=== PATIENT | female | born 1940 | race Caucasian/White ===

== ENCOUNTER 2020-01-30 01:25 | Outpatient (CLI) | payer MEDICARE, OTHER, SELFPAY ==
[2020-01-30 19:18] LABS: SARS-CoV-2 RNA PCR Negative
== END 2020-01-30 01:26 | disposition home or self-care (01) ==
LOC: ANHCOVIDDT 01:26
PROVIDERS: PCP Family Medicine; Visit Provider Specialist
DX: Z01.818 Encounter for other preprocedural examination (principal); Z11.59 Encounter for screening for other viral diseases
CPT/HCPCS: 87635; C9803; U0003

== ENCOUNTER 2020-02-01 05:42 | Day surgery (SDC) | payer MEDICARE, OTHER, SELFPAY ==
[2020-01-31 17:22] VITALS: BMI 32.5
[2020-02-01] VITALS (14 sets, daily range): BP systolic 103–144; BP diastolic 54–75; PULSE 60–75; RESP 11–23; TEMP 36.2–36.6; O2SAT 95–99; BMI 33.5
--- NOTE | 2020-02-01 08:45 | SUR.PREOP ---
0830-pt presents to the [facility] for an LHC. No chest pain noted. AOx4. Questions answered and verbalized understanding. Consent signed. AOx4. Moderate bilateral pedal pulses noted. Will continue to monitor.
[2020-02-01 08:49] LABS: Basophils Percent Auto 0.3 % (0.2-1.2); Eosinophils Absolute Auto 0.2 K/mm3 (0-0.3); Eosinophils Percent Auto 1.3 % (0-4.4); Hematocrit 35.7 % (37.0-47.0); Hemoglobin 11.4 g/dL (12.0-15.0); Immature Granulocyte Absolute 0.05 K/mm3 (0.00-0.031); Immature Granulocyte Percent A 0.4 % (0-0.5); Lymphocytes Absolute Auto 2.38 K/mm3 (0.9-3.2); Lymphocytes Percent Auto 19.9 % (18.3-44.2); Mean Corpuscular HGB Conc 31.9 g/dl (32-36); Mean Corpuscular Hemoglobin 27.7 pg (26-34); Mean Corpuscular Volume 86.7 fl (80-100); Mean Platelet Volume 10.6 fl (7.4-10.4); Monocytes Absolute Auto 1.1 K/mm3 (0.1-0.6); Monocytes Percent Auto 8.8 % (2.6-8.5); Neutrophils Absolute Auto 8.3 K/mm3 (1.3-6.7); Neutrophils Percent Auto 69.3 % (45.5-73.1); Platelet Count Result 250 k/mm3 (150-375); Red Blood Count 4.12 M/mm3 (4.2-5.4)
[2020-02-01 08:59] LABS: Prothrombin Time 13.1 Seconds (11.1-14.7)
[2020-02-01 09:02] LABS: Anion Gap 10.4 mmol/L (7-16); Blood Urea Nitrogen 22 mg/dL (7-17); Calcium 9.1 mg/dL (8.4-10.2); Carbon Dioxide 29 mmol/L (22-30); Chloride 103 mmol/L (98-107); Estimated CRCL calculation 34 ml/min; Estimated Glomerular Filt Rate 48; Glucose 107 mg/dL (65-105); Potassium 4.4 mmol/L (3.4-5.0); Sodium 138 mmol/L (137-145)
--- NOTE | 2020-02-01 11:27 | PM.IMHP ---
H&P: HPI History of Present Illness Date/Time: Date of service:02/01/20 11:27 Chief complaint: Abnormal Stress Test Narrative: Zaynab Chang is a 79 year old female History of coronary artery disease with percutaneous revascularization of the LAD and circumflex back in 2011. She is followed in the office by Dr. Salazar. During a recent office visit it was noticed that she was having more frequent PVCs and a Holter monitor was done demonstrating about 16% PVC burden. Because of this a nuclear stress test was done which was reported as showing a mild ischemic defect at the base of the anterior wall with normal left ventricular ejection fraction. For this reason a follow-up angiogram was recommended. She is not reporting any chest pain Review of Systems Constitutional: Constitutional: Reports no additional constitutional complaints Eyes: Eyes: Reports no additional eye complaints ENT: Reports system reviewed and no additional complaints, except as documented Cardiovascular: Cardiovascular: Reports no additional cardiovascular complaints Respiratory: Respiratory: Reports no additional respiratory complaints Gastrointestinal: Gastrointestinal: Reports no additional gastrointestinal complaints Musculoskeletal: Musculoskeletal: Reports no additional musculoskeletal complaints Integumentary/Breasts: Skin/Breast: Reports system reviewed and no additional complaints, except as docu Neurologic: Reports system reviewed and no additional complaints, except as documented Psychiatric: Psychiatric: Reports no additional psychiatric complaints [facility] Past Medical History Medical History (Updated 01/07/20 @ 12:41 by Smith Hollingsworth PA-C) History of myocardial infarction History of radiation therapy History of retinal detachment Surgical History Surgical History (System 08/24/19 @ 10:15 by Ping Aquino) History of partial mastectomy of right breast Family History Family History (System 08/24/19 @ 10:15 by Ping Aquino) Father Family history of diabetes mellitus in first degree relative Family history of coronary artery disease Other Hypertension Social History Social History Smoking status: Never smoker Alcohol intake: never Living arrangements: with family Gender identity (if verbalized by the patient): Female Spiritual care concerns: No Meds Home Medications and Allergies Home Medications Medication Instructions Recorded Confirmed Type anastrozole 1 mg PO DAILY 04/19/19 02/01/20 History aspirin [Aspir-81] 81 mg PO DAILY 04/19/19 02/01/20 History carvedilol 12.5 mg PO BID 04/19/19 02/01/20 History cholecalciferol (vitamin D3) 1,000 unit PO DAILY 04/19/19 02/01/20 History [Vitamin D3] sitagliptin [Januvia] 100 mg PO DAILY 04/19/19 02/01/20 History spironolactone 50 mg PO DAILY 04/19/19 02/01/20 History cyanocobalamin (vitamin B-12) 1,000 mcg IM [id number] 04/25/19 02/01/20 History blood sugar diagnostic #100 each 05/22/19 01/21/20 Rx omeprazole 40 mg capsule,delayed 40 mg PO DAILY #90 cap 05/22/19 02/01/20 Rx release atorvastatin 20 mg tablet 20 mg PO DAILY #90 tablet 06/18/19 02/01/20 Rx lisinopril 5 mg tablet 5 mg PO DAILY #90 tablet 09/10/19 02/01/20 Rx alprazolam 1 mg tablet 1 mg PO BID #60 tablet 01/07/20 02/01/20 Rx gabapentin 300 mg PO QID 02/01/20 02/01/20 History Allergies Allergy/AdvReac Type Severity Reaction Status Date / Time ciprofloxacin Allergy Mild Nausea and Verified 01/21/20 11:24 Vomiting clarithromycin Allergy Mild Nausea and Verified 01/21/20 11:24 Vomiting amoxicillin [From Augmentin] Allergy Unknown Nausea and Verified 01/21/20 11:24 Vomiting azithromycin Allergy Unknown Nausea and Verified 01/21/20 11:24 Vomiting clavulanic acid Allergy Unknown Nausea and Verified 01/21/20 11:24 Vomiting Nitrate Analogues Allergy Unknown Nausea and Verified 01/21/20 11:24 Vomiti
--- NOTE | 2020-02-01 11:54 | P.PCNCC_ITS ---
Cardiac Cath Procedure Note Date of procedure:: 02/01/20 Performing physician:: Smith Velasquez MD Indication:: history of coronary artery disease with previous PCI of the LAD and circumflex ventricular ectopic activity Brief clinical history:: 79-year-old woman with a history of coronary artery disease with interventional revascularization of the LAD and circumflex in the past. In office follow-up it was noted she had a lot of ectopic activity and has been found to have a significant PVC burden by Holter monitor. A nuclear stress test was done which was reported as showing anterior wall ischemia. Procedure Procedure performed:: Coronary angiography left ventriculography Sedation/Medication given:: fentanyl 50 mg Versed 2 mg case start time 11:37 a.m. case end time 11:49 a.m. sedation provided by Mahsa Gary RN, trained observer Access site:: right femoral artery Estimated blood loss:: 15-20 cc Procedure note:: patient was brought to the cardiac catheterization lab postabsorptive state Tyra the right femoral triangle was prepared in the usual fashion. Anesthesia was provided with % lidocaine infiltrated locally. Using the modified Seldinger technique right femoral artery was punctured and 5 Zimbabwean vascular sheath was placed. After this left heart catheterization was carried out. A 5 [place]an angled pigtail catheter was used to measure left-sided hemodynamics and to injected LV g in the [place] projection. After this the pigtail catheter was withdrawn and the left coronary artery was engaged and injected using a 5 [place]an FL4 catheter. After this the right coronary artery was engaged and injected using a 5 [place]an JR4 catheter. The cineangiograms were reviewed and angiogram was then done of the femoral artery through the sheath. It was determined that the sheath would be removed with direct manual compression. She was taken to the holding area for sheath removal / recovery. 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 Findings:: Hemodynamics: Central aortic pressure 134/49 left ventricle 134/4 and diastolic of 16. No pullback gradient noted across the aortic valve left ventriculogram demonstrates normal LV size all segments contract nicely the global ejection fraction is 60-65% by visual estimation the left main coronary artery is widely patent and large in caliber the LAD is a [id number] caliber vessel extending down to the apex. Gated visible stent material in the proximal LAD. The entire vessel is widely patent with no loss of lumen. The circumflex is a medium caliber vessel giving rise to the marginal branches. The mid circumflex has a previously deployed stent which is also easily visible. The circumflex artery is widely patent with no loss of lumen. Right coronary artery is medium in caliber and dominant to the posterior circulation the RCA is smooth and angiographically free of disease Conclusion:: 1. coronary artery disease with previous PCI to the LAD and circ umflex patient's coronary disease remains very nicely revascularized 2. normal left ventricular systolic function 3. false-positive stress test Smith Velasquez [facility]
--- NOTE | 2020-02-01 17:50 | SUR.PHASEII ---
1745-pt given D/C orders and instructions. Questions answered and verbalized understanding. AOx4. Groin soft and non-tender, no evidence of bleeding or hematoma noted. Moderate right pedal pulse noted. Taken via wheelchair to waiting vehicle. No distress noted or verbalized at time of departure.
== END 2020-02-01 17:45 | disposition home or self-care (01) ==
PROVIDERS: PCP Family Medicine; Visit Provider Specialist
PROC: 4A023N7 Measurement of Cardiac Sampling and Pressure, Left Heart, Percutaneous Approach (ICD-10-PCS; CPT 93452; principal; 2020-02-01 11:30)
DX: I25.10 Atherosclerotic heart disease of native coronary artery without angina pectoris (principal); R94.39 Abnormal result of other cardiovascular function study; Z95.5 Presence of coronary angioplasty implant and graft; I49.3 Ventricular premature depolarization; E78.5 Hyperlipidemia, unspecified; I25.2 Old myocardial infarction; I10 Essential (primary) hypertension; E11.9 Type 2 diabetes mellitus without complications; Z85.3 Personal history of malignant neoplasm of breast; Z79.82 Long term (current) use of aspirin; Z79.811 Long term (current) use of aromatase inhibitors; Z79.84 Long term (current) use of oral hypoglycemic drugs
CPT/HCPCS: 36415; 80048; 85025; 85610; 87635; 93458; C1769; C1887; C1894; C9803; J1644; J2250; J3010; J7040; U0003

== ENCOUNTER 2020-02-11 09:42 | Outpatient (CLI) | payer MEDICARE, OTHER, SELFPAY ==
--- NOTE | ~2020-02-11 | MM_ITS ---
EXAMINATION: MM screening irene BI w sma HISTORY: Screening TECHNIQUE: Craniocaudal and mediolateral oblique 3-D tomosynthesis images were obtained and synthetic 2-D images were generated. CAD analysis was submitted and interpreted. COMPARISON: Comparison to multiple prior studies sequentially, with oldest reviewed study dated 03/01. BREAST PARENCHYMAL COMPOSITION: There are scattered areas of fibroglandular density. FINDINGS: There are biopsy changes in the right breast. There is no evidence of suspicious mass, calc ification, or architectural distortion to suggest malignancy in either breast. There has been no susp icious interval change. IMPRESSION: 1. No mammographic evidence of malignancy. 2. Recommend routine screening mammography in one year. BI-RADS Category 1: Negative Reviewed, dictated and finalized at location A.
== END 2020-02-11 09:43 | disposition home or self-care (01) ==
PROVIDERS: PCP Family Medicine; Visit Provider Internal Medicine Hematology & Oncology
DX: Z12.31 Encounter for screening mammogram for malignant neoplasm of breast (principal)
CPT/HCPCS: 77063; 77067

== ENCOUNTER 2020-04-17 08:24 | Outpatient (CLI) | payer MEDICARE, OTHER, SELFPAY ==
--- NOTE | ~2020-04-17 | XR_ITS ---
EXAMINATION: XR lumbar spine 2-3V DATE: 04/17/2020 08:41 INDICATION: Low back pain TECHNIQUE: Anteroposterior and lateral views of the lumbar spine, and cone-down lateral view of the l umbosacral junction were obtained. COMPARISON: None. FINDINGS: There are 2 mm of anterolisthesis of L4 on L5 and L5 on S1. There is moderate loss of inter vertebral disc space height at L1-2 and mild loss of disc space height at L4-5. The vertebral body he ights are maintained. There is no fracture. There is mild facet osteoarthritis of the lower lumbar sp ine. Calcified atherosclerosis is noted. There are cholecystectomy clips in the right upper quadrant. A surgical staple line is seen in the left pelvis. IMPRESSION: 1. Mild lumbar spondylosis without acute findings. Reviewed, dictated and finalized at location A.
== END 2020-04-17 08:25 | disposition home or self-care (01) ==
LOC: ANHIMG 08:30
PROVIDERS: PCP Family Medicine; Visit Provider Family Medicine
DX: M47.816 Spondylosis without myelopathy or radiculopathy, lumbar region (principal)
CPT/HCPCS: 72100

== ENCOUNTER 2020-05-14 16:33 | Outpatient (CLI) | payer MEDICARE, OTHER, SELFPAY ==
--- NOTE | ~2020-05-14 | XR_ITS ---
XR abdomen/kub 1V DATE: 05/14/2020 16:48 INDICATION: Left lower quadrant abdominal pain TECHNIQUE: AP projection, 2 views COMPARISON: None FINDINGS: Surgical clips overlie the right upper quadrant, consistent with cholecystectomy. No visceromegaly is evident. There is no evidence of bowel obstruction. The lower lung zones are clear. No pleural effusion. IMPRESSION: Status post cholecystectomy; no evidence of bowel obstruction Reviewed, dictated and finalized at Location A. Reviewed, dictated and finalized at location A. 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
[2020-05-14 17:13] LABS: Basophils Absolute Auto 0.1 K/mm3 (0.0-0.1); Basophils Percent Auto 0.5 % (0.2-1.2); Eosinophils Absolute Auto 0.1 K/mm3 (0-0.3); Eosinophils Percent Auto 1.3 % (0-4.4); Hematocrit 39.1 % (37.0-47.0); Hemoglobin 12.4 g/dL (12.0-15.0); Immature Granulocyte Absolute 0.05 K/mm3 (0.00-0.031); Immature Granulocyte Percent A 0.4 % (0-0.5); Lymphocytes Absolute Auto 2.76 K/mm3 (0.9-3.2); Lymphocytes Percent Auto 24.7 % (18.3-44.2); Mean Corpuscular HGB Conc 31.7 g/dl (32-36); Mean Corpuscular Hemoglobin 27.9 pg (26-34); Mean Corpuscular Volume 88.1 fl (80-100); Mean Platelet Volume 10.4 fl (7.4-10.4); Monocytes Absolute Auto 1.1 K/mm3 (0.1-0.6); Monocytes Percent Auto 9.4 % (2.6-8.5); Neutrophils Absolute Auto 7.1 K/mm3 (1.3-6.7); Neutrophils Percent Auto 63.7 % (45.5-73.1); Platelet Count Result 283 k/mm3 (150-375); Red Blood Count 4.44 M/mm3 (4.2-5.4); Red Cell Distribution Width 13.1 % (11.5-14.5); White Blood Count 11.2 K/mm3 (4.5-10.0)
[2020-05-14 17:32] LABS: Alanine Aminotransferase 15 U/L (4-35); Albumin Level 4.4 g/dL (3.5-5.1); Alkaline Phosphatase 87 U/L (38-126); Anion Gap 7 mmol/L (8-16); Aspartate Amino Transferase 24 U/L (14-36); Bilirubin,Total 0.4 mg/dL (0.2-1.3); Blood Urea Nitrogen 21 mg/dL (7-17); Calcium 9.7 mg/dL (8.4-10.2); Carbon Dioxide 34 mmol/L (22-30); Chloride 99 mmol/L (98-107); Estimated Glomerular Filt Rate 39; Glucose 126 mg/dL (65-105); Potassium 4.5 mmol/L (3.4-5.0); Sodium 140 mmol/L (137-145)
== END 2020-05-14 16:34 | disposition home or self-care (01) ==
PROVIDERS: PCP Family Medicine; Visit Provider Physician Assistant
DX: R10.32 Left lower quadrant pain (principal); Z90.49 Acquired absence of other specified parts of digestive tract
CPT/HCPCS: 36415; 74018; 80053; 85025

== ENCOUNTER 2020-05-15 14:25 | Outpatient (CLI) | payer MEDICARE, OTHER, SELFPAY ==
--- NOTE | ~2020-05-15 | CT_ITS ---
EXAMINATION: CT abdomen pelvis w con DATE: 05/15/2020 14:55 INDICATION: Left lower quadrant abdominal pain. TECHNIQUE: Computed tomography (CT) of the abdomen and pelvis was performed with 100 mL Omnipaque 350 intravenous contrast. Automated exposure control and iterative reconstruction technique were employe d. The dose-length product was 648.83 mGy-cm. COMPARISON: CT abdomen and pelvis 01/05/2011 FINDINGS: The visualized portions of the lung bases demonstrate mild atelectasis. A calcified left isatu ng nodule is consistent with old granulomatous disease. No pleural effusion. The heart size is normal . There are coronary artery calcifications. No pericardial effusion. Calcifications in the liver and spleen are consistent with old granulomatous disease. There is chronic dilatation of the common duct to 11 mm, likely secondary to cholecystectomy. The pancreas and adrenal glands are normal. There are cysts in the kidneys measuring up to 15 mm on the right. There is cortical thinning of the kidneys. S tool distends the rectum. There is an anastomosis in the rectosigmoid. The appendix is not visualized . There are no pathologically enlarged lymph nodes. There is no free intraperitoneal fluid. There is moderate lumbar spondylosis. IMPRESSION: 1. Stool distends the rectum. Reviewed, dictated and finalized at location B. 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
== END 2020-05-15 14:26 | disposition home or self-care (01) ==
PROVIDERS: PCP Family Medicine; Visit Provider Physician Assistant
DX: D72.829 Elevated white blood cell count, unspecified (principal); R10.32 Left lower quadrant pain; Z87.19 Personal history of other diseases of the digestive system
CPT/HCPCS: 74177; Q9967

== ENCOUNTER 2020-06-23 14:40 | Outpatient (CLI) | payer MEDICARE, OTHER, SELFPAY ==
--- NOTE | ~2020-06-23 | DEXA_ITS ---
Bone Density Report Name: Zaynab Chang Age: 80 Sex: Female Ethnicity: White Date of : 1940 Indication: postmenopausal; height loss; cancer; hysterectomy; Referring Provider: OTTO TREVIÑO Study: Bone densitometry was performed. Exam Date: June 23, 2020 Accession number: [id number] Bone Density: Region BMD T-score Z-score Classification AP Spine (L1-L4) 0.904 -1.3 1.4 Osteopenia Femoral Neck (Left) 0.614 -2.1 0.2 Osteopenia Total Hip (Left) 0.822 -1.0 1.1 Normal Total Hip Bilateral Avg 0.812 -1.1 1.1 Osteopenia Femoral Neck (Right) 0.617 -2.1 0.3 Osteopenia Total Hip (Right) 0.800 -1.2 1.0 Osteopenia World Health Organization criteria for BMD impression classify patients as: Normal (T-score at or above -1.0), Osteopenia (T-score between -1.0 and -2.5), or Osteoporosis (T-score at or below -2.5). 10-year Fracture Risk(1): Major Osteoporotic Fracture 15% Hip Fracture 4.5% Reported Risk Factors: [place] (), Neck BMD=0.617, BMI=32.1 (1) FRAX(R) Version 3.08. Fracture probability calculated for an untreated patient. Fracture probability may be lower if the patient has received treatment. Previous Exams: Region Exam Age BMD T-score BMD Change BMD Change Date g/cm2 vs Baseline vs Previous AP Spine(L1-L4) 06/23/2020 80 0.904 -1.3 -0.082(-8.3%)# -0.052(-5.5%)* 01/26/2017 76 0.957 -0.8 -0.030(-3.0%)# 0.010(1.1%)# 04/12/2013 73 0.947 -0.9 -0.040(-4.0%)# -0.040(-4.0%)# 09/10/2008 68 0.986 -0.6 Total Hip(Left) 06/23/2020 80 0.822 -1.0 -0.024(-2.9%)# -0.084(-9.3%)* 01/26/2017 76 0.906 -0.3 0.060(7.1%)# 0.072(8.6%)# 04/12/2013 73 0.834 -0.9 -0.012(-1.4%)# -0.012(-1.4%)# 09/10/2008 68 0.847 -0.8 Total Hip(Right) 06/23/2020 80 0.800 -1.2 -0.038(-4.6%)# -0.131(-14.0%) 01/26/2017 76 0.931 -0.1 0.092(11.0%)# 0.063(7.2%)# 04/12/2013 73 0.868 -0.6 0.030(3.5%)# 0.030(3.5%)# 09/10/2008 68 0.839 -0.8 *Denotes significance at 95% confidence level, LSC for AP Spine = 0.022 g/cm2, LSC for Total Hip = 0.027 g/cm2 Clinical Information Provided by Patient: Has used the following medications: Vitamin D Has the following medical conditions: Cancer, Hysterectomy Patient maximum height was 62 Menopause Age: 42 No regular weight bearing exercise Drinks caffeinated beverages Onset of menses at age 14 Number of children 4 Impression: The patient has low bone ma
== END 2020-06-23 14:41 | disposition home or self-care (01) ==
PROVIDERS: PCP Family Medicine; Visit Provider Physician Assistant
DX: M85.88 Other specified disorders of bone density and structure, other site (principal); M85.852 Other specified disorders of bone density and structure, left thigh; M85.851 Other specified disorders of bone density and structure, right thigh
CPT/HCPCS: 77080

== ENCOUNTER 2021-01-01 01:05 | Day surgery (SDC) | payer MEDICARE, OTHER, SELFPAY ==
[2020-12-15 13:04] VITALS: BMI 32.3
[2021-01-01 07:52] VITALS: BP 144/54; PULSE 65; RESP 20; TEMP 36.8; O2SAT 91; BMI 33.0
[2021-01-01 08:06] LABS: Glucose Point of Care 158 mg/dl (65-105)
[2021-01-01] MEDS: LACTATED RINGERS 1,000 ML 150 ML IV CONT (08:14)
--- NOTE | 2021-01-01 08:43 | WPDANESEPPF ---
Anes - Initial Pre Proc Eval Procedure: Operation Date: 01/01/21 09:00 Proposed Procedures p Esophagogastroduodenoscopy - Ross Mallory DO Date/Time: 01/01/21 08:43 Surgeon: Ross Mallory DO Pre Op Diagnosis: GERD Patient Data Age: 80 Gender: F Height: 1.55 m Weight: 79.3 kg Last Vital Signs Temp 98.2 F 01/01/21 07:52 Pulse 65 01/01/21 07:52 Resp 20 01/01/21 07:52 BP 144/54 H 01/01/21 07:52 Pulse Ox 91 01/01/21 07:52 Allergies Allergy/AdvReac Type Severity Reaction Status Date / Time amoxicillin Allergy Nausea and Verified 12/30/20 12:01 Vomiting azithromycin Allergy Nausea and Verified 12/30/20 12:01 Vomiting ciprofloxacin Allergy Nausea and Verified 12/30/20 12:01 Vomiting clarithromycin Allergy Nausea and Verified 12/30/20 12:01 Vomiting clavulanic acid Allergy Nausea and Verified 12/30/20 12:01 Vomiting metronidazole Allergy Nausea and Verified 12/30/20 12:01 Vomiting neomycin Allergy Nausea and Verified 12/30/20 12:01 Vomiting nitrofurantoin Allergy Nervousness Verified 12/30/20 12:01 sulfamethizole Allergy Nausea and Verified 12/30/20 12:01 Vomiting sulfamethoxazole AdvReac Nausea and Verified 12/30/20 12:01 [From Bactrim] Vomiting trimethoprim [From Bactrim] AdvReac Nausea and Verified 12/30/20 12:01 Vomiting Home Medications Medication Instructions Recorded Confirmed Type anastrozole 1 mg PO DAILY 04/19/19 12/30/20 History aspirin [Aspir-81] 81 mg PO DAILY 04/19/19 01/01/21 History cholecalciferol (vitamin D3) 1,000 unit PO DAILY 04/19/19 01/01/21 History [Vitamin D3] cyanocobalamin (vitamin B-12) 1,000 mcg IM [id number] 04/25/19 01/01/21 History blood sugar diagnostic #100 each 05/22/19 12/30/20 Rx carvedilol 12.5 mg tablet 12.5 mg PO BID #180 tablet 03/25/20 01/01/21 Rx lancets #200 ea 05/08/20 12/30/20 Rx blood-glucose meter #1 ea 05/19/20 12/30/20 Rx blood sugar diagnostic #100 ea 05/23/20 12/30/20 Rx omeprazole 40 mg capsule,delayed 40 mg PO DAILY #90 cap 07/21/20 12/30/20 Rx release gabapentin 300 mg capsule 600 mg PO BID #360 cap 10/30/20 01/01/21 Rx alprazolam 1 mg tablet 1 mg PO BID PRN #60 tablet 12/17/20 01/01/21 Rx atorvastatin 20 mg tablet 20 mg PO DAILY #90 tablet 12/17/20 01/01/21 Rx lisinopril 5 mg tablet 5 mg PO DAILY #90 tablet 12/17/20 12/30/20 Rx sitagliptin 100 mg tablet 100 mg PO DAILY #90 tablet 12/17/20 12/30/20 Rx spironolactone 50 mg tablet 50 mg PO QAM #90 tablet 12/17/20 12/30/20 Rx Laboratory Tests 01/01/21 08:03 POC Capillary Glucose 158 mg/dl H mg/dl (65-105) Patient hx anesthesia problems: none Family hx anesthesia problems: none [facility] Past Medical History Medical History (Updated 01/01/21 @ 08:42 by Gallo Vasquez MD) CKD (chronic kidney disease), stage III GERD (gastroesophageal reflux disease) History of myocardial infarction History of radiation therapy History of retinal detachment HLD (hyperlipidemia) Neuropathy Type 2 diabetes mellitus with diabetic nephropathy Surgical History Surgical History History of partial mastectomy of right breast Family History Family History Father Family history of diabetes mellitus in first degree relative Family history of coronary artery disease Other Hypertension Social History Social History Smoking status: Never smoker Second hand tobacco smoke exposure: No Alcohol intake: never Substance use: never Substance use type: does not use Living arrangements: with family Gender identity (if verbalized by the patient): Female Spiritual care concerns: No Anes - Eval Final PreProcedure Day of Procedure 01/01/21 08:43 Patient weight: obese Heart: regular rate and rhythm Airway: Mallampati scale class II Neurological: marilee
--- NOTE | 2021-01-01 09:02 | WPDGICN ---
GI Consult Note Consult date/time: 01/01/21 09:02 HPI: Reason for visit is EGD. This very pleasant lady seen in consultation at the request of the primary physician. Impression: Your very pleasant lady with a history of GERD. She is having dysphagia. We evaluate for underlying ring or stricture. CKD. CAD with SD. Stent placement x2. Breast cancer status post Surgery with radiation treatment. HLD. HTN. Neuropathy. Diabetes mellitus. Recommendation: EGD. History: Very pleasant lady has a history reflux disease. Reflux seems well controlled with medication. She has been having dysphagia to solid foods. Nausea, vomiting hematemesis tonight. NSAID use is tonight. She is here for endoscopic evaluation. Physical examination: General: very pleasant patient in no acute distress. HEENT: Head was normocephalic sclerae is clear mouth without masses neck was supple. Heart: Rate rhythm regular without S3 or S4. Lungs: CTA. Abdomen: Soft with no guarding or rigidity. Bowel sounds were active. Neurologic: Cranial nerves 2 through 12 intact. No focal defects. No clonus. Musculoskeletal system: Revealed no joint tenderness or swelling no muscle atrophy. Extremities: Reveal no significant edema. Skin: Warm and dry with normal turgor. Mental status: intact. Patient is alert and oriented. Review of Systems Review of Systems: All systems reviewed & are unremarkable except as noted in HPI and below PMFSH Past Medical History Medical History (Updated 01/01/21 @ 08:42 by Gallo Vasquez MD) CKD (chronic kidney disease), stage III GERD (gastroesophageal reflux disease) History of myocardial infarction History of radiation therapy History of retinal detachment HLD (hyperlipidemia) Neuropathy Type 2 diabetes mellitus with diabetic nephropathy Surgical History Surgical History (Updated 01/01/21 @ 09:04 by Ross Mallory DO) H/O colonoscopy History of esophagogastroduodenoscopy (EGD) History of partial mastectomy of right breast S/P primary angioplasty with coronary stent Family History Family History Father Family history of diabetes mellitus in first degree relative Family history of coronary artery disease Other Hypertension Social History Social History Smoking status: Never smoker Second hand tobacco smoke exposure: No Alcohol intake: never Substance use: never Substance use type: does not use Living arrangements: with family Gender identity (if verbalized by the patient): Female Spiritual care concerns: No Meds Home Medications and Allergies Home Medications Medication Instructions Recorded Confirmed Type anastrozole 1 mg PO DAILY 04/19/19 12/30/20 History aspirin [Aspir-81] 81 mg PO DAILY 04/19/19 01/01/21 History cholecalciferol (vitamin D3) 1,000 unit PO DAILY 04/19/19 01/01/21 History [Vitamin D3] cyanocobalamin (vitamin B-12) 1,000 mcg IM [id number] 04/25/19 01/01/21 History blood sugar diagnostic #100 each 05/22/19 12/30/20 Rx carvedilol 12.5 mg tablet 12.5 mg PO BID #180 tablet 03/25/20 01/01/21 Rx lancets #200 ea 05/08/20 12/30/20 Rx blood-glucose meter #1 ea 05/19/20 12/30/20 Rx blood sugar diagnostic #100 ea 05/23/20 12/30/20 Rx omeprazole 40 mg capsule,delayed 40 mg PO DAILY #90 cap 07/21/20 12/30/20 Rx release gabapentin 300 mg capsule 600 mg PO BID #360 cap 10/30/20 01/01/21 Rx alprazolam 1 mg tablet 1 mg PO BID PRN #60 tablet 12/17/20 01/01/21 Rx atorvastatin 20 mg tablet 20 mg PO DAILY #90 tablet 12/17/20 01/01/21 Rx lisinopril 5 mg tablet 5 mg PO DAILY #90 tablet 12/17/20 12/30/20 Rx sitagliptin 100 mg tablet 100 mg PO DAILY #90 tablet 12/17/20 12/30/20 Rx spironolactone 50 mg tablet 50 mg PO QAM #90 tablet 12/17/20 12/30/20 Rx Allergies Allergy/AdvReac Type Severity Reaction Status Date / Time amoxicillin Allergy
[2021-01-01 09:17] VITALS: BP 132/55; PULSE 71; RESP 17; O2SAT 97
[2021-01-01 09:27] VITALS: BP 127/55; PULSE 69; RESP 18; O2SAT 95
[2021-01-01 09:37] VITALS: BP 132/61; PULSE 61; RESP 16; O2SAT 93
== END 2021-01-01 10:05 | disposition home or self-care (01) ==
PROVIDERS: PCP Family Medicine; Visit Provider Internal Medicine Gastroenterology
PROC: 0DJ08ZZ Inspection of Upper Intestinal Tract, Via Natural or Artificial Opening Endoscopic (ICD-10-PCS; CPT 43235; principal; 2021-01-01 09:00)
DX: K21.00 Gastro-esophageal reflux disease with esophagitis, without bleeding (principal); R13.10 Dysphagia, unspecified; K31.7 Polyp of stomach and duodenum; I12.9 Hypertensive chronic kidney disease with stage 1 through stage 4 chronic kidney disease, or unspecified chronic kidney disease; N18.30 Chronic kidney disease, stage 3 unspecified; E11.22 Type 2 diabetes mellitus with diabetic chronic kidney disease; E11.21 Type 2 diabetes mellitus with diabetic nephropathy; E11.40 Type 2 diabetes mellitus with diabetic neuropathy, unspecified; E78.5 Hyperlipidemia, unspecified; I25.2 Old myocardial infarction; Z79.84 Long term (current) use of oral hypoglycemic drugs; Z79.82 Long term (current) use of aspirin; Z79.811 Long term (current) use of aromatase inhibitors; Z85.3 Personal history of malignant neoplasm of breast; E66.9 Obesity, unspecified; Z68.33 Body mass index [BMI] 33.0-33.9, adult; Z95.5 Presence of coronary angioplasty implant and graft; Z92.3 Personal history of irradiation
CPT/HCPCS: 43239; 43450; 82948; 87081; 88305; J7120

== ENCOUNTER 2021-03-12 09:56 | Outpatient (CLI) | payer MEDICARE, OTHER, SELFPAY ==
--- NOTE | ~2021-03-12 | MM_ITS ---
EXAMINATION: MM screening irene BI w sam HISTORY: Screening mammogram TECHNIQUE: Craniocaudal and mediolateral oblique 3-D tomosynthesis images were obtained and synthetic 2-D images were generated. CAD analysis was submitted and interpreted. COMPARISON: 02/11/2020, 02/01/2019 bilateral digital screening mammogram examinations 08/18/2018 diagnostic right mammogram 01/30/2018 bilateral mammogram BREAST PARENCHYMAL COMPOSITION: The breasts are almost entirely fatty. FINDINGS: There are surgical clips and biopsy marker on the right side focal fat necrosis, consistent with history of right partial mastectomy and radiation therapy in 2017 for right breast cancer. There is no evidence of interval suspicious mass, calcification, or new architectural distortion to suggest malignancy in either breast. There has been no suspicious interval change. IMPRESSION: 1. No mammographic evidence of malignancy. 2. Recommend routine screening mammography in one year. BI-RADS Category 2: Benign finding(s). Reviewed, dictated and finalized at location A.
== END 2021-03-12 09:57 | disposition home or self-care (01) ==
LOC: ANHIMG 09:59
PROVIDERS: PCP Family Medicine; Visit Provider Nurse Practitioner Family
DX: Z12.31 Encounter for screening mammogram for malignant neoplasm of breast (principal)
CPT/HCPCS: 77063; 77067

== ENCOUNTER 2022-02-25 13:00 | Outpatient (NON) | payer MEDICARE, OTHER, SELFPAY | END 2022-02-25 13:01 | disposition home or self-care (01) | LOC: ANHLAB 02-26 08:05 | PROVIDERS: PCP Family Medicine; Visit Provider Internal Medicine Gastroenterology | DX: R13.10 Dysphagia, unspecified (principal) | CPT/HCPCS: 88305 ==

== ENCOUNTER 2022-03-15 10:18 | Outpatient (CLI) | payer MEDICARE, OTHER, SELFPAY ==
--- NOTE | ~2022-03-15 | MM_ITS ---
EXAMINATION: MM screening irene BI w sam HISTORY: Screening mammogram TECHNIQUE: Craniocaudal and mediolateral oblique 3-D tomosynthesis images were obtained and synthetic 2-D images were generated. CAD analysis was submitted and interpreted. COMPARISON: 03/12/2021, , 02/01/2019 bilateral screening mammogram examinations BREAST PARENCHYMAL COMPOSITION: There are scattered areas of fibroglandular density. FINDINGS: Scattered bilateral benign calcifications. ic History right partial mastectomy for breast cancer, which accounts for chronic benign fat necrosis in addition to associated stable architectural distortion in the very inner aspect of the mid inner rig ht breast There is otherwise no evidence of suspicious mass, calcification, or new architectural distortion to suggest malignancy in either breast. There has been no suspicious interval change. IMPRESSION: 1. Status post right partial mastectomy for breast cancer. No mammographic evidence of malignancy. 2. Recommend routine screening mammography in one year. BI-RADS Category 2: Benign finding(s). Reviewed, dictated and finalized at location A. IMPRESSION: 1. Status post right partial mastectomy for breast cancer. No mammographic evid ence of malignancy. 2. Recommend routine screening mammography in one year. BI-RADS Category 2: Benign finding(s).
== END 2022-03-15 10:19 | disposition home or self-care (01) ==
LOC: ANHIMG 10:20
PROVIDERS: PCP Family Medicine; Visit Provider Internal Medicine Hematology & Oncology
DX: Z12.31 Encounter for screening mammogram for malignant neoplasm of breast (principal)
CPT/HCPCS: 77063; 77067

== ENCOUNTER 2022-04-02 08:40 | Observation (INO) | payer MEDICARE, OTHER, SELFPAY ==
[2022-04-02] VITALS (8 sets, daily range): BP systolic 132–166; BP diastolic 48–87; PULSE 67–85; RESP 16–18; TEMP 35.8–36.2; O2SAT 95–98; BMI 33.5
--- NOTE | ~2022-04-02 | US_ITS ---
EXAMINATION: US abdomen limited DATE: 04/03/2022 13:48 INDICATION: Abnormal liver function tests. TECHNIQUE: Multiple grayscale and Doppler ultrasound images of the abdomen were obtained. COMPARISON: CT abdomen and pelvis 04/02/2022 FINDINGS: The visualized portions of the head, body, and tail of the pancreas are normal. The liver i s normal without focal lesion. There is normal flow in main portal vein. The gallbladder is absent. T he common duct is normal and measures 8 mm. IMPRESSION: 1. Normal right upper quadrant ultrasound status post cholecystectomy. Reviewed, dictated and finalized at location A.
--- NOTE | ~2022-04-02 | XR_ITS ---
EXAMINATION: XR chest 2V 04/02/2022 11:07 INDICATION: Leukocytosis PROCEDURE: 2 view chest COMPARISON: Comparison to multiple prior studies sequentially, with oldest reviewed study dated 02/2010. FINDINGS: The lungs are clear. The cardiomediastinal silhouette is within normal limits. There are no pleural effusions. There is no pneumothorax suspected. There is atherosclerosis of the aorta. No acute osseous abnormality. IMPRESSION: 1: NO ACUTE CARDIOPULMONARY DISEASE. Reviewed, dictated and finalized at location B.
--- NOTE | ~2022-04-02 | XR_ITS ---
EXAMINATION: XR abdomen/kub 1V DATE: 04/04/2022 12:43 INDICATION: Abdominal pain TECHNIQUE: A supine view of the abdomen on 2 radiographs was obtained. COMPARISON: CT dated 04/02/2022 FINDINGS: Small amount of gas in the stomach and scattered throughout the colon. Sigmoid colon with anastomotic suture line in the central pelvis. No dilated gas-filled loops of small bowel to suggest obstruction . Cholecystectomy clips in right upper quadrant. Lung bases are clear. Heart size is within normal li mits for AP technique. Moderate lumbar spondylosis. IMPRESSION: 1. Normal bowel gas pattern. Reviewed, dictated and finalized at location A.
--- NOTE | ~2022-04-02 | XR_ITS ---
EXAMINATION: XR abdomen/kub 1V INDICATION: Constipation TECHNIQUE: Supine views of the abdomen were obtained on 2 radiographs. COMPARISON: 05/14/2020 FINDINGS: The bowel gas pattern is normal. There is a moderate volume of colonic stool. There is a re ctosigmoid anastomosis. Cholecystectomy clips are noted in the right upper quadrant. There are no dil ated loops of bowel. The visualized lung bases are clear. IMPRESSION: 1. Moderate volume of colonic stool. Reviewed, dictated and finalized at location A.
--- NOTE | ~2022-04-02 | CT_ITS ---
EXAMINATION: CT abdomen pelvis w con INDICATION: Abdominal pain TECHNIQUE: Computed tomographic images of the abdomen and pelvis were obtained after the administrati on of 100 cc of Omnipaque 350 intravenous contrast. The dose-length product (DLP) was 544.84 mGy-cm. Automated exposure control and iterative reconstruction technique were employed. COMPARISON: 05/15/2020 FINDINGS: Minimal dependent atelectasis is present in the lung bases. The heart size is normal. The g allbladder is surgically absent. There is mild enlargement of the common bile duct and central intrah epatic ducts which is likely due to post cholecystectomy state. Punctate calcifications in otherwise normal appearing liver and spleen likely represent healed granulomatous disease. Cysts of the kidneys measure up to 1.7 cm on the right. There is a chronic 1.9 cm soft tissue density lesion of the right kidney lower pole without significant change. There is calcified atherosclerosis of the aorta and [place] of the other arteries. No pathologically enlarged abdominal or pelvic lymph nodes are identified. There is no free intraperitoneal gas or evidence of bowel obstruction. A rectosigmoid anastomosis is noted. There is moderate lumbar spondylosis. IMPRESSION: 1. No CT correlate for the patient's symptoms. Reviewed, dictated and finalized at location A.
--- NOTE | 2022-04-02 09:22 | ED.WEAKNESS ---
HPI - Weakness General Chief complaint: Weakness Stated complaint: weakness Time Seen by Provider: 04/02/22 09:02 Source: patient and family Mode of arrival: wheelchair Limitations: no limitations History of Present Illness HPI Narrative: This is an 81-year-old female that presents to the emergency department for generalized weakness. Reports she was having trouble with constipation. Her gave her a couple of stool softeners without relief. He then gave her a dose of milk of mag. She has been having diarrhea all night. She feels dehydrated and weak. Denies fever, vomiting, or dysuria. Related Data Home Medications Medication Instructions Recorded Confirmed anastrozole 1 mg tablet 1 mg PO DAILY 04/19/19 03/22/22 aspirin 81 mg tablet,delayed 81 mg PO DAILY 04/19/19 03/22/22 release (Aspir-) cholecalciferol (vitamin D3) 25 2,000 unit PO DAILY 04/19/19 03/22/22 mcg (1,000 unit) tablet (Vitamin D3) cyanocobalamin (vitamin B-12) 1,000 mcg IM [id number] 04/25/19 03/22/22 1,000 mcg/mL injection solution cyclosporine 0.05 % eye drops in a 1 drp EACH EYE Q12H 11/16/21 03/22/22 dropperette (Restasis) Allergies Allergy/AdvReac Type Severity Reaction Status Date / Time amoxicillin Allergy Nausea and Verified 03/22/22 11:52 Vomiting azithromycin Allergy Nausea and Verified 03/22/22 11:52 Vomiting ciprofloxacin Allergy Nausea and Verified 03/22/22 11:52 Vomiting clarithromycin Allergy Nausea and Verified 03/22/22 11:52 Vomiting clavulanic acid Allergy Nausea and Verified 03/22/22 11:52 Vomiting metronidazole Allergy Nausea and Verified 03/22/22 11:52 Vomiting neomycin Allergy Nausea and Verified 03/22/22 11:52 Vomiting nitrofurantoin Allergy Nervousness Verified 03/22/22 11:52 sulfamethizole Allergy Nausea and Verified 03/22/22 11:52 Vomiting metformin AdvReac Intermediate diarrhea Verified 03/22/22 11:52 sulfamethoxazole AdvReac Nausea and Verified 03/22/22 11:52 [From Bactrim] Vomiting trimethoprim [From Bactrim] AdvReac Nausea and Verified 03/22/22 11:52 Vomiting Review of Systems Review of Systems: CONSTITUTIONAL: Denies fever GASTROINTESTINAL: Reports abdominal pain, and diarrhea. Denies nausea or vomiting. GENITOURINARY: Denies dysuria All systems reviewed & are unremarkable except as noted in HPI and below PMFSH Past Medical History Medical History (Updated 04/02/22 @ 12:43 by Karina Coy PA-C) CAD (coronary artery disease) CKD (chronic kidney disease), stage III Foot pain, bilateral GERD (gastroesophageal reflux disease) History of myocardial infarction History of radiation therapy History of retinal detachment HLD (hyperlipidemia) HX: breast cancer Labia irritation Neuropathy Tear of medial meniscus of left knee Type 2 diabetes mellitus with diabetic nephropathy Surgical History Surgical History (Updated 04/02/22 @ 12:37 by Yessenia Padlila NP) H/O cataract extraction H/O colonoscopy H/O lumpectomy History of esophagogastroduodenoscopy (EGD) History of partial mastectomy of right breast S/P primary angioplasty with coronary stent x 2 Family History Family History (Updated 04/02/22 @ 12:38 by Yessenia Padilla NP) Father Family history of diabetes mellitus in first degree relative Family history of coronary artery disease Mother Dementia Other Hypertension Social History Social History 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
[2022-04-02] MEDS: SODIUM CHLORIDE 0.9% IV 1,000 ML 999 ML IV CONT (09:30)
[2022-04-02] MEDS: ONDANSETRON INJ 4 MG/2 ML VIAL IV PUSH (09:31)
[2022-04-02 09:37] LABS: Basophils Absolute Auto 0.1 K/mm3 (0.0-0.1); Basophils Percent Auto 0.2 % (0.2-1.2); Eosinophils Percent Auto 0.1 % (0-4.4); Hematocrit 34.1 % (37.0-47.0); Hemoglobin 11.4 g/dL (12.0-15.0); Immature Granulocyte Absolute 0.19 K/mm3 (0.00-0.031); Immature Granulocyte Percent A 0.9 % (0-0.5); Lymphocytes Absolute Auto 2.17 K/mm3 (0.9-3.2); Lymphocytes Percent Auto 10.3 % (18.3-44.2); Mean Corpuscular HGB Conc 33.4 g/dl (32-36); Mean Corpuscular Hemoglobin 28.8 pg (26-34); Mean Corpuscular Volume 86.1 fl (80-100); Mean Platelet Volume 10.3 fl (7.4-10.4); Monocytes Percent Auto 9.5 % (2.6-8.5); Neutrophils Absolute Auto 16.7 K/mm3 (1.3-6.7); Platelet Count Result 392 k/mm3 (150-375); Red Blood Count 3.96 M/mm3 (4.2-5.4); Red Cell Distribution Width 12.8 % (11.5-14.5); White Blood Count 21.1 K/mm3 (4.5-10.0)
[2022-04-02 10:00] LABS: Appearance Urine Clear (Clear); Bilirubin Urine Negative (Negative); Blood Urine Trace-intact (Negative); Color Urine Yellow (Yellow); Glucose Urine UA Negative (Negative); Ketones Urine Trace mg/dL (Negative); Leukocyte Esterase Ur Negative LEU/UL (Negative); Nitrate Urine Negative (Negative); Protein Urine 1+ mg/dL (Negative); Urobilinogen Urine 0.2 mg/dL (<2.0)
[2022-04-02 10:01] LABS: Alanine Aminotransferase 60 U/L (6-35); Albumin Level 4.2 g/dL (3.5-5.1); Alkaline Phosphatase 97 U/L (38-126); Anion Gap 10 mmol/L (8-16); Aspartate Amino Transferase 63 U/L (14-36); Bilirubin,Total 0.9 mg/dL (0.2-1.3); Blood Urea Nitrogen 20 mg/dL (7-17); Calcium 9.3 mg/dL (8.4-10.2); Carbon Dioxide 28 mmol/L (22-30); Chloride 85 mmol/L (98-107); Estimated CRCL calculation 36 ml/min; Estimated Glomerular Filt Rate 53; Glucose 142 mg/dL (65-110); Lipase 223 U/L (23-300); Sodium 123 mmol/L (137-145)
[2022-04-02 10:46] LABS: Mucus Urine Rare /lpf; RBC Urine 0-2 /hpf (0-2); WBC Urine 0-3 /hpf
[2022-04-02 10:47] LABS: Add Urine Microscopic? YES
[2022-04-02 11:48] LABS: Lactic Acid Reflex 1.2 mmol/L (0.7-2.0)
--- NOTE | 2022-04-02 12:32 | PM.IMHP ---
H&P: HPI History of Present Illness Date/Time: 04/02/22 12:32 Chief Complaint: This is a 81-year-old female patient who tested positive for COVID approximately 1 week ago. The patient is now coming to the hospital with complaints of generalized weakness. The patient stated that she does have some kidney problems in she recently was taking paxlovid outpatient. Which this medication can have a side effect of diarrhea. However the patient stated that she was constipated so her gave her couple stool softeners and she had no results so then he gave her dose of milk of magnesia. And she has been having diarrhea all night. The patient feels dehydrated weak. Her white count was noted to be 21.1. Her H&H is 11.4 and 34.1. Her sodium initially was 123 and then 126. BUN and creatinine are normal glucose 125. Liver enzymes are slightly elevated AST is 63 and ALT is 60. The patient was given IV fluids and IV Tylenol as well as IV Zofran. The patient is being admitted to observation status on the date of service of 04/02/2022. Review of Systems Review of Systems: See HPI All systems reviewed & are unremarkable except as noted in HPI and below Constitutional: Constitutional: Reports as per HPI and Reports no additional constitutional complaints Eyes: Eyes: Reports as per HPI and Reports no additional eye complaints ENT: Reports system reviewed and no additional complaints, except as documented and Reports Normal hearing present Cardiovascular: Cardiovascular: Reports no additional cardiovascular complaints Respiratory: Respiratory: Reports no additional respiratory complaints and Reports no additional respiratory complaints Gastrointestinal: Gastrointestinal: Reports as per HPI and Reports no additional gastrointestinal complaints Musculoskeletal: Musculoskeletal: Reports no additional musculoskeletal complaints Integumentary/Breasts: Skin/Breast: Reports system reviewed and no additional complaints, except as docu and Reports as per HPI Neurologic: Reports system reviewed and no additional complaints, except as documented, Reports as per HPI and Reports Normal hearing present Psychiatric: Psychiatric: Reports no additional psychiatric complaints and Reports as per HPI Endocrine: Endocrine: Reports no additional endocrine complaints Hematologic/Lymphatic: Hematologic/Lymphatic: Reports no additional hematologic/lymphatic complaints Allergic/Immunologic: Allergic/Immunologic: Reports no additional allergic/immunologic complaints [facility] Past Medical History Medical History (Updated 04/02/22 @ 15:25 by Yessenia Padilla NP) Blind Left eye CAD (coronary artery disease) CKD (chronic kidney disease), stage III Foot pain, bilateral GERD (gastroesophageal reflux disease) History of myocardial infarction History of radiation therapy History of retinal detachment HLD (hyperlipidemia) HX: breast cancer Labia irritation Neuropathy Tear of medial meniscus of left knee Type 2 diabetes mellitus with diabetic nephropathy Surgical History Surgical History H/O cataract extraction H/O colonoscopy H/O lumpectomy History of esophagogastroduodenoscopy (EGD) History of partial mastectomy of right breast S/P primary angioplasty with coronary stent x 2 Family History Family History Father Family history of diabetes mellitus in first degree relative Family history of coronary artery disease Mother Dementia Other Hypertension Social History Social History (Updated 04/02/22 @ 15:27 by Yessenia Padilla NP) Social History: She is and her poa is her . 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 She is a lifelong nonsmoker. She does not use any alcohol marijuana or illicit drugs. Code status full code Smoking status:
[2022-04-02 13:25] LABS: Sodium Urine Random 21 meq/L
--- NOTE | 2022-04-02 13:39 | ADMGEN ---
This patient, Zaynab Chang, was admitted to [facility] Surg Room 306-01 at 1330. Patient/family oriented to hospital policies and general routines including ID bracelet, bed and alarms, visiting hours, pain management, procedures, bathroom and other care routines, personal items, smoking policy, room service/diet, and visiting hours. Information on how to activate the Rapid Response Team has been discussed. Patient/Family are encouraged to report perceived risks to care and to ask questions if they do not understand what they are told or what they should do.
[2022-04-02 13:59] LABS: Anion Gap 8 mmol/L (8-16); Blood Urea Nitrogen 15 mg/dL (7-17); Calcium 8.9 mg/dL (8.4-10.2); Carbon Dioxide 28 mmol/L (22-30); Chloride 90 mmol/L (98-107); Estimated CRCL calculation 41 ml/min; Estimated Glomerular Filt Rate 60; Glucose 125 mg/dL (65-110); Potassium 3.7 mmol/L (3.4-5.0); Sodium 126 mmol/L (137-145)
[2022-04-02] MEDS: SODIUM CHLORIDE 0.9% IV 1,000 ML 75 ML IV CONT (14:37)
[2022-04-02 16:23] LABS: Glucose Point of Care 124 mg/dl (65-105)
[2022-04-02 17:05] LABS: Anion Gap 9 mmol/L (8-16); Blood Urea Nitrogen 14 mg/dL (7-17); Calcium 8.9 mg/dL (8.4-10.2); Carbon Dioxide 26 mmol/L (22-30); Chloride 93 mmol/L (98-107); Estimated CRCL calculation 41 ml/min; Estimated Glomerular Filt Rate 60; Glucose 125 mg/dL (65-110); Potassium 3.7 mmol/L (3.4-5.0); Sodium 128 mmol/L (137-145)
[2022-04-02] MEDS: BISACODYL 10 MG SUPPOSITORY RECTAL (17:24)
[2022-04-02] MEDS: carvediloL 12.5 MG TABLET PO (17:24)
[2022-04-02] MEDS: GABAPENTIN 300 MG CAPSULE 600 MG PO (17:24)
[2022-04-02] MEDS: cycloSPORINE 0.4 ML OPHTH SOLUTION 1 DROP EACH EYE (20:10)
[2022-04-02 21:36] LABS: Anion Gap 10 mmol/L (8-16); Blood Urea Nitrogen 12 mg/dL (7-17); Calcium 8.6 mg/dL (8.4-10.2); Carbon Dioxide 27 mmol/L (22-30); Chloride 92 mmol/L (98-107); Estimated CRCL calculation 45 ml/min; Estimated Glomerular Filt Rate > 60; Glucose 125 mg/dL (65-110); Sodium 129 mmol/L (137-145)
[2022-04-03 04:34] VITALS: BP 139/51; PULSE 71; RESP 18; TEMP 36.4; O2SAT 95
[2022-04-03] MEDS: SODIUM CHLORIDE 0.9% IV 1,000 ML 75 ML IV CONT ×2 (04:43→21:06)
[2022-04-03] MEDS: ALPRAZolam (*CRX) 0.5 MG TABLET 1 MG PO (06:07)
[2022-04-03 06:21] LABS: Basophils Absolute Auto 0.1 K/mm3 (0.0-0.1); Basophils Percent Auto 0.5 % (0.2-1.2); Eosinophils Absolute Auto 0.1 K/mm3 (0-0.3); Eosinophils Percent Auto 0.6 % (0-4.4); Hematocrit 34.5 % (37.0-47.0); Hemoglobin 10.8 g/dL (12.0-15.0); Immature Granulocyte Absolute 0.16 K/mm3 (0.00-0.031); Immature Granulocyte Percent A 1.1 % (0-0.5); Lymphocytes Absolute Auto 2.03 K/mm3 (0.9-3.2); Lymphocytes Percent Auto 13.9 % (18.3-44.2); Mean Corpuscular HGB Conc 31.3 g/dl (32-36); Mean Corpuscular Hemoglobin 28.6 pg (26-34); Mean Corpuscular Volume 91.3 fl (80-100); Mean Platelet Volume 10.1 fl (7.4-10.4); Monocytes Absolute Auto 1.4 K/mm3 (0.1-0.6); Monocytes Percent Auto 9.8 % (2.6-8.5); Neutrophils Absolute Auto 10.8 K/mm3 (1.3-6.7); Neutrophils Percent Auto 74.1 % (45.5-73.1); Platelet Count Result 333 k/mm3 (150-375); Red Blood Count 3.78 M/mm3 (4.2-5.4); Red Cell Distribution Width 13.1 % (11.5-14.5); White Blood Count 14.6 K/mm3 (4.5-10.0)
[2022-04-03 06:27] LABS: Alanine Aminotransferase 61 U/L (6-35); Albumin Level 3.7 g/dL (3.5-5.1); Alkaline Phosphatase 82 U/L (38-126); Anion Gap 10 mmol/L (8-16); Aspartate Amino Transferase 46 U/L (14-36); Bilirubin,Total 0.4 mg/dL (0.2-1.3); Blood Urea Nitrogen 12 mg/dL (7-17); Calcium 8.8 mg/dL (8.4-10.2); Carbon Dioxide 25 mmol/L (22-30); Chloride 96 mmol/L (98-107); Estimated CRCL calculation 41 ml/min; Estimated Glomerular Filt Rate 60; Glucose 122 mg/dL (65-110); Lactate Dehydrogenase 186 U/L (120-246); Lipase 241 U/L (23-300); Magnesium 2.1 mg/dL (1.6-2.3); Sodium 131 mmol/L (137-145)
[2022-04-03 06:28] LABS: Lactic Acid Reflex 0.8 mmol/L (0.7-2.0)
[2022-04-03 07:11] LABS: Hemoglobin A1C 6.1 % (<5.7)
[2022-04-03] MEDS: CHOLECALCIFEROL 1,000 UNITS TABLET 2000 UNITS PO (08:00)
[2022-04-03 08:01] VITALS: PULSE 60
[2022-04-03] MEDS: ATORVASTATIN 20 MG TABLET PO (08:01)
[2022-04-03] MEDS: GABAPENTIN 300 MG CAPSULE 600 MG PO ×2 (08:01→16:14)
[2022-04-03] MEDS: ASPIRIN 81 MG ENTERIC TABLET PO (08:01)
[2022-04-03] MEDS: ANASTROZOLE (*CHEMO) 1 MG TABLET PO (08:01)
[2022-04-03] MEDS: carvediloL 12.5 MG TABLET PO ×2 (08:01→16:14)
[2022-04-03] MEDS: cycloSPORINE 0.4 ML OPHTH SOLUTION 1 DROP EACH EYE ×2 (08:05→21:00)
[2022-04-03] MEDS: PANTOPRAZOLE 40 MG TABLET PO ×2 (08:08→21:00)
[2022-04-03 08:19] LABS: Glucose Point of Care 121 mg/dl (65-105)
--- NOTE | 2022-04-03 10:37 | PC.NURSE ---
patient to have ultrasound today. Ultrasound needs patient to be npo for procedure. patient made npo
[2022-04-03 10:51] LABS: Hepatitis B Surface Antigen Negative (Negative)
[2022-04-03 10:57] LABS: HAV RESULT Negative (Negative); Hepatitis B Core IgM Result Negative (Negative)
[2022-04-03 11:08] LABS: Hepatitis C Virus Antibody Negative (Negative)
[2022-04-03 12:06] LABS: Glucose Point of Care 119 mg/dl (65-105)
--- NOTE | 2022-04-03 13:29 | PC.NURSE ---
to US per w/c
[2022-04-03] MEDS: LIDOCAINE 5% PATCH 1 PATCH TRANSDERM (13:47)
[2022-04-03 14:00] VITALS: BP 134/51; PULSE 62; RESP 18; TEMP 35.9; O2SAT 96
--- NOTE | 2022-04-03 14:51 | PM.IMPN ---
Progress Note: A&P Assessment and Plan (1) Acute hyponatremia: Code(s): E87.1 - Hypo-osmolality and hyponatremia Status: Acute Assessment and Plan: Sodium 123 on admission. Sodium 136-138 earlier this month, suggesting acute hyponatremia, most likely related to the watery liquid stools. continue to IV hydration. Sodium 131 this am. Continue to hold lisinopril and spironolactone. Trend sodium level & monitor neuro status. (2) Dehydration: Code(s): E86.0 - Dehydration Status: Acute Assessment and Plan: As above. Continue IV hydration. (3) Weakness: Code(s): R53.1 - Weakness Status: Acute Assessment and Plan: Presumed secondary to dehydration, recent COVID19 viral infection and hyponatremia. Continue hydration and sodium replacement. Consult PT/OT for evaluation. Fall precautions. (4) Type 2 diabetes mellitus with diabetic nephropathy: Qualifiers: Diabetes mellitus halfway insulin use: without termite exterminator use Qualified Code(s): E11.21 - Type 2 diabetes mellitus with diabetic nephropathy Code(s): E11.21 - Type 2 diabetes mellitus with diabetic nephropathy Status: Acute Assessment and Plan: Chronic, stable, non-insulin dependent diabetes mellitus. A1c 6.1% and well controlled on current medications. Continue Accu-Cheks with aspart meal correction scale, low dose. Continue sitagliptin for now. (5) CAD (coronary artery disease): Code(s): I25.10 - Atherosclerotic heart disease of [place] coronary artery without angina pectoris Status: Acute Assessment and Plan: Chronic, stable, s/p 2 prior coronary stents. continue aspirin and coreg. LFTs mildly elevated- check liver US. (6) Hypertensive heart and chronic kidney disease without heart failure, with stage 1 through stage 4 chronic kidney disease, or unspecified chronic kidney disease: Code(s): I13.10 - Hypertensive heart and chronic kidney disease without heart failure, with stage 1 through stage 4 chronic kidney disease, or unspecified chronic kidney disease Status: Chronic Assessment and Plan: chronic kidney disease stage 3, secondary to dehydration. Monitor on fluids Avoid nephrotoxic agents. Hold lisinopril and spironolactone. (7) Chronic anemia: Code(s): D64.9 - Anemia, unspecified Status: Chronic Assessment and Plan: Chronic, stable. At baseline. No s/s complications Plan CODE STATUS: DNR Disposition: Home with spouse Time Spent With Patient Time with patient: 15 - 25 minutes Subjective Date/time seen: 04/03/22 14:51 Patient reports 3 stools today that were loose. She has improved left lower quadrant pain. No nausea or vomiting. She denies chest pain or SOB. Urine output has increased and her weakness is unchanged. Review of Systems Review of Systems: All systems reviewed & are unremarkable except as noted in HPI and below Exam Narrative: General:??No acute distress.? Nontoxic. Well-developed older adult female sitting up in the bed. HEENT:??Normocephalic.?Atraumatic. Pupils equal and round. EOM intact. Sclera anicteric. Oral mucosa moist.?[place] Neck:??Supple without lymphadenopathy. Thyroid without nodularity. No JVD. Chest:?Lungs are clear to auscultation bilaterally. RR regular and unlabored. Heart:??Normal S1 and S2 regular rate and rhythm. No murmurs, gallops or rubs. Abdomen:??soft, obese, nontender to palpation, and nondistended with normoactive bowel sounds. No guarding or suprapubic tenderness. Back:?No CVA tenderness. Skin:??Warm and dry.? Normal color for ethnicity. No rashes or lesions. Extremities:?Moves all 4 extremities equally with grossly normal ROM. Generalize weakness throughout. No edema. Radial and pedal pulses palpable and equal. Neuro:??Alert and oriented x4. Hand grasps equal, dorsi and plantar flexion equal. Cranial nerves 2-12 normal
[2022-04-03 16:06] LABS: Glucose Point of Care 121 mg/dl (65-105)
[2022-04-03 16:14] VITALS: PULSE 58
[2022-04-03 19:36] VITALS: BP 138/48; PULSE 62; RESP 18; TEMP 35.7; O2SAT 98
[2022-04-03 20:00] VITALS: PULSE 62; RESP 18; O2SAT 98
[2022-04-03 21:14] LABS: Glucose Point of Care 102 mg/dl (65-105)
[2022-04-04 03:28] VITALS: BP 163/87; PULSE 85; RESP 20; TEMP 36.6; O2SAT 97
[2022-04-04 07:51] LABS: Glucose Point of Care 118 mg/dl (65-105)
[2022-04-04 08:15] LABS: Alanine Aminotransferase 51 U/L (6-35); Albumin Level 3.5 g/dL (3.5-5.1); Alkaline Phosphatase 73 U/L (38-126); Anion Gap 7 mmol/L (8-16); Aspartate Amino Transferase 33 U/L (14-36); Bilirubin,Total 0.3 mg/dL (0.2-1.3); Blood Urea Nitrogen 11 mg/dL (7-17); Calcium 8.7 mg/dL (8.4-10.2); Carbon Dioxide 24 mmol/L (22-30); Chloride 101 mmol/L (98-107); Estimated CRCL calculation 41 ml/min; Estimated Glomerular Filt Rate 60; Glucose 115 mg/dL (65-110); Potassium 3.8 mmol/L (3.4-5.0); Sodium 132 mmol/L (137-145)
[2022-04-04] MEDS: cycloSPORINE 0.4 ML OPHTH SOLUTION 1 DROP EACH EYE ×2 (09:02→20:28)
[2022-04-04 09:03] VITALS: PULSE 85
[2022-04-04] MEDS: GABAPENTIN 300 MG CAPSULE 600 MG PO ×2 (09:03→16:48)
[2022-04-04] MEDS: ATORVASTATIN 20 MG TABLET PO (09:03)
[2022-04-04] MEDS: carvediloL 12.5 MG TABLET PO ×2 (09:03→16:49)
[2022-04-04] MEDS: PANTOPRAZOLE 40 MG TABLET PO ×2 (09:03→20:28)
[2022-04-04] MEDS: ASPIRIN 81 MG ENTERIC TABLET PO (09:06)
[2022-04-04] MEDS: CHOLECALCIFEROL 1,000 UNITS TABLET 2000 UNITS PO (09:06)
[2022-04-04] MEDS: ANASTROZOLE (*CHEMO) 1 MG TABLET PO (09:06)
[2022-04-04] MEDS: SODIUM CHLORIDE 0.9% IV 1,000 ML 75 ML IV CONT (09:11)
[2022-04-04] MEDS: LIDOCAINE 5% PATCH 1 PATCH TRANSDERM (09:12)
[2022-04-04 11:34] LABS: Glucose Point of Care 136 mg/dl (65-105)
--- NOTE | 2022-04-04 12:46 | P.DS_ITS ---
DS: Discharge Diagnosis Discharge Diagnosis (1) Acute hyponatremia: Code(s): E87.1 - Hypo-osmolality and hyponatremia Status: Acute Assessment and Plan: Sodium 123 on admission. Sodium 136-138 earlier this month, suggesting acute hyponatremia, most likely related to the watery liquid stools. * continue to IV hydration. * Sodium 131 this am. * Continue to hold lisinopril and spironolactone. * Trend sodium level & monitor neuro status. (2) Dehydration: Code(s): E86.0 - Dehydration Status: Acute Assessment and Plan: As above. Continue IV hydration. (3) Weakness: Code(s): R53.1 - Weakness Status: Acute Assessment and Plan: Presumed secondary to dehydration, recent COVID19 viral infection and hyp onatremia. * Continue hydration and sodium replacement. * Consult PT/OT for evaluation. * Fall precautions. (4) Type 2 diabetes mellitus with diabetic nephropathy: Qualifiers: Diabetes mellitus intermediate accountant insulin use: without intermediate accountant use Qualified Code(s): E11.21 - Type 2 diabetes mellitus with diabetic nephropathy Code(s): E11.21 - Type 2 diabetes mellitus with diabetic nephropathy Status: Acute Assessment and Plan: Chronic, stable, non-insulin dependent diabetes mellitus. A1c 6.1% and well controlled on current medications. * Continue Accu-Cheks with aspart meal correction scale, low dose. * Continue sitagliptin for now. (5) CAD (coronary artery disease): Code(s): I25.10 - Atherosclerotic heart disease of [place] coronary artery without angina pectoris Status: Acute Assessment and Plan: Chronic, stable, s/p 2 prior coronary stents. * continue aspirin and coreg. * LFTs mildly elevated- check liver US. (6) Hypertensive heart and chronic kidney disease without heart failure, with stage 1 through stage 4 chronic kidney disease, or unspecified chronic kidney disease: Code(s): I13.10 - Hypertensive heart and chronic kidney disease without heart failure, with stage 1 through stage 4 chronic kidney disease, or unspecified chronic kidney disease Status: Chronic Assessment and Plan: chronic kidney disease stage 3, secondary to dehydration. * Monitor on fluids * Avoid nephrotoxic agents. * Hold lisinopril and spironolactone. (7) Chronic anemia: Code(s): D64.9 - Anemia, unspecified Status: Chronic Assessment and Plan: Chronic, stable. At baseline. No s/s complications DS: Summary Time Spent with Patient Time attestation: Total time spent providing and/or coordinating discharge services: Exam 2 Narrative: General:??No acute distress.? Nontoxic. Well-developed older adult female sitting up in the bed. HEENT:??Normocephalic.?Atraumatic. Pupils equal and round. EOM intact. Sclera anicteric. Oral mucosa moist.?[place]. Neck:??Supple without lymphadenopathy. Thyroid without nodularity. No JVD. Chest:?Lungs are clear to auscultation bilaterally. RR regular and unlabored. Heart:??Normal S1 and S2 regular rate and rhythm. No murmurs, gallops or rubs. Abdomen:??soft, obese, nontender to palpation, and nondistended with normoactive bowel sounds. No guarding or suprapubic tenderness. Back:?No CVA tenderness. Skin:??Warm and dry.? Normal color for ethnicity. No rashes or lesions. Extremities:?Moves all 4 extremities equally with grossly normal ROM. Generalize weakness throughout. No edema. Radial and pedal pulses palpable and equal. Neuro:??Alert and oriented x4.
--- NOTE | 2022-04-04 12:46 | PM.DS ---
DS: Discharge Diagnosis Discharge Diagnosis (1) Acute hyponatremia: Code(s): E87.1 - Hypo-osmolality and hyponatremia Status: Acute Assessment and Plan: Sodium 123 on admission. Sodium 136-138 earlier this month, suggesting acute hyponatremia, most likely related to the watery liquid stools. continue to IV hydration. Sodium 131 this am. Continue to hold lisinopril and spironolactone. Trend sodium level & monitor neuro status. (2) Dehydration: Code(s): E86.0 - Dehydration Status: Acute Assessment and Plan: As above. Continue IV hydration. (3) Weakness: Code(s): R53.1 - Weakness Status: Acute Assessment and Plan: Presumed secondary to dehydration, recent COVID19 viral infection and hyponatremia. Continue hydration and sodium replacement. Consult PT/OT for evaluation. Fall precautions. (4) Type 2 diabetes mellitus with diabetic nephropathy: Qualifiers: Diabetes mellitus long term care phlebotomist insulin use: without long term care phlebotomist use Qualified Code(s): E11.21 - Type 2 diabetes mellitus with diabetic nephropathy Code(s): E11.21 - Type 2 diabetes mellitus with diabetic nephropathy Status: Acute Assessment and Plan: Chronic, stable, non-insulin dependent diabetes mellitus. A1c 6.1% and well controlled on current medications. Continue Accu-Cheks with aspart meal correction scale, low dose. Continue sitagliptin for now. (5) CAD (coronary artery disease): Code(s): I25.10 - Atherosclerotic heart disease of [place] coronary artery without angina pectoris Status: Acute Assessment and Plan: Chronic, stable, s/p 2 prior coronary stents. continue aspirin and coreg. LFTs mildly elevated- check liver US. (6) Hypertensive heart and chronic kidney disease without heart failure, with stage 1 through stage 4 chronic kidney disease, or unspecified chronic kidney disease: Code(s): I13.10 - Hypertensive heart and chronic kidney disease without heart failure, with stage 1 through stage 4 chronic kidney disease, or unspecified chronic kidney disease Status: Chronic Assessment and Plan: chronic kidney disease stage 3, secondary to dehydration. Monitor on fluids Avoid nephrotoxic agents. Hold lisinopril and spironolactone. (7) Chronic anemia: Code(s): D64.9 - Anemia, unspecified Status: Chronic Assessment and Plan: Chronic, stable. At baseline. No s/s complications DS: Summary Time Spent with Patient Time attestation: Total time spent providing and/or coordinating discharge services: Exam Narrative: General:??No acute distress.? Nontoxic. Well-developed older adult female sitting up in the bed. HEENT:??Normocephalic.?Atraumatic. Pupils equal and round. EOM intact. Sclera anicteric. Oral mucosa moist.?[place]. Neck:??Supple without lymphadenopathy. Thyroid without nodularity. No JVD. Chest:?Lungs are clear to auscultation bilaterally. RR regular and unlabored. Heart:??Normal S1 and S2 regular rate and rhythm. No murmurs, gallops or rubs. Abdomen:??soft, obese, nontender to palpation, and nondistended with normoactive bowel sounds. No guarding or suprapubic tenderness. Back:?No CVA tenderness. Skin:??Warm and dry.? Normal color for ethnicity. No rashes or lesions. Extremities:?Moves all 4 extremities equally with grossly normal ROM. Generalize weakness throughout. No edema. Radial and pedal pulses palpable and equal. Neuro:??Alert and oriented x4. Hand grasps equal, dorsi and plantar flexion equal. Cranial nerves 2-12 normal. No focal deficits. No facial droop. Psych:??Pleasant and cooperative with expressive mood and affect. DS: Data Data Completed and Pending Labs on day of discharge: Labs from last 24 hours 04/04/22 04/04/22 04/04/22 11:28 07:43 07:21 Sodium 132 L Potassium 3.8 Chloride 101 Carbon Dioxide 24 Anion Gap 7 L BUN 11 Crea
[2022-04-04 14:00] VITALS: BP 149/49; PULSE 58; RESP 18; TEMP 36.2; O2SAT 97
[2022-04-04 16:36] LABS: Glucose Point of Care 140 mg/dl (65-105)
[2022-04-04 16:49] VITALS: PULSE 62
--- NOTE | 2022-04-04 17:11 | P.PNIM_ITS ---
Progress Note: A&P Assessment and Plan (1) Acute hyponatremia: Code(s): E87.1 - Hypo-osmolality and hyponatremia Status: Acute Assessment and Plan: Sodium 123 on admission. Sodium 136-138 earlier this month, suggesting acute hyponatremia, most likely related to the watery liquid stools. * continue to IV hydration. * Sodium 131 to 132 this am. Continue IV fluids. * Resume lisinopril and spironolactone. * Trend sodium level & monitor neuro status. * Repeat chemistry in am. (2) Dehydration: Code(s): E86.0 - Dehydration Status: Acute Assessment and Plan: As above. Continue IV hydration. Improving. (3) Constipation: Qualifiers: Constipation type: slow transit constipation Qualified Code(s): K59.01 - Slow transit constipation Code(s): K59.00 - Constipation, unspecified Status: Acute Assessment and Plan: Patient presented following increased weakness secondary to diarrhea. KUB showed persistent stool despite laxative use at home. * She received bisacodyl suppository on 04/02 * Repeat KUB by my read shows persistent stool in the rectal vault and colon. * Give additional bisacodyl suppository. Consider fleet enema if symptoms do not improve. (4) Weakness: Code(s): R53.1 - Weakness Status: Acute Assessment and Plan: Presumed secondary to dehydration, recent COVID19 viral infection and hyponatremia. * Continue hydration and sodium replacement. * Consult PT/OT for evaluation. * Fall precautions. * Outpatient PT recommended. (5) Type 2 diabetes mellitus with diabetic nephropathy: Qualifiers: Diabetes mellitus marine oil terminal superintendent insulin use: without custodial use Qualified Code(s): E11.21 - Type 2 diabetes mellitus with diabetic nephropathy Code(s): E11.21 - Type 2 diabetes mellitus with diabetic nephropathy Status: Chronic Assessment and Plan: Chronic, stable, non-insulin dependent diabetes mellitus. A1c 6.1% and well controlled on current medications. * Continue Accu-Cheks with aspart meal correction scale, low dose.? * Continue sitagliptin. (6) CAD (coronary artery disease): Code(s): I25.10 - Atherosclerotic heart disease of [place] coronary artery without angina pectoris Status: Chronic Assessment and Plan: Chronic, stable, s/p 2 prior coronary stents. * continue aspirin and coreg. * LFTs mildly elevated- improved today. * liver US within normal limits. (7) Hypertensive heart and chronic kidney disease without heart failure, with stage 1 through stage 4 chronic kidney disease, or unspecified chronic kidney disease: Code(s): I13.10 - Hypertensive heart and chronic kidney disease without heart failure, with stage 1 through stage 4 chronic kidney disease, or unspecified chronic kidney disease Status: Chronic Assessment and Plan: chronic kidney disease stage 3, secondary to dehydration. * Monitor on fluids * Avoid nephrotoxic agents. * Resume lisinopril and spironolactone. (8) Chronic anemia: Code(s): D64.9 - Anemia, unspecified Status: Chronic Assessment and Plan: Chronic, stable. At baseline. No s/s complications Plan CODE STATUS: DNR Disposition: Home with spouse Subjective Date/time seen: 04/04/22 17:11 She had some abdominal pain earlier today, but it resolved. She had 2 soft BMs today. Her appetite is unchanged. She thinks her weakness is somewhat improved, but she still does not feel back to
--- NOTE | 2022-04-04 17:11 | PM.IMPN ---
Progress Note: A&P Assessment and Plan (1) Acute hyponatremia: Code(s): E87.1 - Hypo-osmolality and hyponatremia Status: Acute Assessment and Plan: Sodium 123 on admission. Sodium 136-138 earlier this month, suggesting acute hyponatremia, most likely related to the watery liquid stools. continue to IV hydration. Sodium 131 to 132 this am. Continue IV fluids. Resume lisinopril and spironolactone. Trend sodium level & monitor neuro status. Repeat chemistry in am. (2) Dehydration: Code(s): E86.0 - Dehydration Status: Acute Assessment and Plan: As above. Continue IV hydration. Improving. (3) Constipation: Qualifiers: Constipation type: slow transit constipation Qualified Code(s): K59.01 - Slow transit constipation Code(s): K59.00 - Constipation, unspecified Status: Acute Assessment and Plan: Patient presented following increased weakness secondary to diarrhea. KUB showed persistent stool despite laxative use at home. She received bisacodyl suppository on 04/02 Repeat KUB by my read shows persistent stool in the rectal vault and colon. Give additional bisacodyl suppository. Consider fleet enema if symptoms do not improve. (4) Weakness: Code(s): R53.1 - Weakness Status: Acute Assessment and Plan: Presumed secondary to dehydration, recent COVID19 viral infection and hyponatremia. Continue hydration and sodium replacement. Consult PT/OT for evaluation. Fall precautions. Outpatient PT recommended. (5) Type 2 diabetes mellitus with diabetic nephropathy: Qualifiers: Diabetes mellitus moth exterminator insulin use: without moth exterminator use Qualified Code(s): E11.21 - Type 2 diabetes mellitus with diabetic nephropathy Code(s): E11.21 - Type 2 diabetes mellitus with diabetic nephropathy Status: Chronic Assessment and Plan: Chronic, stable, non-insulin dependent diabetes mellitus. A1c 6.1% and well controlled on current medications. Continue Accu-Cheks with aspart meal correction scale, low dose.? Continue sitagliptin. (6) CAD (coronary artery disease): Code(s): I25.10 - Atherosclerotic heart disease of [place] coronary artery without angina pectoris Status: Chronic Assessment and Plan: Chronic, stable, s/p 2 prior coronary stents. continue aspirin and coreg. LFTs mildly elevated- improved today. liver US within normal limits. (7) Hypertensive heart and chronic kidney disease without heart failure, with stage 1 through stage 4 chronic kidney disease, or unspecified chronic kidney disease: Code(s): I13.10 - Hypertensive heart and chronic kidney disease without heart failure, with stage 1 through stage 4 chronic kidney disease, or unspecified chronic kidney disease Status: Chronic Assessment and Plan: chronic kidney disease stage 3, secondary to dehydration. Monitor on fluids Avoid nephrotoxic agents. Resume lisinopril and spironolactone. (8) Chronic anemia: Code(s): D64.9 - Anemia, unspecified Status: Chronic Assessment and Plan: Chronic, stable. At baseline. No s/s complications Plan CODE STATUS: DNR Disposition: Home with spouse Subjective Date/time seen: 04/04/22 17:11 She had some abdominal pain earlier today, but it resolved. She had 2 soft BMs today. Her appetite is unchanged. She thinks her weakness is somewhat improved, but she still does not feel back to her baseline. KUB results pending. Review of Systems Review of Systems: All systems reviewed & are unremarkable except as noted in HPI and below Exam Narrative: General:??No acute distress.? Nontoxic. Sitting up in the bed. HEENT:??Normocephalic.?Pupils equal and round. Sclera anicteric. Oral mucosa moist. Neck:??No JVD. Chest:?Lungs are clear to auscultation bilaterally. RR regular and unlabored. Heart:??Normal S1 and S2 regular rate and rhyt
[2022-04-04] MEDS: lisinopriL 5 MG TABLET PO (18:39)
[2022-04-04] MEDS: SPIRONOLACTONE 25 MG TABLET PO (18:39)
[2022-04-04] MEDS: SODIUM CHLORIDE 0.9% IV 1,000 ML 100 ML IV CONT (18:39)
[2022-04-04 21:20] LABS: Glucose Point of Care 135 mg/dl (65-105)
[2022-04-04 22:00] VITALS: BP 119/82; PULSE 68; RESP 16; TEMP 36.4; O2SAT 97
[2022-04-05] MEDS: SODIUM CHLORIDE 0.9% IV 1,000 ML 100 ML IV CONT (05:00)
[2022-04-05 06:00] VITALS: BP 177/65; PULSE 71; RESP 18; TEMP 36.4; O2SAT 96
[2022-04-05 06:28] LABS: Hematocrit 31.4 % (37.0-47.0); Mean Corpuscular HGB Conc 31.8 g/dl (32-36); Mean Corpuscular Hemoglobin 28.6 pg (26-34); Mean Corpuscular Volume 89.7 fl (80-100); Platelet Count Result 320 k/mm3 (150-375); Red Cell Distribution Width 12.8 % (11.5-14.5); White Blood Count 12.3 K/mm3 (4.5-10.0)
[2022-04-05 06:51] LABS: Alanine Aminotransferase 47 U/L (6-35); Albumin Level 3.6 g/dL (3.5-5.1); Alkaline Phosphatase 77 U/L (38-126); Anion Gap 8 mmol/L (8-16); Aspartate Amino Transferase 30 U/L (14-36); Bilirubin,Total 0.3 mg/dL (0.2-1.3); Blood Urea Nitrogen 8 mg/dL (7-17); Calcium 8.9 mg/dL (8.4-10.2); Carbon Dioxide 26 mmol/L (22-30); Chloride 101 mmol/L (98-107); Estimated CRCL calculation 45 ml/min; Estimated Glomerular Filt Rate > 60; Glucose 123 mg/dL (65-110); Magnesium 1.7 mg/dL (1.6-2.3); Potassium 3.9 mmol/L (3.4-5.0); Sodium 135 mmol/L (137-145)
[2022-04-05 08:04] LABS: Glucose Point of Care 117 mg/dl (65-105)
[2022-04-05 08:09] VITALS: PULSE 62
[2022-04-05] MEDS: carvediloL 12.5 MG TABLET PO (08:09)
[2022-04-05] MEDS: PANTOPRAZOLE 40 MG TABLET PO (08:09)
[2022-04-05] MEDS: SPIRONOLACTONE 25 MG TABLET PO (08:09)
[2022-04-05] MEDS: ASPIRIN 81 MG ENTERIC TABLET PO (08:09)
[2022-04-05] MEDS: LIDOCAINE 5% PATCH 1 PATCH TRANSDERM (08:10)
[2022-04-05] MEDS: GABAPENTIN 300 MG CAPSULE 600 MG PO (08:10)
[2022-04-05] MEDS: ATORVASTATIN 20 MG TABLET PO (08:10)
[2022-04-05] MEDS: CHOLECALCIFEROL 1,000 UNITS TABLET 2000 UNITS PO (08:10)
[2022-04-05] MEDS: lisinopriL 5 MG TABLET PO (08:10)
[2022-04-05] MEDS: cycloSPORINE 0.4 ML OPHTH SOLUTION 1 DROP EACH EYE (08:10)
[2022-04-05] MEDS: ANASTROZOLE (*CHEMO) 1 MG TABLET PO (08:10)
[2022-04-05] MEDS: BISACODYL 10 MG SUPPOSITORY RECTAL (09:24)
[2022-04-05] MEDS: METOCLOPRAMIDE HCL INJ 10 MG/2 ML VIAL IV PUSH (09:24)
[2022-04-05] MEDS: METOCLOPRAMIDE HCL 5 MG TABLET PO (11:20)
[2022-04-05 11:45] LABS: Glucose Point of Care 133 mg/dl (65-105)
[2022-04-05] MEDS: ALPRAZolam (*CRX) 0.5 MG TABLET 1 MG PO (12:11)
[2022-04-05 12:17] LABS: Appearance Urine Slightly Cloudy (Clear); Bilirubin Urine Negative (Negative); Blood Urine Trace-lysed (Negative); Color Urine Yellow (Yellow); Glucose Urine UA Negative (Negative); Ketones Urine Negative (Negative); Leukocyte Esterase Ur 1+ LEU/UL (Negative); Nitrate Urine Positive (Negative); Protein Urine Negative (Negative); Specific Grav Ur <= 1.005 (1.001-1.035); Urobilinogen Urine 0.2 mg/dL (<2.0)
[2022-04-05 12:27] LABS: Amorphous Sediment Urine Few; Bacteria Urine Trace /hpf; Mucus Urine Rare /lpf; RBC Urine 21-50 /hpf (0-2); Squamous Epithelial Cell Urine Rare /hpf (Few)
[2022-04-05 12:33] LABS: Add Urine Microscopic? YES
--- NOTE | 2022-04-05 13:04 | PM.DS ---
DS: Admitting Diagnosis Discharge Date 04/05/2022 1304 Admitting Diagnosis Acute hyponatremia Dehydration Diarrhea Weakness DS: Discharge Diagnosis Discharge Diagnosis (1) Acute hyponatremia: Code(s): E87.1 - Hypo-osmolality and hyponatremia Status: Acute (2) Nausea & vomiting: Code(s): R11.2 - Nausea with vomiting, unspecified Status: Acute (3) Gastroparesis: Code(s): K31.84 - Gastroparesis Status: Acute Assessment and Plan: Presumed secondary to persistent nausea after meals (4) Constipation: Qualifiers: Constipation type: slow transit constipation Qualified Code(s): K59.01 - Slow transit constipation Code(s): K59.00 - Constipation, unspecified Status: Acute Assessment and Plan: Noted on x-ray (5) UTI (urinary tract infection): Qualifiers: Hematuria presence: without hematuria Urinary tract infection type: site unspecified Qualified Code(s): N39.0 - Urinary tract infection, site not specified Code(s): N39.0 - Urinary tract infection, site not specified Status: Acute Assessment and Plan: UA +nitrates and leukocytes (6) Dehydration: Code(s): E86.0 - Dehydration Status: Acute (7) Weakness: Code(s): R53.1 - Weakness Status: Acute Assessment and Plan: outpatient PT/OT recommended. (8) Type 2 diabetes mellitus with diabetic nephropathy: Qualifiers: Diabetes mellitus terminal operator insulin use: without terminal operator use Qualified Code(s): E11.21 - Type 2 diabetes mellitus with diabetic nephropathy Code(s): E11.21 - Type 2 diabetes mellitus with diabetic nephropathy Status: Chronic (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, with stage 1 through stage 4 chronic kidney disease, or unspecified chronic kidney disease: Code(s): I13.10 - Hypertensive heart and chronic kidney disease without heart failure, with stage 1 through stage 4 chronic kidney disease, or unspecified chronic kidney disease Status: Chronic (10) Chronic anemia: Code(s): D64.9 - Anemia, unspecified Status: Chronic (11) Transaminitis: Code(s): R74.01 - Elevation of levels of liver transaminase levels Status: Acute DS: Summary Hospital Course Reason for hospitalization: Generalized weakness Hospital Course: Zaynab Chang is an 81-year-old female with CAD, CKD stage 3, non-insulin dependent diabetes with neuropathy, GERD and recent COVID19 infection approximately 1 week ago.? She presented to the ED with complaints of generalized weakness.?She had been treated with 5 days of Paxlovid and reported some kidney problems with taking this, reportedly.? She reported concern for constipation and her gave her a couple stool softeners, without results. He then gave her a dose of milk of magnesia.?She was having diarrhea all night.? Upon admission, she reported feeling dehydrated and weak.? Her white count was noted to be 21.1.? Her H&H is 11.4 and 34.1.? Her sodium initially was 123.? BUN 20, creatinine 1.0, and glucose 125.? Liver enzymes are slightly elevated AST is 63 and ALT is 60.?She reported c/o LLQ pain and left flank pain. She was given IV fluids, IV Tylenol and IV Zofran.?In the ED, she was afebrile with stable vitals, although her BP was mildly elevated 163/87. The patient was admitted to the medical floor. She was treated with IV normal saline and sodium level was monitored frequently. Sodium level did improve to 135 on the day of discharge. Spironolactone and lisinopril were held initially while treated hyponatremia. Urine sodium was 30. Urine osmolality was pending at the time of discharge. KUB was obtained and showed normal gas pattern and retained stool. She was treated with a bisacodyl suppository on admission. She continued to have persistent LLQ pain and repeat KUB appeared to still have stool. No obstructiv
[2022-04-05] MEDS: CEFDINIR 300 MG CAPSULE PO (13:22)
[2022-04-05 14:00] VITALS: BP 149/50; PULSE 70; RESP 16; TEMP 36; O2SAT 98
[2022-04-05 15:05] LABS: Osmolality, Urine 231 mOsm/kg (50-1200)
== END 2022-04-05 16:02 | disposition home or self-care (01) ==
LOC: ANHED 12:43 → ANH3MEDSUR 12:58
PROVIDERS: Nurse Practitioner; Nurse Practitioner Family; Physician Assistant; Admitting Provider Family Medicine; Emergency Provider Emergency Medicine; PCP Family Medicine; Visit Provider Family Medicine
DX: E87.1 Hypo-osmolality and hyponatremia (principal); K31.84 Gastroparesis; K59.00 Constipation, unspecified; N39.0 Urinary tract infection, site not specified; E86.0 Dehydration; R53.1 Weakness; E11.21 Type 2 diabetes mellitus with diabetic nephropathy; E11.22 Type 2 diabetes mellitus with diabetic chronic kidney disease; I13.10 Hypertensive heart and chronic kidney disease without heart failure, with stage 1 through stage 4 chronic kidney disease, or unspecified chronic kidney disease; N18.30 Chronic kidney disease, stage 3 unspecified; D64.9 Anemia, unspecified; E11.40 Type 2 diabetes mellitus with diabetic neuropathy, unspecified; R74.01 Elevation of levels of liver transaminase levels; Z90.49 Acquired absence of other specified parts of digestive tract; R19.7 Diarrhea, unspecified; I25.10 Atherosclerotic heart disease of native coronary artery without angina pectoris; Z95.5 Presence of coronary angioplasty implant and graft; D72.829 Elevated white blood cell count, unspecified; Z86.16 Personal history of COVID-19; K21.9 Gastro-esophageal reflux disease without esophagitis; I25.2 Old myocardial infarction; Z92.3 Personal history of irradiation; Z85.3 Personal history of malignant neoplasm of breast; Z90.11 Acquired absence of right breast and nipple; E78.5 Hyperlipidemia, unspecified; M79.672 Pain in left foot; M79.671 Pain in right foot; Z79.82 Long term (current) use of aspirin; Z79.84 Long term (current) use of oral hypoglycemic drugs; Z79.899 Other long term (current) drug therapy; Z82.49 Family history of ischemic heart disease and other diseases of the circulatory system; Z83.3 Family history of diabetes mellitus
CPT/HCPCS: 36415; 51701; 71046; 74018; 74177; 76705; 80048; 80053; 80074; 81001; 82728; 82948; 83036; 83605; 83615; 83690; 83735; 83935; 84300; 84443; 85025; 85027; 87040; 87077; 87086; 87186; 96361; 96374; 96375; 96376; 97161; 97165; 99285; A9270; G0378; J0131; J2405; J2765; J7030; Q9967

== ENCOUNTER 2022-05-10 09:57 | Outpatient (CLI) | payer MEDICARE, OTHER, SELFPAY ==
[2022-05-10 10:17] LABS: Appearance Urine Clear (Clear); Bilirubin Urine Negative (Negative); Blood Urine Negative (Negative); Color Urine Yellow (Yellow); Glucose Urine UA Negative (Negative); Ketones Urine Negative (Negative); Leukocyte Esterase Ur Negative LEU/UL (NEGATIVE); Nitrate Urine Negative (Negative); Protein Urine Negative (Negative); Specific Grav Ur 1.015 (1.001-1.035); Urobilinogen Urine 0.2 mg/dL (<2.0)
[2022-05-10 11:37] LABS: Add Urine Microscopic? NO
== END 2022-05-10 09:58 | disposition home or self-care (01) ==
LOC: ANHLAB 10:00
PROVIDERS: PCP Family Medicine; Visit Provider Nurse Practitioner Family
DX: N39.0 Urinary tract infection, site not specified (principal)
CPT/HCPCS: 81003; 87086

== ENCOUNTER 2022-06-02 12:31 | Outpatient (CLI) | payer MEDICARE, OTHER, SELFPAY ==
[2022-06-02 12:52] LABS: Appearance Urine Clear (Clear); Bilirubin Urine Negative (Negative); Blood Urine Negative (Negative); Color Urine Yellow (Yellow); Glucose Urine UA Negative (Negative); Ketones Urine Negative (Negative); Leukocyte Esterase Ur Negative LEU/UL (NEGATIVE); Nitrate Urine Negative (Negative); Protein Urine 2+ mg/dL (Negative); Specific Grav Ur 1.015 (1.001-1.035); Urobilinogen Urine 0.2 mg/dL (<2.0); pH Urine 5.5 (5.0-9.0)
[2022-06-02 13:02] LABS: Hyaline Casts Urine 20-29 /lpf; Mucus Urine Rare /lpf; RBC Urine 0-2 /hpf (0-2); Squamous Epithelial Cell Urine Rare /hpf (Few); WBC Urine 0-3 /hpf (0-3)
[2022-06-02 13:16] LABS: Add Urine Microscopic? YES
== END 2022-06-02 12:32 | disposition home or self-care (01) ==
LOC: ANHLAB 12:34
PROVIDERS: PCP Family Medicine; Visit Provider Physician Assistant
DX: N39.0 Urinary tract infection, site not specified (principal)
CPT/HCPCS: 81001; 87086

== ENCOUNTER 2022-06-08 08:56 | Outpatient (CLI) | payer MEDICARE, OTHER, SELFPAY ==
--- NOTE | ~2022-06-08 | CT_ITS ---
EXAMINATION: CT abdomen pelvis w con DATE: 06/08/2022 09:39 INDICATION: Lower abdominal pain. TECHNIQUE: Computed tomography (CT) of the abdomen and pelvis was performed with 100 cc Omnipaque 350 intravenous contrast. The dose-length product was 633.11 mGy-cm. Automated exposure control and iter ative reconstruction technique were employed. COMPARISON: CT dated 04/02/2022. FINDINGS: There is dependent atelectasis. Heart size normal. No significant pleural or pericardial ef fusion. There are bilateral renal cysts. Stable intermediate density subcentimeter lesion lower pole of the left kidney. Calcified granuloma left lower lobe. Status post cholecystectomy with expected pr ominence of the bile ducts. There are surgical changes of partial colectomy. There are calcified granulomas of the spleen. The pancreas, adrenal glands are unremarkable. No signi ficant hydronephrosis. There is evidence of pelvic relaxation. Moderate atherosclerosis without evide nce for aneurysm. No lymphadenopathy. Nonobstructive bowel pattern. There is severe lumbar spondylosi s with degenerative spondylolisthesis at L4-5. IMPRESSION: 1. No acute abdominal abnormality. Reviewed, dictated and finalized at location A. IN WORKER
== END 2022-06-08 08:57 | disposition home or self-care (01) ==
LOC: ANHIMG 08:58
PROVIDERS: PCP Family Medicine; Visit Provider Nurse Practitioner Family
DX: R10.30 Lower abdominal pain, unspecified (principal)
CPT/HCPCS: 74177; Q9967

== ENCOUNTER 2023-01-13 13:32 | Outpatient (CLI) | payer MEDICARE, OTHER, SELFPAY ==
--- NOTE | ~2023-01-13 | DEXA_ITS ---
Bone Density Report Name: AICHA OLIVER Age: 82 Sex: Female Ethnicity: White Date of : 1940 Indication: postmenopausal; screening for osteoporosis; height loss; cancer; hysterectomy; Referring Provider: MILO NGUYEN Study: Bone densitometry was performed. Exam Date: January 13, 2023 Accession number: [id number] Bone Density: Region BMD T-score Z-score Classification AP Spine(L2, L3, L4) 0.982 -0.9 2.0 Normal Femoral Neck (Left) 0.663 -1.7 0.8 Osteopenia Total Hip (Left) 0.825 -1.0 1.3 Normal Femoral Neck (Right) 0.610 -2.2 0.3 Osteopenia Total Hip (Right) 0.801 -1.2 1.1 Osteopenia Total Hip Mean 0.813 -1.1 1.2 Osteopenia World Health Organization criteria for BMD impression classify patients as: Normal (T-score at or above -1.0), Osteopenia (T-score between -1.0 and -2.5), or Osteoporosis (T-score at or below -2.5). 10-year Fracture Risk(1): Major Osteoporotic Fracture 15% Hip Fracture 4.8% Reported Risk Factors: [place] (), Neck BMD=0.610, BMI=33.6 (1) FRAX(R) Version 3.08. Fracture probability calculated for an untreated patient. Fracture probability may be lower if the patient has received treatment. Clinical Information Provided by Patient: Has used the following medications: Vitamin D Has the following medical conditions: Cancer, Hysterectomy Patient maximum height was 62 Menopause Age: 42 No regular weight bearing exercise Drinks caffeinated beverages Onset of menses at age 13 Number of children 4 Impression: The patient has low bone mass, based on the Right Femoral Neck T-score. The patient has an estimated ten-year risk of hip fracture of 4.8% and an estimated ten-year risk of major fracture of 15%, based on the WHO FRAX algorithm. Discussion: BONE DENSITY IS LOW AT ONE OR MORE SKELETAL SITES. THE PATIENT'S BMD AND CLINICAL RISK FACTORS CONTRIBUTE TO THIS PATIENT'S INCREASED RISK OF FRACTURE. This patient's lowest T-score is low at one or more skeletal sites. It meets the World Health Organization's (WHO) criteria for ?low bone mass? (T-score between -1.0 and -2.5). The patient's 10-year risk of hip fracture as calculated by FRAX exceeds the threshold where pharmacological therapy is recommended by the National Osteoporosis Foundation (NOF). However, all treatment decisions require clinical judgment and consideration of individual patient factors, including patient preferences, comorbidities, previous drug use, risk factors not captured in the FRAX model (e.g., frailty, falls, vitamin D deficiency, increased bone turnover, interval significant decline in bone density) and possible under or overestimation of fracture risk by FRAX. The patient should follow a healthful lifestyle (good nutrition with adequate calcium and vitamin D, and appropriate weight-beari
== END 2023-01-13 13:33 | disposition home or self-care (01) ==
PROVIDERS: PCP Family Medicine; Visit Provider Emergency Medicine
DX: Z78.0 Asymptomatic menopausal state (principal); M85.852 Other specified disorders of bone density and structure, left thigh; M85.851 Other specified disorders of bone density and structure, right thigh
CPT/HCPCS: 77080

== ENCOUNTER 2023-01-14 03:14 | Day surgery (SDC) | payer MEDICARE, OTHER, SELFPAY ==
[2023-01-12 15:40] VITALS: BMI 32.1
[2023-01-12 16:14] VITALS: BMI 32.1
--- NOTE | 2023-01-13 11:17 | PM.HPGS ---
History of Present Illness History of Present Illness Consent: Risks, benefits, and alternatives have been discussed and questions answered. Patient agrees to proceed with procedure. Chief complaint: dysphagia, Esophageal Stricture Narrative: Zaynab Chang is a 82 year old female With a history of an esophageal stricture. She had dilatation 1 year ago. She is now again having difficulty with swallowing. Review of Systems Review of Systems: All systems reviewed & are unremarkable except as noted in HPI and below PMFSH Past Medical History Medical History Blind Left eye CAD (coronary artery disease) CKD (chronic kidney disease), stage III Foot pain, bilateral GERD (gastroesophageal reflux disease) History of myocardial infarction History of radiation therapy History of retinal detachment HLD (hyperlipidemia) HX: breast cancer Labia irritation Neuropathy Tear of medial meniscus of left knee Type 2 diabetes mellitus with diabetic nephropathy Surgical History Surgical History H/O cataract extraction H/O colonoscopy H/O lumpectomy History of esophagogastroduodenoscopy (EGD) History of partial mastectomy of right breast S/P primary angioplasty with coronary stent x 2 Family History Family History Father Family history of diabetes mellitus in first degree relative Family history of coronary artery disease Mother Dementia Other Hypertension Social History Social History Social History: She is and her poa is her . 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 She is a lifelong nonsmoker. She does not use any alcohol marijuana or illicit drugs. Code status full code Smoking status: Never smoker Second hand tobacco smoke exposure: No Alcohol intake: current Substance use: never Substance use type: does not use Living arrangements: with family Occupation/Education: retired Gender identity (if verbalized by the patient): Female Sexual Orientation (if Verbalized by the Patient): Straight or Heterosexual Spiritual care concerns: No Meds Home Medications and Allergies Home Medications Medication Instructions Recorded Confirmed Type anastrozole 1 mg tablet 1 mg PO DAILY 04/19/19 01/12/23 History aspirin 81 mg tablet,delayed 81 mg PO DAILY 04/19/19 01/12/23 History release (Aspir-) cholecalciferol (vitamin D3) 25 1,000 unit PO DAILY 04/19/19 01/12/23 History mcg (1,000 unit) tablet (Vitamin D3) lancets (OneTouch UltraSoft #200 ea 05/08/20 09/30/22 Rx Lancets) cyclosporine 0.05 % eye drops in a 1 drp EACH EYE Q12H 11/16/21 01/12/23 History dropperette (Restasis) blood sugar diagnostic (Blood #100 ea 01/05/22 09/30/22 Rx Glucose Test strips) blood-glucose meter #1 ea 01/05/22 09/30/22 Rx psyllium 1 packet PO DAILY 04/19/22 01/12/23 History carvedilol 12.5 mg tablet 12.5 mg PO BID #180 tabs 06/11/22 01/14/23 Rx omeprazole 40 mg capsule,delayed 40 mg PO DAILY #90 caps 10/11/22 01/12/23 Rx release lisinopril 5 mg tablet 5 mg PO DAILY #90 tabs 11/01/22 01/12/23 Rx atorvastatin 20 mg tablet 20 mg PO DAILY #90 tabs 11/08/22 01/12/23 Rx alprazolam 1 mg tablet 1 mg PO BID PRN anxiety #60 tabs 11/15/22 01/12/23 Rx gabapentin 600 mg tablet 600 mg PO BID 01/12/23 01/12/23 History sitagliptin phosphate 100 mg tablet 100 mg PO HS 01/12/23 01/12/23 History spironolactone 50 mg tablet 50 mg PO DAILY 01/12/23 01/12/23 History Allergies Allergy/AdvReac Type Severity Reaction Status Date / Time metformin AdvReac Intermediate diarrhea Verified 01/14/23 06:31 azithromycin AdvReac Nausea and Verified 01/14/23 06:31 Vomiting ciprofloxacin AdvReac Nausea and Zara
[2023-01-14 06:32] VITALS: BP 114/62; PULSE 73; RESP 16; TEMP 36.3; O2SAT 94
[2023-01-14] MEDS: LACTATED RINGERS 1,000 ML 150 ML IV CONT (06:46)
[2023-01-14 07:06] LABS: Glucose Point of Care 170 mg/dl (65-105)
--- NOTE | 2023-01-14 07:16 | WPDANESEPPF ---
Anes - Initial Pre Proc Eval Procedure: Operation Date: 01/14/23 07:30 Proposed Procedures p Esophagogastroduodenoscopy - Sheng Johnson MD Date/Time: 01/14/23 07:16 Surgeon: Sheng Johnson MD Pre Op Diagnosis: dysphagia, Esophageal Stricture Patient Data Age: 82 Gender: F Height: 1.55 m Weight: 77.3 kg Last Vital Signs Temp 97.3 F L 01/14/23 06:32 Pulse 73 01/14/23 06:32 Resp 16 01/14/23 06:32 BP 114/62 01/14/23 06:32 Pulse Ox 94 01/14/23 06:32 O2 Del Method Room Air 01/14/23 06:32 Allergies Allergy/AdvReac Type Severity Reaction Status Date / Time metformin AdvReac Intermediate diarrhea Verified 01/14/23 06:31 azithromycin AdvReac Nausea and Verified 01/14/23 06:31 Vomiting ciprofloxacin AdvReac Nausea and Verified 01/14/23 06:31 Vomiting clarithromycin AdvReac Nausea and Verified 01/14/23 06:31 Vomiting clavulanic acid AdvReac Nausea and Verified 01/14/23 06:31 Vomiting hydrocodone [From Vicodin] AdvReac Nausea and Verified 01/14/23 06:31 Vomiting metronidazole AdvReac Nausea and Verified 01/14/23 06:31 Vomiting neomycin AdvReac Nausea and Verified 01/14/23 06:31 Vomiting nitrofurantoin AdvReac Nervousness Verified 01/14/23 06:31 sulfamethizole AdvReac Nausea and Verified 01/14/23 06:31 Vomiting sulfamethoxazole AdvReac Nausea and Verified 01/14/23 06:31 [From Bactrim] Vomiting trimethoprim [From Bactrim] AdvReac Nausea and Verified 01/14/23 06:31 Vomiting Home Medications Medication Instructions Recorded Confirmed Type anastrozole 1 mg tablet 1 mg PO DAILY 04/19/19 01/12/23 History aspirin 81 mg tablet,delayed 81 mg PO DAILY 04/19/19 01/12/23 History release (Aspir-) cholecalciferol (vitamin D3) 25 1,000 unit PO DAILY 04/19/19 01/12/23 History mcg (1,000 unit) tablet (Vitamin D3) lancets (OneTouch UltraSoft #200 ea 05/08/20 09/30/22 Rx Lancets) cyclosporine 0.05 % eye drops in a 1 drp EACH EYE Q12H 11/16/21 01/12/23 History dropperette (Restasis) blood sugar diagnostic (Blood #100 ea 01/05/22 09/30/22 Rx Glucose Test strips) blood-glucose meter #1 ea 01/05/22 09/30/22 Rx psyllium 1 packet PO DAILY 04/19/22 01/12/23 History carvedilol 12.5 mg tablet 12.5 mg PO BID #180 tabs 06/11/22 01/14/23 Rx omeprazole 40 mg capsule,delayed 40 mg PO DAILY #90 caps 10/11/22 01/12/23 Rx release lisinopril 5 mg tablet 5 mg PO DAILY #90 tabs 11/01/22 01/12/23 Rx atorvastatin 20 mg tablet 20 mg PO DAILY #90 tabs 11/08/22 01/12/23 Rx alprazolam 1 mg tablet 1 mg PO BID PRN anxiety #60 tabs 11/15/22 01/12/23 Rx gabapentin 600 mg tablet 600 mg PO BID 01/12/23 01/12/23 History sitagliptin phosphate 100 mg tablet 100 mg PO HS 01/12/23 01/12/23 History spironolactone 50 mg tablet 50 mg PO DAILY 01/12/23 01/12/23 History Laboratory Tests 01/14/23 07:04 POC Capillary Glucose 170 H mg/dl (65-105) Patient hx anesthesia problems: none Family hx anesthesia problems: none Results Review: All pre-operative results and documents have been reviewed as part of the pre-operative evaluation. [facility] Past Medical History Medical History Blind Left eye CAD (coronary artery disease) CKD (chronic kidney disease), stage III Foot pain, bilateral GERD (gastroesophageal reflux disease) History of myocardial infarction History of radiation therapy History of retinal detachment HLD (hyperlipidemia) HX: breast cancer Labia irritation Neuropathy Tear of medial meniscus of left knee Type 2 diabetes mellitus with diabetic nephropathy Surgical History Surgical History H/O cataract extraction H/O colonoscopy H/O lumpectomy History of esophagogastroduodenoscopy (EGD) History of partial mastectomy of right breast S/P primary angioplasty with coronary stent x 2 Family History Family History (Rev
[2023-01-14 07:41] VITALS: BP 134/56; PULSE 76; RESP 16; O2SAT 96
[2023-01-14 07:51] VITALS: BP 118/64; PULSE 73; RESP 18; O2SAT 96
[2023-01-14 08:01] VITALS: BP 124/53; PULSE 72; RESP 20; O2SAT 97
== END 2023-01-14 08:14 | disposition home or self-care (01) ==
PROVIDERS: PCP Emergency Medicine; Visit Provider Internal Medicine Gastroenterology
PROC: 0DJ08ZZ Inspection of Upper Intestinal Tract, Via Natural or Artificial Opening Endoscopic (ICD-10-PCS; CPT 43235; principal; 2023-01-14 07:30)
DX: R13.10 Dysphagia, unspecified (principal); K22.2 Esophageal obstruction; K21.9 Gastro-esophageal reflux disease without esophagitis; I25.10 Atherosclerotic heart disease of native coronary artery without angina pectoris; N18.30 Chronic kidney disease, stage 3 unspecified; E78.5 Hyperlipidemia, unspecified; E11.22 Type 2 diabetes mellitus with diabetic chronic kidney disease; Z85.3 Personal history of malignant neoplasm of breast
CPT/HCPCS: 43239; 43249; 82948; C1726; J2405; J2704; J7120

== ENCOUNTER 2023-03-17 09:57 | Outpatient (CLI) | payer MEDICARE, OTHER, SELFPAY ==
--- NOTE | ~2023-03-17 | MM_ITS ---
EXAMINATION: MM screening irene BI w sam HISTORY: Screening mammogram TECHNIQUE: Craniocaudal and mediolateral oblique 3-D tomosynthesis images were obtained and synthetic 2-D images were generated. CAD analysis was submitted and interpreted. COMPARISON: 03/23/2022, 03/12/2021, 02/11/2020 BREAST PARENCHYMAL COMPOSITION:There are scattered areas of fibroglandular density. FINDINGS: Stable postbiopsy status postoperative change in the right breast with fat necrosis. Bilate ral benign calcifications are present. No suspicious mass, calcification, or new architectural distor tion are identified in either breast to suggest malignancy. There has been no suspicious interval lexie nge. IMPRESSION: No mammographic evidence of malignancy. Recommend routine screening mammography in one year. BI-RADS Category 2: Benign finding(s). Reviewed, dictated and finalized at [facility].
== END 2023-03-17 09:58 | disposition home or self-care (01) ==
PROVIDERS: PCP Family Medicine; Visit Provider Internal Medicine Hematology & Oncology
DX: Z12.31 Encounter for screening mammogram for malignant neoplasm of breast (principal)
CPT/HCPCS: 36415; 77063; 77067; 80053; 85025; 86300

== ENCOUNTER 2023-04-06 15:11 | Inpatient (IN) | payer MEDICARE, OTHER, SELFPAY ==
[2023-04-06] VITALS (24 sets, daily range): BP systolic 131–165; BP diastolic 47–61; PULSE 64–98; RESP 13–24; TEMP 36.2–36.9; O2SAT 92–100; BMI 32.7
--- NOTE | 2023-04-06 15:27 | ECG_ITS ---
Measurements Intervals [place] Rate: 73 P: 62 CT: 173 QRS: 27 QRSD: 68 T: 59 QT: 328 QTc: 362 Interpretive Statements SINUS RHYTHM LOW QRS VOLTAGE IN PRECORDIAL LEADS [QRS DEFLECTION < 1.0 mV IN CHEST LEADS] POOR R-WAVE PROGRESSION NO PREVIOUS ECG AVAILABLE FOR COMPARISON Electronically Signed On 04-06-2023 19:18:47 CDT by Corie Daley M.D.
--- NOTE | 2023-04-06 15:47 | ED.RECABL ---
HPI - Recheck/Abnormal Lab/Rx General Chief Complaint: Recheck/Abnormal Lab/Rx Stated Complaint: High Potassium Time Seen by Provider: 04/06/23 15:46 History of Present Illness HPI narrative: patient is an 82-year-old female with history of breast cancer status post radiation, hypertension here with abnormal labs outpatient. Patient states that she was seen for a routine 6 month oncology appointment today. Routine labs were performed at that time and they were called shortly after leaving that appointment advising her to come to the emergency department because her potassium was elevated. Patient denies known history of renal issues in the past. No recent changes in diet or medications. She denies any recent illnesses. She states she has been doing quite well and this is just a routine follow-up appointment. She denies any urinary symptoms, denies any shortness of breath. She does note that she is on spironolactone for some lower extremity swelling many years in the past, has not had lower extremity swelling for quite some time and is not sure if she should still be on this medication. No changes in diet supplements. Related Data Home Medications Medication Instructions Recorded Confirmed anastrozole 1 mg tablet 1 mg PO DAILY 04/19/19 01/12/23 aspirin 81 mg tablet,delayed 81 mg PO DAILY 04/19/19 01/12/23 release (Aspir-) cholecalciferol (vitamin D3) 25 1,000 unit PO DAILY 04/19/19 01/12/23 mcg (1,000 unit) tablet (Vitamin D3) cyclosporine 0.05 % eye drops in a 1 drp EACH EYE Q12H 11/16/21 01/12/23 dropperette (Restasis) psyllium 1 packet PO DAILY 04/19/22 01/12/23 gabapentin 600 mg tablet 600 mg PO BID 01/12/23 01/12/23 sitagliptin phosphate 100 mg tablet 100 mg PO HS 01/12/23 01/12/23 spironolactone 50 mg tablet 50 mg PO DAILY 01/12/23 01/12/23 Allergies Allergy/AdvReac Type Severity Reaction Status Date / Time metformin AdvReac Intermediate diarrhea Verified 01/14/23 06:31 azithromycin AdvReac Nausea and Verified 01/14/23 06:31 Vomiting ciprofloxacin AdvReac Nausea and Verified 01/14/23 06:31 Vomiting clarithromycin AdvReac Nausea and Verified 01/14/23 06:31 Vomiting clavulanic acid AdvReac Nausea and Verified 01/14/23 06:31 Vomiting hydrocodone [From Vicodin] AdvReac Nausea and Verified 01/14/23 06:31 Vomiting metronidazole AdvReac Nausea and Verified 01/14/23 06:31 Vomiting neomycin AdvReac Nausea and Verified 01/14/23 06:31 Vomiting nitrofurantoin AdvReac Nervousness Verified 01/14/23 06:31 sulfamethizole AdvReac Nausea and Verified 01/14/23 06:31 Vomiting sulfamethoxazole AdvReac Nausea and Verified 01/14/23 06:31 [From Bactrim] Vomiting trimethoprim [From Bactrim] AdvReac Nausea and Verified 01/14/23 06:31 Vomiting Review of Systems Review of Systems: All systems reviewed & are unremarkable except as noted in HPI and below PMFSH Past Medical History Medical History Blind Left eye CAD (coronary artery disease) CKD (chronic kidney disease), stage III Foot pain, bilateral GERD (gastroesophageal reflux disease) History of myocardial infarction History of radiation therapy History of retinal detachment HLD (hyperlipidemia) HX: breast cancer Labia irritation Neuropathy Tear of medial meniscus of left knee Type 2 diabetes mellitus with diabetic nephropathy Surgical History Surgical History H/O cataract extraction H/O colonoscopy H/O lumpectomy History of esophagogastroduodenoscopy (EGD) History of partial mastectomy of right breast S/P primary angioplasty with coronary stent x 2 Family History Family History Father Family history of diabetes mellitus in first degree relative Family history of coronary artery disease Mother Dementia Other Hypertension Social
[2023-04-06 16:13] LABS: Basophils Absolute Auto 0.1 K/mm3 (0.0-0.1); Basophils Percent Auto 0.4 % (0.2-1.2); Eosinophils Absolute Auto 0.3 K/mm3 (0-0.3); Eosinophils Percent Auto 2.1 % (0-4.4); Hemoglobin 10.4 g/dL (12.0-15.0); Immature Granulocyte Absolute 0.13 K/mm3 (0.00-0.031); Immature Granulocyte Percent A 0.9 % (0-0.5); Lymphocytes Absolute Auto 3.03 K/mm3 (0.9-3.2); Lymphocytes Percent Auto 22.1 % (18.3-44.2); Mean Corpuscular HGB Conc 30.6 g/dl (32-36); Mean Corpuscular Volume 91.6 fl (80-100); Mean Platelet Volume 10.6 fl (7.4-10.4); Monocytes Absolute Auto 1.3 K/mm3 (0.1-0.6); Monocytes Percent Auto 9.2 % (2.6-8.5); Neutrophils Absolute Auto 8.9 K/mm3 (1.3-6.7); Neutrophils Percent Auto 65.3 % (45.5-73.1); Platelet Count Result 276 k/mm3 (150-375); Red Blood Count 3.71 M/mm3 (4.2-5.4); Red Cell Distribution Width 14.4 % (11.5-14.5); White Blood Count 13.7 K/mm3 (4.5-10.0)
--- NOTE | 2023-04-06 16:13 | PC.NURSE ---
tried getting IV access and was unsuccessful after 4 attempts with another RN. Surjit from vascular access was notified for assistance @[phone]
[2023-04-06 16:29] LABS: Appearance Urine Clear (Clear); Bacteria Urine None Seen /hpf; Bilirubin Urine Negative (Negative); Blood Urine Negative (Negative); Color Urine Yellow (Yellow); Glucose Urine UA Negative (Negative); Ketones Urine Negative (Negative); Leukocyte Esterase Ur 3+ LEU/UL (Negative); Nitrate Urine Negative (Negative); Non Pathogenic Casts 0-2; Protein Urine Negative (Negative); RBC Urine 0-2 /hpf (0-2); Specific Grav Ur 1.009 (1.001-1.035); Squamous Epithelial Cell Urine Occasional /hpf (Few); Urobilinogen Urine 0.2 mg/dL (<2.0); WBC Urine 21-50 /hpf
[2023-04-06 16:40] LABS: Add Urine Microscopic? YES
[2023-04-06 17:03] LABS: Alanine Aminotransferase 16 U/L (6-35); Albumin Level 4.1 g/dL (3.5-5.1); Alkaline Phosphatase 70 U/L (38-126); Anion Gap 6 mmol/L (8-16); Aspartate Amino Transferase 21 U/L (14-36); Bilirubin,Total 0.4 mg/dL (0.2-1.3); Blood Urea Nitrogen 18 mg/dL (7-17); Calcium 8.9 mg/dL (8.4-10.2); Carbon Dioxide 24 mmol/L (22-30); Chloride 103 mmol/L (98-107); Estimated CRCL calculation 26 ml/min; Estimated Glomerular Filt Rate 36; Glucose 127 mg/dL (65-110); Magnesium 1.5 mg/dL (1.6-2.3); Sodium 133 mmol/L (137-145)
[2023-04-06] MEDS: SODIUM POLYSTYRENE SULFONONATE 15 GM/60 ML BTL 30 GM PO (17:29)
[2023-04-06] MEDS: DEXTROSE 50% 25 GM/50 ML SYRINGE IV PUSH (17:30)
[2023-04-06] MEDS: INSULIN HUMAN REGULAR (*BKC) 100 UNITS/ML 10 UNITS IV PUSH (17:30)
[2023-04-06 17:41] LABS: Glucose Point of Care 133 mg/dl (65-105)
[2023-04-06 19:13] LABS: Glucose Point of Care 86 mg/dl (65-105)
[2023-04-06] MEDS: MAGNESIUM SULF 1 GM/D5W 100 ML 1 GM/100 ML BAG IVPB (19:25)
[2023-04-06 20:57] LABS: Anion Gap 9 mmol/L (8-16); Blood Urea Nitrogen 17 mg/dL (7-17); Calcium 9.3 mg/dL (8.4-10.2); Carbon Dioxide 23 mmol/L (22-30); Chloride 105 mmol/L (98-107); Estimated CRCL calculation 26 ml/min; Estimated Glomerular Filt Rate 36; Glucose 97 mg/dL (65-110); Potassium 5.4 mmol/L (3.4-5.0); Sodium 137 mmol/L (137-145)
--- NOTE | 2023-04-06 21:27 | ADMGEN ---
This patient, Zaynab Chang, was admitted to IMU Room 202-. Patient/family oriented to hospital policies and general routines including ID bracelet, bed and alarms, visiting hours, pain management, procedures, bathroom and other care routines, personal items, smoking policy, room service/diet, and visiting hours. Information on how to activate the Rapid Response Team has been discussed. Patient/Family are encouraged to report perceived risks to care and to ask questions if they do not understand what they are told or what they should do.
[2023-04-06] MEDS: SODIUM CHLORIDE 0.9% IV 1,000 ML 100 ML IV CONT (22:27)
[2023-04-06] MEDS: GABAPENTIN 300 MG CAPSULE 600 MG PO (23:27)
[2023-04-06] MEDS: carvediloL 12.5 MG TABLET PO (23:27)
[2023-04-06] MEDS: ALPRAZolam (*CRX) 0.5 MG TABLET 1 MG PO (23:28)
[2023-04-07] VITALS (19 sets, daily range): BP systolic 124–169; BP diastolic 45–79; PULSE 67–88; RESP 16–20; TEMP 35.7–36.7; O2SAT 94–97
[2023-04-07 05:08] LABS: Hematocrit 33.2 % (37.0-47.0); Hemoglobin 10.2 g/dL (12.0-15.0); Mean Corpuscular HGB Conc 30.7 g/dl (32-36); Mean Corpuscular Hemoglobin 27.9 pg (26-34); Mean Platelet Volume 10.2 fl (7.4-10.4); Platelet Count Result 269 k/mm3 (150-375); Red Blood Count 3.65 M/mm3 (4.2-5.4); Red Cell Distribution Width 14.4 % (11.5-14.5); White Blood Count 12.7 K/mm3 (4.5-10.0)
[2023-04-07 05:20] LABS: Anion Gap 5 mmol/L (8-16); Blood Urea Nitrogen 14 mg/dL (7-17); Calcium 8.9 mg/dL (8.4-10.2); Carbon Dioxide 24 mmol/L (22-30); Chloride 108 mmol/L (98-107); Estimated CRCL calculation 33 ml/min; Estimated Glomerular Filt Rate 43; Glucose 122 mg/dL (65-110); Magnesium 1.8 mg/dL (1.6-2.3); Phosphorus 4.6 mg/dL (2.5-4.5); Potassium 5.4 mmol/L (3.4-5.0); Sodium 137 mmol/L (137-145)
[2023-04-07] MEDS: carvediloL 12.5 MG TABLET PO ×2 (08:51→20:25)
[2023-04-07] MEDS: ANASTROZOLE (*CHEMO) 1 MG TABLET PO (08:52)
[2023-04-07] MEDS: PANTOPRAZOLE 40 MG TABLET PO ×2 (08:52→17:46)
[2023-04-07] MEDS: ATORVASTATIN 20 MG TABLET PO (08:52)
[2023-04-07] MEDS: GABAPENTIN 300 MG CAPSULE 600 MG PO ×2 (08:52→17:46)
[2023-04-07] MEDS: CHOLECALCIFEROL 1,000 UNITS TABLET 1000 UNITS PO (08:53)
[2023-04-07] MEDS: SODIUM CHLORIDE 0.9% IV 1,000 ML 100 ML IV CONT (08:54)
[2023-04-07] MEDS: SODIUM ZIRCONIUM CYCLOSILICATE 10 GM POWD.PACK PO ×2 (09:00→17:46)
--- NOTE | 2023-04-07 10:53 | PM.IMHP ---
H&P: HPI History of Present Illness Date/Time: 04/07/23 10:53 Chief Complaint: Hyperkalemia Narrative: 82-year-old female with history of breast cancer status post radiation is presenting after a routine appointment found hyperkalemia. No chest pain or shortness of breath. No nausea, vomiting or diarrhea. No fevers or chills. She states she feels like she is in her usual state of health. She has not started any recent medications, diet changes or recent travel. She has been on spironolactone for years due to lower extremity swelling. She denies any recent lower extremity edema but continues to take the medication. Review of Systems Review of Systems: 12 point review of systems was assessed and was negative except as noted in the H[facility] Past Medical History Medical History Blind Left eye CAD (coronary artery disease) CKD (chronic kidney disease), stage III Foot pain, bilateral GERD (gastroesophageal reflux disease) History of myocardial infarction History of radiation therapy History of retinal detachment HLD (hyperlipidemia) HX: breast cancer Labia irritation Neuropathy Tear of medial meniscus of left knee Type 2 diabetes mellitus with diabetic nephropathy Surgical History Surgical History H/O cataract extraction H/O colonoscopy H/O lumpectomy History of esophagogastroduodenoscopy (EGD) History of partial mastectomy of right breast S/P primary angioplasty with coronary stent x 2 Family History Family History Father Family history of diabetes mellitus in first degree relative Family history of coronary artery disease Mother Dementia Other Hypertension Social History Social History Social History: She is and her poa is her . 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 She is a lifelong nonsmoker. She does not use any alcohol marijuana or illicit drugs. Code status full code Smoking status: Never smoker Second hand tobacco smoke exposure: No Alcohol intake: never Substance use: never Substance use type: does not use Lack of Transportation: No Lack of Food: Never True Current Housing: I Have Housing Concerned About Future Housing: No Difficulty Paying Gas/Electric Bills: No Difficulty Paying for Meds: No Currently Unemployed: No Education: Decline to Answer Difficulty w/ Childcare or Family Care: No Living arrangements: with family Occupation/Education: retired Gender identity (if verbalized by the patient): Female Sexual Orientation (if Verbalized by the Patient): Straight or Heterosexual Spiritual care concerns: No Meds Home Medications and Allergies Home Medications Medication Instructions Recorded Confirmed Type anastrozole 1 mg tablet 1 mg PO DAILY 04/19/19 04/06/23 History cholecalciferol (vitamin D3) 25 1,000 unit PO DAILY 04/19/19 04/06/23 History mcg (1,000 unit) tablet (Vitamin D3) lancets (OneTouch UltraSoft #200 ea 05/08/20 04/06/23 Rx Lancets) cyclosporine 0.05 % eye drops in a 1 drp EACH EYE Q12H 11/16/21 04/06/23 History dropperette (Restasis) blood sugar diagnostic (Blood #100 ea 01/05/22 04/06/23 Rx Glucose Test strips) blood-glucose meter #1 ea 01/05/22 04/06/23 Rx psyllium 1 packet PO DAILY PRN Constipation 04/19/22 04/06/23 History carvedilol 12.5 mg tablet 12.5 mg PO BID #180 tabs 06/11/22 04/06/23 Rx omeprazole 40 mg capsule,delayed 40 mg PO DAILY #90 caps 10/11/22 04/06/23 Rx release atorvastatin 20 mg tablet 20 mg PO DAILY #90 tabs 11/08/22 04/06/23 Rx gabapentin 600 mg tablet 600 mg PO BID 01/12/23 04/06/23 History sitagliptin phosphate 100 mg tablet 100 mg PO HS 01/12/23
--- NOTE | 2023-04-07 12:25 | PM.CNNEP ---
Assessment and Plan Assessment and plan (1) Hyperkalemia: Code(s): E87.5 - Hyperkalemia Status: Acute Assessment and Plan: presumably secondary due to a combination of spironolactone (higher dosing in the last month) in conjunction with fluctuating renal insufficiency with some possible contributions from LISA-I use; possible UTI (?) playing a role follow-up on urine culture results doing better s/p medical management agree with holding spironolactone for now (2) Hypertension: Code(s): I10 - Essential (primary) hypertension Status: Chronic Assessment and Plan: reasonable control at this time follow trend of hemodynamics (3) Breast cancer, right breast: Qualifiers: Breast location: unspecified site of breast Estrogen receptor status: unspecified Patient sex: female Qualified Code(s): C50.911 - Malignant neoplasm of unspecified site of right female breast Code(s): C50.911 - Malignant neoplasm of unspecified site of right female breast Status: Inactive Assessment and Plan: follows with Dr. Smith (Hem/Onc) as outpatient (4) Type 2 diabetes mellitus: Code(s): E11.9 - Type 2 diabetes mellitus without complications Status: Acute Assessment and Plan: follow accu-checks glycemic control per hospitalists If her potassium level has continues to improve by labs tomorrow, I would not be opposed to discharge from a renal perspective assuming she is otherwise medically stable I will continue to follow the patient with you while she remains hospitalized and make further recommendations as needed. Thank you for allowing me to participate in the care of this patient. History of Present Illness Reason for Consult Consult date: 04/07/23 Reason for consult: hyperkalemia Chief Complaint Chief complaint: Hyperkalemia History of Present Illness Narrative: The patient is 79-year-old female with a past medical history as outlined below who presented to [facility] Emergency Room for further evaluation of hyperkalemia. The patient had recent outpatient labs done by her oncologist for routine follow-up and maintenance given her known history of breast cancer. These labs demonstrated significant hyperkalemia with a value of 7.1. She was instructed by her oncologist come to the ER for further assessment. From review her records, it would seem that her potassium level has been fluctuating in the last month or so. I am unclear if she was never informed of the issue of her hyperkalemia other than when her oncologist called her recently and instructed her to come to the emergency room. Workup and evaluation emergency room demonstrated the patient be hemodynamically stable and in no acute distress. Repeat blood test did show that she still had hyperkalemia but her potassium level had improved to 6.0. She received medical management for her hyperkalemia and was subsequently admitted to the hospital for further evaluation and therapy. Since her admission, her repeat potassium level has improved all list although is still on the higher side of normal. Renal consultation was requested due to her significant hyperkalemia. From my discussion with the patient, she has never had any issues or problems with hyperkalemia other than what seems to be the case over the last month by blood work at that time frame. She reports no new medications, potassium supplementation, high potassium foods, or any other issue that would cause her potassium level to run high. She does report to me though however that about a month ago, she noted some increasing swelling in her lower extremities and her covering physician for her PCP increased her spironolactone to 50 mg from 25 mg to treat this recent increase in swelling/edema. It should also be noted that her kidney function has been somewhat fluctuating the last few months as well but she attributes this to ?not drink
[2023-04-07 16:39] LABS: Anion Gap 8 mmol/L (8-16); Blood Urea Nitrogen 14 mg/dL (7-17); Calcium 8.9 mg/dL (8.4-10.2); Carbon Dioxide 21 mmol/L (22-30); Chloride 106 mmol/L (98-107); Estimated CRCL calculation 36 ml/min; Estimated Glomerular Filt Rate 47; Glucose 106 mg/dL (65-110); Potassium 5.8 mmol/L (3.4-5.0); Sodium 135 mmol/L (137-145)
[2023-04-07] MEDS: CALCIUM GLUC 1,000 MG/NS 50 ML 1,000 MG/50 ML BAG 100 MG IVPB (18:25)
[2023-04-07] MEDS: ALPRAZolam (*CRX) 0.5 MG TABLET 1 MG PO (20:25)
[2023-04-08] VITALS (8 sets, daily range): BP systolic 153–154; BP diastolic 60–88; PULSE 74–99; RESP 14–16; TEMP 36.1–36.5; O2SAT 92–96
[2023-04-08 05:17] LABS: Albumin Level 3.9 g/dL (3.5-5.1); Anion Gap 5 mmol/L (8-16); Blood Urea Nitrogen 13 mg/dL (7-17); Calcium 9.6 mg/dL (8.4-10.2); Carbon Dioxide 26 mmol/L (22-30); Chloride 105 mmol/L (98-107); Estimated CRCL calculation 27 ml/min; Estimated Glomerular Filt Rate 39; Glucose 121 mg/dL (65-110); Phosphorus 3.9 mg/dL (2.5-4.5); Potassium 5.3 mmol/L (3.4-5.0); Sodium 136 mmol/L (137-145)
[2023-04-08] MEDS: ATORVASTATIN 20 MG TABLET PO (09:28)
[2023-04-08] MEDS: carvediloL 12.5 MG TABLET PO (09:28)
[2023-04-08] MEDS: CHOLECALCIFEROL 1,000 UNITS TABLET 1000 UNITS PO (09:28)
[2023-04-08] MEDS: ANASTROZOLE (*CHEMO) 1 MG TABLET PO (09:29)
[2023-04-08] MEDS: PANTOPRAZOLE 40 MG TABLET PO (09:29)
[2023-04-08] MEDS: GABAPENTIN 300 MG CAPSULE 600 MG PO (09:29)
--- NOTE | 2023-04-08 09:59 | PM.DS ---
DS: Admitting Diagnosis Discharge Date 04/08/23 Admitting Diagnosis hyperkalemia DS: Discharge Diagnosis Discharge Diagnosis (1) Acute hyperkalemia: Code(s): E87.5 - Hyperkalemia Status: Acute Assessment and Plan: Improving, discontinue spironolactone Appreciate nephrology consultation (2) CAD (coronary artery disease): Code(s): I25.10 - Atherosclerotic heart disease of [place] coronary artery without angina pectoris Status: Chronic Assessment and Plan: Stable, continue home meds (3) Type 2 diabetes mellitus with diabetic nephropathy: Qualifiers: Diabetes mellitus ceramic painter insulin use: without ceramic painter use Qualified Code(s): E11.21 - Type 2 diabetes mellitus with diabetic nephropathy Code(s): E11.21 - Type 2 diabetes mellitus with diabetic nephropathy Status: Chronic Assessment and Plan: Accu-Cheks, sliding scale insulin, hold oral anti diabetics, check A1c Blood glucose reviewed 04/07 (4) Hypertensive heart and chronic kidney disease without heart failure, with stage 1 through stage 4 chronic kidney disease, or unspecified chronic kidney disease: Code(s): I13.10 - Hypertensive heart and chronic kidney disease without heart failure, with stage 1 through stage 4 chronic kidney disease, or unspecified chronic kidney disease Status: Chronic Assessment and Plan: Blood pressure reviewed 04/07 (5) Breast cancer, right breast: Qualifiers: Breast location: unspecified site of breast Estrogen receptor status: unspecified Patient sex: female Qualified Code(s): C50.911 - Malignant neoplasm of unspecified site of right female breast Code(s): C50.911 - Malignant neoplasm of unspecified site of right female breast Status: Inactive Assessment and Plan: Managed outpatient Plan DVT prophylaxis with SCDs GI prophylaxis not indicated Code status DNR DS: Summary Hospital Course Hospital Course: 82-year-old female with history of breast cancer status post radiation is presenting after a routine appointment found hyperkalemia. Urine culture came back negative for infection. Spironolactone and brenda inhibitor held indefinitely. Appears to have CKD, recommend f/u with nephrology outpatient. Will also d/c januvia due to possible risk of kidney failure. See above and med rec for details. Time Spent with Patient Time attestation: Total time spent providing and/or coordinating discharge services: Exam Narrative: General: No acute distress, alert and oriented per baseline HEENT: Atraumatic, normocephalic, mucous membranes moist CV: Regular rate and rhythm, S1, S2 Lungs: Clear to auscultation bilaterally, no rales or crackles noted, no wheezes, good air entry Abdomen: Soft, nontender, nondistended Extremities: Normal to inspection Skin: No rashes noted, no lesions or wounds seen Psych: Euthymic, normal affect DS: Data Data Completed and Pending Labs on day of discharge: Labs from last 24 hours 04/08/23 04/07/23 04:39 15:42 Sodium 136 L 135 L Potassium 5.3 H 5.8 H Chloride 105 106 Carbon Dioxide 26 21 L Anion Gap 5 L 8 BUN 13 14 Creatinine 1.30 H 1.10 H Estim Creat Clear Calc 27 36 Estimated GFR 39 L 47 L Glucose 121 H 106 Calcium 9.6 8.9 Phosphorus 3.9 Albumin 3.9 Discharge Plan Discharge Attending physician on discharge: Ava Shelton Consulting providers: Sundeep Avery Discharging Clinician: Ava Shelton Patient Disposition: Home, Self-Care Activity: as tolerated Diet: as tolerated Patient Instructions: Antibiotic Form Stand Alone Forms: General Discharge Information Follow-up/Referrals: Angus Chamberlain MD [Primary Care Provider] - Sundeep Avery MD [Physician] - Discharge Medications: Continued anastrozole 1 mg Tablet 1 mg PO DAILY cholecalciferol (vitamin D3) [Vitamin D
== END 2023-04-08 10:43 | disposition home or self-care (01) | DRG 641 ==
LOC: ANHED 19:02 → ANHIMU 20:17
PROVIDERS: Internal Medicine; Internal Medicine Nephrology; Admitting Provider Chiropractor; Emergency Provider Student in an Organized Health Care Education/Training Program; PCP Family Medicine; Visit Provider Student in an Organized Health Care Education/Training Program
DX: E87.5 Hyperkalemia (principal); E11.22 Type 2 diabetes mellitus with diabetic chronic kidney disease; I12.9 Hypertensive chronic kidney disease with stage 1 through stage 4 chronic kidney disease, or unspecified chronic kidney disease; N18.30 Chronic kidney disease, stage 3 unspecified; C50.911 Malignant neoplasm of unspecified site of right female breast; E78.5 Hyperlipidemia, unspecified; G62.9 Polyneuropathy, unspecified; K21.9 Gastro-esophageal reflux disease without esophagitis; I25.10 Atherosclerotic heart disease of native coronary artery without angina pectoris; I25.2 Old myocardial infarction; Z95.5 Presence of coronary angioplasty implant and graft; Z79.82 Long term (current) use of aspirin; Z66 Do not resuscitate
CPT/HCPCS: 36415; 80048; 80053; 80069; 81001; 82948; 83735; 84100; 85025; 85027; 87086; 87088; 93005; 96365; 96375; 99285; A9270; J0612; J0696; J1815; J3475; J7030

== ENCOUNTER 2023-04-11 08:16 | Outpatient (CLI) | payer MEDICARE, OTHER, SELFPAY ==
[2023-04-11 09:45] LABS: Anion Gap 8 mmol/L (8-16); Blood Urea Nitrogen 18 mg/dL (7-17); Calcium 9.1 mg/dL (8.4-10.2); Carbon Dioxide 23 mmol/L (22-30); Chloride 102 mmol/L (98-107); Estimated Glomerular Filt Rate 43; Glucose 164 mg/dL (65-110); Potassium 4.9 mmol/L (3.4-5.0); Sodium 133 mmol/L (137-145)
== END 2023-04-11 08:17 | disposition home or self-care (01) ==
LOC: ANHLAB 08:19
PROVIDERS: PCP Family Medicine; Visit Provider Student in an Organized Health Care Education/Training Program
DX: E87.5 Hyperkalemia (principal)
CPT/HCPCS: 36415; 80048

== ENCOUNTER 2023-04-26 08:15 | Outpatient (CLI) | payer MEDICARE, OTHER, SELFPAY ==
[2023-04-26 09:12] LABS: Albumin Level 4.1 g/dL (3.5-5.1); Anion Gap 8 mmol/L (8-16); Blood Urea Nitrogen 15 mg/dL (7-17); Calcium 8.7 mg/dL (8.4-10.2); Carbon Dioxide 31 mmol/L (22-30); Chloride 97 mmol/L (98-107); Estimated Glomerular Filt Rate 53; Glucose 171 mg/dL (65-110); Phosphorus 3.7 mg/dL (2.5-4.5); Potassium 3.9 mmol/L (3.4-5.0); Sodium 136 mmol/L (137-145)
== END 2023-04-26 08:16 | disposition home or self-care (01) ==
PROVIDERS: PCP Family Medicine; Visit Provider Internal Medicine Nephrology
DX: E87.5 Hyperkalemia (principal); R60.0 Localized edema
CPT/HCPCS: 36415; 80069

== ENCOUNTER 2023-07-14 08:09 | Outpatient (CLI) | payer MEDICARE, OTHER, SELFPAY ==
[2023-07-14 17:28] LABS: Hematocrit 41.8 % (37.0-47.0); Hemoglobin 12.3 g/dL (12.0-15.0); Mean Corpuscular HGB Conc 29.4 g/dl (32-36); Mean Corpuscular Hemoglobin 26.2 pg (26-34); Mean Corpuscular Volume 89.1 fl (80-100); Mean Platelet Volume 11.2 fl (7.4-10.4); Platelet Count Result 319 k/mm3 (150-375); Red Blood Count 4.69 M/mm3 (4.2-5.4); Red Cell Distribution Width 13.2 % (11.5-14.5); White Blood Count 10.1 K/mm3 (4.5-10.0)
[2023-07-14 17:31] LABS: Appearance Urine Clear (Clear); Bacteria Urine None Seen /hpf; Bilirubin Urine Negative (Negative); Blood Urine Negative (Negative); Color Urine Yellow (Yellow); Glucose Urine UA Negative (Negative); Ketones Urine Negative (Negative); Leukocyte Esterase Ur Trace LEU/UL (NEGATIVE); Nitrate Urine Negative (Negative); Non Pathogenic Casts 0-2; Protein Urine Negative (Negative); RBC Urine 0-2 /hpf (0-2); Specific Grav Ur 1.011 (1.001-1.035); Squamous Epithelial Cell Urine None seen /hpf (Few); Urobilinogen Urine 0.2 mg/dL (<2.0); pH Urine 5.5 (5.0-9.0)
[2023-07-14 17:33] LABS: Add Urine Microscopic? YES
[2023-07-14 17:36] LABS: Alanine Aminotransferase 14 U/L (6-35); Albumin Level 4.3 g/dL (3.5-5.1); Alkaline Phosphatase 96 U/L (38-126); Anion Gap 7 mmol/L (8-16); Aspartate Amino Transferase 51 U/L (14-36); Bilirubin,Total 0.6 mg/dL (0.2-1.3); Blood Urea Nitrogen 18 mg/dL (7-17); Carbon Dioxide 35 mmol/L (22-30); Chloride 98 mmol/L (98-107); Cholesterol 167 mg/dL (0-200); Estimated Glomerular Filt Rate 53; Glucose 146 mg/dL (65-110); HDL Direct 41 mg/dL; Potassium 4.1 mmol/L (3.4-5.0); Sodium 140 mmol/L (137-145); Triglycerides 167 mg/dL (<150)
[2023-07-14 17:47] LABS: LDL Cholesterol Direct 86 mg/dL
== END 2023-07-14 08:10 | disposition home or self-care (01) ==
LOC: ANHWCLAB 08:14
PROVIDERS: PCP Physician Assistant; Visit Provider Physician Assistant
DX: E53.8 Deficiency of other specified B group vitamins (principal); I25.10 Atherosclerotic heart disease of native coronary artery without angina pectoris; Z00.00 Encounter for general adult medical examination without abnormal findings; R74.01 Elevation of levels of liver transaminase levels; R52 Pain, unspecified; I12.9 Hypertensive chronic kidney disease with stage 1 through stage 4 chronic kidney disease, or unspecified chronic kidney disease; N18.30 Chronic kidney disease, stage 3 unspecified
CPT/HCPCS: 36415; 80053; 80061; 81001; 84443; 85027

== ENCOUNTER 2023-07-29 08:34 | Outpatient (CLI) | payer MEDICARE, OTHER, SELFPAY ==
[2023-07-29 09:25] LABS: Influenza A QL RT-PCR Negative (Negative); Influenza B QL RT-PCR Negative (Negative); RSV RNA, RT-PCR Negative (Negative); SARS-CoV-2 RNA PCR Negative (Negative)
== END 2023-07-29 08:35 | disposition home or self-care (01) ==
LOC: ANHLAB 08:36
PROVIDERS: PCP Family Medicine; Visit Provider Physician Assistant
DX: R53.1 Weakness (principal); R05.9 Cough, unspecified; Z20.822 Contact with and (suspected) exposure to COVID-19
CPT/HCPCS: 87637

== ENCOUNTER 2023-08-06 19:55 | Emergency (ER) | payer MEDICARE, OTHER, SELFPAY ==
--- NOTE | ~2023-08-06 | XR_ITS ---
EXAMINATION: XR chest 2V Exam Date/Time: 08/06/2023 20:30 TENTER FEEDER HISTORY: cp Comparison: 04/02/2022. RESULT: Lines, tubes, and devices: Cholecystectomy clips. Lungs and pleura: Senescent/emphysematous change. Granulomatous calcifications. Cardiomediastinal silhouette: Stable. Other: No acute osseous or upper abdominal finding. IMPRESSION: No acute cardiopulmonary process. Reviewed, dictated and finalized at location K. ER FEEDER
--- NOTE | 2023-08-06 19:59 | ECG_ITS ---
Measurements Intervals [place] Rate: 75 P: 57 MO: 168 QRS: 18 QRSD: 86 T: 45 QT: 354 QTc: 397 Interpretive Statements SINUS RHYTHM WITH SINUS ARRHYTHMIA Electronically Signed On 08-07-2023 11:36:04 MEDICAL TRANSCRIPTION EDITOR by Ed Huitron M.D.
[2023-08-06 20:26] LABS: Basophils Percent Auto 0.4 % (0.2-1.2); Eosinophils Absolute Auto 0.2 K/mm3 (0-0.3); Eosinophils Percent Auto 1.7 % (0-4.4); Hematocrit 36.6 % (37.0-47.0); Hemoglobin 11.4 g/dL (12.0-15.0); Immature Granulocyte Absolute 0.03 K/mm3 (0.00-0.031); Immature Granulocyte Percent A 0.3 % (0-0.5); Lymphocytes Absolute Auto 2.78 K/mm3 (0.9-3.2); Lymphocytes Percent Auto 26.6 % (18.3-44.2); Mean Corpuscular HGB Conc 31.1 g/dl (32-36); Mean Corpuscular Volume 83.6 fl (80-100); Mean Platelet Volume 10.2 fl (7.4-10.4); Monocytes Absolute Auto 1.1 K/mm3 (0.1-0.6); Monocytes Percent Auto 10.7 % (2.6-8.5); Neutrophils Absolute Auto 6.3 K/mm3 (1.3-6.7); Neutrophils Percent Auto 60.3 % (45.5-73.1); Platelet Count Result 286 k/mm3 (150-375); Red Blood Count 4.38 M/mm3 (4.2-5.4); Red Cell Distribution Width 13.5 % (11.5-14.5); White Blood Count 10.5 K/mm3 (4.5-10.0)
[2023-08-06 20:39] LABS: Alanine Aminotransferase 14 U/L (6-35); Albumin Level 3.9 g/dL (3.5-5.1); Alkaline Phosphatase 100 U/L (38-126); Anion Gap 5 mmol/L (8-16); Aspartate Amino Transferase 20 U/L (14-36); Bilirubin,Total 0.4 mg/dL (0.2-1.3); Blood Urea Nitrogen 20 mg/dL (7-17); Calcium 9.4 mg/dL (8.4-10.2); Carbon Dioxide 32 mmol/L (22-30); Chloride 99 mmol/L (98-107); Estimated CRCL calculation 34 ml/min; Estimated Glomerular Filt Rate 53; Glucose 169 mg/dL (65-110); Lipase 121 U/L (23-300); Potassium 3.7 mmol/L (3.4-5.0); Sodium 136 mmol/L (137-145)
[2023-08-06 20:45] LABS: Prothrombin Time 13.3 Seconds (11.1-14.7)
[2023-08-06 20:48] LABS: Troponin I < 0.012 ng/mL (0.000-0.034)
--- NOTE | 2023-08-06 20:49 | ED.GENADULT ---
HPI - General Adult General Chief complaint: Chest Pain Stated complaint: chest pain Time Seen by Provider: 08/06/23 20:31 patient is a 83-year-old female who presents emergency department with chief complaint of chest pain. Patient reports that she has prior history of cardiac disease has had several prior stents patient reports that she is scheduled for a stress test on Tuesday as it had to be rescheduled due to weather issues patient reports that the CT afternoon she had a pain in the middle portion of her chest denies radiation does report that she is gotten shortness of breath with the episode and reports that she has been having intermittent episodes of shortness of breath particularly with exertion. The patient reports that she took a full-size aspirin and also took some nitroglycerin patient reports that upon arrival to the emergency department her pain has resolved Related Data Home Medications Medication Instructions Recorded Confirmed anastrozole 1 mg tablet 1 mg PO DAILY 04/19/19 08/04/23 cyclosporine 0.05 % eye drops in a 1 drp EACH EYE Q12H 11/16/21 08/04/23 dropperette (Restasis) gabapentin 600 mg tablet 600 mg PO BID 01/12/23 08/04/23 aspirin 81 mg tablet,delayed 81 mg PO DAILY 04/20/23 08/04/23 release (Adult Low Dose Aspirin) cholecalciferol (vitamin D3) 25 50 mcg PO DAILY 04/20/23 08/04/23 mcg (1,000 unit) tablet (Vitamin D3) Allergies Allergy/AdvReac Type Severity Reaction Status Date / Time metformin AdvReac Intermediate diarrhea Verified 08/04/23 13:02 azithromycin AdvReac Nausea and Verified 08/04/23 13:02 Vomiting ciprofloxacin AdvReac Nausea and Verified 08/04/23 13:02 Vomiting clarithromycin AdvReac Nausea and Verified 08/04/23 13:02 Vomiting clavulanic acid AdvReac Nausea and Verified 08/04/23 13:02 Vomiting hydrocodone [From Vicodin] AdvReac Nausea and Verified 08/04/23 13:02 Vomiting metronidazole AdvReac Nausea and Verified 08/04/23 13:02 Vomiting neomycin AdvReac Nausea and Verified 08/04/23 13:02 Vomiting nitrofurantoin AdvReac Nervousness Verified 08/04/23 13:02 sulfamethizole AdvReac Nausea and Verified 08/04/23 13:02 Vomiting sulfamethoxazole AdvReac Nausea and Verified 08/04/23 13:02 [From Bactrim] Vomiting trimethoprim [From Bactrim] AdvReac Nausea and Verified 08/04/23 13:02 Vomiting Review of Systems Review of Systems: A 10 system review of systems was completed on the patient and is negative except for what is stated in the HPI. Nursing and ancillary documentation was reviewed. FOR[facility]LY [facility] Past Medical History Medical History Blind Left eye CAD (coronary artery disease) CKD (chronic kidney disease), stage III Foot pain, bilateral GERD (gastroesophageal reflux disease) History of myocardial infarction History of radiation therapy History of retinal detachment HLD (hyperlipidemia) HX: breast cancer Labia irritation Neuropathy Tear of medial meniscus of left knee Type 2 diabetes mellitus with diabetic nephropathy Surgical History Surgical History H/O cataract extraction H/O colonoscopy H/O lumpectomy History of esophagogastroduodenoscopy (EGD) History of partial mastectomy of right breast S/P primary angioplasty with coronary stent x 2 Family History Family History Father Family history of diabetes mellitus in first degree relative Family history of coronary artery disease Mother Dementia Other Hypertension Social History Social History Social History: She is and her poa is her . 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 She is a lifelong nonsmoker
[2023-08-06 20:58] VITALS: BP 161/83; PULSE 76; RESP 19; O2SAT 93
[2023-08-06 22:50] VITALS: BP 156/53; PULSE 71; RESP 17; O2SAT 93
--- NOTE | 2023-08-06 23:15 | ECG_ITS ---
Measurements Intervals [place] Rate: 69 P: 61 NM: 180 QRS: 23 QRSD: 94 T: 47 QT: 374 QTc: 403 Interpretive Statements SINUS RHYTHM COMPARED TO ECG 08/06/2023 20:03:40 NO SIGNIFICANT CHANGES Electronically Signed On 08-07-2023 11:37:22 PAID INTERNSHIP by Ed Huitron M.D.
[2023-08-06 23:52] LABS: Troponin I < 0.012 ng/mL (0.000-0.034)
--- NOTE | 2023-08-07 00:04 | PC.NURSE ---
this rn assumed care of patient. this rn took pt report from jovan Beaver.
[2023-08-07 00:16] VITALS: PULSE 73; RESP 17; O2SAT 95
[2023-08-07 00:53] VITALS: BP 141/59; PULSE 76; RESP 20; O2SAT 93
== END 2023-08-07 00:57 | disposition home or self-care (01) ==
PROVIDERS: Emergency Medicine; Emergency Provider Emergency Medicine; PCP Family Medicine
DX: R07.89 Other chest pain (principal); I25.10 Atherosclerotic heart disease of native coronary artery without angina pectoris; E11.22 Type 2 diabetes mellitus with diabetic chronic kidney disease; I13.10 Hypertensive heart and chronic kidney disease without heart failure, with stage 1 through stage 4 chronic kidney disease, or unspecified chronic kidney disease; N18.30 Chronic kidney disease, stage 3 unspecified; E11.40 Type 2 diabetes mellitus with diabetic neuropathy, unspecified; E11.21 Type 2 diabetes mellitus with diabetic nephropathy; I25.2 Old myocardial infarction; E78.5 Hyperlipidemia, unspecified; K21.9 Gastro-esophageal reflux disease without esophagitis; Z95.5 Presence of coronary angioplasty implant and graft; Z85.3 Personal history of malignant neoplasm of breast; Z92.3 Personal history of irradiation; Z98.49 Cataract extraction status, unspecified eye; Z90.11 Acquired absence of right breast and nipple; Z79.82 Long term (current) use of aspirin; Z79.84 Long term (current) use of oral hypoglycemic drugs
CPT/HCPCS: 36415; 71046; 80053; 83690; 84484; 85025; 85610; 85730; 93005; 99284

== ENCOUNTER 2023-09-30 10:39 | Outpatient (CLI) | payer MEDICARE, OTHER, SELFPAY ==
[2023-09-30 10:53] LABS: Basophils Percent Auto 0.4 % (0.2-1.2); Eosinophils Absolute Auto 0.3 K/mm3 (0-0.3); Eosinophils Percent Auto 3.7 % (0-4.4); Hematocrit 38.3 % (37.0-47.0); Hemoglobin 11.9 g/dL (12.0-15.0); Immature Granulocyte Absolute 0.04 K/mm3 (0.00-0.031); Immature Granulocyte Percent A 0.4 % (0-0.5); Lymphocytes Absolute Auto 1.84 K/mm3 (0.9-3.2); Lymphocytes Percent Auto 20.7 % (18.3-44.2); Mean Corpuscular HGB Conc 31.1 g/dl (32-36); Mean Corpuscular Hemoglobin 25.6 pg (26-34); Mean Corpuscular Volume 82.4 fl (80-100); Mean Platelet Volume 9.4 fl (7.4-10.4); Monocytes Absolute Auto 0.8 K/mm3 (0.1-0.6); Monocytes Percent Auto 9.1 % (2.6-8.5); Neutrophils Absolute Auto 5.8 K/mm3 (1.3-6.7); Neutrophils Percent Auto 65.7 % (45.5-73.1); Platelet Count Result 287 k/mm3 (150-375); Red Blood Count 4.65 M/mm3 (4.2-5.4); Red Cell Distribution Width 15.2 % (11.5-14.5); White Blood Count 8.9 K/mm3 (4.5-10.0)
[2023-09-30 11:44] LABS: Anion Gap 3 mmol/L (4-12); Blood Urea Nitrogen 18 mg/dL (7-17); Calcium 9.8 mg/dL (8.4-10.2); Carbon Dioxide 33 mmol/L (22-30); Chloride 101 mmol/L (98-107); Estimated Glomerular Filt Rate 60; Glucose 175 mg/dL (65-110); Potassium 3.8 mmol/L (3.4-5.0); Sodium 137 mmol/L (137-145)
[2023-10-05 06:04] LABS: CA 15-3 18 U/mL (<32)
== END 2023-09-30 10:40 | disposition home or self-care (01) ==
LOC: ANHLAB 10:42
PROVIDERS: PCP Family Medicine; Visit Provider Internal Medicine Hematology & Oncology
DX: C50.111 Malignant neoplasm of central portion of right female breast (principal)
CPT/HCPCS: 36415; 80048; 85025; 86300

== ENCOUNTER 2024-02-09 11:54 | Outpatient (CLI) | payer MEDICARE, OTHER, SELFPAY ==
--- NOTE | ~2024-02-09 | CT_ITS ---
EXAMINATION: CT abdomen pelvis wo con DATE: 02/09/2024 12:33 INDICATION: Right lower quadrant abdominal pain. TECHNIQUE: Computed tomography (CT) of the abdomen and pelvis was performed without intravenous contr ast. Automated exposure control and iterative reconstruction technique were employed. The dose-length product was 772.92 mGy-cm. COMPARISON: CT abdomen and pelvis 06/08/2022 FINDINGS: The visualized portions of the lung bases demonstrate mild atelectasis. A calcified left isatu ng nodule and calcified mediastinal lymph node are consistent with old granulomatous disease. No pleu ral effusion. The heart size is normal. There are coronary artery calcifications. No pericardial effu patrick. Calcifications in the liver and spleen are consistent with old granulomatous disease. There are changes of cholecystectomy. The pancreas and adrenal glands are normal. There are cysts in the kidne ys measuring up to 16 mm on the right. There is no urolithiasis. There is an anastomosis in the sigmo id colon. There are no dilated loops of bowel. The appendix is not visualized. There is calcified ath erosclerosis of the aorta and many of the other arteries. There are no pathologically enlarged lymph nodes. There is no free intraperitoneal fluid. There is severe lumbar spondylosis and mild thoracic s pondylosis. IMPRESSION: 1. No etiology for the patient's symptoms. Reviewed, dictated and finalized at location A.
[2024-02-09 12:48] LABS: Basophils Percent Auto 0.4 % (0.2-1.2); Eosinophils Absolute Auto 0.2 K/mm3 (0-0.3); Eosinophils Percent Auto 1.7 % (0-4.4); Hematocrit 38.9 % (37.0-47.0); Hemoglobin 11.9 g/dL (12.0-15.0); Immature Granulocyte Absolute 0.06 K/mm3 (0.00-0.031); Immature Granulocyte Percent A 0.5 % (0-0.5); Lymphocytes Percent Auto 19.1 % (18.3-44.2); Mean Corpuscular HGB Conc 30.6 g/dl (32-36); Mean Corpuscular Hemoglobin 26.1 pg (26-34); Mean Corpuscular Volume 85.3 fl (80-100); Mean Platelet Volume 10.2 fl (7.4-10.4); Monocytes Percent Auto 9.1 % (2.6-8.5); Neutrophils Absolute Auto 7.6 K/mm3 (1.3-6.7); Neutrophils Percent Auto 69.2 % (45.5-73.1); Platelet Count Result 334 k/mm3 (150-375); Red Blood Count 4.56 M/mm3 (4.2-5.4)
[2024-02-09 13:04] LABS: Alanine Aminotransferase 13 U/L (6-35); Albumin Level 4.2 g/dL (3.5-5.1); Alkaline Phosphatase 102 U/L (38-126); Anion Gap 6 mmol/L (4-12); Aspartate Amino Transferase 22 U/L (14-36); Bilirubin,Total 0.3 mg/dL (0.2-1.3); Blood Urea Nitrogen 15 mg/dL (7-17); Calcium 9.6 mg/dL (8.4-10.2); Carbon Dioxide 33 mmol/L (22-30); Chloride 100 mmol/L (98-107); Estimated Glomerular Filt Rate 60; Glucose 125 mg/dL (65-110); Potassium 4.1 mmol/L (3.4-5.0); Sodium 139 mmol/L (137-145)
== END 2024-02-09 11:55 | disposition home or self-care (01) ==
PROVIDERS: PCP Family Medicine; Visit Provider Physician Assistant
DX: R10.2 Pelvic and perineal pain (principal); R10.31 Right lower quadrant pain; R10.32 Left lower quadrant pain; Z87.19 Personal history of other diseases of the digestive system
CPT/HCPCS: 36415; 74176; 80053; 85025

== ENCOUNTER 2024-03-19 08:31 | Outpatient (CLI) | payer MEDICARE, OTHER, SELFPAY ==
--- NOTE | ~2024-03-19 | MM_ITS ---
EXAMINATION: MM screening irene BI w sam HISTORY: Screening mammogram, family history of breast cancer in her daughter. TECHNIQUE: Craniocaudal and mediolateral oblique 3-D tomosynthesis images were obtained and synthetic 2-D images were generated. CAD analysis was submitted and interpreted. COMPARISON: 03/17/2023, 03/15/2022, 03/12/2021, 02/11/2020 BREAST PARENCHYMAL COMPOSITION:Not Dense. The breasts are almost entirely fatty FINDINGS: Stable post lumpectomy change in the upper, inner right breast. No suspicious mass, calcifi cation, or architectural distortion are identified in either breast to suggest malignancy. There has been no suspicious interval change. IMPRESSION: No mammographic evidence of malignancy. Recommend routine screening mammography in one year. BI-RADS Category 2: Benign finding(s). Reviewed, dictated and finalized at [facility].
== END 2024-03-19 08:32 | disposition home or self-care (01) ==
LOC: ANHIMG 08:35
PROVIDERS: PCP Family Medicine; Visit Provider Internal Medicine Hematology & Oncology
DX: Z12.31 Encounter for screening mammogram for malignant neoplasm of breast (principal)
CPT/HCPCS: 77063; 77067

== ENCOUNTER 2024-05-03 18:38 | Emergency (ER) | payer MEDICARE, OTHER, SELFPAY ==
[2024-05-03 18:42] VITALS: BP 194/87; PULSE 95; RESP 18; TEMP 36.8; O2SAT 96
[2024-05-04 00:30] VITALS: BP 183/98; PULSE 86; RESP 18; TEMP 36.7; O2SAT 95
--- NOTE | 2024-05-04 02:00 | ED_ITS ---
HPI - Recheck/Abnormal Lab/Rx General Chief Complaint: Recheck/Abnormal Lab/Rx Stated Complaint: ELEVATED BLOOD PRESSURE. DENIES C/O History of Present Illness HPI narrative: patient presents with asymptomatic hypertension, she has noticed over last 2 weeks that her blood pressure has gone up after being taken off of a medication that was making her potassium to high. She has no chest pain, dizziness, headache, nausea vomiting, shortness of breath, focal numbness or weakness. Related Data Home Medications Medication Instructions Recorded Confirmed anastrozole 1 mg tablet 1 mg PO DAILY 04/19/19 04/27/24 cyclosporine 0.05 % eye drops in a 1 drp EACH EYE Q12H 11/16/21 04/27/24 dropperette (Restasis) cholecalciferol (vitamin D3) 25 50 mcg PO DAILY 04/20/23 04/27/24 mcg (1,000 unit) tablet (Vitamin D3) Allergies Allergy/AdvReac Type Severity Reaction Status Date / Time metformin AdvReac Intermediate diarrhea Verified 04/26/24 07:45 azithromycin AdvReac Nausea and Verified 04/26/24 07:45 Vomiting ciprofloxacin AdvReac Nausea and Verified 04/26/24 07:45 Vomiting clarithromycin AdvReac Nausea and Verified 04/26/24 07:45 Vomiting clavulanic acid AdvReac Nausea and Verified 04/26/24 07:45 Vomiting hydrocodone [From Vicodin] AdvReac Nausea and Verified 04/26/24 07:45 Vomiting metronidazole AdvReac Nausea and Verified 04/26/24 07:45 Vomiting neomycin AdvReac Nausea and Verified 04/26/24 07:45 Vomiting nitrofurantoin AdvReac Nervousness Verified 04/26/24 07:45 sulfamethizole AdvReac Nausea and Verified 04/26/24 07:45 Vomiting sulfamethoxazole AdvReac Nausea and Verified 04/26/24 07:45 [From Bactrim] Vomiting trimethoprim [From Bactrim] AdvReac Nausea and Verified 04/26/24 07:45 Vomiting Review of Systems Review of Systems: All systems reviewed & are unremarkable except as noted in HPI and below PMFSH Past Medical History Medical History Blind Left eye CAD (coronary artery disease) CKD (chronic kidney disease), stage III Foot pain, bilateral GERD (gastroesophageal reflux disease) History of myocardial infarction History of radiation therapy History of retinal detachment HLD (hyperlipidemia) HX: breast cancer Labia irritation Neuropathy Tear of medial meniscus of left knee Type 2 diabetes mellitus with diabetic nephropathy Surgical History Surgical History H/O cataract extraction H/O colonoscopy H/O lumpectomy History of esophagogastroduodenoscopy (EGD) History of partial mastectomy of right breast S/P primary angioplasty with coronary stent x 2 Family History Family History Father Family history of diabetes mellitus in first degree relative Family history of coronary artery disease Mother Dementia Other Hypertension Social History Social History Social History: She is and her poa is her . 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 She is a lifelong nonsmoker. She does not use any alcohol marijuana or illicit drugs. Code status full code Smoking status: Never smoker Second hand tobacco smoke exposure: No Alcohol intake: never Substance use: never Substance use type: does not use Do You Feel Safe in your Home?: Yes Lack of Transportation: No Lack of Food: Never True Current Housing: I Have Housing Concerned About Future Housing: No Difficulty Paying Gas/Electric Bills: No Difficulty Paying for Meds: No Currently Unemployed: No Education: Decline to Answer Difficulty w/ Childcare or Family Care: No Living arrangements: with family Occupation/Education: retired Gender identity (if verbalized by the patient): Female Sexual Orientation (if Verbalized by the Patient): Straight or Heterosexual Spiritual care concerns: No Exam Narrative: EXAMINATION OF ORGAN SYSTEMS/BODY AREAS: Constitutional: Vital signs per nursing GENERAL:[No acute distress, non-toxic appearing.] HEAD: Normal with no signs of head trauma. EYES: EOMI, conjunctiva normal; left pupil smaller but this is her bad eye ENT: Hearing grossly intact; slightly asymmetric face but is baseline per at bedside LUNGS: Nonlabored breathing. HEART: [Regular rate and rhythm] ABD: [Soft], [nontender to palpation] EXT: Normal range of motion SKIN: [No rashes or lesions.] NEURO: [Alert and oriented x 3. No gross focal sensory or strength deficits.] Clear speech. PSYCH: Normal affect Course Vital Signs Vital signs: Vital Signs Temperature 98.2 F 05/03/24 18:42 Pulse Rate 95 05/03/24 18:42 Respiratory Rate 18 05/03/24 18:42 Blood Pressure 194/87 H 05/03/24 18:42 Pulse Oximetry 96 05/03/24 18:42 Oxygen Delivery Room Air 05/03/24 18:42 Temperature 98.0 F 05/04/24 00:30 Pulse Rate 78 05/04/24 02:23 Respiratory Rate 18 05/04/24 02:23 Blood Pressure 168/88 H 05/04/24 02:23 Pulse Oximetry 99 05/04/24 02:23 Oxygen Delivery Room Air 05/03/24 18:42 MDM - Recheck/Abnormal Lab/Rx MDM Narrative Medical decision making narrative: Patient with asymptomatic hypertension. No signs or symptoms of end organ dysfunction; no chest pain or shortness of breath, neurological deficits, severe headaches, visual disturbance, oliguria, or symptoms of dissection/AAA). Long- term risks of hypertension, especially uncontrolled, were discussed including increased risks of kidney disease, vascular disease, stroke and heart disease. I will start patient on amlodipine here and provide script for short course, patient expressed understanding of the instructions and strongly advised to follow-up with PMD for further management. Patient And at bedside agreeable to this plan. Discharge Plan Discharge Clinical Impression: Chronic hypertension Patient Disposition: Home, Self-Care Condition: Stable Instructions: Antibiotic Form, Chronic Hypertension (ED) Additional Instructions: Please start taking the new medication as prescribed, and follow up with your doctor in the next 1-2 weeks for recheck. You can always return to the ER if you have any symptoms. Prescriptions: New amlodipine 10 mg tablet 10 mg PO DAILY Qty: 30 0RF No Action anastrozole 1 mg Tablet 1 mg PO DAILY cyclosporine [Restasis] 0.05 % Dropperette 1 drp EACH EYE Q12H cholecalciferol (vitamin D3) [Vitamin D3] 25 mcg (1,000 unit) tablet 50 mcg PO DAILY (DME) lancets [OneTouch UltraSoft Lancets] Misc See Rx Instructions .ROUTE .MEDSUPPLY Qty: 200 10RF Rx Instructions: As directed to test blood suagr once daily (DME) blood-glucose meter Misc See Rx Instructions .ROUTE .MEDSUPPLY Qty: 1 0RF Rx Instructions: As directed hydrochlorothiazide 12.5 mg tablet 12.5 mg PO DAILY Qty: 30 2RF carvedilol 12.5 mg tablet 12.5 mg PO BID Qty: 180 2RF (DME) Blood Glucose Test Strip See Rx Instructions .ROUTE .MEDSUPPLY Qty: 100 6RF Rx Instructions: As directed to test blood sugar once daily atorvastatin 20 mg tablet 20 mg PO DAILY Qty: 90 2RF omeprazole 40 mg capsule,delayed release(DR/EC) 40 mg PO DAILY Qty: 90 3RF gabapentin 600 mg tablet 600 mg PO BID Qty: 180 1RF alprazolam 1 mg tablet 1 mg PO BID PRN (Reason: anxiety) Qty: 60 0RF Tradjenta 5 mg tablet 5 mg PO QAM Qty: 90 1RF Follow-up/Referrals: Angus Chamberlain MD [Primary Care Provider] - 2 Days
[2024-05-04] MEDS: amLODIPine BESYLATE 10 MG TABLET PO (02:07)
[2024-05-04 02:23] VITALS: BP 168/88; PULSE 78; RESP 18; O2SAT 99
== END 2024-05-04 02:24 | disposition home or self-care (01) ==
LOC: ANHED 05-04 01:57
PROVIDERS: Emergency Provider Emergency Medicine; PCP Family Medicine
DX: I12.9 Hypertensive chronic kidney disease with stage 1 through stage 4 chronic kidney disease, or unspecified chronic kidney disease (principal); I25.10 Atherosclerotic heart disease of native coronary artery without angina pectoris; N18.30 Chronic kidney disease, stage 3 unspecified; K21.9 Gastro-esophageal reflux disease without esophagitis; I25.2 Old myocardial infarction; Z85.3 Personal history of malignant neoplasm of breast; E11.22 Type 2 diabetes mellitus with diabetic chronic kidney disease
CPT/HCPCS: 99283; A9270

== ENCOUNTER 2024-05-10 09:16 | Outpatient (CLI) | payer MEDICARE, OTHER, SELFPAY ==
[2024-05-10 10:20] LABS: Anion Gap 9 mmol/L (4-12); Blood Urea Nitrogen 18 mg/dL (7-17); Calcium 9.8 mg/dL (8.4-10.2); Carbon Dioxide 34 mmol/L (22-30); Chloride 91 mmol/L (98-107); Estimated Glomerular Filt Rate 60; Glucose 230 mg/dL (65-110); Potassium 3.6 mmol/L (3.4-5.0); Sodium 134 mmol/L (137-145)
== END 2024-05-10 09:17 | disposition home or self-care (01) ==
LOC: ANHLAB 09:19
PROVIDERS: PCP Family Medicine; Visit Provider Physician Assistant
DX: I12.9 Hypertensive chronic kidney disease with stage 1 through stage 4 chronic kidney disease, or unspecified chronic kidney disease (principal); N18.30 Chronic kidney disease, stage 3 unspecified
CPT/HCPCS: 36415; 80048

== ENCOUNTER 2024-05-16 09:15 | Outpatient (CLI) | payer MEDICARE, OTHER, SELFPAY ==
--- NOTE | ~2024-05-16 | MR_ITS ---
EXAMINATION: MR brain/brain stem wo/w con DATE: 05/16/2024 08:13 INDICATION: Unspecified dementia, unspecified severity. TECHNIQUE: Magnetic resonance imaging (MRI) of the brain and brainstem was performed without and with 15 mL MultiHance intravenous contrast. COMPARISON: None. FINDINGS: There are scattered areas of nonspecific increased T2-weighted signal intensity in the cere bral white matter and everett, which is within normal limits for the patient's age. There is no intracra nial hemorrhage, acute infarction, or abnormal intracranial mass lesion. The ventricles are normal in size. The paranasal sinuses are clear. There are likely changes of ocular lens replacement surgeries . There is a trace right mastoid effusion. IMPRESSION: 1. Normal aging brain. 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 Normal aging brain.
[2024-05-16 09:33] LABS: Add Urine Microscopic? YES; Appearance Urine Clear (Clear); Bacteria Urine None Seen /hpf; Bilirubin Urine Negative (Negative); Blood Urine Negative (Negative); Color Urine Yellow (Yellow); Glucose Urine UA Negative (Negative); Ketones Urine Negative (Negative); Leukocyte Esterase Ur 2+ LEU/UL (Negative); Nitrate Urine Negative (Negative); Non Pathogenic Casts 0-2; Protein Urine Trace mg/dL (Negative); RBC Urine 0-2 /hpf (0-2); Specific Grav Ur 1.018 (1.001-1.035); Squamous Epithelial Cell Urine None Seen /hpf (Few); Urobilinogen Urine 0.2 mg/dL (<2.0); pH Urine 5.5 (5.0-9.0)
== END 2024-05-16 09:16 | disposition home or self-care (01) ==
PROVIDERS: PCP Family Medicine; Visit Provider Physician Assistant
DX: N39.0 Urinary tract infection, site not specified (principal); F03.90 Unspecified dementia, unspecified severity, without behavioral disturbance, psychotic disturbance, mood disturbance, and anxiety; R41.3 Other amnesia
CPT/HCPCS: 70553; 81001; 87086; A9577

== ENCOUNTER 2024-06-22 11:01 | Outpatient (CLI) | payer MEDICARE, OTHER, SELFPAY ==
[2024-06-22 12:13] LABS: Anion Gap 4 mmol/L (4-12); Blood Urea Nitrogen 28 mg/dL (7-17); Calcium 9.9 mg/dL (8.4-10.2); Carbon Dioxide 34 mmol/L (22-30); Chloride 97 mmol/L (98-107); Estimated Glomerular Filt Rate 53; Glucose 192 mg/dL (65-110); Potassium 3.5 mmol/L (3.4-5.0); Sodium 135 mmol/L (137-145)
== END 2024-06-22 11:02 | disposition home or self-care (01) ==
PROVIDERS: PCP Family Medicine; Visit Provider Internal Medicine Cardiovascular Disease
DX: R60.0 Localized edema (principal)
CPT/HCPCS: 36415; 80048

== ENCOUNTER 2024-07-02 08:37 | Outpatient (CLI) | payer MEDICARE, OTHER, SELFPAY ==
[2024-07-02 09:50] LABS: Anion Gap 2 mmol/L (4-12); Blood Urea Nitrogen 45 mg/dL (7-17); Calcium 8.8 mg/dL (8.4-10.2); Carbon Dioxide 35 mmol/L (22-30); Chloride 88 mmol/L (98-107); Estimated Glomerular Filt Rate 25; Glucose 212 mg/dL (65-110); Sodium 125 mmol/L (137-145)
== END 2024-07-02 08:38 | disposition home or self-care (01) ==
LOC: ANHLAB 08:43
PROVIDERS: PCP Family Medicine; Visit Provider Internal Medicine Cardiovascular Disease
DX: R60.0 Localized edema (principal)
CPT/HCPCS: 36415; 80048

== ENCOUNTER 2024-07-09 07:52 | Outpatient (CLI) | payer MEDICARE, OTHER, SELFPAY ==
--- NOTE | ~2024-07-09 | US_ITS ---
EXAMINATION: US retroperitoneal duplex ltd DATE: 07/09/2024 09:15 INDICATION: Hypertension. TECHNIQUE: Multiple grayscale, color Doppler, and pulsed Doppler images of the kidneys and renal omar star were obtained. COMPARISON: CT 06/08/2022 FINDINGS: The aorta peak systolic velocity is 87 cm/s. Right kidney measures 10.7 x 4.0 x 3.4 cm. There is a 2. 0 cm cyst in right kidney. The right renal artery peak systolic velocity is 94 cm/s in the proximal s egment, 48 cm/s in the mid segment, and 58 cm/s in the distal segment. Left kidney measures 10.1 x 4. 2 x 3.3 cm. The left renal artery peak systolic velocity is 62 cm/s in the proximal segment, 58 cm/s in the mid segment, and 42 cm/s in the distal segment. IMPRESSION: 1. No Doppler evidence of renal artery stenosis. Reviewed, dictated and finalized at location A. WABLE ENERGY TECHNICIAN
[2024-07-09 09:47] LABS: Anion Gap 6 mmol/L (4-12); Blood Urea Nitrogen 25 mg/dL (7-17); Calcium 9.7 mg/dL (8.4-10.2); Carbon Dioxide 35 mmol/L (22-30); Chloride 92 mmol/L (98-107); Estimated Glomerular Filt Rate 59; Glucose 173 mg/dL (65-110); Potassium 4.3 mmol/L (3.4-5.0); Sodium 133 mmol/L (137-145)
== END 2024-07-09 07:53 | disposition home or self-care (01) ==
PROVIDERS: PCP Family Medicine; Visit Provider Internal Medicine Cardiovascular Disease
DX: E11.59 Type 2 diabetes mellitus with other circulatory complications (principal); I15.2 Hypertension secondary to endocrine disorders; I10 Essential (primary) hypertension
CPT/HCPCS: 36415; 80048; 93976

== ENCOUNTER 2025-01-11 09:13 | Emergency (ER) | payer MEDICARE, OTHER, SELFPAY ==
--- NOTE | ~2025-01-11 | CT_ITS ---
CLINICAL INDICATION: Lower abdominal pain COMPARISON: 02/09/2024. TECHNIQUE: Multiple contiguous axial images of the abdomen and pelvis were performed following the ad ministration of with 100 mL Omnipaque-350 intravenous contrast The dose-length product (DLP) was 564.13 mGy-cm. Automated exposure control and iterative reconstruction technique were employed. FINDINGS/OBSERVATIONS: Visualized lower thorax: Interstitial thickening is detected bilaterally with multiple calcified nodules, consistent with prio r granulomatous disease. The heart is of normal size, without pericardial effusion. Small hiatal hernia is present. Liver: The liver demonstrates homogeneous enhancement and is not enlarged. Gallbladder and biliary system: The gallbladder is surgically absent. Pancreas: The pancreas enhances homogeneously without significant ductal dilatation. Spleen: Punctate calcifications identified within the splenic parenchyma, suggesting prior granulomat ous disease. The remainder of the spleen otherwise enhances homogeneously and is not enlarged. Kidneys: Bilateral well-circumscribed foci of fluid attenuation within the bilateral kidneys, unchang ed from prior. The remainder of the bilateral kidneys enhance symmetrically without hydronephrosis or renal calculi. Adrenal glands: Unremarkable. Gastrointestinal tract: Postoperative change within the deep pelvis. Colonic diverticulosis without surrounding inflammatory change. Fecal stasis within the colon. Appendix: The appendix is not definitively visualized. However, no pericecal inflammatory change is identified suggest the presence of acute appendicitis. Vasculature: Densely calcified atherosclerotic disease within the infrarenal abdominal aorta Lymph nodes: No pathologically enlarged or morphologically suspicious lymph nodes within the retroperitoneum or at the root of the mesentery. Pelvic structures: The bladder is only minimally distended, and otherwise unremarkable. The uterus is either markedly atrophic or surgically absent. Body wall and musculoskeletal: Small fat-containing umbilical hernia. Age-appropriate degenerative disease within the lower thoracic and lumbosacral spines IMPRESSION: No acute findings within the lower chest, abdomen or pelvis, as detailed above Reviewed, dictated and finalized at location A.
--- OUTSIDE RECORDS SUMMARY | 2025-01-11 09:17 | XMS_ITS ---
Author Name Auto Generated, Auto Generated Organization [facility] ices Address [address] [place] [address] Phone [phone] Care Team Providers Care Cryptologic Technician Name Role Phone Raman Baptiste Unavailable [phone] Angus Chamberlain Unavailable Jimmy Salazar Unavailable [phone] Functional Status Mental Status Allergies and Intolerances Encounters Problems Reason for Referral Past Medical History
--- OUTSIDE RECORDS SUMMARY | 2025-01-11 09:17 | XMS_ITS | Clinical Summary ---
Author Organization [facility] Address [address] [place] [address] Care Team Providers Care Speech Therapy Director Name Role Phone nAgus Chamberlain MD Primary Care Provider [phone] Allergies Active Allergy Reactions Criticality Noted Date Comments Amoxicillin-Pot Clavulanate Nausea and Vomiting,Other (See Comments) Low 11/28/2013 Other reaction(s): Vomiting Pt states not allerigic Azithromycin Nausea and Vomiting Low 11/28/2013 Ciprofloxacin Nausea and Vomiting High 02/10/2012 Clarithromycin Nausea and Vomiting,Other (See Comments) Low 11/28/2013 Other reaction(s): Vomiting Reaction: Nausea, Vomiting, , Reaction: NAUSEA, VOMITING, , Reaction: Other, Vomiting, Codeine Nausea and Vomiting Low 07/11/2019 Hydrocodone Nausea and Vomiting Low 05/17/2017 Hydrocodone-Acetaminophe n Nausea and Vomiting Low 11/28/2013 Metronidazole Nausea and Vomiting Low 11/28/2013 Neomycin Nausea and Vomiting Low 11/28/2013 Nitrofurantoin Nausea and Vomiting,Other (See Comments) Low 05/17/2017 Nitrofurantoin Monohyd/M-Cryst Nausea and Vomiting Low 05/17/2017 Potassium Nausea and Vomiting Low 07/11/2019 Sulfamethoxazole-Trimeth oprim Nausea and Vomiting Low 11/28/2013 Medications spironolactone (ALDACTONE) 25 mg tablet Take 25 mg by mouth daily. Active omeprazole (PriLOSEC) 40 mg Capsule, Delayed Release(E.C.) Take 40 mg by mouth daily. Active carvedilol (COREG) 12.5 mg tablet Take 12.5 mg by mouth 2 times daily with meals. Active gabapentin (NEURONTIN) 300 mg capsule Take 300 mg by mouth 3 times daily. Active carboxymethylcellul ose (REFRESH LIQUIGEL) 1 % solution 1 Drop. Active cycloSPORINE (RESTASIS) 0.05 % emulsion 1 Drop. 7 Active prochlorperazine maleate (COMPAZINE) 10 mg tablet Take 1 Tablet (10 mg) by mouth every 6 hours as needed for Nausea/Emesi s. 30 Tablet 6 8 Active sitaGLIPtin (JANUVIA) 100 mg Tablet Take 100 mg by mouth. Active Lacto.acidophilus-B if.animalis 31 billion cell Capsule Take 1 Tablet by mouth. 8 Active atorvastatin (LIPITOR) 20 mg tablet Take 20 mg by mouth daily with supper. Active diclofenac sodium (VOLTAREN XR) 100 mg Extended Release 24 hour tablet 4 Active omeprazole-sodium bicarbonate (ZEGERID) 40-1.1 mg-gram Capsule 4 Active cholecalciferol, Vitamin D3, (VITAMIN D3) 1,000 unit Capsule Take 1,000 Units by mouth daily. Active FREESTYLE LITE STRIPS Strip 9 Active ondansetron (ZOFRAN) 4 mg Tablet Take 1 Tablet (4 mg) by mouth every 8 hours as needed for Nausea/Emesi s. 30 Tablet 3 0 Active Blood-Glucose Meter (OneTouch Ultra2 Meter) as directed 0 Active lisinopriL (PRINIVIL) 5 mg tablet Take 5 mg by mouth. 0 Active traMADoL (ULTRAM) 50 mg tablet Take 50 mg by mouth. 1 Active ALPRAZolam (XANAX) 1 mg disintegrating tablet 0 Active aspirin (Aspirin Childrens) 81 mg Tablet, Chewable Take 81 mg by mouth. Active anastrozole (ARIMIDEX) 1 mg tabletIndications:M alignant neoplasm of central portion of right female breast, unspecified estrogen receptor status (CMS/HCC) Take 1 Tablet (1 mg) by mouth daily. 90 Tablet 3 4 Active Active Problems Problem Noted Date Diagnosed Date Estrogen receptor positive 02/08/2018 Chronic anemia 02/08/2018 History of therapeutic radiation 10/19/2017 Aromatase inhibitor use 10/19/2017 Vitamin D deficiency 10/19/2017 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, estrogen receptor positive 05/17/2017 Family History Medical History Relation Name Comments Heart Disease Brother Other Brother Diabetes Father Heart Disease Father Heart Disease Mother Other Mother Diabetes Sister Relation Name Status Comments Brother Alive Father Mother Alive Sister Alive Social History Tobacco Use Types Packs/Day Years Used Date Smoking Tobacco: Former Cigarettes 0.3 2 1 07/17/1956 - 05/17/1959 Tobacco Cessation:Counseling Given: Not Answered Comments:intermittent Alcohol Use Standard Drinks/Week Comments No 0 (1 standard drink = 0.6 oz pur e alcohol) Comments No Sex and Gender Information Value Date Recorded Sex Assigned at Not on file Legal Sex Female 7:15 PM MONOLOGIST Gender Identity Not on file Sexual Orientation Not on file Last Filed Vital Signs Vital Sign Reading Time Taken Comments Blood Pressure 132/75 10/07/2023 10:43 AM CDT Pulse 68 10/07/2023 10:43 AM CDT Temperature 36.7 C (98 F) 10/07/2023 10:43 AM CDT Respiratory Rate 14 10/07/2023 10:43 AM CDT Oxygen Saturation 92% 10/07/2023 10:43 AM CDT Inhaled Oxygen Concentration - - Weight 76.7 kg (169 lb) 10/07/2023 10:43 AM CDT Height 157.5 cm (5' 2) 03/22/2022 11:07 AM CDT Body Mass Index 30.91 03/22/2022 11:07 AM CDT Plan of Treatment Health Maintenance Due Date Last Done Comments DIABETES ANNUAL FOOT EXAM 1957 DIABETES HBA1C Q 6 MONTHS 1957 DIABETES MICROALBUMIN ANNUAL SCREEN 1957 LDL CHOLESTEROL ANNUAL 1957 DTAP/TDAP/TD VACCINES (1 - Tdap) 1958 PNEUMOCOCCAL VACCINE 50+ YEA RS (1 of 2 - PCV) 1958 ZOSTER VACCINE (1 of 2) 1989 OSTEOPOROSIS SCREENING 2004 RSV VACCINE (60+ or ) (1 - 1-dose 75+ series) 2014 DIABETES ANNUAL RETINAL EXAM 07/14/202205/2022, 04/02/2021, 03/19/2021, Additional history exists COVID-19 Vaccine (3 - 2023-2 5 season) 2024 10/02/2020, 09/04/2020 INFLUENZA VACCINE (#1) 2025 , 04/03/2018, 04/01/2017, Additional history exists Insurance [employer] Member Subscriber Plan / Payer (Ef fective 2021-Present) Name:Zaynab Oliver Relation to Subscriber:Spouse Name:FRANCHESKANILTON CONTRERAS Date of :1947 (Home) Address: [address] [place] [address]. [place] [address] Payer ID:Not on file Group ID:Not on file Type: Address: [address] [employer] PPO MCR Care Teams Speech Therapy Director Relationship Specialty Start Date End Date Angus Chamberlain MD [address] [facility] [address] [place] [address] PCP - General Family Practice 05/17/17
--- OUTSIDE RECORDS SUMMARY | 2025-01-11 09:17 | XMS_ITS | Continuity of Care Document ---
Author Organization [facility] [address] [facility] utiley[address] [place] [address] Phone Care Team Providers Care Balance Bridge Inspector Name Role Phone Jose VIDALES FACS, Alpesh Unavailable Unavailab le Allergies, Adverse Reactions, Alerts Substance Reaction Status Criticality No Known Allergies Active No Inform ation Medications Medication Instructions Dosage Effective Dates (start - stop) Status Comments Aldactone 25 mg tablet spironolactone - Active Restasis 0.05 % eye drops in a dropperette Restasis - Active omeprazole 40 mg capsule,delayed release omeprazole - Active lisinopril lisinopril - Active Januvia 100 mg tablet Januvia - Active Neurontin 250 mg/5 mL oral solution gabapentin - Active Coreg 12.5 mg tablet carvedilol - Active Lipitor 20 mg tablet atorvastatin - Active Arimidex 1 mg tablet anastrozole - Active Xanax 1 mg tablet alprazolam - Active Aspirin Low Dose 81 mg tablet,delayed release Adult Low Dose Aspirin - Active Procedures Procedure Date Office/outpatient Visit, Est Post-op Follow-up Visit Post-op Follow-up Visit Remove Cataract, Insert Lens Post-op Follow-up Visit Echo Exam Of Eye-Professional 0 Post-op Follow-up Visit Remove Cataract, Insert Lens Office/outpatient Visit, Est Echo Exam Of Eye Office/outpatient Visit, [facility] [employer] Purchases BF Polycarb Sphcyl [place] To +/-4d .12-2d Anti-reflective Coating Polycarb Lens Per Lens Advance Directives Directive Yes / No Effective Date File Name No Information Encounters Encounter Description Practice Location Reason(s) For Visit Diagnoses Date Provider Providers Copied on Encounter [facility], [address] [place] [address] [address], [employer], [id number], tel:[phone] SEC Kimmie Galloway No Information 2 Jose Betts. [address] [place] [address] [address], [address], [employer], [place], [address], [place]. tel:[phone] Office/outpat ient Visit, Est [facility], [address] [place] [address] [address], [employer], [id number], tel:[phone] SEC [facility] No Information 8-201 0 Roxanne Stockton [address] [facility] [address] , [address], [place], [place], [facility], [place]. tel:[phone] [facility], [address] [place] [address] [address], [employer], [id number], tel:[phone] SEC [facility] No Information 7-201 0 Roxanne Stockton [address] [facility] , [address], [place], [place], [facility], [place]. tel:[phone] [facility], [address] [place] [address] [address], [employer], [id number], tel:[phone] [facility] No Information 0-201 0 Roxanne Stockton [address] [facility] , [address], [place], [address], [place]. tel:[phone] [facility], [address] [place] [address] [address], [employer], [address], tel:[phone] Nov [facility] No Information 9-201 0 Roxanne Stockton [address] , [address], [place], [facility], [place]. tel:[phone] [facility], [address] [place] [address] [address], [employer], [place], [address], [place] tel:[phone] SEC [facility] No Information May-1 3-201 0 Roxanne Garcia. [address] , [address], [place], [place], [facility], [place]. tel:[phone] Referring Provider: Radha Leger, [address], [place], [facility]. tel:[phone] [facility], [address] [place] [address] [address], [employer], [address], [place] tel:[phone] SEC [facility] No Information May-0 6-201 0 Roxanne Garcia. [address] [facility] , [address], [place], [facility], [place]. tel:[phone] [facility], [address] [place] [address] [address], [employer], [id number], [place] tel:[phone] [facility] No Information May-0 5-201 0 Roxanne Garcia. [address] [facility] , [address], [place], [facility], [place]. tel:[phone] Office/outpat ient Visit, [facility], [address] [place] [address] [address], [employer], [address], [place] tel:[phone] SEC [facility] No Information Apr-2 9-201 0 Roxanne Stockton [address] , [address], [place], [facility], [place]. tel:[phone] Referring Provider: Radha Leger, [address], [place], [facility]. tel:[phone] Office/outpat ient Visit, [facility], [address] [place] [address] [address], [employer], [address], tel:[phone] SEC [place] No Information Omari-0 8-200 9 Roxanne Garcia. [address], [address], [place], [address], [place]. tel:[phone] [facility], [address] [facility] [address], [employer], [id number], tel:[phone] [facility] No Information 0 [address] [employer] [facility] . [address], [address], [place], [place], [id number], [place]. tel:[phone] Referring Provider: Smith Dempsey MD S, [facility] [place], [address]. tel:[phone] g Provider: Jeniffer High, [address] [place] [address], [address]. tel:[phone] [facility], [address], [employer], [id number], tel:[phone] [facility] [place] No Information 0 [address] [facility] . [address], [address], [place], [place], [id number], [place]. tel:[phone] Referring Provider: Smith Dempsey MD S, [address] [place], [address]. tel:[phone] g Provider: Jeniffer High, [address] [place] [address], [address]. tel:[phone] Family History Family Member Type Diagnosis Age At Onset No Information Payers Payer name Insurance type Covered green party ID Authoriza tion(s) No Information Social [...]
--- OUTSIDE RECORDS SUMMARY | 2025-01-11 09:17 | XMS_ITS | Clinical Summary ---
Author Organization [facility] Address [address] [place] [address] Care Team Providers Care Child Welfare Worker Name Role Phone Angus Chamberlain MD Primary Care Provider [phone] Source Comments [facility],non-owned Affiliates and Associated Physician Practices is amultiple site organization consisting of ambulatory clinics and hospital sitesin [place], [place], [place] and [place]. This disclosure is being madepursuant to the Care Everywhere program and may not contain all information available regarding this patient. Last updated 18.[facility] Allergies Active Allergy Reactions Criticality Noted Date Comments Amoxicillin-Pot Clavulanate Nausea and/or Vomiting Low 11/28/2013 Amoxicillin-Pot Clavulanate Nausea and/or Vomiting Low 11/28/2013 Pt states not allerigic Augmentin Nausea and/or Vomiting High 02/10/2012 Azithromycin Nausea and/or Vomiting High 02/10/2012 Other reaction(s): Nausea only; Vomiting; Nausea & Vomiting Reaction: Nausea, Vomiting, , Reaction: NAUSEA, VOMITING, Ciprofloxacin Nausea and/or Vomiting High 02/10/2012 Other reaction(s): Nausea only; Vomiting; Other (See comments); Nausea & Vomiting Reaction: Nausea, Vomiting, , Reaction: NAUSEA, VOMITING, , Reaction: Vomiting, Other, Clarithromycin Nausea and/or Vomiting High 02/10/2012 Codeine Nausea and/or Vomiting,Vomiting Low 07/11/2019 Hydrocodone Nausea and/or Vomiting Low 05/17/2017 Hydrocodone-Acetaminophen Nausea and/or Vomiting Low 11/28/2013 Hydrocodone-Acetaminophen Nausea and/or Vomiting High 02/10/2012 Reaction: NAUSEA, VOMITING, , Reaction: Vomiting, Other, Metronidazole Nausea and/or Vomiting Low 11/28/2013 Metronidazole Nausea and/or Vomiting Low 11/28/2013 Neomycin Nausea and/or Vomiting Low 11/28/2013 Nitrofurantoin Nausea and/or Vomiting,Vomiting High 02/10/2012 Other reaction(s): Nausea only; Vomiting; Nausea And Vomiting, Other (See Comments) Sulfamethoxazole W-Trimethoprim Nausea and/or Vomiting Low 11/28/2013 Medications * Be aware that medications may not be up to date on this document. Alwaysverify current medications with the patient. Probiotic Product (ACIDOPHILUS/GO AT MILK) CAPS Take 1 tablet by mouth DAILY. 08/23/19 18 Active Cholecalciferol (VITAMIN D3) 400 UNITS Take by mouth. 07/06/19 18 Active VITAMIN D, CHOLECALCIFEROL , PO Take 1 tablet by mouth once daily Active spironolactone (ALDACTONE) 50 MG tablet Take 50 mg by mouth Active Omeprazole-Sodi um Bicarbonate 40-1100 MG Take 1 capsule by mouth once daily 01/08/20 14 Active diclofenac sodium XR 24hr (VOLTAREN XR) 100 MG tablet Take 100 mg by mouth once daily 12/14/19 14 Active carvedilol (COREG) 12.5 MG tablet Take 12.5 mg by mouth Active carboxymethylce llulose sodium (REFRESH;CELLUV ISC) 1 % ophthalmic solution 1 drop by Ophthalmic route Active aspirin (ASPIRIN) 81 MG tablet Take 81 mg by mouth Active ALPRAZolam (XANAX) 1 MG tablet Take 1 mg by mouth A ctive SITagliptin (JANUVIA) 100 MG tablet Take 100 mg by mouth once daily Active atorvastatin (LIPITOR) 20 MG tablet 03/26/20 20 Active clindamycin (CLEOCIN) 1 % lotion 03/05/20 20 Active estradiol (ESTRACE) 0.1 MG/GM vaginal cream 10/10/19 20 Active gabapentin (NEURONTIN) 300 MG capsule TK 2 CS PO BID 04/25/20 20 Active lisinopril (PRINIVIL;ZESTR IL) 5 MG tablet 03/26/20 20 Active omeprazole (PRILOSEC) 40 MG capsule 03/12/20 20 Active ondansetron (ZOFRAN) 4 MG tablet TK 1 T PO Q 8 H PRN NAUSEA/ EMESIS 02/18/20 Active ONETOUCH DELICA LANCETS 30G MISC Inject 1 Units subcutaneously as needed 05/18/20 Active Glucose Blood (ONETOUCH ULTRA BLUE ) Inject 1 Units subcutaneously as needed 05/19/20 Active Blood Glucose Monitoring Suppl (ONE TOUCH ULTRA 2) w/Device KIT Inject 1 Units subcutaneously as needed 05/19/20 Active levoFLOXacin (LEVAQUIN) 750 MG tablet Take 750 mg by mouth once daily 05/14/20 Active anastrozole (ARIMIDEX) 1 MG tablet Take 1 mg by mouth once daily 02/18/20 Active traMADol (ULTRAM) 50 MG tablet Take 50 mg by mouth 08/15/19 Active famotidine (PEPCID) 20 MG tablet 11/29/19 21 Active tobramycin-dexA METHasone (TOBRADEX) 0.3-0.1 % ophthalmic suspension SHAKE LIQUID AND INSTILL 1 DROP IN BOTH EYES THREE TIMES DAILY FOR 14 DAYS 01/17/20 21 Active trimethoprim (TRIMPEX) 100 MG tablet TAKE 1 TABLET BY MOUTH EVERY 12 HOURS FOR 7 DAYS 06/03/20 21 Active cycloSPORINE (RESTASIS) 0.05 % ophthalmic suspension Instill 1 (one) drop into both eyes 2 times daily 5 mL 11 09/05/19 22 Active Active Problems Problem Noted Date Diagnosed Date Acute medial meniscus tear of left knee 07/03/20 Overview (07/16/2020): Last Assessment & Plan: By MRI the patient was found to have evidence of a medial meniscal tear in conjunction with moderate degenerative arthritis and a strain of the patella tendon. The patient is having recurring pain swelling and locking despite the treatment for her arthritis. She was advised if she has significant arthritis she may have symptoms persist but arthroscopic surgery for meniscal tears usually beneficial. The risks of knee arthroscopy include incisional numbness, hypersensitive scar, neurovascular compromise, infection, recurrent tearing, persistent pain due to underlying arthritis, medical and anesthetic risks including and is willing to proceed Frequent PVCs 12/27/2019 Primary osteoarthritis of both knees 07/12/2019 Overview (07/16/2020): Last Assessment & Plan: Patient's right knee is doing well. Her left knee is improved following the injection although she may have more medially based pain as that is the location of her more advanced arthritis. If she develops locking or increasing pain or swelling she was advised to return Arthritis of right knee 07/27/2018 Overview (07/16/2020): Last Assessment & Plan: Patient returns office with reactive synovitis of her arthritic knee. After reviewing the treatment options she elected undergo a cortisone injection today as she got excellent relief from the previous one. She tolerated the procedure well. 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 However there is peripapillary atrophy on the right as well as extensive surgery on the left for retinal detachment repair. However we have elected to treat as a precaution as the patient could've had significant elevation of intraocular pressure in the past prior to cataract extraction and prior to the first visit in our department for retinal detachment left eye and 2013. 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 016 Serous retinal detachment 04/17/2015 Total retinal detachment of left eye 12/11/2014 Old retinal detachment, total, left 12/11/2014 Chest pain 09/25/2014 Overview (07/16/2020): Overview: Chest pain Retinal edema 03/15/2014 Puckering of macula 02/20/2014 Epiretinal membrane 02/20/2014 Corneal ulcer 12/19/2013 Corneal erosion 12/19/2013 Total retinal detachment 11/28/2013 Traction detachment of retina 11/28/2013 Old retinal detachment, total, left 11/28/2013 Recent retinal detachment, total or subtotal Pain of foot 07/17/2013 Diverticulitis of colon 12/15/2010 Immunizations Immunization Administration Dates Next Due INFLUENZA VACCINE 04/03/2020,05/02/2019 INFLUENZA VACCINE, HIGH-DOSE , QUADR. (FLUZONE HIGH-DOSE QUADRIVALENT; 65Y+), 0.7 ML (HD-IIV4) 03/11/2020 Family History Medical History Relation Name Comments Diabetes Father Status: d Hypertension Father Cataract Neg Hx Glaucoma Neg Hx Macular Degeneration Neg Hx Relation Name Status Comments Father Social History Tobacco Use Types Packs/Day Years Used Date Smoking Tobacco: Never Smokeless Tobacco: Never Alcohol Use Standard Drinks/Week Comments No 0 (1 standard drink = 0.6 oz pur e alcohol) Comments Unknown Sex and Gender Information Value Date Recorded Sex Assigned at Not on file Legal Sex Female 5:26 PM AIR QUALITY MANAGER Gender Identity Not on file Sexual Orientation Not on file Last Filed Vital Signs Vital Sign Reading Time Taken Comments Blood Pressure 115/51 09/02/2014 12:00 PM AIR QUALITY MANAGER Pulse 64 09/02/2014 12:00 PM AIR QUALITY MANAGER Temperature 36.5 C (97.7 F) 09/02/2014 12:00 PM AIR QUALITY MANAGER Respiratory Rate 16 09/02/2014 12:00 PM AIR QUALITY MANAGER Oxygen Saturation 93% 09/02/2014 12:00 PM AIR QUALITY MANAGER Inhaled Oxygen Concentration - - Weight 77.1 kg (170 lb) 09/02/2014 8:22 AM AIR QUALITY MANAGER Height 157.5 cm (5' 2) 09/02/2014 8:22 AM AIR QUALITY MANAGER Body Mass Index 31.09 09/02/2014 8:22 AM AIR QUALITY MANAGER Plan of Treatment Health Maintenance Due Date Last Done Comments BONE DENSITY TESTING 1940 DTAP/TDAP/TD VACCINES (1 - Tdap) 1958 PNEUMOCOCCAL VACCINE 50+ (1 of 1 - PCV) 1989 ZOSTER VACCINE (1 of 2) 1989 Respiratory Syncytial Virus (RSV) Vaccine Pt: or over 60 yrs (1 - 1-dose 75+ series) 2014 DIABETES-FOOT EXAM WITH MONOFILAMENT 07/16/2020 DIABETES-HGB A1C 07/16/2020 COVID-19 VACCINE ( season) 2024 10/02/2020, 09/04/2020 DEPRESSION SCREENING 07/04/2024 INFLUENZA VACCINE (Season Ended) 2025 04/03/2020, 03/11/2020, 05/02/2019, Additional history exists HEPATITIS B VACCINE Aged Out No longe r eligible based on patient's age to complete this topic HIB VACCINE Aged Out No longer eligi ble based on patient's age to complete this topic HPV VACCINE Aged Out No longer eligi ble based on patient's age to complete this topic MENINGOCOCCAL (Group B) VACCINE SHARED DECISION-MAKING Aged Out No longer eligible based on patient's age to complete this topic MENINGOCOCCAL GROUPS A/C/Y/W VACCINE Aged Out No longer eligible based on patient's age to complete this topic Insurance [facility] Member Subscriber Plan / Payer (Ef fective 2019-Present) Name:Aicha Oliver Relation to Subscriber:Self Name:AICHA OLIVER Payer ID:[id number] (NAIC) Group ID:Not on file Type:[employer]/Allerg[employer] Address: [address] [place] [address] [facility] MANAGED MEDICARE ADV Care Teams Child Welfare Worker Relationship Specialty Start Date End Date Angus Chamberlain MD [address] [id number] [facility] - General 11/28/13
--- OUTSIDE RECORDS SUMMARY | 2025-01-11 09:17 | XMS_ITS ---
Author Name Auto Generated, Auto Generated Organization [facility] ices Address [address] [place] [address] Phone [phone] Care Team Providers Care Farm Service Adviser Name Role Phone Raman Baptiste Unavailable Angus Chamberlain Unavailable Jimmy Salazar Unavailable [phone] Functional Status No Results Mental Status No Results Allergies and Intolerances No Known Allergies Encounters Program Name Primary Diagnosis Admission Date/Time Dis charge Date/Time null TueJul 03 19:00:00 EST 2020 Problems Active Concerns * Strain of muscle, fascia and tendon at neck level, subsequent encounter* Code: * Start Date: TueApr 14 00:00:00 EDT 2021 * End Date: * Text: * Spinal stenosis, lumbar region with neurogenic claudication* Code: * Start Date: TueApr 14 00:00:00 EDT 2021 * End Date: * Text: * Weakness* Code: * Start Date: TueApr 14 00:00:00 EDT 2021 * End Date: * Text: * Radiculopathy, lumbosacral region* Code: * Start Date: TueJan 31 00:00:00 EDT 2022 * End Date: * Text: * Muscle weakness (generalized)* Code: * Start Date: TueJan 31 00:00:00 EDT 2022 * End Date: * Text: * Radiculopathy, lumbar region* Code: * Start Date: TueJan 31 00:00:00 EDT 2023 * End Date: * Text: * Unsteadiness on feet* Code: * Start Date: TueJan 31 00:00:00 EDT 2022 * End Date: * Text: Reason for Referral Past Medical History
--- OUTSIDE RECORDS SUMMARY | 2025-01-11 09:17 | XMS_ITS | Clinical Summary ---
Author Organization [facility] [address] Address [address] [place] [address] Care Team Providers Care Visitor Service Assistant Name Role Phone Randee Esparza Unavailable [phone] Angus Chamberlain MD Primary Care Provider Montana Kerns NP Unavailable [phone] Allergies Active Allergy Reactions Criticality Noted Date Comments Amoxicillin-Pot Clavulanate Other (See comments),Nausea only,Vomiting,Nause a & Vomiting Low 11/28/2013 Pt states not allerigic Azithromycin Nausea only,Vomiting,Nause a & Vomiting Low 11/28/2013 Reaction: Nausea, Vomiting, , Reaction: NAUSEA, VOMITING, Benzalkonium Cl-Oxyquinoline Other (See comments) Low 07/18/2024 Intolerance per historical provider-pain and burning Ciprofloxacin Nausea only,Vomiting,Other (See comments),Nausea & Vomiting Low 11/28/2013 Reaction: Nausea, Vomiting, , Reaction: NAUSEA, VOMITING, , Reaction: Vomiting, Other, Clarithromycin Nausea & Vomiting Low 11/28/2013 Clavulanic Acid Stomach upset Low 09/24/2013 Stomach/GI Upset Codeine Nausea only,Vomiting,Nause a And Vomiting Low 07/11/2019 Hydrocodone Nausea & Vomiting,Nausea And Vomiting Low 05/17/2017 Hydrocodone-Acetaminophe n Nausea only,Vomiting,Other (See comments),Nausea & Vomiting Low 11/28/2013 Reaction: NAUSEA, VOMITING, , Reaction: Vomiting, Other, Levofloxacin Unknown 03/26/2022 Metronidazole Nausea & Vomiting Low 11/28/2013 Neomycin Nausea & Vomiting Low 11/28/2013 Nitrofurantoin Nausea only,Vomiting,Nause a And Vomiting Low 09/05/2019 Potassium Nausea & Vomiting Low Sulfamethoxazole-Trimeth oprim Nausea & Vomiting Low 11/28/2013 Ondansetron Unknown 03/26/2022 Medications ALPRAZolam (XANAX) 1 mg tablet take 1 tablet (1MG) by oral route 2 times every day 0 2 Active atorvastatin (LIPITOR) 20 mg tablet Take 1 tablet (20 mg total) by mouth daily Active anastrozole (ARIMIDEX) 1 mg tablet Take 1 tablet (1 mg total) by mouth daily 0 Active OneTouch Ultra Blue Test Strip strip UTD TO TEST BLOOD SUGAR ONCE A DAY 0 Active OneTouch Ultra2 Meter misc as directed 0 Active Tradjenta 5 mg tablet Take 1 tablet (5 mg total) by mouth every morning 3 Active omeprazole (PriLOSEC) 40 mg capsule Take 1 capsule (40 mg total) by mouth daily Active blood glucose diagnostic strip by other route Active nitroglycerin (NITROSTAT) 0.4 mg SL tabletIndication s:Coronary artery disease of [place] artery of [place] heart with stable angina pectoris Place 1 tablet (0.4 mg total) under the tongue every 5 (five) minutes as needed for chest pain May repeat dose every 5 minutes for up to 3 doses total. 25 tablet 3 4 Active HYDROcodone-acet aminophen (NORCO) 5-325 mg per tabletIndication s:Pain Take 1 tablet by mouth every 8 (eight) hours as needed for pain 10 tablet 4 Active amLODIPine (NORVASC) 10 mg tablet Take 1 tablet (10 mg total) by mouth daily 4 Active Alphagan P 0.1 % drops 1 drop 2 (two) times a day 4 Active hydroCHLOROthiaz yue 12.5 mg tablet Take 2 tablets (25 mg total) by mouth daily 4 Active Latosha PF, 0.005 % dropperette INSTILL 1 DROP INTO BOTH EYES EVERY NIGHT AT BEDTIME 4 Active gabapentin (NEURONTIN) 600 mg tablet Take 1 tablet (600 mg total) by mouth 2 (two) times a day 4 Active carvediloL (COREG) 25 mg tabletIndication s:Coronary artery disease of [place] artery of [place] heart with stable angina pectoris,Hyperte nsion associated with diabetes (HCC) Take 1 tablet (25 mg total) by mouth 2 (two) times a day with meals 180 tablet 3 4 06/22/20 25 Active lisinopriL (PRINIVIL,ZESTRI L) 5 mg tabletIndication s:Hypertension associated with diabetes (HCC) Take 1 tablet (5 mg total) by mouth daily 30 tablet 11 4 06/28/20 25 Active furosemide (LASIX) 20 mg tabletIndication s:Bilateral lower extremity edema Take 1 tablet (20 mg total) by mouth every other day 5 Active Accu-Chek Fastclix Lancet Drum misc USE TO TEST BLOOD SUGAR ONCE DAILY 4 Active Active Problems Problem Noted Date Diagnosed Date Low-tension glaucoma of both eyes, moderate stag e 07/18/2024 Overview (07/18/2024): No FH, normal CCTs, Tmax 15/15 Intolerances: latanoprost, brimonidine Assessment & Plan (10/31/2024 11:50 AM CDT): Monocular with moderate disease OD. Tmax 15/15 (limited records, earliest from 2021). Appears to have progression on outside HVF between 2021 to 2023 with low teens IOP, though 07/2024 field reassuring. S/p SLT OD IOP 12/12 on alphagan, iyuzeh both eyes (OU) today, tolerating well Pr reports adherence to drops OCT with polar thinning OD, unreliable OS. HVF with SA>IA OD. Target low teens intraocular pressure (IOP) CPM RTC in 4-5 mo w F 24-2 Assessment & Plan (07/18/2024 10:15 PM GLOBAL MARKETING COORDINATOR): Referred by Dr. Brooks for NTG OU. Monocular with moderate disease OD. Tmax 15/15 (limited records, earliest from 2021). Appears to have progression on outside HVF between 2021 to 2023 with low teens IOP, though today's field reassuring. OP 14/10 on alphagan, iyuzeh both eyes (OU) today, tolerating well Improved adherence per family Open angles, avg CCT OCT with polar thinning OD, unreliable OS. HVF with SA>IA OD. Target low teens intraocular pressure (IOP) With monocular status and variable adherence to meds, recommend SLT OD Discussed R/B/A and she agrees to proceed Exudative age-related macula r degeneration of left eye with active choroidal neovascularization 07/18/2024 Assessment & Plan (10/31/2024 11:50 AM CDT): F/U with Dr. Cheung as scheduled Assessment & Plan (07/18/2024 10:13 PM GLOBAL MARKETING COORDINATOR): F/U with Dr. Cheung as scheduled Bilateral lower extremity edema 06/22/2024 Bilateral primary osteoarthritis of knee 024 Lumbar radicular pain 06/17/2023 Low back pain 04/14/2023 Lumbar radiculopathy 11/30/2022 Other chronic pain 11/30/2022 Spinal stenosis of lumbar re gion with neurogenic claudication 11/30/2022 Radiculopathy, lumbosacral region 11/30/2022 Dry eye syndrome of bilateral lacrimal glands Other secondary cataract, right eye 01/15/2022 Right rotator cuff tendinitis 12/07/2021 Assessment & Plan (12/07/2021 2:11 PM CDT): Patient has integrity of the rotator cuff but evidence by exam of rotator cuff tendinitis and impingement. After reviewing the treatment options she elected undergo a cortisone injection. She is not regaining the motion would recommend physical therapy to help prevent a frozen shoulder. 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 She got nominal relief with the treatment of her underlying arthritis. Would recommend obtaining an MRI to evaluate the integrity of the meniscus as she may have a repairable problem. Frequent PVCs 12/27/2019 Primary osteoarthritis of both knees 07/12/2019 Assessment & Plan (12/29/2023 8:41 AM CDT): Patient elected undergo Durolane injections today and had received approval. She tolerated the injections well. Long-term she should avoid weight gain and high impact activities. 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 She is responded well to cortisone the past and after reviewing the treatment options she elected undergo cortisone injections in both of her knees today. She tolerated the procedures well. Assessment & Plan (12/07/2021 2:10 PM CDT): Radiographically the patient has moderate arthritis of both of her knees. She has reactive synovitis clinically of the left knee. With that being the most symptomatic I would recommend a cortisone injection as she has not responded well to home remedies. She tolerated the procedure well. Long-term weight loss would likely be helpful. Patient should avoid low seating. Assessment & Plan (06/19/2020 5:14 PM GLOBAL MARKETING COORDINATOR): Patient's right knee is doing well. Her left knee is improved following the injection although she may have more medially based pain as that is the location of her more advanced arthritis. If she develops locking or increasing pain or swelling she was advised to return Assessment & Plan (07/12/2019 4:24 PM GLOBAL MARKETING COORDINATOR): Patient has moderate arthritis of her knees radiographically with reactive synovitis of her right knee clinically. After reviewing the treatment options the patient elected undergo a cortisone injection today for her right knee. She tolerated the procedure well. She may get some indirect relief with the left not having to favor her right side and compensate when she walks. Long-term weight loss would likely be beneficial Arthritis of right knee 07/27/2018 Assessment & Plan (01/01/2020 8:46 AM CDT): Patient returns office with reactive synovitis of her arthritic knee. After reviewing the treatment options she elected undergo a cortisone injection today as she got excellent relief from the previous one. She tolerated the procedure well. She is return the office as needed Assessment & Plan (10/30/2018 10:56 AM CDT): Patient has moderate degenerative changes of her knee radiographically with reactive synovitis clinically. After reviewing the treatment options patient elected undergo a cortisone injection today. She tolerated the procedure well. Assessment & Plan (07/27/2018 10:06 AM GLOBAL MARKETING COORDINATOR): Patient has moderate arthritic changes of the knee with reactive synovitis. After reviewing the treatment options she elected undergo a cortisone injection. She may require knee replacement surgery in the future and discussed the minimally invasive knee replacements Chronic anemia 02/08/2018 Estrogen receptor positive 02/08/2018 Aromatase inhibitor use 10/19/2017 History of therapeutic radiation 10/19/2017 Vitamin D deficiency 10/19/2017 Acute loss of vision, right 09/28/2017 Low tension glaucoma 08/23/2017 Overview (06/05/2020): Overview: Baseline exam on the glaucoma service does [...] 2013. Loyd Zhu MD 08/23/2017 3:18 PM Overview: Baseline exam on the glaucoma service does [...] 2013. 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 [address] [facility] [place] [address] Sarah Lee MD Low-tension glaucoma of both eyes, moderate stage (Primary Dx); Exudative age-related macular degeneration of left eye with active choroidal neovascularization (HCC) 10/16/2024 Telephone [facility] [address] [place] [address] Raman Baptiste MD from Last 3 Months Surgical History Surgery Date Site/Laterality Comments OTHER SURGICAL HISTORY Cataracts: Bilateral eyes cataract extraction SHOULDER SURGERY Rt shoulder surgery CHOLECYSTECTOMY Cholecystectomy OTHER SURGICAL HISTORY Lap Assisted sigmoid resection, Complete solenic flexure mobilization 06/13 OTHER SURGICAL HISTORY 07/04/2011 - 07/03/2012 Cardiac cath with stent x2 OTHER SURGICAL HISTORY 07/04/2012 - 07/03/2013 Retinol tear OR BREAST SURGERY Right lumpectomy EYE SURGERY HYSTERECTOMY Hysterectomy and 1 ovary FLUORO GUIDED ASPIRATION TMJ LEFT 04/10/2024 Left Medical History Medical History Date Comments Hx Other Medical Cataracts Hypertension Hypertension Gastroesophageal reflux disease GERD Hx Other Medical Diverticulitis Anemia Anemia Chronic coronary artery disease Coronary artery disease Hx Other Medical Osteoarthritis - hips Hx Other Medical Chronic Anxiety Myocardial infarction (HCC) PONV (postoperative nausea and vomiting) Cataract Type 2 diabetes mellitus (HCC) Arthritis Cancer (HCC) breast (right) Early dry stage nonexudative age-related macular degeneration of both eyes Medial meniscus tear 2020 left Family History Medical History Relation Name Comments Diabetes Father Diabetes mellit us; Heart disease Father Heart disease; Hypertension Mother Hypertension; Relation Name Status Comments Father Mother Social History Tobacco Use Types Packs/Day Years Used Date Smoking Tobacco: Never Smokeless Tobacco: Never Tobacco Cessation:Counseling Given: Not Answered Alcohol Use Standard Drinks/Week Comments No 0 (1 standard drink = 0.6 oz pur e alcohol) AUDIT-C Answer Date Recorded Q1: How often do you have a drink containing alc ohol? Never 11/30/2022 Average Number of Drinks Not on file 023 Frequency of Binge Drinking Not on file 11/03 PHQ-2 Answer Date Recorded PHQ-2 Score 0 09/07/2018 Comments No Sex and Gender Information Value Date Recorded Sex Assigned at Not on file Legal Sex Female 10:06 AM GLOBAL MARKETING COORDINATOR Gender Identity Not on file Sexual Orientation Not on file Obstetrics History Last Filed Vital Signs Vital Sign Reading Time Taken Comments Blood Pressure 127/59 10/08/2024 10:59 AM CDT Pulse 65 10/08/2024 10:59 AM CDT Temperature 36.3 C (97.3 F) 10/08/2024 10:59 AM CDT Respiratory Rate 16 10/08/2024 10:59 AM CDT Oxygen Saturation 95% 10/08/2024 10:59 AM CDT Inhaled Oxygen Concentration - - Weight 76.7 kg (169 lb) 07/12/2024 11:36 AM GLOBAL MARKETING COORDINATOR Height 154.9 cm (5' 1) 07/12/2024 11:36 AM GLOBAL MARKETING COORDINATOR Body Mass Index 31.93 07/12/2024 11:36 AM GLOBAL MARKETING COORDINATOR Plan of Treatment Health Maintenance Due Date Last Done Comments Albumin Creatinine Ratio, Urine 1939 Depression Screening 1939 Hemoglobin A1C 1939 Osteoporosis Screening-Bone Density Scan 1939 Foot Exam 1939 DTaP/Tdap/Td Vaccine (1 - Tdap) 1950 Hepatitis B Screening 1957 Pneumococcal vaccine 65+ (1 of 2 - PCV) 1958 Zoster Vaccine (1 of 2) 1958 Well Visit 65+ 2004 Lipid Panel 03/23/2018 03/23/2017, 04/24/2015 Covid-19 Vaccine (3 - Modern a risk series) 10/30/2020 10/02/2020, 09/04/2020 eGFR 03/26/2023 03/26/2022, 04/2 07/2020, 02/23/2017 Influenza Vaccine (#1) 2025 , 03/11/2020, 05/02/2019, Additional history exists Fall Risk Assessment 06/11/2025 06/11/2024 Dilated Eye Exam 07/18/2025 07/18/2024 Procedures Procedure Name Priority Date/Time Associated Diagnosis Comments EGFR STAT 03/26/2022 4:54 PM CDT POCT LIPID PANEL Routine 03/23/2017 9:06 AM CDT Coronary artery disease involving [place] coronary artery of [place] heart without angina pectoris Hyperlipidemia associated with type 2 diabetes mellitus (HCC) Hyperlipidemia LDL goal <70 from Last 3 Months or Most Recently Relevant to Health Maintenance Results * eGFR (03/26/2022 4:54 PM CDT) eGFR 61 mL/min/1. 73 m2 DAMIR RENEE Comment: Interpretive Data Reference Interval Normal >/= 90 mL/min/1.73m2 Mildly decreased* 60 - 89 mL/min/1.73m2 Mildly to moderately decreased 45 - 59 mL/min/1.73m2 Moderately to severely decreased 30 - 44 mL/min/1.73m2 Severely decreased 15 - 29 mL/min/1.73m2 Kidney Failure < 15 mL/min/1.73m2 *Relative to young adult level Estimated glomerular filtration rate is determined by the 2020 CKD-EPI equation recommended by the National Kidney Foundation (A Unifying Approach to GFR Estimation: Recommendations of the NKF-ASK Task Force on Reassessing the Inclusion of Race in Diagnosing Kidney Disease, JASN 2020). The CKD-EPI equation should not be used for patients with unstable renal function and has not been validated in children and those over 70. Current interpretive data was last reviewed 2021. Blood 03/26/2022 4:54 PM CDT 03/26/2022 4:54 PM CDT us [facility] BLOOD ORDERABLES Final Res ult DAMIR [address] [address] Department [place] [address] * POCT lipid panel (03/23/2017 9:06 AM CDT) Cholesterol, POC 138 N/A - N/A mg/dL HDL, POC 49 N/A - N/A mg/dL Triglycerides, POC 232 N/A - N/A mg/dL LDL Cholesterol POC 43 N/A - N/A mg/dL Chol/HDL Ratio, POC 2.8 N/A - N/A Non-HDL Cholesterol, POC 49 N/A - N/A mg/dL Cholesterol Total, POC 138 N/A - N/A mg/dL Blood specimen (specimen) 03/23/2017 9:06 AM CDT us Jimmy Salazar MD POINT OF CARE TEST ORDERA BLES Final Result from Last 3 Months or Most Recently Relevant to Health Maintenance Insurance FOR LIFE [facility] MEDICARE [facility] MEDICARE Address: [facility] [address] [place] [address] FOR LIFE AET MEDICARE [employer] AET MEDICARE Care Teams Visitor Service Assistant Relationship Specialty Start Date End Date Angus Chamberlain MD [address] [facility] [address] [place] [address] PCP - General Family Medicine 04/28/23 [place] [address] [facility] [address] [place] [address] Physician Coconut Jelly Roller Orthopedic Surgery 08/15/20 [place] [address] [facility] [address] [place] [address] Nurse Practitioner Nurse Practitioner 06/11/24
--- OUTSIDE RECORDS SUMMARY | 2025-01-11 09:17 | XMS_ITS ---
Author Organization [facility] [address] Address [address] [place] [address] Care Team Providers Care Ice Crusher Name Role Phone Randee Esparza Unavailable [phone] Angus Chamberlain MD Primary Care Provider Montana Kerns NP Unavailable [phone] Active Problems Problem Noted Date Diagnosed Date Low-tension glaucoma of both eyes, moderate stag e 07/18/2024 Overview (07/18/2024): No FH, normal CCTs, Tmax Intolerances: latanoprost, brimonidine Assessment & Plan (10/31/2024 11:50 AM CDT): Monocular with moderate disease OD. Tmax (limited records, earliest from 2021). Appears to [...] (IOP) CPM RTC in 4-5 mo w HVF 24-2 Assessment & Plan (07/18/2024 10:15 PM STATE GAME WARDEN): Referred by Dr. Brooks for NTG OU. Monocular with moderate disease OD. Tmax (limited records, earliest from 2021). Appears to [...] scheduled Assessment & Plan (07/18/2024 10:13 PM STATE GAME WARDEN): F/U with Dr. Cheung as scheduled Bilateral [...] 07/03/20 Assessment & Plan (07/14/2020 3:32 PM STATE GAME WARDEN): By MRI the patient was found to [...] proceed Assessment & Plan (07/03/2020 9:20 AM STATE GAME WARDEN): Patient is experiencing recurring locking her knee [...] activities. Assessment & Plan (08/12/2022 11:06 AM STATE GAME WARDEN): Patient has reactive synovitis of both of [...] seating. Assessment & Plan (06/19/2020 5:14 PM STATE GAME WARDEN): Patient's right knee is doing well. Her left knee is improved following the injection although she may have more medially based pain as that is the location of her more advanced arthritis. If she develops locking or increasing pain or swelling she was advised to return Assessment & Plan (07/12/2019 4:24 PM STATE GAME WARDEN): Patient has moderate arthritis of her knees [...] well. 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 Past Treatment and Therapy Plans No past plan information found. Lifetime Dose Tracking * Chemical Lifetime Dose Automatic Entry Manual Entr y Fluoro Time 1.415 minutes 1.415 minutes 0 minutes Air kerma at the reference point (Ka,r) 26.525 mGy 2 6.525 mGy 0 mGy
--- OUTSIDE RECORDS SUMMARY | 2025-01-11 09:17 | XMS_ITS | Continuity of Care Document ---
Author Name [facility] Organization [facility] Care Team Providers Care Pipe Welder Name Role Phone [facility] Unavailable Unavailable Medications Combined list of outpatient medications from Department of Defense and Veterans Affairs facilities.Medications provided include 1) outpatient medications from the last 15 months, and 2) patient-reported medications. Medication Details Route Status Patient Instructions Prescription Expires Prescription Number Last Dispense Date Ordering Provider Order Date Order Qty Source ALPRAZOLAM (ALPRAZOLAM ), 1MG, TABLET, ORAL, SANDOZ, 500 ea. BOTTLE Active [id number] 2023 60 Pharmac y Data Transac tion Service Facilit y ALPRAZOLAM (ALPRAZOLAM ), 1MG, TABLET, ORAL, SANDOZ, 500 ea. BOTTLE Active [id number] 2023 60 Pharmac y Data Transac tion Service Facilit y ANASTROZOLE (anastrozol e), 1 MG, TABLET, ORAL, AVET PHARMACEUT, 30 ea. BOTTLE Active [id number] 4 2023 90 Pharmac y Data Transac tion Service Facilit y AZELASTINE- FLUTICASONE (azelastine HCl/flutica sone propionate) , 137-50 MCG, SPRAY/PUMP, NASAL, [employer] GRISEL, 23 g SQUEEZ BTL Active [id number] 4 2023 23 Pharmac y Data Transac tion Service Facilit y DORZOLAMIDE HCL (dorzolamid e HCl), 2 %, DROPS, OPHTHALMIC, [employer],, 10 ml DROP BTL Active [id number] 4 2023 10 Pharmac y Data Transac tion Service Facilit y IYUZEH (latanopros t/PF), 0.005 %, DROPERETTE, OPHTHALMIC, [employer], 30 ea. VIAL Cancele d [id number] : 2023 0 Pharmac y Data Transac tion Service Facilit y IYUZEH (latanopros t/PF), 0.005 %, DROPERETTE, OPHTHALMIC, [employer], 30 ea. VIAL Active [id number] 4 2023 30 Pharmac y Data Transac tion Service Facilit y LATANOPROST (LATANOPROS T), 0.005%, DROPS, OPHTHALMIC, [employer]., 2.5 ml DROP BTL Cancele d [id number] : 2023 0 Pharmac y Data Transac tion Service Facilit y Allergies, Adverse Reactions, Alerts Combined list of allergies from Department of Defense and Veterans Affairs facilities. It does not include entries that were removed or entered in error. Substance Category Reaction Severity Reaction type Status Date Reported Comments Source AUGMENTIN Drug allergy (disorder) Unknown active 12/19/[address] [place] [address] [employer] [place] AZITHROMYCIN Drug allergy (disorder) Unknown active 12/19/[address] [place] [address] [employer] [facility] BIAXIN Drug allergy (disorder) Unknown active 12/19/[address] [place] [address] [employer] [facility] CIPRO Drug allergy (disorder) Unknown active 12/19/[address] [place] [address] [employer] [facility] [place] HYDROCODONE Drug allergy (disorder) Unknown active 12/19/[address] [place] [address] [employer] [facility] [place] MACROBID Drug allergy (disorder) Unknown active 12/19/[address] [place] [address] [employer] [facility] [place] Social History Combined list of available smoking, tobacco, and other social history from Department of Defense and Veterans Affairs facilities. Social History Type Response Date Comment Sour e This section is an empty social history section. [employer]
--- OUTSIDE RECORDS SUMMARY | 2025-01-11 09:17 | XMS_ITS | Encounter Summary ---
Author Organization [facility] Healthcare Address [address] [place] [address] Care Team Providers Care Supervisor Poultry Hatchery Name Role Phone Randee Esparza Unavailable [phone] Angus Chamberlain MD Primary Care Provider Montana Kerns NP Unavailable [phone] Encounter Details Date Type Department Care Team (Late st Contact Info) Description 10/16/2024 Telephone [facility] [address] [place] [address] [place] [address] 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 Gender Identity Not on file Sexual Orientation Not on file documented as of this encounter Plan of Treatment Not on file documented as of this encounter Visit Diagnoses Not on filedocumented in this encounter Care Teams Supervisor Poultry Hatchery Relationship Specialty Start Date End Date Angus Chamberlain MD [address] [place] [address] PCP - General Family Medicine 04/28/23 [place] [address] [address] [facility] [address] [place], [place] [id number] Physician Warp Tier Orthopedic Surgery 08/15/20 [place] [address] [address] [facility] [address] [place] [address] Nurse Practitioner Nurse Practitioner 06/11/24 documented as of this encounter
--- OUTSIDE RECORDS SUMMARY | 2025-01-11 09:17 | XMS_ITS | Continuity of Care Document ---
Author Organization [facility] Address [address] [place] [address] [place] [address] Phone Care Team Providers Care Proposal Review Analyst Name Role Phone Jad Herring MD Unavailable [...] VISIT, EST OFFICE/OUTPATIENT VISIT, EST OFFICE/OUTPATIENT VISIT, [facility] PREV VISIT, NEW, 65 & OVER OFFICE/OUTPATIENT VISIT, NEW Advance Directives Directive Yes / No Effective Date File Name No Information Encounters Encounter Description Practice Location Reason(s) For Visit Diagnoses Date Provider Providers Copied on Encounter OFFICE/OUTPA TIENT VISIT, [facility], [address] [place], [id number], [place] tel:[phone] [facility] anxiety1 (chief complaint) dizziness1 (chief complaint) Generalized Anxiety DisorderEssential (primary) hypertensionEdemaDi zziness [address], [place], [place], [address] , [place]. tel:[phone] OFFICE/OUTPA TIENT VISIT, [facility], [address] [place], [address], [place] tel:[phone] [facility] osteopenia 1 (chief complaint) GERD1 (chief complaint) anxiety1 (chief complaint) edema1 (chief complaint) Other specified disorder of bone densityGeneralized Anxiety DisorderEdemaConstr iction of esophagus [address], [place], [place], [address] , [place]. tel:[phone] OFFICE/OUTPA TIENT VISIT, [facility], [address] [place], [place], [address], [place] tel:[phone] [facility] dysphagia1 (chief complaint) DysphagiaConstricti on of esophagus [address], [address], [place], [place], [address] , [place]. tel:[phone] OFFICE/OUTPA TIENT VISIT, [facility], [address], [place], [place], [address], [place] tel:[phone] [facility] DM (chief complaint) renal (chief complaint) anemia1 (chief complaint) anxiety1 (chief complaint) edema1 (chief complaint) Type 2 diabetes mellitus w/ diabetic neuropathyRenal diseaseAnemiaGenera lized Anxiety DisorderEdema [address], [facility] A, [place], [place], [address] , [place]. tel:[phone] PREV VISIT, NEW, 65 & OVER [facility], [address], [place], [place], [address], [place] tel:[phone] [facility] physical (chief complaint) Encounter for general adult medical exam w abnormal findingsHypertensiv e cardiac and chronic kidney disease w/o cardiac failureGERD w/o esophagitisGenerali zed Anxiety DisorderType 2 diabetes mellitus w/ diabetic neuropathyOther spondylosis, lumbar region [address], [address], [place], [place], [address] , [place]. tel: [phone] Family History Family Member Type Diagnosis Age At Onset Mother Problem Alive and well Brother Problem Alive and well Mother Problem still alive 100 dementia Sister Problem Diabetes mellitus Father Problem of 66 CAD Payers Payer name Insurance type Covered republican ID Authoriza tion(s) No Information Social History [...] Mental Status Date Cognitive Assessment Orientation - Hatley ed to time, place, person, situation.
--- OUTSIDE RECORDS SUMMARY | 2025-01-11 09:17 | XMS_ITS | Referral Summary ---
Author Organization [facility] [address] Address [address] [place] [address] Care Team Providers Care Hand Braille Transcriber Name Role Phone Randee Esparza Unavailable [phone] Angus Chamberlain MD Primary Care Provider Montana Kerns NP Unavailable [phone] Encounters Date Type Department Care Team Description 10/31/2024 10:45 AM CDT Office Visit [facility] Ophthalmology [facility] for [facility] [place] [address] Saarh Lee MD Low-tension glaucoma of both eyes, moderate stage (Primary Dx); Exudative age-related macular degeneration of left eye with active choroidal neovascularization (HCC) 10/16/2024 Telephone [facility] [address] [place] [address] Raman Baptiste MD from Last 3 Months Allergies Active Allergy Reactions Criticality Noted Date [...] mg SL tabletIndication s: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 Place 1 [...] mg total) by mouth daily 4 Active Iyuzeh, PF, 0.005 % dropperette INSTILL 1 DROP INTO BOTH EYES EVERY NIGHT AT BEDTIME 4 Active gabapentin (NEURONTIN) 600 mg tablet Take 1 tablet (600 mg total) by mouth 2 (two) times a day 4 Active carvediloL (COREG) 25 mg tabletIndication s: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 Tmax 1515 (limited records, earliest from 2021). Appears to have progression on outside [facility] between 2021 to 2023 with low teens IOP, though 07/2024 field reassuring. S/p SLT OD IOP / on alphagan, iyuzeh both eyes (OU) today, tolerating well Pr reports adherence to drops OCT with polar thinning OD, unreliable OS. HVF with SA>IA OD. Target low teens intraocular pressure (IOP) CPM RTC in 4-5 mo w HVF 24-2 Assessment & Plan (07/18/2024 10:15 PM SOCIAL WORK SPECIALIST): Referred by Dr. Brooks for NTG OU. Monocular with moderate disease OD. Tmax (limited records, earliest from 2021). Appears to have progression on outside HVF between 2021 to 2023 with low teens IOP, though today's field reassuring. OP 14/ on alphagan, iyuzeh both eyes (OU) today, [...] scheduled Assessment & Plan (07/18/2024 10:13 PM SOCIAL WORK SPECIALIST): F/U with Dr. Cheung as scheduled Bilateral [...] medial meniscus tear of left knee 07/03/20 20 Assessment & Plan (07/14/2020 3:32 PM SOCIAL WORK SPECIALIST): By MRI the patient was found to [...] proceed Assessment & Plan (07/03/2020 9:20 AM SOCIAL WORK SPECIALIST): Patient is experiencing recurring locking her knee [...] activities. Assessment & Plan (08/12/2022 11:06 AM SOCIAL WORK SPECIALIST): Patient has reactive synovitis of both of [...] seating. Assessment & Plan (06/19/2020 5:14 PM SOCIAL WORK SPECIALIST): Patient's right knee is doing well. Her left knee is improved following the injection although she may have more medially based pain as that is the location of her more advanced arthritis. 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, total, left 11/28/2013 Recent retinal detachment, total or subtotal Traction detachment of retina 11/28/2013 Pain of foot 07/17/2013 Knee pain 07/17/2013 Diverticulitis of colon 12/15/2010 Social History Tobacco Use Types Packs/Day Years [...] on file Legal Sex Female 10:06 AM SOCIAL WORK SPECIALIST Gender Identity Not on file Sexual Orientation [...] 76.7 kg (169 lb) 07/12/2024 11:36 AM SOCIAL WORK SPECIALIST Height 154.9 cm (5' 1) 07/12/2024 11:36 AM SOCIAL WORK SPECIALIST Body Mass Index 31.93 07/12/2024 11:36 AM SOCIAL WORK SPECIALIST Plan of Treatment Not on file Procedures Procedure Name Priority Date/Time Associated Diagnosis Comments EGFR STAT 03/26/2022 4:54 PM CDT POCT LIPID PANEL Routine 03/23/2017 9:06 AM CDT Coronary artery disease involving makah coronary artery of makah heart without angina pectoris Hyperlipidemia associated with [...] LAB BLOOD ORDERABLES Final Res ult DAMIR [address] [address] [place] [address] * POCT lipid panel (03/23/2017 9:06 AM [...] Relevant to Health Maintenance Insurance [facility] MEDICARE FOR LIFE AET MEDICARE swift[employer] AETNA MEDICARE Care Teams Hand Braille Transcriber Relationship Specialty Start Date End Date Angus Chamberlain MD [address] [facility] [address] [place] [address] PCP - General Family Medicine 04/28/23 [place] [address] [address] [facility] [address] [place] [address] Physician Internet Specialist Orthopedic Surgery 08/15/20 [place] [address] [address] [facility] [address] [place] [address] Nurse Practitioner Nurse Practitioner 06/11/24
--- OUTSIDE RECORDS SUMMARY | 2025-01-11 09:17 | XMS_ITS | Encounter Summary ---
Author Organization [facility] Address 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
[2025-01-11 09:29] VITALS: BP 172/66; PULSE 90; RESP 18; TEMP 36.7; O2SAT 97
--- NOTE | 2025-01-11 09:34 | ECG_ITS ---
Test Date: 2025-01-11 09:38:10 Measurements Intervals [place] Rate: 91 P: 0 NH: 0 QRS: 14 QRSD: 72 T: 35 QT: 316 QTc: 389 Interpretive Statements ATRIAL TACHYCARDIA/FLUTTER LOW QRS VOLTAGE IN PRECORDIAL LEADS Electronically Signed On 01-11-2025 11:08:58 CDT by Ed Huitron D.O
[2025-01-11 09:52] LABS: Hematocrit 37.9 % (37.0-47.0); Hemoglobin 12.1 g/dL (12.0-15.0); Immature Granulocyte Percent A 0.7 % (0-0.5); Lymphocytes Absolute Auto 2.07 K/mm3 (0.9-3.2); Mean Corpuscular HGB Conc 31.9 g/dl (32-36); Mean Corpuscular Hemoglobin 25.7 pg (26-34); Mean Corpuscular Volume 80.5 fl (80-100); Nucleated Red Blood Cells Absolute Auto 0.000 K/mm3 (0.0-0.012); Nucleated Red Blood Cells Perc 0.0 % (0.0-0.2); Platelet Count Result 358 k/mm3 (150-375); Red Blood Count 4.71 M/mm3 (4.2-5.4); White Blood Count 16.0 K/mm3 (4.5-10.0)
[2025-01-11 10:10] LABS: Alanine Aminotransferase 17 U/L (6-35); Albumin Level 4.2 g/dL (3.5-5.1); Alkaline Phosphatase 98 U/L (38-126); Anion Gap 8 mmol/L (4-12); Aspartate Amino Transferase 27 U/L (14-36); Bilirubin,Total 0.4 mg/dL (0.2-1.3); Blood Urea Nitrogen 20 mg/dL (7-17); Calcium 10.3 mg/dL (8.4-10.2); Carbon Dioxide 27 mmol/L (22-30); Chloride 98 mmol/L (98-107); Estimated CRCL calculation 33 ml/min; Estimated Glomerular Filt Rate 52; Glucose 128 mg/dL (65-110); Lipase 139 U/L (23-300); Potassium 4.4 mmol/L (3.4-5.0); Sodium 133 mmol/L (137-145); Total Protein 7.7 g/dL (6.3-8.2)
[2025-01-11 10:15] LABS: Add Urine Microscopic? YES; Appearance Urine Clear (Clear); Glucose Urine UA Negative (Negative); Leukocyte Esterase Ur 2+ LEU/UL (Negative); Nitrate Urine Negative (Negative); Specific Grav Ur 1.014 (1.001-1.035)
--- OUTSIDE RECORDS SUMMARY | 2025-01-11 10:23 | XMS_ITS ---
Author Name Auto Generated, Auto Generated Organization [facility] ices Address [address] [place] [address] Phone [phone] Care Team Providers Care Veneer Sander Name Role Phone Raman Baptiste Unavailable [phone] Angus Chamberlain Unavailable [phone] Jimmy Salazar Unavailable [phone] Functional Status No Results Mental Status No [...]
--- OUTSIDE RECORDS SUMMARY | 2025-01-11 10:23 | XMS_ITS | Clinical Summary ---
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 [place] [address] Payer ID:Not on file Group ID:Not on file Type: Address: [address] FOR LIFE AETNA PPO MCR Care Teams Home Care Music Therapist Relationship Specialty Start Date End Date Angus Chamberlain MD [address] [facility] [address] [place] [address] PCP - General Family Practice 05/17/17
--- OUTSIDE RECORDS SUMMARY | 2025-01-11 10:23 | XMS_ITS | Encounter Summary ---
Author Organization [facility] Healthcare Address [address] [place] [address] Care Team Providers Care Agricultural Produce Commission Agent Name Role Phone Radnee Esparza Unavailable [phone] Angus Chamberlain MD Primary Care Provider Montana Kerns NP Unavailable [phone] Encounter Details Date Type Department Care Team (Late st Contact Info) Description 10/16/2024 Telephone [facility] Pain Management Center [address] [place] [address] [place] [address] [facility] [address] [place] [address] Social History Tobacco Use Types [...] on file 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 Gender Identity Not on file Sexual Orientation Not on file documented as of this encounter Plan of Treatment Not on file documented as of this encounter Visit Diagnoses Not on filedocumented in this encounter Care Teams Agricultural Produce Commission Agent Relationship Specialty Start Date End Date Angus Chamberlain MD [address] [place] [address] PCP - General Family Medicine 04/28/23 [place] [address] [address] [facility] [address] [place], [place] [id number] Physician Fishing Lure Assembler Orthopedic Surgery 08/15/20 [place] [address] [address] [facility] [address] [place] [address] Nurse Practitioner Nurse Practitioner 06/11/24 documented as of this encounter
--- OUTSIDE RECORDS SUMMARY | 2025-01-11 10:23 | XMS_ITS | Continuity of Care Document ---
Author Organization [facility] Address [address] [facility] [address] [place] [address] Phone Care Team Providers Care Rehab Office Coordinator Name Role Phone Jose VIDALES FACS, Alpesh [...] Vision Svcs Frames Purchases BF Polycarb Sphcyl [place] To +/-4d .12-2d Anti-reflective Coating Polycarb Lens Per Lens Advance Directives Directive Yes / No Effective Date File Name No Information Encounters Encounter Description Practice Location Reason(s) For Visit Diagnoses Date Provider Providers Copied on Encounter [facility], [address] [place] [address] [address], [place], [place], [address], tel:[phone] SEC Kimmie Galloway No Information 2 Jose Betts. [address] [place] [address] Drive, [address], [place], [place], [address], [place]. tel:[phone] Office/outpat ient Visit, Est [facility], [address] [place] [address] [address], [place], [place], [address], tel:[phone] SEC [facility] No Information 8-201 0 Roxanne Stockton [address] [facility] [place] , [address], [place], [place], [facility], [place]. tel:[phone] [facility], [address] [place] [address] [address], [place], [place], [address], tel:[phone] SEC [facility] No Information 7-201 0 Roxanne Stockton [address] [facility] , [address], [place], [facility], [place]. tel:[phone] [facility], [address] [place] [address] [address], [place], [place], [address], tel:[phone] SEC [facility] No Information 0-201 0 Roxanne Stockton [address] [facility] , [address], [place], [address], [place]. tel:[phone] [facility], [address] [place] [address] [address], [place], [place], [address], tel:[phone] Nov [facility] No Information 9-201 0 Roxanne Stockton [address] , [address], [place], [facility], [place]. tel:[phone] [facility] Eye [facility], [address] [place] [address] [address], [place], [place], [address], [place] tel:[phone] SEC [facility] No Information May-1 3-201 0 Roxanne Garcia. [address] , [address], [place], [facility], [place]. tel:[phone] Referring Provider: Radha Leger, [address], [place], [facility]. tel:[phone] [facility] Eye [facility], [address] [place] [address] [address], [place], [place], [address], [place] tel:[phone] SEC [facility] No Information May-0 6-201 0 Roxanne Garcia. [address] [facility] , [address], [place], [facility], [place]. tel:[phone] [facility] Eye [facility], [address] [place] [address] [address], [place], [place], [address], [place] tel:[phone] [facility] No Information May-0 5-201 0 Roxanne Garcia. [address] [facility] , [address], [place], [facility], [place]. tel:[phone] Office/outpat ient Visit, [facility], [address] [place] [address] [address], [place], [place], [address], [place] tel:[phone] SEC [facility] No Information Apr-2 9-201 0 Roxanne [address] , [address], [place], [facility], [place]. tel:[phone] Referring Provider: Radha Leger, [facility] [address], [place], [facility]. tel:[phone] Office/outpat ient Visit, [facility] Eye [facility], [address] [place] [address] [address], [place], [place], [address], tel:[phone] SEC [place] No Information Omari-0 8-200 9 Roxanne Garcia. [address], [address], [place], [address], [place]. tel:[phone] [facility], [address] [facility] [address], [place], [place], [address], tel:[phone] SEC [facility] No Information 0 [address] [employer] . [address] [facility], [address], [place], [place], [address], [place]. tel:[phone] Referring Provider: Smith Dempsey MD S, [facility] [place], [address]. tel:[phone] g Provider: Jeniffer High, [address] [place] [address], [address]. tel:[phone] [facility] Eye [facility], [address] [facility] [address], [place], [place], [address], tel:[phone] SEC [facility] [place] No Information 0 3[address] [employer] . [address] [facility], [address], [place], [place], [address], [place]. tel:[phone] Referring Provider: Smith Dempsey MD S, [address] [place], [address]. tel:[phone] g Provider: Jeniffer High, [address] [place] [address], [address]. tel:[phone] Family History Family Member Type Diagnosis Age [...]
--- OUTSIDE RECORDS SUMMARY | 2025-01-11 10:23 | XMS_ITS | Referral Summary ---
Author Organization [facility] [address] Address [address] [place] [address] Care Team Providers Care Cupola Tender Name Role Phone Randee Esparza Unavailable [phone] Angus Chamberlain MD Primary Care Provider Montana Kerns NP Unavailable [phone] Encounters Date Type Department Care Team Description 10/31/2024 10:45 AM CDT Office Visit [facility] Ophthalmology [facility] [place] [facility] [place] [address] Sarah Lee MD Low-tension glaucoma of both eyes, moderate stage (Primary Dx); Exudative age-related macular degeneration of left eye with active choroidal neovascularization (HCC) 10/16/2024 Telephone [facility] [address] [place] [address] Raman Baptiste MD from Last [...] mg SL tabletIndication s:Coronary artery disease of [place] artery of [place] heart with stable angina pectoris Place 1 [...] 25 mg tabletIndication s:Coronary artery disease of [place] artery of [place] heart with stable angina pectoris,Hyperte nsion associated [...] day 5 Active Accu-Chek Fastclix Lancet Drum [facility] USE TO TEST BLOOD SUGAR ONCE DAILY 4 Active Active Problems Problem Noted Date Diagnosed Date Low-tension glaucoma of both eyes, moderate stag e 07/18/2024 Overview (07/18/2024): No FH, normal CCTs, Tmax 15 Intolerances: latanoprost, brimonidine Assessment & Plan (10/31/2024 11:50 AM CDT): Monocular with moderate disease OD. Tmax 1515 (limited records, earliest from 2021). Appears to have progression on outside [facility] between 2021 to 2023 with low teens IOP, though 07/2024 field reassuring. S/p SLT OD IOP / on alphagan, iyuzeh both eyes (OU) today, tolerating well Pr reports adherence to drops OCT with polar thinning OD, unreliable OS. HVF with SA>IA OD. Target low teens intraocular pressure (IOP) CPM RTC in 4-5 mo w HVF 24-2 Assessment & Plan (07/18/2024 10:15 PM SPORTS PHYSICAL THERAPIST): Referred by Dr. Brooks for NTG OU. [...] scheduled Assessment & Plan (07/18/2024 10:13 PM SPORTS PHYSICAL THERAPIST): F/U with Dr. Cheung as scheduled Bilateral [...] 20 Assessment & Plan (07/14/2020 3:32 PM SPORTS PHYSICAL THERAPIST): By MRI the patient was found to [...] proceed Assessment & Plan (07/03/2020 9:20 AM SPORTS PHYSICAL THERAPIST): Patient is experiencing recurring locking her knee [...] activities. Assessment & Plan (08/12/2022 11:06 AM SPORTS PHYSICAL THERAPIST): Patient has reactive synovitis of both of [...] seating. Assessment & Plan (06/19/2020 5:14 PM SPORTS PHYSICAL THERAPIST): Patient's right knee is doing well. Her left knee is improved following the injection although she may have more medially based pain as that is the location of her more advanced arthritis. 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 Assessment & Plan (07/27/2018 10:06 AM SPORTS PHYSICAL THERAPIST): Patient has moderate arthritic changes of the [...] artery disease of n ative artery of [place] heart with stable angina pectoris 03/23/2017 Malignant [...] on file Legal Sex Female 10:06 AM SPORTS PHYSICAL THERAPIST Gender Identity Not on file Sexual Orientation [...] 76.7 kg (169 lb) 07/12/2024 11:36 AM SPORTS PHYSICAL THERAPIST Height 154.9 cm (5' 1) 07/12/2024 11:36 AM SPORTS PHYSICAL THERAPIST Body Mass Index 31.93 07/12/2024 11:36 AM SPORTS PHYSICAL THERAPIST Plan of Treatment Not on file Procedures Procedure Name Priority Date/Time Associated Diagnosis Comments EGFR STAT 03/26/2022 4:54 PM CDT POCT LIPID PANEL Routine 03/23/2017 9:06 AM CDT Coronary artery disease involving [place] coronary artery of [place] heart without angina pectoris Hyperlipidemia associated with [...] LAB BLOOD ORDERABLES Final Res ult DAMIR [address] [place] [address] * POCT lipid panel (03/23/2017 [...] LIFE [facility] MEDICARE FOR LIFE AET MEDICARE [employer] AETNA MEDICARE Care Teams Cupola Tender Relationship Specialty Start Date End Date Angus Chamberlain MD [address] [facility] [address] [place] [address] PCP - General Family Medicine 04/28/23 [place] [address] [facility] [address] [place] [address] Physician Product Promoter Sales Person Orthopedic Surgery 08/15/20 [place] [address] [facility] [address] [place] [address] Nurse Practitioner Nurse Practitioner 06/11/24
--- OUTSIDE RECORDS SUMMARY | 2025-01-11 10:23 | XMS_ITS | Encounter Summary ---
Author Organization [employer] Address 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
--- OUTSIDE RECORDS SUMMARY | 2025-01-11 10:23 | XMS_ITS ---
Author Name Auto Generated, Auto Generated Organization [facility] [email or web address] [facility] ices Address [address] [place] [address] Phone [phone] Care Team Providers Care Muck Farmer Name Role Phone Raman Baptiste Unavailable [phone] Angus Chamberlain Unavailable Jimmy Salazar Unavailable [phone] Functional Status No Results Mental Status No [...]
--- OUTSIDE RECORDS SUMMARY | 2025-01-11 10:23 | XMS_ITS | Continuity of Care Document ---
Author Name [facility] Organization [facility] Care Team Providers Care Fishing Rod Mechanic Name Role Phone [facility] Unavailable Unavailable Medications Combined list of outpatient medications from Department of Defense and Veterans Affairs facilities.Medications provided include 1) outpatient medications from the last 15 months, and 2) patient-reported medications. Medication Details Route Status Patient Instructions Prescription Expires Prescription Number Last Dispense Date Ordering Provider Order Date Order Qty Source ALPRAZOLAM (ALPRAZOLAM ), 1MG, TABLET, ORAL, SANDOZ, 500 ea. BOTTLE Active [id number] 2023 60 Pharmac y Data Transac tion Service Facilit y ALPRAZOLAM (ALPRAZOLAM ), 1MG, TABLET, ORAL, SANDOZ, 500 ea. BOTTLE Active [id number] 4 2023 60 Pharmac y Data Transac tion Service Facilit y ANASTROZOLE (anastrozol e), 1 MG, TABLET, ORAL, AVET PHARMACEUT, 30 ea. BOTTLE Active [id number] 4 2023 90 Pharmac y Data Transac tion Service Facilit y AZELASTINE- FLUTICASONE (azelastine HCl/flutica sone propionate) , 137-50 MCG, SPRAY/PUMP, NASAL, [employer] GRISEL, 23 g SQUEEZ BTL Active [id number] 4 2023 23 Pharmac y Data Transac tion Service Facilit y DORZOLAMIDE HCL (dorzolamid e HCl), 2 %, DROPS, OPHTHALMIC, [employer],, 10 ml DROP BTL Active [id number] 4 2023 10 Pharmac y Data Transac tion Service Facilit y IYUZEH (latanopros t/PF), 0.005 %, DROPERETTE, OPHTHALMIC, [employer], 30 ea. VIAL Cancele d [id number] : 2023 0 Pharmac y Data Transac tion Service Facilit y IYUZEH (latanopros t/PF), 0.005 %, DROPERETTE, OPHTHALMIC, [employer], 30 ea. VIAL Active [id number] 4 2023 30 Pharmac y Data Transac tion Service Facilit y LATANOPROST (LATANOPROS T), 0.005%, DROPS, OPHTHALMIC, [email or web address]., 2.5 ml DROP BTL Cancele d [id number] : 2023 0 Pharmac y Data Transac tion Service Facilit y Allergies, Adverse Reactions, Alerts Combined list of allergies from Department of Defense and Veterans Affairs facilities. It does not include entries that were removed or entered in error. Substance Category Reaction Severity Reaction type Status Date Reported Comments Source AUGMENTIN Drug allergy (disorder) Unknown active 12/19/[address] [place] [address] [employer] ([facility] AZITHROMYCIN Drug allergy (disorder) Unknown active 12/19/[address] [place] [address] [employer] [facility] BIAXIN Drug allergy (disorder) Unknown active 12/19/[address] [place] [address] [employer] [facility] CIPRO Drug allergy (disorder) Unknown active 12/19/[address] [place] [address] [employer] [facility] HYDROCODONE Drug allergy (disorder) Unknown active 12/19/[address] [place] [address] [employer] [facility] MACROBID Drug allergy (disorder) Unknown active 12/19/[address] [place] [address] [employer] [facility] Social History Combined list of available smoking, tobacco, and other social history from Department of Defense and Veterans Affairs facilities. Social History Type Response Date Comment Sour e This section is an empty social history section. DoD
--- OUTSIDE RECORDS SUMMARY | 2025-01-11 10:23 | XMS_ITS | Continuity of Care Document ---
Author Organization [facility] Address [address] [place] [address] [place] [address] Phone Care Team Providers Care Surveillance Manager Name Role Phone Jad Herring MD Unavailable [...] VISIT, EST OFFICE/OUTPATIENT VISIT, EST OFFICE/OUTPATIENT VISIT, [facility] PREV VISIT, NEW, 65 & OVER OFFICE/OUTPATIENT VISIT, NEW Advance Directives Directive Yes / No Effective Date File Name No Information Encounters Encounter Description Practice Location Reason(s) For Visit Diagnoses Date Provider Providers Copied on Encounter OFFICE/OUTPA TIENT VISIT, [facility], [address] [place], [address], [place] tel:[phone] [facility] anxiety1 (chief complaint) dizziness1 (chief complaint) Generalized Anxiety DisorderEssential (primary) hypertensionEdemaDi zziness [address], [place], [place], [address] , [place]. tel:[phone] OFFICE/OUTPA TIENT VISIT, [facility], [address] [place], [address], [place] tel:[phone] [facility] osteopenia 1 (chief complaint) GERD1 (chief complaint) anxiety1 (chief complaint) edema1 (chief complaint) Other specified disorder of bone densityGeneralized Anxiety DisorderEdemaConstr iction of esophagus [address], [place], [place], [address] , [place]. tel:[phone] OFFICE/OUTPA TIENT VISIT, [facility], [address] [place], [address], [place] tel:[phone] [facility] dysphagia1 (chief complaint) DysphagiaConstricti on of esophagus [address], [place], [place], [address] , [place]. tel:[phone] OFFICE/OUTPA TIENT VISIT, [facility], [address], [place], [place], [address], [place] tel:[phone] [facility] DM (chief complaint) renal (chief complaint) anemia1 (chief complaint) anxiety1 (chief complaint) edema1 (chief complaint) Type 2 diabetes mellitus w/ diabetic neuropathyRenal diseaseAnemiaGenera lized Anxiety DisorderEdema [address], [facility], [place], [place], [address] , [place]. tel:[phone] PREV VISIT, NEW, 65 & OVER [facility], [address], [place], [place], [address], [place] tel:[phone] [facility] physical (chief complaint) Encounter for general adult medical exam w abnormal findingsHypertensiv e cardiac and chronic kidney disease w/o cardiac failureGERD w/o esophagitisGenerali zed Anxiety DisorderType 2 diabetes mellitus w/ diabetic neuropathyOther spondylosis, lumbar region [address], [place], [place], [address] , [place]. tel: [phone] Family History Family Member Type Diagnosis Age At Onset Mother Problem Alive and well Brother Problem Alive and well Mother Problem still alive 100 dementia Sister Problem Diabetes mellitus Father Problem of 66 CAD Payers Payer name Insurance type Covered green [...] Mental Status Date Cognitive Assessment Orientation - [place] ed to time, place, person, situation.
--- OUTSIDE RECORDS SUMMARY | 2025-01-11 10:23 | XMS_ITS ---
Author Organization [facility] [address] Address [address] [place] [address] Care Team Providers Care Automobile Glass Technician Name Role Phone Randee Esparza Unavailable [phone] Angus Chamberlain MD Primary Care Provider Montana Kerns NP Unavailable [phone] Active Problems Problem Noted Date Diagnosed Date [...] 24-2 Assessment & Plan (07/18/2024 10:15 PM NUTRITION COORDINATOR): Referred by Dr. Brooks for NTG [...] scheduled Assessment & Plan (07/18/2024 10:13 PM NUTRITION COORDINATOR): F/U with Dr. Cheung as scheduled [...] 07/03/20 Assessment & Plan (07/14/2020 3:32 PM NUTRITION COORDINATOR): By MRI the patient was found [...] proceed Assessment & Plan (07/03/2020 9:20 AM NUTRITION COORDINATOR): Patient is experiencing recurring locking her [...] activities. Assessment & Plan (08/12/2022 11:06 AM NUTRITION COORDINATOR): Patient has reactive synovitis of both [...] seating. Assessment & Plan (06/19/2020 5:14 PM NUTRITION COORDINATOR): Patient's right knee is doing well. Her left knee is improved following the injection although she may have more medially based pain as that is the location of her more advanced arthritis. If she develops locking or increasing pain or swelling she was advised to return Assessment & Plan (07/12/2019 4:24 PM NUTRITION COORDINATOR): Patient has moderate arthritis of her [...] well. Assessment & Plan (07/27/2018 10:06 AM NUTRITION COORDINATOR): Patient has moderate arthritic changes of [...] artery disease of n ative artery of [place] heart with stable angina pectoris 03/23/2017 Malignant [...]
--- OUTSIDE RECORDS SUMMARY | 2025-01-11 10:23 | XMS_ITS | Clinical Summary ---
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 Brooks for NTG OU. [...] scheduled Assessment & Plan (07/18/2024 10:13 PM CAMP MAINTENANCE SUPERVISOR): F/U with Dr. Cheung as scheduled Bilateral [...] 07/03/20 Assessment & Plan (07/14/2020 3:32 PM CAMP MAINTENANCE SUPERVISOR): By MRI the patient was found to [...] proceed Assessment & Plan (07/03/2020 9:20 AM CAMP MAINTENANCE SUPERVISOR): Patient is experiencing recurring locking her knee [...] activities. Assessment & Plan (08/12/2022 11:06 AM CAMP MAINTENANCE SUPERVISOR): Patient has reactive synovitis of both of [...] seating. Assessment & Plan (06/19/2020 5:14 PM CAMP MAINTENANCE SUPERVISOR): Patient's right knee is doing well. Her left knee is improved following the injection although she may have more medially based pain as that is the location of her more advanced arthritis. 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 Assessment & Plan (07/27/2018 10:06 AM CAMP MAINTENANCE SUPERVISOR): Patient has moderate arthritic changes of the [...] artery disease of n ative artery of [place] heart with stable angina pectoris 03/23/2017 Malignant [...] Description 10/31/2024 10:45 AM CDT Office Visit [facility] Ophthalmology [address] [facility] [place] [address] Sarah Lee MD Low-tension glaucoma of both eyes, moderate stage (Primary Dx); Exudative age-related macular degeneration of left eye with active choroidal neovascularization (HCC) 10/16/2024 Telephone [facility] [address] [place] [address] Raman Baptiste MD from Last [...] on file Legal Sex Female 10:06 AM CAMP MAINTENANCE SUPERVISOR Gender Identity Not on file Sexual Orientation [...] 76.7 kg (169 lb) 07/12/2024 11:36 AM CAMP MAINTENANCE SUPERVISOR Height 154.9 cm (5' 1) 07/12/2024 11:36 AM CAMP MAINTENANCE SUPERVISOR Body Mass Index 31.93 07/12/2024 11:36 AM CAMP MAINTENANCE SUPERVISOR Plan of Treatment Health Maintenance Due Date [...] 9:06 AM CDT Coronary artery disease involving [place] coronary artery of [place] heart without angina pectoris Hyperlipidemia associated with [...] LAB BLOOD ORDERABLES Final Res ult DAMIR [address] [address] [place] [address] * POCT lipid panel (03/23/2017 9:06 AM [...] Health Maintenance Insurance FOR LIFE [facility] MEDICARE FOR LIFE AET MEDICARE [employer] AET MEDICARE Care Teams Wallpaperer Relationship Specialty Start Date End Date Angus Chamberlain MD [address] [facility] [address] [place] [address] PCP - General Family Medicine 04/28/23 [place] [address] [facility] [address] [place] [address] Physician Adult Daycare Coordinator Orthopedic Surgery 08/15/20 [place] [address] [facility] [address] [place] [address] Nurse Practitioner Nurse Practitioner 06/11/24
--- OUTSIDE RECORDS SUMMARY | 2025-01-11 10:23 | XMS_ITS | Clinical Summary ---
Author Organization [facility] Address [address] [facility] [place] [address] Care Team Providers Care Hydraulic Auto Jack Mechanic Name Role Phone Angus Chamberlain MD Primary Care Provider [phone] Source Comments [facility],non-owned Affiliates and Associated Physician Practices is amultiple site organization consisting of ambulatory clinics and hospital sitesin [place], [place], [place] and [place]. This disclosure is being madepursuant to the Care Everywhere program and may not contain all information available regarding this patient. Last updated 18.[facility] Allergies Active Allergy Reactions Criticality Noted Date [...] artery disease of n ative artery of [place] heart with stable angina pectoris 03/23/2017 Hypertension [...] on file Legal Sex Female 5:26 PM PARK WORKER Gender Identity Not on file Sexual Orientation Not on file Last Filed Vital Signs Vital Sign Reading Time Taken Comments Blood Pressure 115/51 09/02/2014 12:00 PM PARK WORKER Pulse 64 09/02/2014 12:00 PM PARK WORKER Temperature 36.5 C (97.7 F) 09/02/2014 12:00 PM PARK WORKER Respiratory Rate 16 09/02/2014 12:00 PM PARK WORKER Oxygen Saturation 93% 09/02/2014 12:00 PM PARK WORKER Inhaled Oxygen Concentration - - Weight 77.1 kg (170 lb) 09/02/2014 8:22 AM PARK WORKER Height 157.5 cm (5' 2) 09/02/2014 8:22 AM PARK WORKER Body Mass Index 31.09 09/02/2014 8:22 AM PARK WORKER Plan of Treatment Health Maintenance Due Date [...] patient's age to complete this topic Insurance [facility] MEDICARE ADV Care Teams Hydraulic Auto Jack Mechanic Relationship Specialty Start Date End Date Angus Chamberlain MD [address] [id number] [facility] - General 11/28/13
[2025-01-11] MEDS: SODIUM CHLORIDE 0.9% IV 1,000 ML 999 ML IV CONT (11:08)
[2025-01-11] MEDS: ONDANSETRON INJ 4 MG/2 ML VIAL IV PUSH (11:08)
--- NOTE | 2025-01-11 12:54 | ED.GENADULT ---
HPI - General Adult General Chief complaint: Nausea/Vomiting/Diarrhea Stated complaint: n/v Time Seen by Provider: 01/11/25 10:19 History of Present Illness HPI narrative: Patient is an 84-year-old female who presents ER with abdominal cramping. Ongoing over last 24 hours. Associated diarrhea x4. Mild nausea. No fevers or chills or sweats. No chest pain. No aggravating or alleviating factors. No urinary symptoms. Related Data Home Medications ?Medication ?Instructions ?Recorded ?Confirmed ?Last Taken ?Type anastrozole 1 mg tablet 1 mg PO DAILY 04/19/19 01/07/25 04/06/23 09:00 History cyclosporine 0.05 % eye drops in a 1 drp EACH EYE Q12H 11/16/21 01/07/25 04/02/22 08:00 History dropperette (Restasis) furosemide 20 mg tablet 20 mg PO DAILY 11/30/24 01/07/25 Unknown History lisinopril 5 mg tablet 5 mg PO DAILY 11/30/24 01/07/25 Unknown History Allergies Allergy/AdvReac Type Severity Reaction Status Date / Time metformin AdvReac Intermediate diarrhea Verified 01/07/25 11:58 azithromycin AdvReac Nausea and Verified 01/07/25 11:58 Vomiting ciprofloxacin AdvReac Nausea and Verified 01/07/25 11:58 Vomiting clarithromycin AdvReac Nausea and Verified 01/07/25 11:58 Vomiting clavulanic acid AdvReac Nausea and Verified 01/07/25 11:58 Vomiting hydrocodone (From Vicodin) AdvReac Nausea and Verified 01/07/25 11:58 Vomiting metronidazole AdvReac Nausea and Verified 01/07/25 11:58 Vomiting neomycin AdvReac Nausea and Verified 01/07/25 11:58 Vomiting nitrofurantoin AdvReac Nervousness Verified 01/07/25 11:58 sulfamethizole AdvReac Nausea and Verified 01/07/25 11:58 Vomiting sulfamethoxazole (From AdvReac Nausea and Verified 01/07/25 11:58 Bactrim) Vomiting trimethoprim (From Bactrim) AdvReac Nausea and Verified 01/07/25 11:58 Vomiting PMFSH Past Medical History Medical History (Reviewed 01/07/25 @ 11:58 by Yazmin Geller [facility]) Blind Left eye HX: breast cancer Foot pain, bilateral Tear of medial meniscus of left knee Neuropathy Labia irritation History of retinal detachment GERD (gastroesophageal reflux disease) History of radiation therapy CKD (chronic kidney disease), stage III Type 2 diabetes mellitus with diabetic nephropathy History of myocardial infarction CAD (coronary artery disease) HLD (hyperlipidemia) Surgical History Surgical History H/O cataract extraction H/O lumpectomy S/P primary angioplasty with coronary stent x 2 History of esophagogastroduodenoscopy (EGD) H/O colonoscopy History of partial mastectomy of right breast Family History Family History Father Family history of diabetes mellitus in first degree relative Family history of coronary artery disease Mother Dementia Other Hypertension Social History Social History Social History: She is and her poa is her . 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 She is a lifelong nonsmoker. She does not use any alcohol marijuana or illicit drugs. Code status full code Smoking status: Never smoker Second hand tobacco smoke exposure: No Alcohol intake: never Substance use: never Substance use type: does not use Do You Feel Safe in your Home?: Yes Lack of Transportation: No Lack of Food: Never True Current Housing: I Have Housing Concerned About Future Housing: No Difficulty Paying Gas/Electric Bills: No Difficulty Paying for Meds: No Currently Unemployed: No Education: High School Diploma/GED Difficulty w/ Childcare or Family Care: No Living arrangements: with family Occupation/Education: retired Gender identity (if verbalized by the patient): Female Sexual Orientation (if Verbalized by the Patient): Straight or Heterosexual Spiritual care concerns: No Course Course Emergency Course: Unremarkable evaluation. Labs show leukocytosis of 16,000. Urine with 11-20 white blood cells and 2+ leukocyte esterase, no bacteria. CT scan unremarkable. Appropriate for discharge home. Vital Signs Vital signs: Vital Signs Temperature 98.1 F 01/11/25 09:29 Pulse Rate 90 01/11/25 09:29 Respiratory Rate 18 01/11/25 09:29 Blood Pressure 172/66 H 01/11/25 09:29 Pulse Oximetry 97 07/11/25 09:29 Temperature 98.1 F 01/11/25 09:29 Pulse Rate 90 01/11/25 09:29 Respiratory Rate 18 01/11/25 09:29 Blood Pressure 172/66 H 01/11/25 09:29 Pulse Oximetry 97 01/11/25 09:29 Medical Decision Making Vital Signs Vital Signs: Vital Signs Temperature 98.1 F 01/11/25 09:29 Pulse Rate 90 01/11/25 09:29 Respiratory Rate 18 01/11/25 09:29 Blood Pressure 172/66 H 01/11/25 09:29 Pulse Oximetry 97 01/11/25 09:29 Temperature 98.1 F 01/11/25 09:29 Pulse Rate 90 01/11/25 09:29 Respiratory Rate 18 01/11/25 09:29 Blood Pressure 172/66 H 01/11/25 09:29 Pulse Oximetry 97 01/11/25 09:29 Lab Data 01/11/25 09:44 01/11/25 09:44 Labs: Lab Results 01/11/25 01/11/25 Range/Units 09:44 10:04 WBC 16.0 H (4.5-10.0) K/mm3 RBC 4.71 (4.2-5.4) M/mm3 Hgb 12.1 (12.0-15.0) g/dL Hct 37.9 (37.0-47.0) % MCV 80.5 (80-100) fl MCH 25.7 L (26-34) pg MCHC 31.9 L (32-36) g/dl RDW 14.6 H (11.5-14.5) % Plt Count 358 (150-375) k/mm3 MPV 8.9 (7.4-10.4) fl Immature Gran % (Auto) 0.7 H (0-0.5) % Neut % (Auto) 77.2 H (45.5-73.1) % Lymph % (Auto) 12.9 L (18.3-44.2) % Yates % (Auto) 8.3 (2.6-8.5) % Eos % (Auto) 0.6 (0-4.4) % Baso % (Auto) 0.3 (0.2-1.2) % Lymph # (Auto) 2.07 (0.9-3.2) K/mm3 Yates # (Auto) 1.3 H (0.1-0.6) K/mm3 Eos # (Auto) 0.1 (0-0.3) K/mm3 Baso # (Auto) 0.1 (0.0-0.1) K/mm3 Abs Immat Gran (auto) 0.11 H (0.00-0.031) K/mm3 Absolute Neuts (auto) 12.4 H (1.3-6.7) K/mm3 Absolute Nucleated RBC 0.000 (0.0-0.012) K/mm3 Nucleated RBC % 0.0 (0.0-0.2) % Sodium 133 L (137-145) mmol/L Potassium 4.4 (3.4-5.0) mmol/L Chloride 98 (98-107) mmol/L Carbon Dioxide 27 (22-30) mmol/L Anion Gap 8 (4-12) mmol/L BUN 20 H (7-17) mg/dL Creatinine 1.01 H (0.7-1.0) mg/dL Estim Creat Clear Calc 33 ml/min Estimated GFR 52 L (59 - ) Glucose 128 H (65-110) mg/dL Calcium 10.3 H (8.4-10.2) mg/dL Total Bilirubin 0.4 (0.2-1.3) mg/dL AST 27 (14-36) U/L ALT 17 (6-35) U/L Alkaline Phosphatase 98 (38-126) U/L Total Protein 7.7 (6.3-8.2) g/dL Albumin 4.2 (3.5-5.1) g/dL Lipase 139 (23-300) U/L Urine Color Yellow (Yellow) Urine Appearance Clear (Clear) Urine pH 6.5 (5.0-9.0) Ur Specific Jarreau 1.014 (1.001-1.035) Urine Protein Trace (Negative) mg/dL Urine Glucose (UA) Negative (Negative) mg/dL Urine Ketones Negative (Negative) mg/dL Ur Blood (Man) Negative (Negative) Urine Nitrate Negative (Negative) Urine Bilirubin Negative (Negative) Urine Urobilinogen 0.2 (<2.0) mg/dL Leukocyte Esterase Rfl 2+ H (Negative) ONOFRE/UL Urine RBC 0-2 (0-2) /hpf Urine WBC 11-20 H (0-3) /hpf Ur Squamous Epith Cells None seen (Few) /hpf Urine Bacteria None seen /hpf Urine Casts 3-5 Imaging Data Radiologist's impression: ITS Impressions Abdomen/Pelvis CT 01/11/25 11:14 IMPRESSION: No acute findings within the lower chest, abdomen or pelvis, as detailed above Discharge Plan Discharge Clinical Impression: Gastroenteritis Patient Disposition: Home Condition: Stable Instructions: Gastroenteritis (ED) Additional Instructions: Please drink plenty of fluids at home. Return to the emergency department if you develop high fevers, have persistent severe abdominal pain, or have bloody stools or vomit, as these could be signs of a more serious medical emergency. Return to the emergency department if you are unable to keep down liquids because of severe nausea/vomiting. Patient Language: Khmer Prescriptions: No Action anastrozole 1 mg Tablet 1 mg PO DAILY cyclosporine [Restasis] 0.05 % Dropperette 1 drp EACH EYE Q12H glimepiride 2 mg tablet 2 mg PO QAM Qty: 90 3RF Rx Instructions: administer with breakfast furosemide 20 mg tablet 20 mg PO DAILY lisinopril 5 mg tablet 5 mg PO DAILY (DME) Blood Glucose Test Strip See Rx Instructions .ROUTE .MEDSUPPLY Qty: 100 6RF Rx Instructions: As directed to test blood sugar once daily (DME) lancets Misc See Rx Instructions .ROUTE .MEDSUPPLY Qty: 200 10RF Rx Instructions: As directed to test blood suagr once daily (DME) blood-glucose meter [Accu-Chek Guide Glucose Meter] Misc See Rx Instructions .ROUTE .MEDSUPPLY Qty: 1 0RF Rx Instructions: As directed to test BGL daily or as needed fluticasone propionate 50 mcg/actuation spray,suspension 1 spray intranasal DAILY Qty: 16 0RF Rx Instructions: administer into each nostril cefdinir 300 mg capsule 300 mg PO Q12HR 7 Days Qty: 14 0RF gabapentin 600 mg tablet 600 mg PO BID Qty: 180 1RF omeprazole 40 mg capsule,delayed release(DR/EC) 40 mg PO DAILY Qty: 90 3RF Tradjenta 5 mg tablet 5 mg PO QAM Qty: 90 1RF amlodipine 5 mg tablet 5 mg PO DAILY Qty: 90 1RF hydrochlorothiazide 25 mg tablet 25 mg PO DAILY Qty: 30 2RF carvedilol 12.5 mg tablet See Rx Instructions .ROUTE .COMPLEX Qty: 60 2RF Dose Instruction: TAKE 1 TABLET BY MOUTH TWICE DAILY Rx Instructions: TAKE 1 TABLET BY MOUTH TWICE DAILY atorvastatin 20 mg tablet 20 mg PO DAILY Qty: 90 2RF alprazolam 1 mg tablet 1 mg PO BID PRN (Reason: anxiety) Qty: 60 0RF Follow-up/Referrals: Angus Chamberlain MD [Primary Care Provider] - 1 Week
== END 2025-01-11 14:35 | disposition home or self-care (01) ==
PROVIDERS: Emergency Provider Emergency Medicine; PCP Family Medicine
DX: K52.9 Noninfective gastroenteritis and colitis, unspecified (principal); E11.22 Type 2 diabetes mellitus with diabetic chronic kidney disease; N18.2 Chronic kidney disease, stage 2 (mild); I25.10 Atherosclerotic heart disease of native coronary artery without angina pectoris; I25.2 Old myocardial infarction; E11.40 Type 2 diabetes mellitus with diabetic neuropathy, unspecified; E78.5 Hyperlipidemia, unspecified; K21.9 Gastro-esophageal reflux disease without esophagitis; Z95.5 Presence of coronary angioplasty implant and graft; Z92.3 Personal history of irradiation; Z98.49 Cataract extraction status, unspecified eye; Z90.11 Acquired absence of right breast and nipple; Z79.899 Other long term (current) drug therapy; Z79.84 Long term (current) use of oral hypoglycemic drugs
CPT/HCPCS: 36415; 74177; 80053; 81001; 83690; 85025; 87086; 93005; 96361; 96374; 99284; J2405; J7030; Q9967

== ENCOUNTER 2025-02-11 15:10 | Inpatient (IN) | payer MEDICARE, OTHER, SELFPAY ==
[2025-02-11] VITALS (24 sets, daily range): BP systolic 115–137; BP diastolic 58–65; PULSE 64–88; RESP 12–25; TEMP 36.6; O2SAT 76–97; BMI 30.3
--- NOTE | ~2025-02-11 | MR_ITS ---
EXAMINATION: MR brain/brain stem wo con DATE: 02/14/2025 11:03 INDICATION: Changing ischemic episode. Shakiness. TECHNIQUE: Magnetic resonance imaging (MRI) of the brain and brainstem was performed without intraven ous contrast. Sequences included sagittal and axial T1-weighted SE, axial diffusion-weighted FS SE, a xial 3D SWAN, axial T2-weighted FLAIR, and axial T2-weighted FSE. Apparent diffusion coefficient (ADC ) maps were created. COMPARISON: None. FINDINGS: There are no areas of restricted diffusion to suggest acute infarction. No intracranial hemorrhage or abnormal intracranial mass lesion. There are scattered areas of nonspecific increased T2-weighted si gnal intensity in the cerebral and pontine white matter, predominantly involving the deep and periven tricular white matter. Single tiny focus of susceptibility artifact in the periventricular right fron toparietal white matter consistent with sequela of chronic microhemorrhage. The ventricles are symmet pedro luis and normal in size. There are no abnormal extra-axial fluid collections. Flow voids are seen in t he cerebral arteries on the T2-weighted sequences consistent with their expected patency. Changes of bilateral intraocular lens replacement. Mild mucosal thickening the bilateral ethmoid sinuses. Small right mastoid effusion. IMPRESSION: 1. Moderate scattered age-appropriate cerebral and pontine white matter T2 hyperintensity consistent with chronic small vessel ischemic disease. No acute intracranial process. 2. Single tiny focus of susceptibility artifact in the right frontoparietal white matter consistent w ith sequela of chronic microhemorrhage as can be seen with hypertension. Reviewed, dictated and finalized at location A. IMPRESSION: 1. Moderate scattered age-appropriate cerebral and pontine white matter T2 hype rintensity consistent with chronic small vessel ischemic disease. No acute intr acranial process. 2. Single tiny focus of susceptibility artifact in the right frontoparietal whi te matter consistent with sequela of chronic microhemorrhage as can be seen wit h hypertension.
--- NOTE | ~2025-02-11 | CT_ITS ---
History: Altered mental status and weakness for PROCEDURE: CT head without contrast. COMPARISON: 09/19/2017. Reference is also made to an MRI examination of the brain dated 05/16/2024 TECHNIQUE: Axial imaging of the head performed from the skull base to the vertex without IV contrast. Sagittal a nd coronal reformations obtained. DLP: 605 mGy-cm FINDINGS: The ventricles are enlarged. The dilatation of the ventricles is proportional to the degree of sulcal prominence, not uncommon in the senescent brain. Prior left lacunar infarct. Decreased attenuation is identified within the periventricular white matter, likely secondary to micr ovascular ischemic disease, in a patient of this age. There is no mass, mass effect or midline shift. There is no abnormal extra-axial fluid collection or intracranial hemorrhage. Visualized paranasal sinuses are clear. The mastoid air cells are well aerated. No acute displaced fractures within the overlying cranium. Impression: No acute intracranial hemorrhage or suspicious mass effect. Reviewed, dictated and finalized at location A. Impression: No acute intracranial hemorrhage or suspicious mass effect.
--- NOTE | ~2025-02-11 | US_ITS ---
EXAMINATION: US carotid duplex BI DATE: 02/15/2025 14:13 INDICATION: Carotid artery disease. Tremors. TECHNIQUE: Grayscale, color Doppler, and pulsed Doppler images of the cervical carotid arteries were obtained. The degree of vessel stenosis is placed in one of the following categories: normal, <50%, 5 0-69%, >=70% but less than near-occlusion, near-occlusion, or total occlusion. Note that percent sten osis relative to normal distal artery lumen diameter is indirectly measured from velocity measurement s as described by Medhat, et al. Radiology 2003; 229:340-346. Notes: Normal: Peak systolic velocity <125 centimeters/sec and no plaque <50%. Peak systolic velocity <125 ( EDV <40; ICA/CCA PSV ratio <2.0; used these factors only a tandem lesions or low cardiac output or co ntralateral disease) 50-69 %: PSV 125-230 (EDV 40-100; ratio 2-4) >= 70% but less than near occlusion: PSV greater than 230 (EDV > 100; ratio> 4.0) Near Occlusion: PSV that is variable; markedly narrowed lumen Occlusion: Absent flow on color/spectral Doppler and no lumen on chavez scale. COMPARISON: None. FINDINGS: RIGHT: The right common carotid artery (CCA) peak systolic velocity (PSV) is 75 cm/s. The right internal car otid artery (ICA) PSV is 106 cm/s. The right ICA end-diastolic velocity (EDV) is 13 cm/s. The right I CA/CCA PSV ratio is 1.4. The external carotid artery (ECA) PSV is 109 cm/s. There is antegrade flow i n the right vertebral artery. LEFT: The left CCA PSV is 80 cm/s. The left ICA PSV is 136 cm/s. The left ICA EDV is 18 cm/s. The left ICA/ CCA PSV ratio is 1.7. The ECA PSV is 111 cm/s. There is antegrade flow in the left vertebral artery. IMPRESSION: 1. Less than 50% stenosis in the right internal carotid artery by sonographic criteria. 2. 50-69% stenosis in the left internal carotid artery by sonographic criteria. Reviewed, dictated and finalized at location A. IMPRESSION: 1. Less than 50% stenosis in the right internal carotid artery by sonographic c riteria. 2. 50-69% stenosis in the left internal carotid artery by sonographic criteria.
--- NOTE | ~2025-02-11 | CT_ITS ---
CLINICAL INDICATION: Weakness, dehydration, abdominal pain and leukocytosis COMPARISON: 01/11/2025. TECHNIQUE: An enhanced CT of the abdomen and pelvis was performed utilizing multislice spiral ZeeVee ue reconstructed at 5 mm slice thickness. Coronal and sagittal reconstructions were performed. This CT examination was performed utilizing dose reduction techniques. DLP: 1285 mGy-cm FINDINGS/OBSERVATIONS: Lung: Biapical scarring, left greater than right. Calcified granulomas detected bilaterally, suggesting prior granulomatous disease. The remainder of the lungs are clear. The heart is of normal size, without pericardial effusion. Mediastinum: No pathologically enlarged or morphologically suspicious lymph nodes are identified within the medias tinum, bilateral axilla, within the soft tissues of the anterior chest wall. Soft tissues of the chest: Unremarkable. Bones of the chest: No acute fracture. No lytic or blastic lesions are identified. Liver: The liver enhances homogeneously and is not enlarged . Gallbladder and biliary system: The gallbladder is surgically absent. Pancreas: The pancreas enhances homogeneously, without ductal dilatation. Spleen: The spleen enhances homogeneously, and is not enlarged. Kidneys: Multiple well-circumscribed rounded foci of decreased attenuation are identified within the bilateral kidneys, too small to characterize on the current study. The remainder of the bilateral kidneys otherwise enhance symmetrically without hydronephrosis or kiya l calculi. Adrenal glands: Unremarkable. Gastrointestinal tract: Small hiatal hernia is present. Postoperative change within the deep pelvis. Appendix: The appendix is not definitively visualized. However, no pericecal inflammatory change is identified suggest the presence of acute appendicitis. Vasculature: No calcified atherosclerotic disease is present. No aneurysmal dilatation. Lymph nodes: Scattered nonpathologically enlarged lymph nodes within the root of the mesentery and deep in the pel vis. Pelvic structures: The bladder is minimally distended and otherwise unremarkable. The uterus is either surgically absent or markedly atrophic. Body wall and musculoskeletal: There are bridging endplate osteophytes at multiple levels in the thoracic spine, consistent with dif fuse idiopathic skeletal hyperostosis (DISH). Age-appropriate degenerative disease within the lower lumbar spine. No lytic or blastic lesions. IMPRESSION: Findings suggesting prior granulomatous disease. Multiple well-circumscribed foci of decreased attenuation are identified within the bilateral kidneys , too small to characterize on the current study. No acute findings within the chest, abdomen or pelvis to account for patient's presentation. Reviewed, dictated and finalized at location A. IMPRESSION: Findings suggesting prior granulomatous disease. Multiple well-circumscribed foci of decreased attenuation are identified within the bilateral kidneys, too small to characterize on the current study. No acute findings within the chest, abdomen or pelvis to account for patient's presentation.
--- NOTE | ~2025-02-11 | XR_ITS ---
Exam: X-ray chest 2 views CLINICAL HISTORY: Weakness. COMPARISON: X-ray chest 2 views 08/06/2023. TECHNIQUE: Frontal and lateral images of the chest were obtained. FINDINGS: Cardiomediastinal silhouette is enlarged, unchanged. No pneumothorax. No pleural effusion. Stable 4 mm pulmonary nodule in the right upper lobe. Small opacities in the mid and lower lungs. IMPRESSION: 1. Small opacities in the mid and lower lungs. Differential includes atelectasis/scarring or infiltra elian. Reviewed, dictated and finalized at location A. IMPRESSION: 1. Small opacities in the mid and lower lungs. Differential includes atelectasi s/scarring or infiltrates.
--- NOTE | 2025-02-11 15:18 | ECG_ITS ---
Test Date: 2025-02-11 15:18:57 Measurements Intervals Callahan Rate: 84 P: 62 MI: 163 QRS: 20 QRSD: 73 T: 44 QT: 326 QTc: 386 Interpretive Statements SINUS RHYTHM POSSIBLE LEFT ATRIAL ENLARGEMENT LOW QRS VOLTAGE IN PRECORDIAL LEADS BASELINE ARTIFACT- I, II, III, AVR, AVL, AVF, V4-V6 BORDERLINE ECG Compared to ECG 01/11/2025 09:38:10 No significant changes Electronically Signed On 02-11-2025 16:34:30 CDT by Kash Clarke D.O.
[2025-02-11 15:49] LABS: Hematocrit 35.1 % (37.0-47.0); Hemoglobin 11.6 g/dL (12.0-15.0); Mean Corpuscular HGB Conc 33.0 g/dl (32-36); Mean Corpuscular Hemoglobin 26.6 pg (26-34); Mean Corpuscular Volume 80.5 fl (80-100); Platelet Count Result 345 k/mm3 (150-375); Red Blood Count 4.36 M/mm3 (4.2-5.4); White Blood Count 20.9 K/mm3 (4.5-10.0)
[2025-02-11 16:07] LABS: Alanine Aminotransferase 17 U/L (6-35); Albumin Level 4.2 g/dL (3.5-5.1); Alkaline Phosphatase 83 U/L (38-126); Anion Gap 8 mmol/L (4-12); Aspartate Amino Transferase 29 U/L (14-36); Bilirubin,Total 0.5 mg/dL (0.2-1.3); Blood Urea Nitrogen 36 mg/dL (7-17); Calcium 9.7 mg/dL (8.4-10.2); Carbon Dioxide 29 mmol/L (22-30); Chloride 85 mmol/L (98-107); Estimated CRCL calculation 28 ml/min; Estimated Glomerular Filt Rate 39; Glucose 195 mg/dL (65-110); Potassium 4.4 mmol/L (3.4-5.0); Sodium 122 mmol/L (137-145); Total Protein 7.8 g/dL (6.3-8.2)
[2025-02-11 16:19] LABS: Band Neutrophils Percent 1 % (0-6); Lymphocytes Absolute Manual 2.50 K/mm3 (1.1-4.5); Lymphocytes Percent Manual 12.0 % (18-44); Monocytes Absolute Manual 0.83 K/mm3 (0.1-0.90); Monocytes Percent Manual 4 % (3-9); Neutrophils Absolute Manual 17.55 K/mm3 (1.3-6.7); Neutrophils Percent Manual 83 % (46-73); Total Cells Counted 100
[2025-02-11 16:20] LABS: Schistocytes None Seen
[2025-02-11 17:10] LABS: Add Urine Microscopic? NO; Appearance Urine Clear (Clear); Glucose Urine UA Negative (Negative); Leukocyte Esterase Ur Negative LEU/UL (Negative); Nitrate Urine Negative (Negative); Specific Grav Ur 1.007 (1.001-1.035)
--- OUTSIDE RECORDS SUMMARY | 2025-02-11 17:19 | XMS_ITS | Encounter Summary ---
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 Gender Identity Not on file Sexual Orientation Not on file documented as of this encounter Plan of Treatment Not on file documented as of this encounter Visit Diagnoses Not on filedocumented in this encounter Care Teams Desktop Administrator Relationship Specialty Start Date End Date Angus Chamberlain MD [address] [place] [address] PCP - General Family Medicine 04/28/23 [place] [address] [facility] [address] [place], [place] [id number] Physician Take Down Inspector Orthopedic Surgery 08/15/20 [place] [address] [facility] [address] [place] [address] Nurse Practitioner Nurse Practitioner 06/11/24 documented as of this encounter
--- OUTSIDE RECORDS SUMMARY | 2025-02-11 17:19 | XMS_ITS ---
Author Organization [facility] [address] Address [address] [place] [address] Care Team Providers Care Powerhouse Electrician Apprentice Name Role Phone Randee Esparza Unavailable [phone] Angus Chamberlain MD Primary Care Provider Montana Kerns NP Unavailable [phone] Active Problems Problem Noted Date Diagnosed Date [...] 24-2 Assessment & Plan (07/18/2024 10:15 PM PALEOLOGY PROFESSOR): Referred by Dr. Brooks for NTG OU. [...] scheduled Assessment & Plan (07/18/2024 10:13 PM PALEOLOGY PROFESSOR): F/U with Dr. Cheung as scheduled Bilateral [...] 07/03/20 Assessment & Plan (07/14/2020 3:32 PM PALEOLOGY PROFESSOR): By MRI the patient was found to [...] proceed Assessment & Plan (07/03/2020 9:20 AM PALEOLOGY PROFESSOR): Patient is experiencing recurring locking her knee [...] activities. Assessment & Plan (08/12/2022 11:06 AM PALEOLOGY PROFESSOR): Patient has reactive synovitis of both of [...] seating. Assessment & Plan (06/19/2020 5:14 PM PALEOLOGY PROFESSOR): Patient's right knee is doing well. Her left knee is improved following the injection although she may have more medially based pain as that is the location of her more advanced arthritis. 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
--- OUTSIDE RECORDS SUMMARY | 2025-02-11 17:19 | XMS_ITS | Encounter Summary ---
Author Organization [email or web address] Address 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
--- OUTSIDE RECORDS SUMMARY | 2025-02-11 17:19 | XMS_ITS ---
Author Name Auto Generated, Auto Generated Organization [employer] [facility] ices Address [address] [place] [address] Phone [phone] Care Team Providers Care Digester Name Role Phone Raman Baptiste Unavailable Angus Chamberlain Unavailable [phone] Jimmy Salazar Unavailable [phone] Functional Status No Results Mental Status No [...]
--- OUTSIDE RECORDS SUMMARY | 2025-02-11 17:19 | XMS_ITS | Continuity of Care Document ---
Author Name [facility] Organization [facility] Care Team Providers Care Photographic Platemaker Name Role Phone [facility] Unavailable Unavailable Medications Combined list of outpatient medications from Department of Defense and Veterans Affairs facilities.Medications provided include 1) outpatient medications from the last 15 months, and 2) patient-reported medications. Medication Details Route Status Patient Instructions Prescription Expires Prescription Number Last Dispense Date Ordering Provider Order Date Order Qty Source ALPRAZOLAM (ALPRAZOLAM ), 1MG, TABLET, ORAL, SANDOZ, 500 ea. BOTTLE Active [id number] 2023 60 Pharmac y Data Transac tion Service Facilit y ANASTROZOLE (anastrozol e), 1 MG, TABLET, ORAL, AVET PHARMACEUT, 30 ea. BOTTLE Active [id number] 4 2023 90 Pharmac y Data Transac tion Service Facilit y AZELASTINE- FLUTICASONE (azelastine HCl/flutica sone propionate) , 137-50 MCG, SPRAY/PUMP, NASAL, APOTEX GRISEL, 23 g SQUEEZ BTL Active [id number] 2023 23 Pharmac y Data Transac tion Service Facilit y IYUZEH (latanopros t/PF), 0.005 %, DROPERETTE, OPHTHALMIC, [employer], 30 ea. VIAL Cancele d [id number] : 2023 0 Pharmac y Data Transac tion Service Facilit y IYUZEH (latanopros t/PF), 0.005 %, DROPERETTE, OPHTHALMIC, [employer], 30 ea. VIAL Active [id number] 4 2023 30 Pharmac y Data Transac tion Service Facilit y Allergies, Adverse Reactions, Alerts Combined list of allergies from Department of Defense and Veterans Affairs facilities. It does not include entries that were removed or entered in error. Substance Category Reaction Severity Reaction type Status Date Reported Comments Source AUGMENTIN Drug allergy (disorder) Unknown active 12/19/[address] [place] [address] [place] AZITHROMYCIN Drug allergy (disorder) Unknown active 12/19/[address] [place] [address] [facility] B [facility] BIAXIN Drug allergy (disorder) Unknown active 12/19/[address] [place] [address] [employer] [facility] CIPRO Drug allergy (disorder) Unknown active 12/19/[address] [place] [address] [employer] B [facility] HYDROCODONE Drug allergy (disorder) Unknown active 12/19/[address] [place] [address] [employer] [place] [facility] MACROBID Drug allergy (disorder) Unknown active 12/19/[address] [place], [place] [address]B [facility] Social History Combined list of available smoking, tobacco, and other social history from Department of Defense and Veterans Affairs facilities. Social History Type Response Date Comment [facility] e This section is an empty social history section. [employer]
--- OUTSIDE RECORDS SUMMARY | 2025-02-11 17:19 | XMS_ITS | Continuity of Care Document ---
Author Organization [facility] Address [address] [place] [address] [place] [address] Phone Care Team Providers Care Home Aid Name Role Phone Jad Herring MD Unavailable [...] VISIT, EST OFFICE/OUTPATIENT VISIT, EST OFFICE/OUTPATIENT VISIT, [facility] PREV VISIT, NEW, 65 & OVER OFFICE/OUTPATIENT VISIT, NEW Advance Directives Directive Yes / No Effective Date File Name No Information Encounters Encounter Description Practice Location Reason(s) For Visit Diagnoses Date Provider Providers Copied on Encounter OFFICE/OUTPA TIENT VISIT, [facility] ([facility], [address] [place], [address], [place] tel:[phone] [facility] anxiety1 (chief complaint) dizziness1 (chief complaint) Generalized Anxiety DisorderEssential (primary) hypertensionEdemaDi zziness [address], [place], [place], [address] , [place]. tel:[phone] OFFICE/OUTPA TIENT VISIT, [facility] ([facility], [address] [place] [place], [address], [place] tel:[phone] [facility] osteopenia 1 (chief complaint) GERD1 (chief complaint) anxiety1 (chief complaint) edema1 (chief complaint) Other specified disorder of bone densityGeneralized Anxiety DisorderEdemaConstr iction of esophagus 3 [address], [place], [place], [address] , [place]. tel:[phone] OFFICE/OUTPA TIENT VISIT, [facility] ([facility], [address] [place], [address], [place] tel:[phone] [facility] dysphagia1 (chief complaint) DysphagiaConstricti on of esophagus [address], [place], [place], [address] , [place]. tel:[phone] OFFICE/OUTPA TIENT VISIT, [facility] ([facility], [address], [place], [place], [address], [place] tel:[phone] [facility] DM (chief complaint) renal (chief complaint) anemia1 (chief complaint) anxiety1 (chief complaint) edema1 (chief complaint) Type 2 diabetes mellitus w/ diabetic neuropathyRenal diseaseAnemiaGenera lized Anxiety DisorderEdema [address], [facility] A, [place], [place], [address] , [place]. tel:[phone] PREV VISIT, NEW, 65 & OVER [facility], [address], [place], [place], [address], [place] tel:[phone] [facility] physical (chief complaint) Encounter for general adult medical exam w abnormal findingsHypertensiv e cardiac and chronic kidney disease w/o cardiac failureGERD w/o esophagitisGenerali zed Anxiety DisorderType 2 diabetes mellitus w/ diabetic neuropathyOther spondylosis, lumbar region [address], [address], [place], [place], [address] , [place]. tel: [phone] Family History Family Member Type Diagnosis Age At Onset Mother Problem Alive and well Brother Problem Alive and well Mother Problem still alive 100 dementia Sister Problem Diabetes mellitus Father Problem of 66 CAD Payers Payer name Insurance type Covered libertarian ID Authoriza tion(s) No Information Social History [...] Date Complaint History Of Prese nt Illness dizziness1 Pt c/o feeling d izziness for several days .Pt denies any vertigo. Pt feels slightly off balance when she tries to stand up from sitting position Pt denies any chest pain or palpitation or sob or headache or syncope. Pt denies any ear pain or tinnitus Pt denies any vision change anxiety1 Pt has chronic a nxiety Pt denies any depression or any suicidal or homicidal thought. Pt denies any crying spells. Pt takes xanax PRN and she wants refill edema1 Pt takes spirono lactone 50 mg and her LE edema resolved. anxiety1 Pt has chronic a nxiety Pt denies any depression or any suicidal or homicidal thought Pt denies any crying spells Pt takes xanax PRn and doing ok osteopenia1 Pt has osteopeni a Pt takes calcium and D. pt denies any fx GERD1 Pt has chronic G ERD with recent dysphagia and difficulty with swallowing Pt is on omeprazole daily Pt had EGD done which showed esophageal stricture s/p dilation and she is doing well post procedure. Pt is able to swallow without any difficulty now dysphagia1 Pt c/o dysphagia and food stuck in midchest for several weeks. Pt states that she tries to drink water to flush down the food but the water just spills back up from her mouth. Pt denies any chest pain Pt takes omeprazole daily. Pt had EGD done last year which showed esophageal ring s/p ballon dilation. pt denies any sore throat edema1 Pt notices bilat eral LE edema recently Pt denies any sob or chest pain. Pt reji any PND or orthopnea Pt states that swelling seems worse toward end of the day and improves in the morning . anxiety1 Pt has chronic a nxiety Pt denies any depression or any suicidal or homicidal thought Pt denies any crying spells Pt takes xanax PRn and doing ok anemia1 Pt has mild norm ocytic anemia. Pt denies any blood loss . renal Pt has borderlin e low renal function Pt has normal UO DM Pt has DM with n europathy. Pt takes januvia. Her glucose is around 130s and her A1c is 7.0. Pt denies any polyuria, polydipsia. Pt takes neurontin for neuropathy both feet. physical Pt needs annual physical pt has [...] Mental Status Date Cognitive Assessment Orientation - [place] ed to time, place, person, situation.
--- OUTSIDE RECORDS SUMMARY | 2025-02-11 17:19 | XMS_ITS | Continuity of Care Document ---
Author Organization [facility] Address [address] [place] [address] Phone Care Team Providers Care Vice President Supply Chain Name Role Phone Jose VIDALES FACS, Alpesh [...] [employer] Purchases BF Polycarb Sphcyl [place] To +/-4d .12-2d Anti-reflective Coating Polycarb Lens Per Lens Advance Directives Directive Yes / No Effective Date File Name No Information Encounters Encounter Description Practice Location Reason(s) For Visit Diagnoses Date Provider Providers Copied on Encounter [facility], [address] [place] [address] [address], [place], [place], [address], tel:[phone] SEC Kimmie Galloway No Information 2 Jose Betts. [address] [place] [address] Drive, [address], [place], [place], [address], [place]. tel:[phone] Office/outpat ient Visit, Est [facility], [address] [place] [address] [address], [place], [place], [address], tel:[phone] SEC [facility] No Information 8-201 0 Roxanne Stockton [address] [facility] , [address], [place], [place], [facility], [place]. tel:[phone] [facility], [address] [place] [address] [address], [place], [place], [address], tel:[phone] SEC [facility] No Information 7-201 0 Roxanne Stockton [address] [facility] , [address], [place], [facility], [place]. tel:[phone] [facility], [address] [place] [address] [address], [place], [place], [address], tel:[phone] SEC [facility] No Information 0-201 0 Roxanne Stockton [address] [facility] , [address], [place], [address], [place]. tel:[phone] [facility], [address] [place] [address] [address], [place], [place], [address], tel:[phone] [facility] No Information 9-201 0 Roxanne Stockton [address] , [address], [place], [facility], [place]. tel:[phone] [facility], [address] [place] [address] [address], [place], [place], [address], [place] tel:[phone] SEC [facility] No Information May-1 3-201 0 Roxanne Garcia. [address] , [address], [place], [facility], [place]. tel:[phone] Referring Provider: Radha Leger, [address] [facility] [address], [place], [facility]. tel:[phone] [facility], [address] [place] [address] [address], [place], [place], [address], [place] tel:[phone] SEC [facility] No Information May-0 6-201 0 Roxanne Garcia. [address] [facility] , [address], [place], [facility], [place]. tel:[phone] [facility], [address] [place] [address] [address], [place], [place], [address], [place] tel:[phone] [facility] No Information May-0 5-201 0 Roxanne Garcia. [address] [facility] , [address], [place], [facility], [place]. tel:[phone] Office/outpat ient Visit, [facility], [address] [place] [address] [address], [place], [place], [address], [place] tel:[phone] SEC [facility] No Information Apr-2 9-201 0 Roxanne Stockton [address] , [address], [place], [facility], [place]. tel:[phone] Referring Provider: Radha Leger, [address] [facility] [address], [place], [facility]. tel:[phone] Office/outpat ient Visit, [facility], [address] [place] [address] [address], [place], [place], [address], tel:[phone] SEC [place] No Information Omari-0 8-200 9 Roxanne Garcia. [address], [address], [place], [address], [place]. tel:[phone] [facility], [address] [facility] [address], [place], [place], [address], tel:[phone] SEC [facility] No Information 0 [address] [employer] . [address] [facility], [address], [place], [place], [address], [place]. tel:[phone] Referring Provider: Smith Dempsey MD S, [facility] [place], [address]. tel:[phone] g Provider: Jeniffer High, [address] [place] [address], [address]. tel:[phone] [facility], [address] [facility] [address], [place], [place], [address], tel:[phone] SEC [facility] [place] No Information 0 [address] [facility] . [address] [facility], [address], [place], [place], [address], [place]. tel:[phone] Referring Provider: Smith Dempsey MD S, [address] [place], [address]. tel:[phone] g Provider: Jeniffer High, [address] [place] [address], [address]. tel:[phone] Family History Family Member Type Diagnosis Age At Onset No Information Payers Payer name Insurance type Covered republican [...]
--- OUTSIDE RECORDS SUMMARY | 2025-02-11 17:19 | XMS_ITS | Clinical Summary ---
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 [place] [address] Payer ID:Not on file Group ID:Not on file Type: Address: [address] FOR LIFE AETNA PPO MCR Care Teams User Experience Lead Relationship Specialty Start Date End Date Angus Chamberalin MD [address] [facility] [address] [place] [address] PCP - General Family Practice 05/17/17
--- OUTSIDE RECORDS SUMMARY | 2025-02-11 17:19 | XMS_ITS | Encounter Summary ---
Author Organization [facility] Address [address] [place] [address] Care Team Providers Care Follow Up Clerk Name Role Phone Randee Esparza Unavailable [phone] Angus Chamberlain MD Primary Care Provider Montana Kerns NP Unavailable [phone] Encounter Details Date Type Department Care Team (Late st Contact Info) Description 07/09/2024 Orders Only [facility] Health Information Management [address] [place] [address] Jimmy Salazar MD [address] [facility] C [address] [facility] C, [address] [place] [address] Social History Tobacco Use Types Packs/Day Years [...] on file 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 Gender Identity Not on file Sexual Orientation Not on file documented as of this encounter Plan of Treatment Not on file documented as of this encounter Procedures Procedure Name Priority Date/Time Associated Diagnosis Comments SCAN - RADIOLOGY/IMAGING 07/09/2024 SCAN - LABS 07/09/2024 documented in this encounter Results * SCAN - LABS (07/09/2024) us Provider Scanning Final Result * SCAN - RADIOLOGY/IMAGING (07/09/2024) Anatomical Region Laterality Modality Other us Jimmy Salazar MD Final Res ult documented in this encounter Visit Diagnoses Not on filedocumented in this encounter Care Teams Follow Up Clerk Relationship Specialty Start Date End Date Angus Chamberlain MD [address] [place] [address] PCP - General Family Medicine 04/28/23 [place] [address] [facility] [address] [place] [address] Physician Service Observer Chief Orthopedic Surgery 08/15/20 [place] [address] [facility] [address] [place] [address] Nurse Practitioner Nurse Practitioner 06/11/24 documented as of this encounter
--- OUTSIDE RECORDS SUMMARY | 2025-02-11 17:19 | XMS_ITS | Clinical Summary ---
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 25 tablet 3 4 Active HYDROcodone-acetam inophen (NORCO) 5-325 mg per tabletIndications: Pain Take 1 tablet by mouth every 8 (eight) hours as needed for pain 10 tablet 4 Active amLODIPine (NORVASC) 10 mg tablet Take 1 tablet (10 mg total) by mouth daily 4 Active Alphagan P 0.1 % drops 1 drop 2 (two) times a day 4 Active hydroCHLOROthiazid e 12.5 mg tablet Take 2 tablets (25 mg total) by mouth daily 4 Active Latosha PF, 0.005 % dropperette INSTILL 1 DROP INTO BOTH EYES EVERY NIGHT AT BEDTIME 4 Active gabapentin (NEURONTIN) 600 mg tablet Take 1 tablet (600 mg total) by mouth 2 (two) times a day 4 Active carvediloL (COREG) 25 mg tabletIndications: 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,Hypertens ion associated with diabetes (HCC) Take 1 tablet (25 mg total) by mouth 2 (two) times a day with meals 180 tablet 3 4 06/22/20 25 Active lisinopriL (PRINIVIL,ZESTRIL) 5 mg tabletIndications: Hypertension associated with diabetes (HCC) Take 1 tablet (5 mg total) by mouth daily 30 tablet 11 4 06/28/20 25 Active furosemide (LASIX) 20 mg tabletIndications: Bilateral lower extremity edema Take 1 tablet (20 mg total) by mouth every other day 5 Active Accu-Chek Fastclix Lancet Drum misc USE TO TEST BLOOD SUGAR ONCE DAILY 4 Active dicyclomine (BENTYL) 20 mg tablet Take 1 tablet (20 mg total) by mouth 4 (four) times a day 5 Active glimepiride (AMARYL) 2 mg tablet Take 1 tablet (2 mg total) by mouth daily with breakfast 5 Active ondansetron ODT (ZOFRAN-ODT) 4 mg disintegrating tablet DISSOLVE 1 TABLET ON THE TONGUE EVERY 6 HOURS NEEDED FOR NAUSEA OR VOMITING 5 Active mupirocin (BACTROBAN) 2 % ointment Apply topically 3 (three) times a day for 10 days 22 g 5 02/15/20 25 Active cephalexin (KEFLEX) 250 mg capsule Take 1 capsule (250 mg total) by mouth 3 (three) times a day for 7 days 21 capsule 5 02/12/20 25 Active Active Problems Problem Noted Date Diagnosed [...] 24-2 Assessment & Plan (07/18/2024 10:15 PM BACK SHOE CUTTER): Referred by Dr. Brooks for NTG OU. [...] scheduled Assessment & Plan (07/18/2024 10:13 PM BACK SHOE CUTTER): F/U with Dr. Cheung as scheduled Bilateral [...] 20 Assessment & Plan (07/14/2020 3:32 PM BACK SHOE CUTTER): By MRI the patient was found to [...] proceed Assessment & Plan (07/03/2020 9:20 AM BACK SHOE CUTTER): Patient is experiencing recurring locking her knee [...] activities. Assessment & Plan (08/12/2022 11:06 AM BACK SHOE CUTTER): Patient has reactive synovitis of both of [...] seating. Assessment & Plan (06/19/2020 5:14 PM BACK SHOE CUTTER): Patient's right knee is doing well. Her left knee is improved following the injection although she may have more medially based pain as that is the location of her more advanced arthritis. 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 Assessment & Plan (07/27/2018 10:06 AM BACK SHOE CUTTER): Patient has moderate arthritic changes of the [...] artery disease of n ative artery of pilot station heart with stable angina pectoris 03/23/2017 Malignant [...] Encounters Date Type Department Care Team Description 02/04/2025 11:15 AM CDT Office Visit [facility] Care at [address] [address] Mario Burnham NP Paronychia of great toe, left (Primary Dx) 01/17/2025 10:30 AM CDT Office Visit [facility] Cardiology [address] [place] [address] Jimmy Salazar MD 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 (Primary Dx); Hyperlipidemia associated with type 2 diabetes mellitus (HCC); Hypertension associated with diabetes (HCC); Frequent PVCs; Bilateral lower extremity edema from Last 3 Months Surgical History Surgery [...] and vomiting) Cataract Type 2 diabetes mellitus Arthritis Cancer (HCC) breast (right) Early dry [...] on file Legal Sex Female 10:06 AM BACK SHOE CUTTER Gender Identity Not on file Sexual Orientation Not on file Obstetrics History Last Filed Vital Signs Vital Sign Reading Time Taken Comments Blood Pressure 126/84 02/04/2025 10:27 AM CDT Pulse 76 02/04/2025 10:27 AM CDT Temperature 36.9 C (98.5 F) 02/04/2025 10:27 AM CDT Respiratory Rate 20 02/04/2025 10:27 AM CDT Oxygen Saturation 96% 02/04/2025 10:27 AM CDT Inhaled Oxygen Concentration - - Weight 76.2 kg (168 lb) 02/04/2025 10:27 AM CDT Height 154.9 cm (5' 1) 01/17/2025 10:57 AM CDT Body Mass Index 31.74 01/17/2025 10:57 AM CDT Plan of Treatment Health Maintenance [...] series) 10/30/2020 10/02/2020, 09/04/2020 eGFR 03/26/2023 03/26/2022, 2020, 02/23/2017 Influenza Vaccine (#1) 2025 0, 03/11/2020, 05/02/2019, Additional history exists Fall Risk Assessment 06/11/2025 06/11/2024 Dilated Eye Exam 07/18/2025 07/18/2024 Procedures Procedure Name Priority Date/Time Associated Diagnosis Comments EGFR STAT 03/26/2022 4:54 PM CDT POCT LIPID PANEL Routine 03/23/2017 9:06 AM CDT Coronary artery disease involving pilot station coronary artery of pilot station heart without angina pectoris Hyperlipidemia associated with [...] LAB BLOOD ORDERABLES Final Res ult DAMIR RENEE [address] [address] [place] [address] * POCT lipid panel (03/23/2017 [...] Blood specimen (specimen) 03/23/2017 9:06 AM CDT Jimmy Salazar MD POINT OF CARE TEST ORDERA BLES Final Result from Last 3 Months or Most Recently Relevant to Health Maintenance Insurance [employer] AETNA MEDICARE FOR LIFE AET MEDICARE FOR LIFE AETNA MEDICARE Care Teams Iridologist Relationship Specialty Start Date End Date Angus Chamberlain MD [address] [facility] [address] [place] [address] PCP - General Family Medicine 04/28/23 [place] [address] [facility] [address] [place] [address] Physician Transportation Technician Orthopedic Surgery 08/15/20 [place] [address] [facility] [address] [place] [address] Nurse Practitioner Nurse Practitioner 06/11/24
--- OUTSIDE RECORDS SUMMARY | 2025-02-11 17:19 | XMS_ITS ---
Author Name Auto Generated, Auto Generated Organization [employer] [facility] ices Address [address] [place] [address] Phone [phone] Care Team Providers Care Fruit Distributor Name Role Phone Raman Baptiste Unavailable Angus Chamberlain Unavailable Jimmy Salazar Unavailable [phone] Functional Status No Results Mental Status No [...]
--- OUTSIDE RECORDS SUMMARY | 2025-02-11 17:19 | XMS_ITS | Clinical Summary ---
Author Organization [facility] Address [address] [facility] [place] [address] Care Team Providers Care Plaster Tender Name Role Phone Angus Chamberlain MD Primary Care Provider [phone] Source Comments [facility],non-owned Affiliates and Associated Physician Practices is amultiple site organization consisting of ambulatory clinics and hospital sitesin [place], [place], [place] and [place]. This disclosure is being madepursuant to the Care Everywhere program and may not contain all information available regarding this patient. Last updated 18.[facility] Allergies Active Allergy Reactions Criticality Noted Date [...] artery disease of n ative artery of [place] heart with stable angina pectoris 03/23/2017 Hypertension [...] on file Legal Sex Female 5:26 PM RELIGIOUS EDUCATION TEACHER Gender Identity Not on file Sexual Orientation Not on file Last Filed Vital Signs Vital Sign Reading Time Taken Comments Blood Pressure 115/51 09/02/2014 12:00 PM RELIGIOUS EDUCATION TEACHER Pulse 64 09/02/2014 12:00 PM RELIGIOUS EDUCATION TEACHER Temperature 36.5 C (97.7 F) 09/02/2014 12:00 PM RELIGIOUS EDUCATION TEACHER Respiratory Rate 16 09/02/2014 12:00 PM RELIGIOUS EDUCATION TEACHER Oxygen Saturation 93% 09/02/2014 12:00 PM RELIGIOUS EDUCATION TEACHER Inhaled Oxygen Concentration - - Weight 77.1 kg (170 lb) 09/02/2014 8:22 AM RELIGIOUS EDUCATION TEACHER Height 157.5 cm (5' 2) 09/02/2014 8:22 AM RELIGIOUS EDUCATION TEACHER Body Mass Index 31.09 09/02/2014 8:22 AM RELIGIOUS EDUCATION TEACHER Plan of Treatment Health Maintenance Due Date [...] 10/02/2020, 09/04/2020 DEPRESSION SCREENING 07/04/2024 INFLUENZA VACCINE (#1) 2025 , 03/11/2020, 05/02/2019, Additional history exists HEPATITIS B [...] patient's age to complete this topic Insurance [facility] MANAGED MEDICARE ADV Care Teams Plaster Tender Relationship Specialty Start Date End Date Angus Chamberlain MD [address] [place], [place] [id number] [facility] - General 11/28/13
--- NOTE | 2025-02-11 17:41 | ED_ITS ---
HPI - Weakness General Chief complaint: Weakness <Monserrat Baer PA-C - Last Filed: 02/11/25 22:17> Stated complaint: weakness with tremors <Monserrat Baer PA-C - Last Filed: 02/11/25 22:17> Time Seen by Provider: 02/11/25 17:05 <Monserrat Baer PA-C - Last Filed: 02/11/25 22:17> Source: patient and family <Monserrat Baer PA-C - Last Filed: 02/11/25 22:17> Mode of arrival: EMS <DENISE Mckee Last Filed: 02/11/25 22:17> Limitations: no limitations <Monserrat Baer PA-C - Last Filed: 02/11/25 22:17> History of Present Illness HPI Narrative: Patient is an 84 y/o female, with PMH of DM, who presents to the ED via EMS with report of weakness/shakiness. Patient resides at [facility]. She reports after lunch today, she began having diffuse whole-body shaking. States she felt very tremulous throughout her whole body, felt very weak. Denied focal numbness or weakness. Denied fever. Denied feeling cold. She does still feel weak currently. Reports some lower abdominal discomfort, queasy feeling. Denies chest pain, headache, dizziness. Family member at bedside reports that patient has had issues recently with her blood sugar being low, particularly last night and this morning. She does have history of diabetes and is on Tradjenta and glimepiride. Family member states she is due to have an esophageal dilation soon and has had issues with swallowing, does not feel that the patient has been eating as much as usual lately. <DENISE Mckee Last Filed: 02/11/25 22:17> Related Data Home medications: Home Medications ?Medication ?Instructions ?Recorded ?Confirmed ?Last Taken ?Type anastrozole 1 mg tablet 1 mg PO DAILY 04/19/19 01/30/25 04/06/23 09:00 History cyclosporine 0.05 % eye drops in a 1 drp EACH EYE Q12H 11/16/21 01/30/25 04/02/22 08:00 History dropperette (Restasis) furosemide 20 mg tablet 20 mg PO DAILY 11/30/24 01/30/25 Unknown History lisinopril 5 mg tablet 5 mg PO DAILY 11/30/24 01/30/25 Unknown History <Monserrat Baer PA-C - Last Filed: 02/11/25 22:17> Allergies/Adverse reactions: Allergies Allergy/AdvReac Type Severity Reaction Status Date / Time metformin AdvReac Intermediate diarrhea Verified 01/30/25 10:26 azithromycin AdvReac Nausea and Verified 01/30/25 10:26 Vomiting ciprofloxacin AdvReac Nausea and Verified 01/30/25 10:26 Vomiting clarithromycin AdvReac Nausea and Verified 01/30/25 10:26 Vomiting clavulanic acid AdvReac Nausea and Verified 01/30/25 10:26 Vomiting hydrocodone (From Vicodin) AdvReac Nausea and Verified 01/30/25 10:26 Vomiting metronidazole AdvReac Nausea and Verified 01/30/25 10:26 Vomiting neomycin AdvReac Nausea and Verified 01/30/25 10:26 Vomiting nitrofurantoin AdvReac Nervousness Verified 01/30/25 10:26 sulfamethizole AdvReac Nausea and Verified 01/30/25 10:26 Vomiting sulfamethoxazole (From AdvReac Nausea and Verified 01/30/25 10:26 Bactrim) Vomiting trimethoprim (From Bactrim) AdvReac Nausea and Verified 01/30/25 10:26 Vomiting <Monserrat Baer PA-C - Last Filed: 02/11/25 22:17> Review of Systems 2 Review of Systems: All systems reviewed & are unremarkable except as noted in HPI. <Monserrat Baer PA-C - Last Filed: 02/11/25 22:17> All systems reviewed & are unremarkable except as noted in HPI and below < Monserrat Baer PA-C - Last Filed: 02/11/25 22:17> [facility] Past Medical History Medical History: Medical History Blind Left eye HX: breast cancer Foot pain, bilateral Tear of medial meniscus of left knee Neuropathy Labia irritation History of retinal detachment GERD (gastroesophageal reflux disease) History of radiation therapy CKD (chronic kidney disease), stage III Type 2 diabetes mellitus with diabetic nephropathy History of myocardial infarction CAD (coronary artery disease) HLD (hyperlipidemia) <Monserrat Baer PA-C - Last Filed: 02/11/25 22:17> Surgical History Surgical History: Surgical History H/O cataract extraction H/O lumpectomy S/P primary angioplasty with coronary stent x 2 History of esophagogastroduodenoscopy (EGD) H/O colonoscopy History of partial mastectomy of right breast <Monserrat Baer PA-C - Last Filed: 02/11/25 22:17> Family History Family History: Family History Father Family history of diabetes mellitus in first degree relative Family history of coronary artery disease Mother Dementia Other Hypertension <Monserrat Baer PA-C - Last Filed: 02/11/25 22:17> Social History Social History: Social History Social History: She is and her poa is her . 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 She is a lifelong nonsmoker. She does not use any alcohol marijuana or illicit drugs. Code status full code Smoking status: Never smoker Second hand tobacco smoke exposure: No Alcohol intake: never Substance use: never Substance use type: does not use Do You Feel Safe in your Home?: Yes Lack of Transportation: No Lack of Food: Never True Current Housing: I Have Housing Concerned About Future Housing: No Difficulty Paying Gas/Electric Bills: No Difficulty Paying for Meds: No Currently Unemployed: No Education: High School Diploma/GED Difficulty w/ Childcare or Family Care: No Living arrangements: with family Occupation/Education: retired Gender identity (if verbalized by the patient): Female Sexual Orientation (if Verbalized by the Patient): Straight or Heterosexual Spiritual care concerns: No <Monserrat Baer PA-C - Last Filed: 02/11/25 22:17> Exam 2 Narrative: GENERAL: Elderly, well-nourished, non-toxic, in no acute distress. HEAD: Normocephalic, atraumatic. RESPIRATORY: Airway patent, respirations nonlabored. Clear to auscultation bilaterally, no rales, rhonchi, wheezing. CARDIOVASCULAR: Regular rate and rhythm without murmurs, rubs, or gallops. ABDOMINAL: Soft, mild tenderness to palpation in left lower abdomen, nondistended. Normoactive BS. MUSCULOSKELETAL: Moves all extremities. No gross deformities. SKIN: Warm, dry, normal color. NEURO: A&O X3. Speech is somewhat slow, but clear. No slurred speech or dysarthria. Cranial nerves II-XII grossly intact. Steady gait. No ataxic movements. Strength equal in upper and lower extremities bilaterally. No focal deficits. 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 No pronator drift. PSYCHIATRIC: Appropriate mood and affect. Normal interaction. <DENISE Mckee Last Filed: 02/11/25 22:17> Course VP OUTCOMES/PA Physician Supervision For this patient encounter, I reviewed the VP OUTCOMES or PA documentation, treatment plan, and medical decision making; and I had [id number] time with this patient. <Trenton Becerra MD - Last Filed: 02/11/25 21:47> Vital Signs Vital signs: Vital Signs Temperature 97.9 F 02/11/25 15:12 Pulse Rate 86 02/11/25 15:12 Respiratory Rate 17 02/11/25 15:12 Blood Pressure 121/65 02/11/25 15:12 Pulse Oximetry 95 02/11/25 15:12 Oxygen Delivery Room Air 02/11/25 15:12 Temperature 97.9 F 02/11/25 15:12 Pulse Rate 64 02/11/25 21:45 Respiratory Rate 13 02/11/25 21:45 Blood Pressure 121/65 02/11/25 16:16 Pulse Oximetry 92 02/11/25 21:45 Oxygen Delivery Room Air 02/11/25 15:12 <Monserrat Baer PA-C - Last Filed: 02/11/25 22:17> Vital Signs Temperature 97.9 F 02/11/25 15:12 Pulse Rate 86 02/11/25 15:12 Respiratory Rate 17 02/11/25 15:12 Blood Pressure 121/65 02/11/25 15:12 Pulse Oximetry 95 02/11/25 15:12 Oxygen Delivery Room Air 02/11/25 15:12 Temperature 97.9 F 02/11/25 15:12 Pulse Rate 64 02/11/25 21:45 Respiratory Rate 13 02/11/25 21:45 Blood Pressure 121/65 02/11/25 16:16 Pulse Oximetry 92 02/11/25 21:45 Oxygen Delivery Room Air 02/11/25 15:12 <Trenton Becerra MD - Last Filed: 02/11/25 21:47> MDM - Weakness MDM Narrative Medical decision making narrative: Patient presented to ED with weakness, shakiness, issues with low blood sugar recently. Vital signs are stable upon arrival. Patient is in no acute distress. Upon my evaluation, she is neurologically intact. No focal deficits appreciated on exam. Patient does have history of diabetes and is on a sulfonylurea. Blood sugar here was 207. CT brain was obtained and negative. Shaking episode was witnessed by ED nurse. No evidence of seizure-like activity. Patient was completely alert, conscious, responsive throughout the entire episode. Laboratory studies with marked leukocytosis of 20.9. Neutrophil predominance of 83%, 1% bandemia. This does also appear new per previous records. Unclear etiology. Patient denying infectious symptoms. Blood cultures were obtained. CMP with sodium of 122. This does appear new per previous records. Sodium typically in the mid 130s. Chloride low at 85. Creatinine slightly elevated from baseline. Today 1.31. Baseline around 0.9. Fluids are ongoing. Blood sugar was 195 on CMP. No anion gap. No evidence of DKA. Mag low at 1.5. Given 2g IV replacement. UA is clear. Chest x-ray with atelectasis versus infiltrates. Patient denies recent cough. Viral swabs are negative. CT scan of chest/abdomen/pelvis obtained and without significant acute findings. Given weakness, hyponatremia, GERARDO, dehydration, will admit for further evaluation. Discussed case with [place] VP OUTCOMES Hospitalist, accepted patient for admission. Patient and family are in agreement with plan. <Monserrat Baer PA-C - Last Filed: 02/11/25 22:17> Medical Records Attestation: I reviewed the patient's medical records. <Monserrat Baer PA-C - Last Filed: 02/11/25 22:17> Lab Data Attestation: I reviewed the patient's lab results. <Monserrat Baer PA-C - Last Filed: 02/11/25 22:17> Result diagrams: 02/11/25 15:40 02/11/25 15:40 <Monserrat Baer PA-C - Last Filed: 02/11/25 22:17> Labs: Lab Results 02/11/25 02/11/25 02/11/25 Range/Units 15:27 15:36 15:40 WBC 20.9 H (4.5-10.0) K/mm3 RBC 4.36 (4.2-5.4) M/mm3 Hgb 11.6 L (12.0-15.0) g/dL Hct 35.1 L (37.0-47.0) % MCV 80.5 (80-100) fl MCH 26.6 (26-34) pg MCHC 33.0 (32-36) g/dl RDW 14.5 (11.5-14.5) % Plt Count 345 (150-375) k/mm3 MPV 8.9 (7.4-10.4) fl Immature Gran % (Auto) Not Reportable Neut % (Auto) Not Reportable Lymph % (Auto) Not Reportable [place] % (Auto) Not Reportable Eos % (Auto) Not Reportable Baso % (Auto) Not Reportable Lymph # (Auto) Not Reportable [place] # (Auto) Not Reportable Eos # (Auto) Not Reportable Baso # (Auto) Not Reportable Abs Immat Gran (auto) Not Reportable Absolute Neuts (auto) Not Reportable Absolute Nucleated RBC Not Reportable Total Counted 100 Neutrophils % (Manual) 83 H (46-73) % Band Neutrophils % 1 (0-6) % Lymphocytes % (Manual) 12.0 L (18-44) % Monocytes % (Manual) 4 (3-9) % Nucleated RBC % Not Reportable Abs Neuts (Manual) 17.55 H (1.3-6.7) K/mm3 Abs Lymphs (Manual) 2.50 (1.1-4.5) K/mm3 Abs Monocytes (Manual) 0.83 (0.1-0.90) K/mm3 Platelet Estimate Adequate (Adequate) Clumped Platelets Present Schistocytes None seen Sodium 122 L (137-145) mmol/L Potassium 4.4 (3.4-5.0) mmol/L Chloride 85 L (98-107) mmol/L Carbon Dioxide 29 (22-30) mmol/L Anion Gap 8 (4-12) mmol/L BUN 36 H D (7-17) mg/dL Creatinine 1.31 H (0.7-1.0) mg/dL Estim Creat Clear Calc 28 ml/min Estimated GFR 39 L (59 - ) Glucose 195 H (65-110) mg/dL POC Capillary Glucose 207 H (65-105) mg/dl Calcium 9.7 (8.4-10.2) mg/dL Magnesium 1.5 L (1.6-2.3) mg/dL Total Bilirubin 0.5 (0.2-1.3) mg/dL AST 29 (14-36) U/L ALT 17 (6-35) U/L Alkaline Phosphatase 83 (38-126) U/L Total Protein 7.8 (6.3-8.2) g/dL Albumin 4.2 (3.5-5.1) g/dL Urine Color Yellow (Yellow) Urine Appearance Clear (Clear) Urine pH 5.5 (5.0-9.0) Ur Specific [place] 1.007 (1.001-1.035) Urine Protein Negative (Negative) mg/dL Urine Glucose (UA) Negative (Negative) mg/dL Urine Ketones Negative (Negative) mg/dL Ur Blood (Man) Negative (Negative) Urine Nitrate Negative (Negative) Urine Bilirubin Negative (Negative) Urine Urobilinogen 0.2 (<2.0) mg/dL Leukocyte Esterase Rfl Negative (Negative) ONOFRE/UL Influenza A (RT-PCR) (Negative) Influenza B (RT-PCR) (Negative) RSV (RT-PCR) (Negative) SARS-CoV-2 RNA (RT-PCR) (Negative) 02/11/25 Range/Units 18:51 WBC (4.5-10.0) K/mm3 RBC (4.2-5.4) M/mm3 Hgb (12.0-15.0) g/dL Hct (37.0-47.0) % MCV (80-100) fl MCH (26-34) pg MCHC (32-36) g/dl RDW (11.5-14.5) % Plt Count (150-375) k/mm3 MPV (7.4-10.4) fl Immature Gran % (Auto) Neut % (Auto) Lymph % (Auto) [place] % (Auto) Eos % (Auto) Baso % (Auto) Lymph # (Auto) [place] # (Auto) Eos # (Auto) Baso # (Auto) Abs Immat Gran (auto) Absolute Neuts (auto) Absolute Nucleated RBC Total Counted Neutrophils % (Manual) (46-73) % Band Neutrophils % (0-6) % Lymphocytes % (Manual) (18-44) % Monocytes % (Manual) (3-9) % Nucleated RBC % Abs Neuts (Manual) (1.3-6.7) K/mm3 Abs Lymphs (Manual) (1.1-4.5) K/mm3 Abs Monocytes (Manual) (0.1-0.90) K/mm3 Platelet Estimate (Adequate) Clumped Platelets Schistocytes Sodium (137-145) mmol/L Potassium (3.4-5.0) mmol/L Chloride (98-107) mmol/L Carbon Dioxide (22-30) mmol/L Anion Gap (4-12) mmol/L BUN (7-17) mg/dL Creatinine (0.7-1.0) mg/dL Estim Creat Clear Calc ml/min Estimated GFR (59 - ) Glucose (65-110) mg/dL POC Capillary Glucose (65-105) mg/dl Calcium (8.4-10.2) mg/dL Magnesium (1.6-2.3) mg/dL Total Bilirubin (0.2-1.3) mg/dL AST (14-36) U/L ALT (6-35) U/L Alkaline Phosphatase (38-126) U/L Total Protein (6.3-8.2) g/dL Albumin (3.5-5.1) g/dL Urine Color (Yellow) Urine Appearance (Clear) Urine pH (5.0-9.0) Ur Specific [place] (1.001-1.035) Urine Protein (Negative) mg/dL Urine Glucose (UA) (Negative) mg/dL Urine Ketones (Negative) mg/dL Ur Blood (Man) (Negative) Urine Nitrate (Negative) Urine Bilirubin (Negative) Urine Urobilinogen (<2.0) mg/dL Leukocyte Esterase Rfl (Negative) ONOFRE/UL Influenza A (RT-PCR) Negative (Negative) Influenza B (RT-PCR) Negative (Negative) RSV (RT-PCR) Negative (Negative) SARS-CoV-2 RNA (RT-PCR) Negative (Negative) <Monserrat Baer PA-C - Last Filed: 02/11/25 22:17> Lab Results 02/11/25 02/11/25 02/11/25 Range/Units 15:27 15:36 15:40 WBC 20.9 H (4.5-10.0) K/mm3 RBC 4.36 (4.2-5.4) M/mm3 Hgb 11.6 L (12.0-15.0) g/dL Hct 35.1 L (37.0-47.0) % MCV 80.5 (80-100) fl MCH 26.6 (26-34) pg MCHC 33.0 (32-36) g/dl RDW 14.5 (11.5-14.5) % Plt Count 345 (150-375) k/mm3 MPV 8.9 (7.4-10.4) fl Immature Gran % (Auto) Not Reportable Neut % (Auto) Not Reportable Lymph % (Auto) Not Reportable [place] % (Auto) Not Reportable Eos % (Auto) Not Reportable Baso % (Auto) Not Reportable Lymph # (Auto) Not Reportable [place] # (Auto) Not Reportable Eos # (Auto) Not Reportable Baso # (Auto) Not Reportable Abs Immat Gran (auto) Not Reportable Absolute Neuts (auto) Not Reportable Absolute Nucleated RBC Not Reportable Total Counted 100 Neutrophils % (Manual) 83 H (46-73) % Band Neutrophils % 1 (0-6) % Lymphocytes % (Manual) 12.0 L (18-44) % Monocytes % (Manual) 4 (3-9) % Nucleated RBC % Not Reportable Abs Neuts (Manual) 17.55 H (1.3-6.7) K/mm3 Abs Lymphs (Manual) 2.50 (1.1-4.5) K/mm3 Abs Monocytes (Manual) 0.83 (0.1-0.90) K/mm3 Platelet Estimate Adequate (Adequate) Clumped Platelets Present Schistocytes None seen Sodium 122 L (137-145) mmol/L Potassium 4.4 (3.4-5.0) mmol/L Chloride 85 L (98-107) mmol/L Carbon Dioxide 29 (22-30) mmol/L Anion Gap 8 (4-12) mmol/L BUN 36 H D (7-17) mg/dL Creatinine 1.31 H (0.7-1.0) mg/dL Estim Creat Clear Calc 28 ml/min Estimated GFR 39 L (59 - ) Glucose 195 H (65-110) mg/dL POC Capillary Glucose 207 H (65-105) mg/dl Calcium 9.7 (8.4-10.2) mg/dL Magnesium 1.5 L (1.6-2.3) mg/dL Total Bilirubin 0.5 (0.2-1.3) mg/dL AST 29 (14-36) U/L ALT 17 (6-35) U/L Alkaline Phosphatase 83 (38-126) U/L Total Protein 7.8 (6.3-8.2) g/dL Albumin 4.2 (3.5-5.1) g/dL Urine Color Yellow (Yellow) Urine Appearance Clear (Clear) Urine pH 5.5 (5.0-9.0) Ur Specific [place] 1.007 (1.001-1.035) Urine Protein Negative (Negative) mg/dL Urine Glucose (UA) Negative (Negative) mg/dL Urine Ketones Negative (Negative) mg/dL Ur Blood (Man) Negative (Negative) Urine Nitrate Negative (Negative) Urine Bilirubin Negative (Negative) Urine Urobilinogen 0.2 (<2.0) mg/dL Leukocyte Esterase Rfl Negative (Negative) ONOFRE/UL Influenza A (RT-PCR) (Negative) Influenza B (RT-PCR) (Negative) RSV (RT-PCR) (Negative) SARS-CoV-2 RNA (RT-PCR) (Negative) 02/11/25 Range/Units 18:51 WBC (4.5-10.0) K/mm3 RBC (4.2-5.4) M/mm3 Hgb (12.0-15.0) g/dL Hct (37.0-47.0) % MCV (80-100) fl MCH (26-34) pg MCHC (32-36) g/dl RDW (11.5-14.5) % Plt Count (150-375) k/mm3 MPV (7.4-10.4) fl Immature Gran % (Auto) Neut % (Auto) Lymph % (Auto) [place] % (Auto) Eos % (Auto) Baso % (Auto) Lymph # (Auto) [place] # (Auto) Eos # (Auto) Baso # (Auto) Abs Immat Gran (auto) Absolute Neuts (auto) Absolute Nucleated RBC Total Counted Neutrophils % (Manual) (46-73) % Band Neutrophils % (0-6) % Lymphocytes % (Manual) (18-44) % Monocytes % (Manual) (3-9) % Nucleated RBC % Abs Neuts (Manual) (1.3-6.7) K/mm3 Abs Lymphs (Manual) (1.1-4.5) K/mm3 Abs Monocytes (Manual) (0.1-0.90) K/mm3 Platelet Estimate (Adequate) Clumped Platelets Schistocytes Sodium (137-145) mmol/L Potassium (3.4-5.0) mmol/L Chloride (98-107) mmol/L Carbon Dioxide (22-30) mmol/L Anion Gap (4-12) mmol/L BUN (7-17) mg/dL Creatinine (0.7-1.0) mg/dL Estim Creat Clear Calc ml/min Estimated GFR (59 - ) Glucose (65-110) mg/dL POC Capillary Glucose (65-105) mg/dl Calcium (8.4-10.2) mg/dL Magnesium (1.6-2.3) mg/dL Total Bilirubin (0.2-1.3) mg/dL AST (14-36) U/L ALT (6-35) U/L Alkaline Phosphatase (38-126) U/L Total Protein (6.3-8.2) g/dL Albumin (3.5-5.1) g/dL Urine Color (Yellow) Urine Appearance (Clear) Urine pH (5.0-9.0) Ur Specific [place] (1.001-1.035) Urine Protein (Negative) mg/dL Urine Glucose (UA) (Negative) mg/dL Urine Ketones (Negative) mg/dL Ur Blood (Man) (Negative) Urine Nitrate (Negative) Urine Bilirubin (Negative) Urine Urobilinogen (<2.0) mg/dL Leukocyte Esterase Rfl (Negative) ONOFRE/UL Influenza A (RT-PCR) Negative (Negative) Influenza B (RT-PCR) Negative (Negative) RSV (RT-PCR) Negative (Negative) SARS-CoV-2 RNA (RT-PCR) Negative (Negative) <Trenton Becerra MD - Last Filed: 02/11/25 21:47> Imaging Data Attestation: I personally reviewed and interpreted this imaging study as follows: < Monserrat Baer PA-C - Last Filed: 02/11/25 22:17> Radiologist's impression: ITS Impressions Chest X-Ray 02/11/25 16:55 IMPRESSION: 1. Small opacities in the mid and lower lungs. Differential includes atelectasis/scarring or infiltrates. Head CT 02/11/25 18:57 Impression: No acute intracranial hemorrhage or suspicious mass effect. Chest/Abdomen/Pelvis CT 02/11/25 19:10 IMPRESSION: Findings suggesting prior granulomatous disease. Multiple well-circumscribed foci of decreased attenuation are identified within the bilateral kidneys, too small to characterize on the current study. No acute findings within the chest, abdomen or pelvis to account for patient's presentation. <Monserrat Baer PA-C - Last Filed: 02/11/25 22:17> ECG Data EKG #1: Attestation: I personally reviewed and interpreted this ECG as follows: <Monserrat Baer PA-C - Last Filed: 02/11/25 22:17> ECG completion date: 02/11/25 <Monserrat Baer PA-C - Last Filed: 02/11/25 22:17> ECG completion time: 15:18 <Monserrat Baer PA-C - Last Filed: 02/11/25 22:17> EKG Interpretation: normal rate (84), sinus rhythm and non-specific ST changes <Monserrat Baer PA-C - Last Filed: 02/11/25 22:17> Discharge Plan Discharge Clinical Impression: Hyponatremia, Weakness, Shakiness, GERARDO (acute kidney injury), Hypomagnesemia Leukocytosis Qualifiers: Leukocytosis type: unspecified Qualified Code(s): D72.829 - Elevated white blood cell count, unspecified <Monserrat Baer PA-C - Last Filed: 02/11/25 22:17> Patient Disposition: Still a Patient <DENISE Mckee Last Filed: 02/11/25 22:17> Condition: Stable <DENISE Mckee Last Filed: 02/11/25 22:17> Patient Language: Welsh <DENISE Mckee Last Filed: 02/11/25 22:17> Prescriptions: No Action anastrozole 1 mg Tablet 1 mg PO DAILY cyclosporine [Restasis] 0.05 % Dropperette 1 drp EACH EYE Q12H furosemide 20 mg tablet 20 mg PO DAILY Patient Comments: pt states not taking lisinopril 5 mg tablet 5 mg PO DAILY azelastine 137 mcg (0.1 %) spray,non-aerosol 137 mcg intranasal Q12H Qty: 30 0RF Rx Instructions: administer into each nostril fluticasone propionate 50 mcg/actuation spray,suspension 1 spray intranasal DAILY Qty: 16 0RF Rx Instructions: administer into each nostril (DME) Blood Glucose Test Strip See Rx Instructions .ROUTE .MEDSUPPLY Qty: 100 6RF Rx Instructions: As directed to test blood sugar once daily (DME) lancets [facility] See Rx Instructions .ROUTE .MEDSUPPLY Qty: 200 10RF Rx Instructions: As directed to test blood suagr once daily (DME) blood-glucose meter [Accu-Chek Guide Glucose Meter] Mis See Rx Instructions .ROUTE .MEDSUPPLY Qty: 1 0RF Rx Instructions: As directed to test BGL daily or as needed ondansetron 4 mg tablet,disintegrating 4 mg PO Q6H PRN (Reason: nausea and vomiting) Qty: 30 0RF dicyclomine 20 mg tablet 20 mg PO QID Qty: 20 0RF Patient Comments: pt states not taking omeprazole 40 mg capsule,delayed release(DR/EC) 40 mg PO DAILY Qty: 90 3RF hydrochlorothiazide 25 mg tablet 25 mg PO DAILY Qty: 30 2RF carvedilol 12.5 mg tablet See Rx Instructions .ROUTE .COMPLEX Qty: 60 2RF Dose Instruction: TAKE 1 TABLET BY MOUTH TWICE DAILY Rx Instructions: TAKE 1 TABLET BY MOUTH TWICE DAILY atorvastatin 20 mg tablet 20 mg PO DAILY Qty: 90 2RF amlodipine 10 mg tablet See Rx Instructions .ROUTE .COMPLEX Qty: 90 0RF Dose Instruction: TAKE 1 TABLET BY MOUTH DAILY Rx Instructions: TAKE 1 TABLET BY MOUTH DAILY Tradjenta 5 mg tablet 5 mg PO QAM Qty: 90 1RF alprazolam 1 mg tablet 1 mg PO BID PRN (Reason: anxiety) Qty: 60 0RF gabapentin 600 mg tablet 600 mg PO BID Qty: 180 1RF <Monserrat Baer PA-C - Last Filed: 02/11/25 22:17> Follow-up/Referrals: Angus Chamberlain MD [Primary Care Provider] - <Monserrat Baer PA-C - Last Filed: 02/11/25 22:17>
[2025-02-11] MEDS: SODIUM CHLORIDE 0.9% IV 1,000 ML 999 ML IV CONT (17:49)
[2025-02-11 18:52] LABS: Magnesium 1.5 mg/dL (1.6-2.3)
[2025-02-11] MEDS: MAGNESIUM SULF 2 GM/WATER 50ML 2 GM/50 ML BAG IVPB (19:04)
[2025-02-11 19:33] LABS: Influenza A QL RT-PCR Negative (Negative); Influenza B QL RT-PCR Negative (Negative); RSV RNA, RT-PCR Negative (Negative); SARS-CoV-2 RNA PCR Negative (Negative)
[2025-02-11] MEDS: ACETAMINOPHEN 500 MG TABLET 1000 MG PO (20:58)
--- NOTE | 2025-02-11 22:15 | PM.IMHP ---
H&P: HPI History of Present Illness Date/Time: 02/11/25 22:15 Chief Complaint: Shaking/Tremors, hypoglycemia episodes, weakness, elevated WBC, esophageal stricture limiting oral intake Narrative: The patient presents with episodes of severe shaking (severe shakes), inability to talk, and head flopping, which occurred a couple of times today. The patient remembers these episodes. The first episode happened this morning after her blood sugar dropped and she ate upper sorbian toast with regular syrup and drank orange juice. The patient reports that her blood sugar dropped prior to the episode and was also found low yesterday as well. She is currently taking Tradjenta and glimepiride for diabetes management but has not been able to maintain a good diet, not being able to eat enough for a little while now, due to difficulty swallowing. She has a history of esophageal stricture requiring dilation procedures; and she is scheduled for what will be her third or fourth time undergoing esophageal stretching this . She usually gets sick to her stomach right away in the mornings and prefers early appointments for dilation, as has been the case previously. There is no prior history of similar shaking episodes, and the patient expresses concern, stating it scared her as she has never had them ever in her life. She and her report about 15 more episodes while in the ER awaiting admission. CT scan of the head was unremarkable. Labs show hyponatremia with sodium of 122 as well as evidence of GERARDO on CKD. WBC elevated over 20,000 without fever or clear source of elevation. UA does not appear infected. CT scan of chest, abd, pelvis shows some renal cysts but no other concerning findings to explain presentation or elevated WBC. 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 Polyuria Hyperkalemia Dehydration UTI (urinary tract infection) Chronic kidney disease, stage 3 Blind Left eye HX: breast cancer Foot pain, bilateral Tear of medial meniscus of left knee Neuropathy Labia irritation History of retinal detachment GERD (gastroesophageal reflux disease) History of radiation therapy Type 2 diabetes mellitus with diabetic nephropathy History of myocardial infarction CAD (coronary artery disease) HLD (hyperlipidemia) Surgical History Surgical History H/O cataract extraction H/O lumpectomy S/P primary angioplasty with coronary stent x 2 History of esophagogastroduodenoscopy (EGD) H/O colonoscopy History of partial mastectomy of right breast Family History Family History Father Family history of diabetes mellitus in first degree relative Family history of coronary artery disease Mother Dementia Other Hypertension Social History Social History Social History: She is and her poa is her . 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 She is a lifelong nonsmoker. She does not use any alcohol marijuana or illicit drugs. Code status full code Smoking status: Never smoker Second hand tobacco smoke exposure: No Alcohol intake: never Substance use: never Substance use type: does not use Do You Feel Safe in your Home?: Yes Lack of Transportation: No Lack of Food: Never True Current Housing: I Have Housing Concerned About Future Housing: No Difficulty Paying Gas/Electric Bills: No Difficulty Paying for Meds: No Currently Unemployed: No Education: High School Diploma/GED Difficulty w/ Childcare or Family Care: No Living arrangements: with family Occupation/Education: retired Gender identity (if verbalized by the patient): Female Sexual Orientation (if Verbalized by the Patient): Straight or Heterosexual Spiritual care concerns: No Meds Home Medications and Allergies Home Medications ?Medication ?Instructions ?Recorded ?Confirmed ?Type anastrozole 1 mg tablet 1 mg PO DAILY 04/19/19 02/12/25 History blood sugar diagnostic (Blood #100 ea 05/24/24 02/12/25 Rx Glucose Test strips) blood-glucose meter (Accu-Chek #1 ea 05/24/24 02/12/25 Rx Guide Glucose Meter) lancets #200 ea 05/24/24 02/12/25 Rx omeprazole 40 mg capsule,delayed 40 mg PO DAILY #90 caps 09/24/24 02/12/25 Rx release furosemide 20 mg tablet 20 mg PO DAILY 11/30/24 02/12/25 History lisinopril 5 mg tablet 5 mg PO DAILY 11/30/24 02/12/25 History hydrochlorothiazide 25 mg tablet 25 mg PO DAILY #30 tabs 12/13/24 02/12/25 Rx carvedilol 12.5 mg tablet See Rx Instructions .Route 12/27/24 02/12/25 Rx .COMPLEX #60 tabs atorvastatin 20 mg tablet 20 mg PO DAILY #90 tabs 12/31/24 02/12/25 Rx amlodipine 10 mg tablet See Rx Instructions .Route 01/16/25 02/12/25 Rx .COMPLEX #90 tabs ondansetron 4 mg disintegrating 4 mg PO Q6H PRN nausea and 01/18/25 02/12/25 Rx tablet vomiting #30 tabs linagliptin 5 mg tablet (Tradjenta) 5 mg PO QAM #90 tabs 01/29/25 02/12/25 Rx alprazolam 1 mg tablet 1 mg PO BID PRN anxiety #60 tabs 01/30/25 02/12/25 Rx azelastine 137 mcg (0.1 %) nasal 137 mcg (0.137 mL) intranasal Q12H 01/30/25 02/12/25 Rx spray #30 mL fluticasone propionate 50 1 spray intranasal DAILY #16 grams 01/30/25 02/12/25 Rx mcg/actuation nasal spray,suspension gabapentin 600 mg tablet 600 mg PO BID #180 tabs 01/30/25 02/12/25 Rx Allergies Allergy/AdvReac Type Severity Reaction Status Date / Time metformin AdvReac Intermediate diarrhea Verified 01/30/25 10:26 azithromycin AdvReac Nausea and Verified 01/30/25 10:26 Vomiting ciprofloxacin AdvReac Nausea and Verified 01/30/25 10:26 Vomiting clarithromycin AdvReac Nausea and Verified 01/30/25 10:26 Vomiting clavulanic acid AdvReac Nausea and Verified 01/30/25 10:26 Vomiting hydrocodone (From Vicodin) AdvReac Nausea and Verified 01/30/25 10:26 Vomiting metronidazole AdvReac Nausea and Verified 01/30/25 10:26 Vomiting neomycin AdvReac Nausea and Verified 01/30/25 10:26 Vomiting nitrofurantoin AdvReac Nervousness Verified 01/30/25 10:26 sulfamethizole AdvReac Nausea and Verified 01/30/25 10:26 Vomiting sulfamethoxazole (From AdvReac Nausea and Verified 01/30/25 10:26 Bactrim) Vomiting trimethoprim (From Bactrim) AdvReac Nausea and Verified 01/30/25 10:26 Vomiting Vital Signs Vital Signs - 24 hr 02/11/25 15:12 02/11/25 15:24 02/11/25 15:32 Temperature 36.6 C Pulse Rate 86 81 86 Respiratory Rate 17 16 18 Blood Pressure 121/65 121/65 115/60 Pulse Oximetry 95 96 94 Oxygen Delivery Room Air 02/11/25 15:46 02/11/25 16:16 02/11/25 16:51 Temperature Pulse Rate 77 79 78 Respiratory Rate 16 18 19 Blood Pressure 137/58 L 121/65 Pulse Oximetry 96 Oxygen Delivery 02/11/25 17:09 02/11/25 17:15 02/11/25 17:30 Temperature Pulse Rate 77 79 79 Respiratory Rate 17 16 16 Blood Pressure Pulse Oximetry 97 96 97 Oxygen Delivery 02/11/25 17:45 02/11/25 18:08 02/11/25 18:58 Temperature Pulse Rate 82 82 85 Respiratory Rate 21 H 18 15 Blood Pressure Pulse Oximetry 95 95 96 Oxygen Delivery 02/11/25 19:00 02/11/25 19:15 02/11/25 19:30 Temperature Pulse Rate 82 78 78 Respiratory Rate 18 16 21 H Blood Pressure Pulse Oximetry 95 95 95 Oxygen Delivery 02/11/25 19:45 02/11/25 20:00 02/11/25 20:25 Temperature Pulse Rate 76 88 74 Respiratory Rate 19 25 H 14 Blood Pressure Pulse Oximetry 96 76 L 93 Oxygen Delivery 02/11/25 20:30 02/11/25 20:46 02/11/25 21:04 Temperature Pulse Rate 75 70 71 Respiratory Rate 14 15 14 Blood Pressure Pulse Oximetry 95 94 95 Oxygen Delivery 02/11/25 21:15 02/11/25 21:42 02/11/25 21:45 Temperature Pulse Rate 71 67 64 Respiratory Rate 15 12 13 Blood Pressure Pulse Oximetry 93 93 92 Oxygen Delivery Exam Narrative: GENERAL: Elderly, well-nourished, non-toxic, in no acute distress. HEAD: Normocephalic, atraumatic. RESPIRATORY: Airway patent, respirations nonlabored. Clear to auscultation bilaterally, no rales, rhonchi, wheezing. CARDIOVASCULAR: Regular rate and rhythm ABDOMINAL: Soft, mild tenderness to palpation in left lower abdomen, nondistended. Normoactive BS. MUSCULOSKELETAL: Moves all extremities. No gross deformities. SKIN: Warm, dry, normal color. NEURO: A&O X3. Speech is somewhat slow, but clear. No slurred speech or dysarthria. I did not witness any of these gross tremor episodes PSYCHIATRIC: Appropriate mood and affect. Normal interaction. H&P: Results Labs Labs: Short CBC 02/11/25 Range/Units 15:40 WBC 20.9 H (4.5-10.0) K/mm3 Hgb 11.6 L (12.0-15.0) g/dL Hct 35.1 L (37.0-47.0) % Plt Count 345 (150-375) k/mm3 BMP 02/11/25 15:40 Sodium 122 L Potassium 4.4 Chloride 85 L Carbon Dioxide 29 BUN 36 H D Creatinine 1.31 H Glucose 195 H Calcium 9.7 Liver Function 02/11/25 Range/Units 15:40 Total Bilirubin 0.5 (0.2-1.3) mg/dL AST 29 (14-36) U/L ALT 17 (6-35) U/L Alkaline Phosphatase 83 (38-126) U/L Albumin 4.2 (3.5-5.1) g/dL Urine 02/11/25 Range/Units 15:36 Urine Color Yellow (Yellow) Urine Appearance Clear (Clear) Urine pH 5.5 (5.0-9.0) Ur Specific [place] 1.007 (1.001-1.035) Urine Protein Negative (Negative) mg/dL Urine Glucose (UA) Negative (Negative) mg/dL Pulse Oximetry SpO2 results: 92-96% on room air Attestation: I personally reviewed and interpreted this pulse oximetry as follows: Interpretation: No need for supplemental oxygenation at this time ECG Attestation: I personally reviewed and interpreted this ECG as follows: ECG completion date: 02/11/25 ECG completion time: 15:18 Prior ECG tracings: available for review Interpretation: Sinus rhythm rate of 84 VA interval 163 QRS duration 73 QTC 386 QRS axis 20? no STEMI or acute ischemic changes noted Imaging Chest x-ray: Radiologist's impression: Exam: X-ray chest 2 views CLINICAL HISTORY: Weakness. COMPARISON: X-ray chest 2 views 08/06/2023. TECHNIQUE: Frontal and lateral images of the chest were obtained. FINDINGS: Cardiomediastinal silhouette is enlarged, unchanged. No pneumothorax. No pleural effusion. Stable 4 mm pulmonary nodule in the right upper lobe. Small opacities in the mid and lower lungs. IMPRESSION: 1. Small opacities in the mid and lower lungs. Differential includes atelectasis/scarring or infiltrates. Reviewed, dictated and finalized at location A. CT scan - head: Radiologist's impression: History: Altered mental status and weakness for PROCEDURE: CT head without contrast. COMPARISON: 09/19/2017. Reference is also made to an MRI examination of the brain dated 05/16/2024 TECHNIQUE: Axial imaging of the head performed from the skull base to the vertex without IV contrast. Sagittal and coronal reformations obtained. DLP: 605 mGy-cm FINDINGS: The ventricles are enlarged. The dilatation of the ventricles is proportional to the degree of sulcal prominence, not uncommon in the senescent brain. Prior left lacunar infarct. Decreased attenuation is identified within the periventricular white matter, likely secondary to microvascular ischemic disease, in a patient of this age. There is no mass, mass effect or midline shift. There is no abnormal extra-axial fluid collection or intracranial hemorrhage. Visualized paranasal sinuses are clear. The mastoid air cells are well aerated. No acute displaced fractures within the overlying cranium. Impression: No acute intracranial hemorrhage or suspicious mass effect. Reviewed, dictated and finalized at location A. CT scan - abdomen: Radiologist's impression: CLINICAL INDICATION: Weakness, dehydration, abdominal pain and leukocytosis COMPARISON: 01/11/2025. TECHNIQUE: An enhanced CT of the abdomen and pelvis was performed utilizing multislice spiral technique reconstructed at 5 mm slice thickness. Coronal and sagittal reconstructions were performed. This CT examination was performed utilizing dose reduction techniques. DLP: 1285 mGy-cm FINDINGS/OBSERVATIONS: Lung: Biapical scarring, left greater than right. Calcified granulomas detected bilaterally, suggesting prior granulomatous disease. The remainder of the lungs are clear. The heart is of normal size, without pericardial effusion. Mediastinum: No pathologically enlarged or morphologically suspicious lymph nodes are identified within the mediastinum, bilateral axilla, within the soft tissues of the anterior chest wall. Soft tissues of the chest: Unremarkable. Bones of the chest: No acute fracture. No lytic or blastic lesions are identified. Liver: The liver enhances homogeneously and is not enlarged . Gallbladder and biliary system: The gallbladder is surgically absent. Pancreas: The pancreas enhances homogeneously, without ductal dilatation. Spleen: The spleen enhances homogeneously, and is not enlarged. Kidneys: Multiple well-circumscribed rounded foci of decreased attenuation are identified within the bilateral kidneys, too small to characterize on the current study. The remainder of the bilateral kidneys otherwise enhance symmetrically without hydronephrosis or renal calculi. Adrenal glands: Unremarkable. Gastrointestinal tract: Small hiatal hernia is present. Postoperative change within the deep pelvis. Appendix: The appendix is not definitively visualized. However, no pericecal inflammatory change is identified suggest the presence of acute appendicitis. Vasculature: No calcified atherosclerotic disease is present. No aneurysmal dilatation. Lymph nodes: Scattered nonpathologically enlarged lymph nodes within the root of the mesentery and deep in the pelvis. Pelvic structures: The bladder is minimally distended and otherwise unremarkable. The uterus is either surgically absent or markedly atrophic. Body wall and musculoskeletal: There are bridging endplate osteophytes at multiple levels in the thoracic spine, consistent with diffuse idiopathic skeletal hyperostosis (DISH). Age-appropriate degenerative disease within the lower lumbar spine. No lytic or blastic lesions. IMPRESSION: Findings suggesting prior granulomatous disease. Multiple well-circumscribed foci of decreased attenuation are identified within the bilateral kidneys, too small to characterize on the current study. No acute findings within the chest, abdomen or pelvis to account for patient's presentation. Reviewed, dictated and finalized at location A. Assessment and Plan Assessment and plan (1) Hyponatremia: Code(s): E87.1 - Hypo-osmolality and hyponatremia Status: Acute Assessment and Plan: -Acute on Chronic hyponatremia -Baseline sodium usually in low 130s, today 122 in ER -Poor nutrition related to need for esophageal dilation (scheduled for 02/14) -Dehydration suspected, IV fluids in ER -GERARDO on CKD noted -Stop HCTZ, patient also on furosemide -Likely contributing factor for weakness and tremors -Likely multifactorial causes including medications, stress related to hypoglycemia, rapidly shifting glucose levels and nutrition (2) Hypomagnesemia: Code(s): E83.42 - Hypomagnesemia Status: Acute Assessment and Plan: -Acute on chronic presentation, 1.5 on admission -Magnesium 2 grams IV in ER -Stop HCTZ, repeat labs in the morning (3) Leukocytosis: Qualifiers: Leukocytosis type: unspecified Qualified Code(s): D72.829 - Elevated white blood cell count, unspecified Code(s): D72.829 - Elevated white blood cell count, unspecified Status: Acute Assessment and Plan: -Elevated WBC but no infectious source identified as well as no fever (4) Shakiness: Code(s): R25.1 - Tremor, unspecified Status: Acute Assessment and Plan: -Unexplained gross tremors/chills with episodes that can last moments to 15+ minutes -New symptoms on day of admission, no prior similar symptoms -Consult Neurology and EEG ordered -Elevated WBC but no infectious source identified as well as no fever (5) Esophageal stricture: Code(s): K22.2 - Esophageal obstruction Status: Acute Assessment and Plan: -Acute/recurrent condition limiting oral intake -Patient scheduled for procedure on 02/[address] Weinberg -Placed GI consult request (6) Weakness: Code(s): R53.1 - Weakness Status: Acute Assessment and Plan: -recurrent episodes of hypoglycemia in the morning the past few days -unexplained shaking/gross tremors numerous times today -poor dietary intake related to need for esophageal dilation (7) GERARDO (acute kidney injury): Code(s): N17.9 - Acute kidney failure, unspecified Status: Acute Assessment and Plan: -GERARDO on CKD, baseline GFR in the 50s, was 39 on admission -Hold HCTZ, avoid new nephrotoxins -Monitor blood pressure -IV fluids given in ER, repeat labs in the morning (8) Diabetes mellitus with chronic kidney disease: Code(s): E11.22 - Type 2 diabetes mellitus with diabetic chronic kidney disease Status: Acute Assessment and Plan: -HGB A1c 6.5 -Recent hypoglycemia episodes the past few days -Endocrine office stopped glimepiride, continue Tradjenta -ACHS glucose checks with low dose SSI (due to morning episodes of hypoglycemia past few days) (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, with stage 1 through stage 4 chronic kidney disease, or unspecified chronic kidney disease: Code(s): I13.10 - Hypertensive heart and chronic kidney disease without heart failure, with stage 1 through stage 4 chronic kidney disease, or unspecified chronic kidney disease Status: Chronic Assessment and Plan: -HTN with Stage 3 CKD history -Discontinue hydrochlorothiazide due to hyponatremia, hypomagnesemia and GERARDO on CKD (10) Breast cancer, right breast: Qualifiers: Breast location: unspecified site of breast Estrogen receptor status: unspecified Patient sex: female Qualified Code(s): C50.911 - Malignant neoplasm of unspecified site of right female breast Code(s): C50.911 - Malignant neoplasm of unspecified site of right female breast Status: Chronic Assessment and Plan: -History noted, continue anastrozole (11) Blind: Code(s): H54.7 - Unspecified visual loss Status: Chronic Assessment and Plan: -History noted Quality VTE Prophylaxis VTE prophylaxis: mechanical ordered Hospitalist MIPS Advance Care Plan I have confirmed that the patient's Advanced Care Plan is present, code status is documented, or surrogate decision maker is listed in patient medical record.: Yes Medication Reconciliation I have utilized all available resources to obtain, update and review the patients current medications (includes all prescriptions, OTC, herbals, cannabis, and nutritional supplements).: Yes
--- NOTE | 2025-02-11 23:29 | ADMGEN ---
This patient, Zaynab Chang, was admitted to Medical Room 342 [id number]. Patient/family oriented to hospital policies and general routines including ID bracelet, bed and alarms, visiting hours, pain management, procedures, bathroom and other care routines, personal items, smoking policy, room service/diet, and visiting hours. Information on how to activate the Rapid Response Team has been discussed. Patient/Family are encouraged to report perceived risks to care and to ask questions if they do not understand what they are told or what they should do.
[2025-02-12] VITALS (12 sets, daily range): BP systolic 112–133; BP diastolic 42–65; PULSE 67–91; RESP 16–18; TEMP 36.4–37.1; O2SAT 94–96
[2025-02-12] MEDS: SODIUM CHLORIDE 0.9% IV 1,000 ML 100 ML IV CONT ×2 (01:06→17:41)
[2025-02-12 01:15] LABS: Hemoglobin A1C 6.5 % (<5.7)
[2025-02-12 05:41] LABS: Hematocrit 31.9 % (37.0-47.0); Hemoglobin 10.2 g/dL (12.0-15.0); Immature Granulocyte Percent A 1.1 % (0-0.5); Lymphocytes Absolute Auto 2.18 K/mm3 (0.9-3.2); Mean Corpuscular HGB Conc 32.0 g/dl (32-36); Mean Corpuscular Hemoglobin 26.2 pg (26-34); Mean Corpuscular Volume 81.8 fl (80-100); Nucleated Red Blood Cells Absolute Auto 0.000 K/mm3 (0.0-0.012); Nucleated Red Blood Cells Perc 0.0 % (0.0-0.2); Platelet Count Result 299 k/mm3 (150-375); Red Blood Count 3.90 M/mm3 (4.2-5.4); White Blood Count 15.4 K/mm3 (4.5-10.0)
--- NOTE | 2025-02-12 06:01 | PC.NURSE ---
Assembly Line Upholsterer called to patients bedside by PERSONAL SERVICE REPRESENTATIVE for full body tremor, Pt Alert and oriented and following all commands, answering all questions.VS and blood glucose within normal limits. Assembly Line Upholsterer contacted hospitalist, Selwyn Gonsalves, who came to bedside to assess patient.
[2025-02-12 06:02] LABS: Alanine Aminotransferase 14 U/L (6-35); Albumin Level 3.3 g/dL (3.5-5.1); Alkaline Phosphatase 87 U/L (38-126); Anion Gap 4 mmol/L (4-12); Aspartate Amino Transferase 20 U/L (14-36); Bilirubin,Total 0.3 mg/dL (0.2-1.3); Blood Urea Nitrogen 27 mg/dL (7-17); Calcium 9.2 mg/dL (8.4-10.2); Carbon Dioxide 29 mmol/L (22-30); Chloride 92 mmol/L (98-107); Estimated CRCL calculation 31 ml/min; Estimated Glomerular Filt Rate 49; Glucose 135 mg/dL (65-110); Magnesium 2.2 mg/dL (1.6-2.3); Potassium 4.2 mmol/L (3.4-5.0); Sodium 125 mmol/L (137-145); Total Protein 6.2 g/dL (6.3-8.2)
--- NOTE | 2025-02-12 08:45 | P.CONGI_ITS ---
Assessment and Plan Assessment and plan (1) Decreased appetite: Code(s): R63.0 - Anorexia Status: Acute (2) Esophageal stricture: Code(s): K22.2 - Esophageal obstruction Status: Acute (3) GERD (gastroesophageal reflux disease): Qualifiers: Esophagitis presence: without esophagitis Qualified Code(s): K21.9 - Gastro-esophageal reflux disease without esophagitis Code(s): K21.9 - Gastro-esophageal reflux disease without esophagitis Status: Acute (4) Normocytic anemia: Code(s): D64.9 - Anemia, unspecified Status: Acute (5) Hyponatremia: Code(s): E87.1 - Hypo-osmolality and hyponatremia Status: Acute Plan 1. Decreased appetite/Hx of esophageal stricture/GERD: Last EGD with dilation 01/14/2023 at which time she was noted to have an esophageal stricture and NERD. Prior to admission patient was on omeprazole [address] chest/abd/pelvis this admission was unremarkable from a GI standpoint. No recent swallow studies available. She admits to dysphagia with solid foods and pills but no significant issues with swallowing liquids. This dysphagia has been slowly returning recently. Denies odynophagia, regurgitation or reflux while on omeprazole 40 mg daily [employer]. DDX: Esophageal stricture versus motility disorder versus inadequate acid suppression less likely neoplasm. * EGD with dilation ordered for tomorrow * NPO after midnight * decrease Protonix to 40 mg IV daily and change to PO following dilation if dysphagia improves 2. Normocytic anemia: H/H has decreased since admission Hgb 12-->10 and Hct 35-->32. No signs of active GI bleeding. * Primary care team to continue monitoring 3. Hyponatremia: On admission sodium at 122 and today 125. Magnesium was also low at time of admission at 1.5 but has normalized and today at 2.2. * Primary care team to continue monitoring and correct Thank you very much for allowing me to share in the care of this very nice patient. This report may have been done utilizing a voice recognition system. Attempts have been made to correct errors. However, there may be uncorrected grammatical, spelling, and recognition errors present. GI Consult Note Consult date/time: 02/12/25 08:45 Reason for consult: poor oral intake and esophageal dilation HPI: Zaynab Chang is a 84 year old female with past medical surgical history of HTN, HLD, CAD status post VT, diabetes, GERD, peripheral neuropathy, right breast cancer status post lumpectomy and 16 days of radiation, cholecystectomy, hysterectomy, and history of partial bowel resection 8 years ago secondary to complications of diverticulitis. Patient presented to the ER yesterday with complaints of weakness and shakiness. GI has been consulted for decreased appetite and dysphagia. Patient was accompanied by her Michael at her bedside throughout the entire visit. Patient states that her dysphagia had been doing well following her last dilation in 2022 but recently her dysphagia has been slowly returning. She complains of dysphagia with pills and solids and occasionally liquids. She states that her reflux is well controlled on omeprazole 40 mg daily. She states that her swallowing difficulty has led to a decreased appetite recently if she is afraid to choke or get food stuck. Patient tolerated PO intake this morning and ate oatmeal without any issues. She has occasional constipation and uses MiraLax and suppositories as needed otherwise she states she typically has a daily bowel movement that is formed non urgent. She denies any abdominal pain, nausea, vomiting, bloating, odynophagia, regurgitation, early satiety or unexplained weight loss. Denies any diarrhea, hematochezia, or melena. Denies any frequent NSAID, aspirin, or anticoagulant use. She is a nondrinker nonsmoker and denies any marijuana use. Family history negative for CRC or IBD. ENDOSCOPY HISTORY: EGD: 01/14/[address] Johnson for dysphagia Findings: A moderate stenosis was noted at the GE junction. The stenosis was transversed. Bx taken. A TTS balloon dilation was performed using a 18-20 mm balloon Non erosive reflux disease was present at the GI junction EGD: 02/25/[address] Johnson for dysphagia Findings: A mild stenosis was noted at the GE junction. The stenosis was transversed . A TTS balloon dilation was performed using a 18-20 mm balloon Non erosive reflux disease was present at the GE junction EGD otherwise normal Bx results: Proximal esophagus, rule out eosinophilic esophagitis, biopsy: - Esophageal squamous mucosa, negative for diagnostic abnormality - Negative for eosinophilic esophagitis EGD: 01/01/[address] Johnson for dysphagia Findings: 53 [place] dilation was done gastric polyps Bx Results: A. GASTRIC POLYP, ENDOSCOPIC REMOVAL: - FUNDIC GLAND POLYP. B. ESOPHAGUS, ENDOSCOPIC BIOPSY: - SQUAMOUS AND GASTRIC CARDIA-TYPE MUCOSA WITH NONSPECIFIC MILD CHRONIC ESOPHAGITIS. - NEGATIVE FOR EOSINOPHILIC ESOPHAGITIS, INTESTINAL METAPLASIA, DYSPLASIA, ULCER, AND NEOPLASM COLONOSCOPY: Per patient she had a negative Cologuard around 4 years ago. LABS AND STOOL STUDIES: Labs 02/12/2025: Sodium 125, potassium 4.2, BUN 27, creatinine 1.07, GFR 49, calcium 9.2, magnesium 2.2 WBC 15, Hgb 10, Hct 32, MCV 82, platelets 299 Total bilirubin 0.3, AST 20, ALT 14, Alkaline Phos 87, albumin 3.3 Labs 02/11/2025: Sodium 122, potassium 4.4, BUN 36, creatinine 1.31, GFR 39, calcium 9.7 WBC 21, Hgb 12, Hct 35, MCV 81, platelets 345 Total bilirubin 0.5, AST 29, ALT 17, Alkaline Phos 83, albumin 4.2 IMAGING: CT chest/abd/pelvis w/contrast 02/11/2025: IMPRESSION: Findings suggesting prior granulomatous disease. Multiple well-circumscribed foci of decreased attenuation are identified within the bilateral kidneys, too small to characterize on the current study. No acute findings within the chest, abdomen or pelvis to account for patient's presentation. CT abd/pelvis w/contrast 01/11/2025: Visualized lower thorax: Interstitial thickening is detected bilaterally with multiple calcified nodules, consistent with prior granulomatous disease. The heart is of normal size, without pericardial effusion. Small hiatal hernia is present. Liver: The liver demonstrates homogeneous enhancement and is not enlarged. Gallbladder and biliary system: The gallbladder is surgically absent. Pancreas: The pancreas enhances homogeneously without significant ductal dilatation. Spleen: Punctate calcifications identified within the splenic parenchyma, suggesting prior granulomatous disease. The remainder of the spleen otherwise enhances homogeneously and is not enlarged. Kidneys: Bilateral well-circumscribed foci of fluid attenuation within the bilateral kidneys, unchanged from prior. The remainder of the bilateral kidneys enhance symmetrically without hydronephrosis or renal calculi. Adrenal glands: Unremarkable. Gastrointestinal tract: Postoperative change within the deep pelvis. Colonic diverticulosis without surrounding inflammatory change. Fecal stasis within the colon. Appendix: The appendix is not definitively visualized. However, no pericecal inflammatory change is identified suggest the presence of acute appendicitis. Vasculature: Densely calcified atherosclerotic disease within the infrarenal abdominal aorta Lymph nodes: No pathologically enlarged or morphologically suspicious lymph nodes within the retroperitoneum or at the root of the mesentery. Pelvic structures: The bladder is only minimally distended, and otherwise unremarkable. The uterus is either markedly atrophic or surgically absent. Body wall and musculoskeletal: Small fat-containing umbilical hernia. Age-appropriate degenerative disease within the lower thoracic and lumbosacral spines IMPRESSION: No acute findings within the lower chest, abdomen or pelvis, as detailed above Review of Systems 2 Constitutional: Constitutional: Reports as per HPI ENT: Reports as per HPI Cardiovascular: Cardiovascular: Reports as per HPI, Denies chest pain, Denies pedal edema, Denies leg edema and Denies dyspnea Respiratory: Respiratory: Denies cough and Denies dyspnea Gastrointestinal: Gastrointestinal: Reports as per HPI Musculoskeletal: Musculoskeletal: Reports as per HPI Integumentary/Breasts: Skin/Breast: Reports as per HPI Neurologic: Comments: tremors Psychiatric: Psychiatric: Reports as per HPI Endocrine: Endocrine: Reports no additional endocrine complaints Hematologic/Lymphatic: Hematologic/Lymphatic: Reports no additional hematologic/lymphatic complaints [facility] Past Medical History Medical History (Updated 02/12/25 @ 09:27 by Vicky Nuno APRN) GERD (gastroesophageal reflux disease) Esophageal stricture Deficiency of other specified B group vitamins Dietary counseling and surveillance Constipation Dysphagia Gastroparesis Transaminitis 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 Polyuria Hyperkalemia Dehydration UTI (urinary tract infection) Chronic kidney disease, stage 3 Blind Left eye HX: breast cancer Foot pain, bilateral Tear of medial meniscus of left knee Neuropathy Labia irritation History of retinal detachment History of radiation therapy Type 2 diabetes mellitus with diabetic nephropathy History of myocardial infarction CAD (coronary artery disease) HLD (hyperlipidemia) Surgical History Surgical History H/O cataract extraction H/O lumpectomy S/P primary angioplasty with coronary stent x 2 History of esophagogastroduodenoscopy (EGD) H/O colonoscopy History of partial mastectomy of right breast Family History Family History Father Family history of diabetes mellitus in first degree relative Family history of coronary artery disease Mother Dementia Other Hypertension Social History Social History Social History: She is and her poa is her . 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 She is a lifelong nonsmoker. She does not use any alcohol marijuana or illicit drugs. Code status full code Smoking status: Never smoker Second hand tobacco smoke exposure: No Alcohol intake: never Substance use: never Substance use type: does not use Do You Feel Safe in your Home?: Yes Lack of Transportation: No Lack of Food: Never True Current Housing: I Have Housing Concerned About Future Housing: No Difficulty Paying Gas/Electric Bills: No Difficulty Paying for Meds: No Currently Unemployed: No Education: High School Diploma/GED Difficulty w/ Childcare or Family Care: No Living arrangements: with family Occupation/Education: retired Gender identity (if verbalized by the patient): Female Sexual Orientation (if Verbalized by the Patient): Straight or Heterosexual Spiritual care concerns: No Meds Home Medications and Allergies Home Medications ?Medication ?Instructions ?Recorded ?Confirmed ?Type blood sugar diagnostic (Blood #100 ea 05/24/24 02/12/25 Rx Glucose Test strips) blood-glucose meter (Accu-Chek #1 ea 05/24/24 02/12/25 Rx Guide Glucose Meter) lancets #200 ea 05/24/24 02/12/25 Rx omeprazole 40 mg capsule,delayed 40 mg PO DAILY #90 caps 09/24/24 02/12/25 Rx release furosemide 20 mg tablet 20 mg PO DAILY 11/30/24 02/12/25 History lisinopril 5 mg tablet 5 mg PO DAILY 11/30/24 02/12/25 History hydrochlorothiazide 25 mg tablet 25 mg PO DAILY #30 tabs 12/13/24 02/12/25 Rx carvedilol 12.5 mg tablet See Rx Instructions .Route 12/27/24 02/12/25 Rx .COMPLEX #60 tabs atorvastatin 20 mg tablet 20 mg PO DAILY #90 tabs 12/31/24 02/12/25 Rx amlodipine 10 mg tablet See Rx Instructions .Route 01/16/25 02/12/25 Rx .COMPLEX #90 tabs ondansetron 4 mg disintegrating 4 mg PO Q6H PRN nausea and 01/18/25 02/12/25 Rx tablet vomiting #30 tabs linagliptin 5 mg tablet (Tradjenta) 5 mg PO QAM #90 tabs 01/29/25 02/12/25 Rx alprazolam 1 mg tablet 1 mg PO BID PRN anxiety #60 tabs 01/30/25 02/12/25 Rx azelastine 137 mcg (0.1 %) nasal 137 mcg (0.137 mL) intranasal Q12H 01/30/25 02/12/25 Rx spray #30 mL fluticasone propionate 50 1 spray intranasal DAILY #16 grams 01/30/25 02/12/25 Rx mcg/actuation nasal spray,suspension gabapentin 600 mg tablet 600 mg PO BID #180 tabs 01/30/25 02/12/25 Rx Allergies Allergy/AdvReac Type Severity Reaction Status Date / Time metformin AdvReac Intermediate diarrhea Verified 01/30/25 10:26 azithromycin AdvReac Nausea and Verified 01/30/25 10:26 Vomiting ciprofloxacin AdvReac Nausea and Verified 01/30/25 10:26 Vomiting clarithromycin AdvReac Nausea and Verified 01/30/25 10:26 Vomiting clavulanic acid AdvReac Nausea and Verified 01/30/25 10:26 Vomiting hydrocodone (From Vicodin) AdvReac Nausea and Verified 01/30/25 10:26 Vomiting metronidazole AdvReac Nausea and Verified 01/30/25 10:26 Vomiting neomycin AdvReac Nausea and Verified 01/30/25 10:26 Vomiting nitrofurantoin AdvReac Nervousness Verified 01/30/25 10:26 sulfamethizole AdvReac Nausea and Verified 01/30/25 10:26 Vomiting sulfamethoxazole (From AdvReac Nausea and Verified 01/30/25 10:26 Bactrim) Vomiting trimethoprim (From Bactrim) AdvReac Nausea and Verified 01/30/25 10:26 Vomiting Vital Signs Vital Signs - 24 hr 02/11/25 15:12 02/11/25 15:24 02/11/25 15:32 Temperature 97.9 F Pulse Rate 86 81 86 Respiratory Rate 17 16 18 Blood Pressure 121/65 121/65 115/60 Pulse Oximetry 95 96 94 Oxygen Delivery Room Air 08/11/25 15:46 02/11/25 16:16 02/11/25 16:51 Temperature Pulse Rate 77 79 78 Respiratory Rate 16 18 19 Blood Pressure 137/58 L 121/65 Pulse Oximetry 96 Oxygen Delivery 02/11/25 17:09 02/11/25 17:15 02/11/25 17:30 Temperature Pulse Rate 77 79 79 Respiratory Rate 17 16 16 Blood Pressure Pulse Oximetry 97 96 97 Oxygen Delivery 02/11/25 17:45 02/11/25 18:08 02/11/25 18:58 Temperature Pulse Rate 82 82 85 Respiratory Rate 21 H 18 15 Blood Pressure Pulse Oximetry 95 95 96 Oxygen Delivery 02/11/25 19:00 02/11/25 19:15 02/11/25 19:30 Temperature Pulse Rate 82 78 78 Respiratory Rate 18 16 21 H Blood Pressure Pulse Oximetry 95 95 95 Oxygen Delivery 02/11/25 19:45 02/11/25 20:00 02/11/25 20:25 Temperature Pulse Rate 76 88 74 Respiratory Rate 19 25 H 14 Blood Pressure Pulse Oximetry 96 76 L 93 Oxygen Delivery 02/11/25 20:30 02/11/25 20:46 02/11/25 21:04 Temperature Pulse Rate 75 70 71 Respiratory Rate 14 15 14 Blood Pressure Pulse Oximetry 95 94 95 Oxygen Delivery 02/11/25 21:15 02/11/25 21:42 02/11/25 21:45 Temperature Pulse Rate 71 67 64 Respiratory Rate 15 12 13 Blood Pressure Pulse Oximetry 93 93 92 Oxygen Delivery 02/12/25 00:00 02/12/25 00:00 02/12/25 04:00 Temperature 97.8 F Pulse Rate 69 72 67 Respiratory Rate 16 Blood Pressure 133/44 L Pulse Oximetry 96 Oxygen Delivery 02/12/25 06:00 Temperature 97.6 F Pulse Rate 79 Respiratory Rate 16 Blood Pressure 112/61 Pulse Oximetry 94 Oxygen Delivery Exam 2 Const: General: cooperative, healthy appearing, comfortable, no acute distress and well developed Orientation/consciousness: oriented to person, oriented to place, oriented to time and patient oriented x3 HENMT: Head: normal to inspection, normocephalic and atraumatic Mouth: Yes Normal oral and palatal mucosa present and Yes moist mucous membranes Eyes: General: appearance normal, both eyes and all related structures C onjunctivae: conjunctivae normal Sclera: sclerae normal Pupils: Equal, round and reactive pupils present Neck: Neck: normal visual inspection Chest: Chest palpation & inspection: normal inspection of the chest Resp: Effort & Inspection: normal respiratory effort and able to speak in complete sentences Auscultation: clear to auscultation bilaterally Cardio: Jugular venous distension: no JVD Rate: regular rate Rhythm: r egular rhythm Heart sounds: S1 normal heart sound present and S2 normal heart sound present GI: Inspection: normal to inspection GI Palp: Yes Soft to palpation, No Tenderness to palpation present (GI), No Guarding due to palpation present (GI) and Yes No hepatosplenomegaly present Auscultation: normal bowel sounds R ectal Exam: deferred Skin: General skin exam: normal color and no rashes or lesions noted Neuro: General: oriented to person, oriented to place, oriented to time and patient oriented x3 Cranial nerves: Yes Equal, round and reactive pupils present Speech: normal speech Extrem: General: normal to inspection and no clubbing, cyanosis or edema O ther: upper extremity tremors Psych: Appearance: grossly normal and well kempt Affect: normal affect Results Labs 02/12/25 05:17 02/12/25 05:17 Labs: Short CBC 02/11/25 02/12/25 Range/Units 15:40 05:17 WBC 20.9 H 15.4 H (4.5-10.0) K/mm3 Hgb 11.6 L 10.2 L (12.0-15.0) g/dL Hct 35.1 L 31.9 L (37.0-47.0) % Plt Count 345 299 (150-375) k/mm3 BMP 02/11/25 02/12/25 15:40 05:17 Sodium 122 L 125 L Potassium 4.4 4.2 Chloride 85 L 92 L Carbon Dioxide 29 29 BUN 36 H D 27 H Creatinine 1.31 H 1.07 H Glucose 195 H 135 H Calcium 9.7 9.2 Liver Function 02/11/25 02/12/25 Range/Units 15:40 05:17 Total Bilirubin 0.5 0.3 (0.2-1.3) mg/dL AST 29 20 (14-36) U/L ALT 17 14 (6-35) U/L Alkaline Phosphatase 83 87 (38-126) U/L Albumin 4.2 3.3 L (3.5-5.1) g/dL Urine 02/11/25 Range/Units 15:36 Urine Color Yellow (Yellow) Urine Appearance Clear (Clear) Urine pH 5.5 (5.0-9.0) Ur Specific [place] 1.007 (1.001-1.035) Urine Protein Negative (Negative) mg/dL Urine Glucose (UA) Negative (Negative) mg/dL
--- NOTE | 2025-02-12 09:26 | PM.IMPN ---
Progress Note: A&P Assessment and Plan (1) Shakiness: Code(s): R25.1 - Tremor, unspecified Status: Acute Assessment and Plan: -Unexplained gross tremors/chills with episodes that can last moments to 15+ minutes - Per patient and family patient stays completely aware during the episode however is unable to control her head and limbs with full body shaking -New symptoms on day of admission, no prior similar symptoms -Consult Neurology Episode of generalized weakness and shaking rule out the possibility of the seizure versus hypoglycemic episode Plan is to obtain MRI of the brain, and EEG and further testing accordingly. (2) Esophageal stricture: Code(s): K22.2 - Esophageal obstruction Status: Acute Assessment and Plan: -Acute/recurrent condition limiting oral intake -Patient scheduled for procedure on 02/[address] Weinberg -GI consult EGD with dilation ordered for tomorrow NPO after midnight decrease Protonix to 40 mg IV daily and change to PO following dilation if dysphagia improves (3) Hyponatremia: Code(s): E87.1 - Hypo-osmolality and hyponatremia Status: Acute Assessment and Plan: -Likely contributing factor for weakness and tremors -Likely multifactorial causes including medications, stress related to hypoglycemia, rapidly shifting glucose levels and nutrition -Baseline sodium usually in low 130s, today 122 in ER -Poor nutrition related to need for esophageal dilation (scheduled for 02/14) -Dehydration suspected, IV fluids in ER with slight improvement -Stop HCTZ, patient also on furosemide -Add urine osmolality, serum osmolality, and urine sodium ordered -Adrenal insufficiency rule out: cortisol and TSH ordered - Consider nephrology consult if no improvement with fluids (4) Hypomagnesemia: Code(s): E83.42 - Hypomagnesemia Status: Acute Assessment and Plan: -Acute on chronic presentation, 1.5 on admission -Magnesium 2 grams IV in ER -Stop HCTZ Repeat Mag WNL. (5) Leukocytosis: Qualifiers: Leukocytosis type: unspecified Qualified Code(s): D72.829 - Elevated white blood cell count, unspecified Code(s): D72.829 - Elevated white blood cell count, unspecified Status: Acute Assessment and Plan: - Elevated WBC of 20.9 on admission but no infectious source identified as well as no fever - UA unremarkable - Chest/abdomen/pelvis CT: No acute findings within the chest, abdomen or pelvis to account for patient's presentation. - WBC downtrending without intervention, continue to trend (6) Weakness: Code(s): R53.1 - Weakness Status: Acute Assessment and Plan: -unexplained shaking/gross tremors numerous times today -poor dietary intake related to need for esophageal dilation - PT/OT (7) GERARDO (acute kidney injury): Code(s): N17.9 - Acute kidney failure, unspecified Status: Acute Assessment and Plan: - GERARDO on CKD, baseline GFR in the 50s, was 39 on admission - likely related to dehydration as patient endorsed poor oral intake and GERARDO resolved with IV fluids - Hold HCTZ, blood pressures remian stable - avoid new nephrotoxins - monitor I/O - renally dose medications (8) Diabetes mellitus with chronic kidney disease: Code(s): E11.22 - Type 2 diabetes mellitus with diabetic chronic kidney disease Status: Acute Assessment and Plan: -HGB A1c 6.5 -Recent hypoglycemia episodes the past few days -Endocrine office stopped glimepiride, continue Tradjenta -ACHS glucose checks with low dose SSI (due to morning episodes of hypoglycemia past few days) -Glucose levels stable, continue to monitor (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, with stage 1 through stage 4 chronic kidney disease, or unspecified chronic kidney disease: Code(s): I13.10 - Hypertensive heart and chronic kidney disease without heart failure, with stage 1 through stage 4 chronic kidney disease, or unspecified chronic kidney disease Status: Chronic Assessment and Plan: HTN with Stage 3 CKD history - Continue amlodipine 10 mg daily, carvedilol 12.5 mg BID, lisinopril 5 mg daily, and lasix 20 mg daily - Discontinue hydrochlorothiazide due to hyponatremia, hypomagnesemia and GERARDO on CKD - Continue to monitor, blood pressures remain stable (10) Breast cancer, right breast: Qualifiers: Breast location: unspecified site of breast Estrogen receptor status: unspecified Patient sex: female Qualified Code(s): C50.911 - Malignant neoplasm of unspecified site of right female breast Code(s): C50.911 - Malignant neoplasm of unspecified site of right female breast Status: Chronic Assessment and Plan: -History noted, continue anastrozole (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 Patient is pleasant sitting up in bed. She has no complaints denying chest pain, shortness of breath, palpitations, nausea/vomiting, abdominal pain, and dizziness/lightheadedness. Per RN she witnessed an episode where patient became tremulous in all extremities however at that time she remained oriented and the episode lasted approximately 1 minute. Patient denies recurrence of episode today. Review of Systems Review of Systems: All systems reviewed & are unremarkable except as noted in HPI and below Exam Narrative: AF HR 86 RR 18 SpO2 95 BP 129/65 General: female in no acute respiratory distress who is nontoxic appearing, sitting up in bed. HEENT: Normocephalic. Atraumatic. PERRLA. Chronic anisocoria left. Extraocular movement intact. Sclera clear and anicteric. No facial asymmetry. Chest: Lungs are clear to auscultation bilaterally. CV: Heart was regular rate and rhythm. Abd: Abdomen was soft. Nontender. Nondistended. Positive bowel sounds. Ext: No clubbing, cyanosis, or edema. DP pulses bilaterally. Neuro: Patient is alert and oriented x3. Strength is symmetrical in upper and lower extremities. Speech is clear. Objective Data Vital Signs Vital Signs: Vital Signs - 24 hr 02/11/25 15:12 02/11/25 15:24 02/11/25 15:32 Temperature 97.9 F Pulse Rate 86 81 86 Respiratory Rate 17 16 18 Blood Pressure 121/65 121/65 115/60 Pulse Oximetry 95 96 94 Oxygen Delivery Room Air 02/11/25 15:46 02/11/25 16:16 02/11/25 16:51 Temperature Pulse Rate 77 79 78 Respiratory Rate 16 18 19 Blood Pressure 137/58 L 121/65 Pulse Oximetry 96 Oxygen Delivery 02/11/25 17:09 02/11/25 17:15 08/11/25 17:30 Temperature Pulse Rate 77 79 79 Respiratory Rate 17 16 16 Blood Pressure Pulse Oximetry 97 96 97 Oxygen Delivery 02/11/25 17:45 02/11/25 18:08 02/11/25 18:58 Temperature Pulse Rate 82 82 85 Respiratory Rate 21 H 18 15 Blood Pressure Pulse Oximetry 95 95 96 Oxygen Delivery 02/11/25 19:00 02/11/25 19:15 02/11/25 19:30 Temperature Pulse Rate 82 78 78 Respiratory Rate 18 16 21 H Blood Pressure Pulse Oximetry 95 95 95 Oxygen Delivery 02/11/25 19:45 02/11/25 20:00 02/11/25 20:25 Temperature Pulse Rate 76 88 74 Respiratory Rate 19 25 H 14 Blood Pressure Pulse Oximetry 96 76 L 93 Oxygen Delivery 02/11/25 20:30 02/11/25 20:46 02/11/25 21:04 Temperature Pulse Rate 75 70 71 Respiratory Rate 14 15 14 Blood Pressure Pulse Oximetry 95 94 95 Oxygen Delivery 02/11/25 21:15 02/11/25 21:42 02/11/25 21:45 Temperature Pulse Rate 71 67 64 Respiratory Rate 15 12 13 Blood Pressure Pulse Oximetry 93 93 92 Oxygen Delivery 02/12/25 00:00 02/12/25 00:00 02/12/25 04:00 Temperature 97.8 F Pulse Rate 69 72 67 Respiratory Rate 16 Blood Pressure 133/44 L Pulse Oximetry 96 Oxygen Delivery 02/12/25 06:00 Temperature 97.6 F Pulse Rate 79 Respiratory Rate 16 Blood Pressure 112/61 Pulse Oximetry 94 Oxygen Delivery Intake/Output Intake/Output: Intake & Output 02/09/25 02/10/25 02/11/25 02/12/25 23:59 23:59 23:59 23:59 Intake Total 1050 440 Output Total 300 1400 Balance 750 -960 Meds/Results Medications: Active Medications Generic Name Dose Route Start Last Admin Trade Name Freq PRN Reason Stop Dose Admin Acetaminophen 650 mg 02/11/25 20:24 Acetaminophen 325 Mg Tablet PO Q4H PRN Mild Pain (1-3) or Fever Alprazolam 1 mg 02/12/25 02:04 Alprazolam (*Crx) 0.5 Mg Tablet PO Q12HR PRN anxiety Amlodipine Besylate 10 mg 02/12/25 09:00 Amlodipine Besylate 10 Mg Tablet PO DAILY [facility]RISTIANNE Atorvastatin Calcium 20 mg 02/12/25 09:00 Atorvastatin 20 Mg Tablet PO DAILY [facility] Azelastine HCl 1 spray 02/12/25 09:00 Azelastine Hcl Nasal 0.1% 137 Mcg/Spr 30 Ml Btl NASAL Q12HR [facility] Carvedilol 12.5 mg 02/12/25 09:00 Carvedilol 12.5 Mg Tablet PO Q12HR [facility] Dextrose 12.5 gm 02/11/25 20:44 Dextrose 50% 25 Gm/50 Ml Syringe IV PUSH PRN PRN Hypoglycemia Protocol Fluticasone Propionate 1 spray 02/12/25 09:00 Fluticasone Propionate 0.05% Na Spr 16 Gm Btl (*Bkc) NASAL DAILY [facility] Furosemide 20 mg 02/12/25 09:00 Furosemide 20 Mg Tablet PO DAILY [facility] Gabapentin 600 mg 02/12/25 09:00 Gabapentin 300 Mg Capsule PO BID [facility] Glucagon 1 mg 02/11/25 20:44 Glucagon For Inj 1 Mg Vial IM PRN PRN Hypoglycemia Protocol Glucose 15 gm 02/11/25 20:44 Glucose Oral Gel 15 Gm Of Glucse In 37.5 Gm Tube PO PRN PRN Hypoglycemia Protocol Sodium Chloride 1,000 mls @ 100 mls/hr 02/11/25 20:45 02/12/25 01:06 Normal Saline Iv IV CONT 100 mls/hr .Q10H [facility] Administration Dextrose 1,000 mls @ 100 mls/hr 02/11/25 20:44 Dextrose 5% 1,000 Ml IVPB PRN PRN Hypoglycemia Protocol Insulin Aspart 2 - 5 units 02/12/25 08:00 Insulin Aspart (*Bkc) 100 Units/Ml SUB-Q TIDWM [facility] Protocol Lisinopril 5 mg 02/12/25 09:00 Lisinopril 5 Mg Tablet PO DAILY [facility] Ondansetron HCl 4 mg 02/11/25 20:24 Ondansetron Inj 4 Mg/2 Ml Vial IV PUSH Q4H PRN Nausea Ondansetron HCl 4 mg 02/12/25 02:04 Ondansetron Hcl Odt 4 Mg Tablet PO Q6H PRN nausea and vomiting Pantoprazole Sodium 40 mg 02/12/25 09:00 Pantoprazole 40 Mg Tablet PO Q12HR [facility] Sitagliptin Phosphate 100 mg 02/12/25 09:00 Sitagliptin Phosphate 100 Mg Tablet PO QAM [facility] Radiology Results: ITS Impressions Chest X-Ray 02/11/25 16:55 IMPRESSION: 1. Small opacities in the mid and lower lungs. Differential includes atelectasis/scarring or infiltrates. Head CT 02/11/25 18:57 Impression: No acute intracranial hemorrhage or suspicious mass effect. Chest/Abdomen/Pelvis CT 02/11/25 19:10 IMPRESSION: Findings suggesting prior granulomatous disease. Multiple well-circumscribed foci of decreased attenuation are identified within the bilateral kidneys, too small to characterize on the current study. No acute findings within the chest, abdomen or pelvis to account for patient's presentation. Labs Labs: Laboratory Results - last 24 hr 02/11/25 02/11/25 02/11/25 15:27 15:36 15:40 WBC 20.9 H RBC 4.36 Hgb 11.6 L Hct 35.1 L MCV 80.5 MCH 26.6 MCHC 33.0 RDW 14.5 Plt Count 345 MPV 8.9 Immature Gran % (Auto) Not Reportable Neut % (Auto) Not Reportable Lymph % (Auto) Not Reportable Leake % (Auto) Not Reportable Eos % (Auto) Not Reportable Baso % (Auto) Not Reportable Lymph # (Auto) Not Reportable Leake # (Auto) Not Reportable Eos # (Auto) Not Reportable Baso # (Auto) Not Reportable Abs Immat Gran (auto) Not Reportable Absolute Neuts (auto) Not Reportable Absolute Nucleated RBC Not Reportable Total Counted 100 Neutrophils % (Manual) 83 H Band Neutrophils % 1 Lymphocytes % (Manual) 12.0 L Monocytes % (Manual) 4 Nucleated RBC % Not Reportable Abs Neuts (Manual) 17.55 H Abs Lymphs (Manual) 2.50 Abs Monocytes (Manual) 0.83 Platelet Estimate Adequate Clumped Platelets Present Schistocytes None seen Sodium 122 L Potassium 4.4 Chloride 85 L Carbon Dioxide 29 Anion Gap 8 BUN 36 H D Creatinine 1.31 H Estim Creat Clear Calc 28 Estimated GFR 39 L Glucose 195 H POC Capillary Glucose 207 H Hemoglobin A1c 6.5 H Calcium 9.7 Phosphorus Magnesium 1.5 L Total Bilirubin 0.5 AST 29 ALT 17 Alkaline Phosphatase 83 Total Protein 7.8 Albumin 4.2 Urine Color Yellow Urine Appearance Clear Urine pH 5.5 Ur Specific Kohler 1.007 Urine Protein Negative Urine Glucose (UA) Negative Urine Ketones Negative Ur Blood (Man) Negative Urine Nitrate Negative Urine Bilirubin Negative Urine Urobilinogen 0.2 Leukocyte Esterase Rfl Negative Influenza A (RT-PCR) Influenza B (RT-PCR) RSV (RT-PCR) SARS-CoV-2 RNA (RT-PCR) 02/11/25 02/11/25 02/12/25 18:51 23:23 05:17 WBC 15.4 H RBC 3.90 L Hgb 10.2 L Hct 31.9 L MCV 81.8 MCH 26.2 MCHC 32.0 RDW 14.9 H Plt Count 299 MPV 9.1 Immature Gran % (Auto) 1.1 H Neut % (Auto) 73.7 H Lymph % (Auto) 14.2 L Leake % (Auto) 9.3 H Eos % (Auto) 1.4 Baso % (Auto) 0.3 Lymph # (Auto) 2.18 Leake # (Auto) 1.4 H Eos # (Auto) 0.2 Baso # (Auto) 0.1 Abs Immat Gran (auto) 0.17 H Absolute Neuts (auto) 11.4 H Absolute Nucleated RBC 0.000 Total Counted Neutrophils % (Manual) Band Neutrophils % Lymphocytes % (Manual) Monocytes % (Manual) Nucleated RBC % 0.0 Abs Neuts (Manual) Abs Lymphs (Manual) Abs Monocytes (Manual) Platelet Estimate Clumped Platelets Schistocytes Sodium 125 L Potassium 4.2 Chloride 92 L Carbon Dioxide 29 Anion Gap 4 BUN 27 H Creatinine 1.07 H Estim Creat Clear Calc 31 Estimated GFR 49 L Glucose 135 H POC Capillary Glucose 127 H Hemoglobin A1c Calcium 9.2 Phosphorus 3.3 Magnesium 2.2 Total Bilirubin 0.3 AST 20 ALT 14 Alkaline Phosphatase 87 Total Protein 6.2 L Albumin 3.3 L Urine Color Urine Appearance Urine pH Ur Specific Kohler Urine Protein Urine Glucose (UA) Urine Ketones Ur Blood (Man) Urine Nitrate Urine Bilirubin Urine Urobilinogen Leukocyte Esterase Rfl Influenza A (RT-PCR) Negative Influenza B (RT-PCR) Negative RSV (RT-PCR) Negative SARS-CoV-2 RNA (RT-PCR) Negative 02/12/25 05:28 WBC RBC Hgb Hct MCV MCH MCHC RDW Plt Count MPV Immature Gran % (Auto) Neut % (Auto) Lymph % (Auto) Leake % (Auto) Eos % (Auto) Baso % (Auto) Lymph # (Auto) Leake # (Auto) Eos # (Auto) Baso # (Auto) Abs Immat Gran (auto) Absolute Neuts (auto) Absolute Nucleated RBC Total Counted Neutrophils % (Manual) Band Neutrophils % Lymphocytes % (Manual) Monocytes % (Manual) Nucleated RBC % Abs Neuts (Manual) Abs Lymphs (Manual) Abs Monocytes (Manual) Platelet Estimate Clumped Platelets Schistocytes Sodium Potassium Chloride Carbon Dioxide Anion Gap BUN Creatinine Estim Creat Clear Calc Estimated GFR Glucose POC Capillary Glucose 135 H Hemoglobin A1c Calcium Phosphorus Magnesium Total Bilirubin AST ALT Alkaline Phosphatase Total Protein Albumin Urine Color Urine Appearance Urine pH Ur Specific Kohler Urine Protein Urine Glucose (UA) Urine Ketones Ur Blood (Man) Urine Nitrate Urine Bilirubin Urine Urobilinogen Leukocyte Esterase Rfl Influenza A (RT-PCR) Influenza B (RT-PCR) RSV (RT-PCR) SARS-CoV-2 RNA (RT-PCR) Quality VTE Prophylaxis VTE prophylaxis: mechanical ordered
[2025-02-12] MEDS: GABAPENTIN 300 MG CAPSULE 600 MG PO ×2 (09:28→17:42)
[2025-02-12] MEDS: ATORVASTATIN 20 MG TABLET PO (09:28)
[2025-02-12] MEDS: PANTOPRAZOLE 40 MG TABLET PO (09:28)
[2025-02-12] MEDS: FLUTICASONE PROPIONATE 0.05% NA SPR 16 GM BTL (*BKC) 1 SPRAY NASAL (09:29)
[2025-02-12] MEDS: FUROSEMIDE 20 MG TABLET PO (09:29)
[2025-02-12] MEDS: AZELASTINE HCL NASAL 0.1% 137 MCG/SPR 30 ML BTL 1 SPRAY NASAL ×2 (09:30→20:48)
--- NOTE | 2025-02-12 12:53 | P.CONNEU_ITS ---
Assessment and Plan Assessment and plan (1) Seizure: Code(s): R56.9 - Unspecified convulsions Status: Acute (2) TIA (transient ischemic attack): Code(s): G45.9 - Transient cerebral ischemic attack, unspecified Status: Acute (3) Hypoglycemia: Code(s): E16.2 - Hypoglycemia, unspecified Status: Acute Plan 1. Episode of generalized weakness and shaking rule out the possibility of the seizure versus hypoglycemic episode 2. Diabetes mellitus with neuropathy 3. Possibility of TIA. Plan is to obtain MRI of the brain, and EEG and further testing accordingly. Consult date: 02/12/25 HPI: Zaynab Chang is a 84 year old female admitted to the hospital through the emergency room for the complaints of generalized weakness and shakiness. patient is a half-way resident, where she was noted to have body shaking after the lunch . She reported she felt very tremulous throughout her body along with the generalized weakness. She did not feel cold, had some lower abdominal discomfort such as queasiness but no other associated symptoms in the past patient has had hypoglycemia as she has ongoing history of diabetes mellitus and has been taking Tradjenta and glimepiride. She was supposed to have esophageal dilatation soon as per the family members. In the emergency room it was reported she is taking furosemide 20mg daily, lisinopril 5mg daily, and she is allergic to multiple medication as listed. She is blind in left eye, she has history of carcinoma of the breast, she has history of neuropathy, she has history of coronary artery disease with hyperlipidemia chronic renal disease as well. She has undergone cataract extraction, she is never a smoker, never alcohol consumption, on initial exam in the emergency room she was noted to have no focal neurological deficit. Her vital signs were normal, CBC with leukocytosis BMP with sodium only 122 BUN 36 creatinine 1.31 and blood sugar 195, she was negative for all the routine viral infections, chest x-ray revealed mid and lower lung with small opacity CT scan of the head revealed no bleed tumor or hydrocephalus, EKG was without any atrial fibrillation, subsequently to other physician she reported that she has an episode of severe shaking with inability to talk and head flopping occurring couple of times on the day of admission. 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 Polyuria Hyperkalemia Dehydration UTI (urinary tract infection) Chronic kidney disease, stage 3 Blind Left eye HX: breast cancer Foot pain, bilateral Tear of medial meniscus of left knee Neuropathy Labia irritation History of retinal detachment History of radiation therapy Type 2 diabetes mellitus with diabetic nephropathy History of myocardial infarction CAD (coronary artery disease) HLD (hyperlipidemia) Surgical History Surgical History H/O cataract extraction H/O lumpectomy S/P primary angioplasty with coronary stent x 2 History of esophagogastroduodenoscopy (EGD) H/O colonoscopy History of partial mastectomy of right breast Family History Family History Father Family history of diabetes mellitus in first degree relative Family history of coronary artery disease Mother Dementia Other Hypertension Social History Social History Social History: She is and her poa is her . 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 She is a lifelong nonsmoker. She does not use any alcohol marijuana or illicit drugs. Code status full code Smoking status: Never smoker Second hand tobacco smoke exposure: No Alcohol intake: never Substance use: never Substance use type: does not use Do You Feel Safe in your Home?: Yes Lack of Transportation: No Lack of Food: Never True Current Housing: I Have Housing Concerned About Future Housing: No Difficulty Paying Gas/Electric Bills: No Difficulty Paying for Meds: No Currently Unemployed: No Education: High School Diploma/GED Difficulty w/ Childcare or Family Care: No Living arrangements: with family Occupation/Education: retired Gender identity (if verbalized by the patient): Female Sexual Orientation (if Verbalized by the Patient): Straight or Heterosexual Spiritual care concerns: No Meds Home Medications and Allergies Home Medications ?Medication ?Instructions ?Recorded ?Confirmed ?Type blood sugar diagnostic (Blood #100 ea 05/24/24 02/12/25 Rx Glucose Test strips) blood-glucose meter (Accu-Chek #1 ea 05/24/24 02/12/25 Rx Guide Glucose Meter) lancets #200 ea 05/24/24 02/12/25 Rx omeprazole 40 mg capsule,delayed 40 mg PO DAILY #90 caps 09/24/24 02/12/25 Rx release furosemide 20 mg tablet 20 mg PO DAILY 11/30/24 02/12/25 History lisinopril 5 mg tablet 5 mg PO DAILY 11/30/24 02/12/25 History hydrochlorothiazide 25 mg tablet 25 mg PO DAILY #30 tabs 12/13/24 02/12/25 Rx carvedilol 12.5 mg tablet See Rx Instructions .Route 12/27/24 02/12/25 Rx .COMPLEX #60 tabs atorvastatin 20 mg tablet 20 mg PO DAILY #90 tabs 12/31/24 02/12/25 Rx amlodipine 10 mg tablet See Rx Instructions .Route 01/16/25 02/12/25 Rx .COMPLEX #90 tabs ondansetron 4 mg disintegrating 4 mg PO Q6H PRN nausea and 01/18/25 02/12/25 Rx tablet vomiting #30 tabs linagliptin 5 mg tablet (Tradjenta) 5 mg PO QAM #90 tabs 01/29/25 02/12/25 Rx alprazolam 1 mg tablet 1 mg PO BID PRN anxiety #60 tabs 01/30/25 02/12/25 Rx azelastine 137 mcg (0.1 %) nasal 137 mcg (0.137 mL) intranasal Q12H 01/30/25 02/12/25 Rx spray #30 mL fluticasone propionate 50 1 spray intranasal DAILY #16 grams 01/30/25 02/12/25 Rx mcg/actuation nasal spray,suspension gabapentin 600 mg tablet 600 mg PO BID #180 tabs 01/30/25 02/12/25 Rx Allergies Allergy/AdvReac Type Severity Reaction Status Date / Time metformin AdvReac Intermediate diarrhea Verified 01/30/25 10:26 azithromycin AdvReac Nausea and Verified 01/30/25 10:26 Vomiting ciprofloxacin AdvReac Nausea and Verified 01/30/25 10:26 Vomiting clarithromycin AdvReac Nausea and Verified 01/30/25 10:26 Vomiting clavulanic acid AdvReac Nausea and Verified 01/30/25 10:26 Vomiting hydrocodone (From Vicodin) AdvReac Nausea and Verified 01/30/25 10:26 Vomiting metronidazole AdvReac Nausea and Verified 01/30/25 10:26 Vomiting neomycin AdvReac Nausea and Verified 01/30/25 10:26 Vomiting nitrofurantoin AdvReac Nervousness Verified 01/30/25 10:26 sulfamethizole AdvReac Nausea and Verified 01/30/25 10:26 Vomiting sulfamethoxazole (From AdvReac Nausea and Verified 01/30/25 10:26 Bactrim) Vomiting trimethoprim (From Bactrim) AdvReac Nausea and Verified 01/30/25 10:26 Vomiting Vital Signs Vital Signs - 24 hr 02/11/25 15:12 02/11/25 15:24 02/11/25 15:32 Temperature 36.6 C Pulse Rate 86 81 86 Respiratory Rate 17 16 18 Blood Pressure 121/65 121/65 115/60 Pulse Oximetry 95 96 94 Oxygen Delivery Room Air 02/11/25 15:46 02/11/25 16:16 02/11/25 16:51 Temperature Pulse Rate 77 79 78 Respiratory Rate 16 18 19 Blood Pressure 137/58 L 121/65 Pulse Oximetry 96 Oxygen Delivery 02/11/25 17:09 02/11/25 17:15 02/11/25 17:30 Temperature Pulse Rate 77 79 79 Respiratory Rate 17 16 16 Blood Pressure Pulse Oximetry 97 96 97 Oxygen Delivery 02/11/25 17:45 02/11/25 18:08 02/11/25 18:58 Temperature Pulse Rate 82 82 85 Respiratory Rate 21 H 18 15 Blood Pressure Pulse Oximetry 95 95 96 Oxygen Delivery 02/11/25 19:00 02/11/25 19:15 02/11/25 19:30 Temperature Pulse Rate 82 78 78 Respiratory Rate 18 16 21 H Blood Pressure Pulse Oximetry 95 95 95 Oxygen Delivery 02/11/25 19:45 02/11/25 20:00 02/11/25 20:25 Temperature Pulse Rate 76 88 74 Respiratory Rate 19 25 H 14 Blood Pressure Pulse Oximetry 96 76 L 93 Oxygen Delivery 02/11/25 20:30 02/11/25 20:46 02/11/25 21:04 Temperature Pulse Rate 75 70 71 Respiratory Rate 14 15 14 Blood Pressure Pulse Oximetry 95 94 95 Oxygen Delivery 02/11/25 21:15 02/11/25 21:42 02/11/25 21:45 Temperature Pulse Rate 71 67 64 Respiratory Rate 15 12 13 Blood Pressure Pulse Oximetry 93 93 92 Oxygen Delivery 02/12/25 00:00 02/12/25 00:00 02/12/25 04:00 Temperature 36.6 C Pulse Rate 69 72 67 Respiratory Rate 16 Blood Pressure 133/44 L Pulse Oximetry 96 Oxygen Delivery 02/12/25 06:00 02/12/25 09:29 Temperature 36.4 C Pulse Rate 79 91 Respiratory Rate 16 Blood Pressure 112/61 Pulse Oximetry 94 Oxygen Delivery Exam 2 Narrative: Exam today revealed her to be awake alert cooperative in no acute distress, daughter happened to be in the room, head normocephalic with no cranial bruits, neck supple with no meningeal signs no cervical bruit no thyromegaly, heart regular with no murmur, lungs clear to auscultation, abdomen is soft nontender, neurologically she was awake alert she was able to follow all the instructions appropriately her speech was not dysphasic not dysarthric not dysphonic right pupil were reacting to light extraocular movements are spontaneously full facial sensation was intact face was symmetric tongue was midline , motor examination revealed her to have no focal drift against gravity upper and lower extremities and the deep tendon reflexes 1+ symmetrical plantars were down she had decreased sensation distally. Results Labs 02/12/25 05:17 02/12/25 05:17 Labs: Short CBC 02/11/25 02/12/25 Range/Units 15:40 05:17 WBC 20.9 H 15.4 H (4.5-10.0) K/mm3 Hgb 11.6 L 10.2 L (12.0-15.0) g/dL Hct 35.1 L 31.9 L (37.0-47.0) % Plt Count 345 299 (150-375) k/mm3 BMP 02/11/25 02/12/25 15:40 05:17 Sodium 122 L 125 L Potassium 4.4 4.2 Chloride 85 L 92 L Carbon Dioxide 29 29 BUN 36 H D 27 H Creatinine 1.31 H 1.07 H Glucose 195 H 135 H Calcium 9.7 9.2 Liver Function 02/11/25 02/12/25 Range/Units 15:40 05:17 Total Bilirubin 0.5 0.3 (0.2-1.3) mg/dL AST 29 20 (14-36) U/L ALT 17 14 (6-35) U/L Alkaline Phosphatase 83 87 (38-126) U/L Albumin 4.2 3.3 L (3.5-5.1) g/dL Urine 02/11/25 Range/Units 15:36 Urine Color Yellow (Yellow) Urine Appearance Clear (Clear) Urine pH 5.5 (5.0-9.0) Ur Specific Helm 1.007 (1.001-1.035) Urine Protein Negative (Negative) mg/dL Urine Glucose (UA) Negative (Negative) mg/dL
[2025-02-12] MEDS: INSULIN ASPART (*BKC) 100 UNITS/ML SUB-Q (13:14)
[2025-02-12 18:21] LABS: Thyroid Stimulating Hormone Reflex 0.891 uIU/mL (0.465-4.68)
[2025-02-12] MEDS: ALPRAZolam (*CRX) 0.5 MG TABLET 1 MG PO (21:12)
[2025-02-13] VITALS (11 sets, daily range): BP systolic 124–147; BP diastolic 54–60; PULSE 77–98; RESP 17–20; TEMP 36.2–37; O2SAT 95–97
[2025-02-13] MEDS: SODIUM CHLORIDE 0.9% IV 1,000 ML 100 ML IV CONT ×3 (03:44→16:45)
[2025-02-13 06:01] LABS: Hematocrit 31.3 % (37.0-47.0); Hemoglobin 10.1 g/dL (12.0-15.0); Immature Granulocyte Percent A 0.9 % (0-0.5); Lymphocytes Absolute Auto 1.72 K/mm3 (0.9-3.2); Mean Corpuscular HGB Conc 32.3 g/dl (32-36); Mean Corpuscular Hemoglobin 26.6 pg (26-34); Mean Corpuscular Volume 82.4 fl (80-100); Nucleated Red Blood Cells Absolute Auto 0.000 K/mm3 (0.0-0.012); Nucleated Red Blood Cells Perc 0.0 % (0.0-0.2); Platelet Count Result 335 k/mm3 (150-375); Red Blood Count 3.80 M/mm3 (4.2-5.4); White Blood Count 17.9 K/mm3 (4.5-10.0)
[2025-02-13 06:26] LABS: Alanine Aminotransferase 13 U/L (6-35); Albumin Level 3.3 g/dL (3.5-5.1); Alkaline Phosphatase 96 U/L (38-126); Anion Gap 1 mmol/L (4-12); Aspartate Amino Transferase 22 U/L (14-36); Bilirubin,Total 0.6 mg/dL (0.2-1.3); Blood Urea Nitrogen 16 mg/dL (7-17); Calcium 9.4 mg/dL (8.4-10.2); Carbon Dioxide 30 mmol/L (22-30); Chloride 96 mmol/L (98-107); Estimated CRCL calculation 38 ml/min; Estimated Glomerular Filt Rate > 60; Glucose 138 mg/dL (65-110); Magnesium 1.7 mg/dL (1.6-2.3); Potassium 4.3 mmol/L (3.4-5.0); Sodium 127 mmol/L (137-145); Total Protein 6.1 g/dL (6.3-8.2)
[2025-02-13] MEDS: LACTATED RINGERS 1,000 ML 150 ML IV CONT (07:45)
[2025-02-13] MEDS: SIMETHICONE ORAL SUSPENSION 20 MG/0.3 ML 30 ML BOTTLE 1.8 ML PO (07:51)
--- NOTE | 2025-02-13 08:02 | SUR.PREOP ---
Anesthesia reviewed patient's lab and after evaluating the patient noticing her tremors and they would like her sodium level to be corrected before they proceed with her EGD under anesthesia. Dr. Weinberg made aware and patient moved to tomorrow morning. Dr. Weinberg spoke with the patient.
--- NOTE | 2025-02-13 08:15 | PC.NURSE ---
EGD canceled by anesthesia for today 02/13. Transported patient back to room via stretcher. Educated patient, and replaced diet orders per Dr. Weinberg.
--- NOTE | 2025-02-13 08:32 | P.PNGI_ITS ---
Progress Note: A&P Assessment and Plan (1) Esophageal stricture: Code(s): K22.2 - Esophageal obstruction Status: Acute Assessment and Plan: This morning's EGD was canceled due to hyponatremia. The patient is currently being evaluated for tremors which may or may not be influenced by her low sodium. According to the anesthesia provider' s assessment, anesthesia and the procedure will be performed once her sodium is corrected to avoid a further complications. Subjective Date/time seen: 02/13/25 08:32 Objective Data Vital Signs Vital Signs: Vital Signs - 24 hr 02/12/25 09:29 02/12/25 09:30 02/12/25 12:00 Temperature Pulse Rate 91 71 Respiratory Rate 18 Blood Pressure Pulse Oximetry 95 Oxygen Delivery Room Air 02/12/25 14:00 02/12/25 16:00 02/12/25 20:00 Temperature 98.0 F Pulse Rate 86 86 82 Respiratory Rate 18 Blood Pressure 129/65 Pulse Oximetry 95 Oxygen Delivery 02/12/25 20:04 02/12/25 20:48 02/12/25 21:00 Temperature 98.7 F Pulse Rate 84 81 Respiratory Rate 18 Blood Pressure 132/42 L Pulse Oximetry 94 Oxygen Delivery Room Air 02/13/25 00:00 02/13/25 04:00 02/13/25 05:13 Temperature 98.6 F Pulse Rate 77 89 96 Respiratory Rate 17 Blood Pressure 143/60 H Pulse Oximetry 95 Oxygen Delivery 02/13/25 07:35 Temperature 97.9 F Pulse Rate 94 Respiratory Rate 20 Blood Pressure 138/54 L Pulse Oximetry 96 Oxygen Delivery Room Air Intake/Output Intake/Output: Intake & Output 02/10/25 02/11/25 02/12/25 02/13/25 23:59 23:59 23:59 23:59 Intake Total 1050 2280 1000 Output Total 300 3450 1100 Balance 750 -1170 -100 Meds/Results Medications: Active Medications Generic Name Dose Route Start Last Admin Trade Name Freq PRN Reason Stop Dose Admin Acetaminophen 650 mg 02/11/25 20:24 Acetaminophen 325 Mg Tablet PO Q4H PRN Mild Pain (1-3) or Fever Alprazolam 1 mg 02/12/25 02:04 02/12/25 21:12 Alprazolam (*Crx) 0.5 Mg Tablet PO 1 mg Q12HR PRN Administration anxiety Amlodipine Besylate 10 mg 02/12/25 09:00 02/12/25 09:28 Amlodipine Besylate 10 Mg Tablet PO 10 mg DAILY CHRISTIANNE Administration Atorvastatin Calcium 20 mg 02/12/25 09:00 02/12/25 09:28 Atorvastatin 20 Mg Tablet PO 20 mg DAILY CHRISTIANNE Administration Azelastine HCl 1 spray 02/12/25 09:00 02/12/25 20:48 Azelastine Hcl Nasal 0.1% 137 Mcg/Spr 30 Ml Btl NASAL 1 spray Q12HR CHRISTIANNE Administration Carvedilol 12.5 mg 02/12/25 09:00 02/12/25 20:48 Carvedilol 12.5 Mg Tablet PO 12.5 mg Q12HR CHRISTIANNE Administration Dextrose 12.5 gm 02/11/25 20:44 Dextrose 50% 25 Gm/50 Ml Syringe IV PUSH PRN PRN Hypoglycemia Protocol Fluticasone Propionate 1 spray 02/12/25 09:00 02/12/25 09:29 Fluticasone Propionate 0.05% Na Spr 16 Gm Btl (*Bkc) NASAL 1 spray DAILY CHRISTIANNE Administration Furosemide 20 mg 02/12/25 09:00 02/12/25 09:29 Furosemide 20 Mg Tablet PO 20 mg DAILY CHRISTIANNE Administration Gabapentin 600 mg 02/12/25 09:00 02/12/25 17:42 Gabapentin 300 Mg Capsule PO 600 mg BID CHRISTIANNE Administration Glucagon 1 mg 02/11/25 20:44 Glucagon For Inj 1 Mg Vial IM PRN PRN Hypoglycemia Protocol Glucose 15 gm 02/11/25 20:44 Glucose Oral Gel 15 Gm Of Glucse In 37.5 Gm Tube PO PRN PRN Hypoglycemia Protocol Sodium Chloride 1,000 mls @ 100 mls/hr 02/11/25 20:45 02/13/25 03:44 Normal Saline Iv IV CONT 100 mls/hr .Q10H CHRISTIANNE Administration Dextrose 1,000 mls @ 100 mls/hr 02/11/25 20:44 Dextrose 5% 1,000 Ml IVPB PRN PRN Hypoglycemia Protocol Lactated Ringer's 1,000 mls @ 150 mls/hr 02/13/25 07:35 02/13/25 07:45 Lr - Lactated Ringers Iv IV CONT 150 mls/hr .Q6H40M CHRISTIANNE Administration Insulin Aspart 2 - 5 units 02/12/25 08:00 02/12/25 17:42 Insulin Aspart (*Bkc) 100 Units/Ml SUB-Q Not Given TIDWM [facility] Protocol Lisinopril 5 mg 02/12/25 09:00 02/12/25 09:28 Lisinopril 5 Mg Tablet PO 5 mg DAILY CHRISTIANNE Administration Ondansetron HCl 4 mg 02/11/25 20:24 Ondansetron Inj 4 Mg/2 Ml Vial IV PUSH Q4H PRN Nausea Ondansetron HCl 4 mg 02/12/25 02:04 Ondansetron Hcl Odt 4 Mg Tablet PO Q6H PRN nausea and vomiting Pantoprazole Sodium 40 mg 02/13/25 09:00 Pantoprazole Sodium Iv 40 Mg Vial IV PUSH QAM [facility] Sitagliptin Phosphate 100 mg 02/12/25 09:00 02/12/25 09:28 Sitagliptin Phosphate 100 Mg Tablet PO 100 mg QAM CHRISTIANNE Administration Radiology Results: ITS Impressions Chest X-Ray 02/11/25 16:55 IMPRESSION: 1. Small opacities in the mid and lower lungs. Differential includes atelectasis/scarring or infiltrates. Head CT 02/11/25 18:57 Impression: No acute intracranial hemorrhage or suspicious mass effect. Chest/Abdomen/Pelvis CT 02/11/25 19:10 IMPRESSION: Findings suggesting prior granulomatous disease. Multiple well-circumscribed foci of decreased attenuation are identified within the bilateral kidneys, too small to characterize on the current study. No acute findings within the chest, abdomen or pelvis to account for patient's presentation. Labs Labs: Laboratory Results - last 24 hr 02/12/25 02/12/25 02/12/25 08:27 11:46 17:05 WBC RBC Hgb Hct MCV MCH MCHC RDW Plt Count MPV Immature Gran % (Auto) Neut % (Auto) Lymph % (Auto) Stanton % (Auto) Eos % (Auto) Baso % (Auto) Lymph # (Auto) Stanton # (Auto) Eos # (Auto) Baso # (Auto) Abs Immat Gran (auto) Absolute Neuts (auto) Absolute Nucleated RBC Nucleated RBC % Sodium Potassium Chloride Carbon Dioxide Anion Gap BUN Creatinine Estim Creat Clear Calc Estimated GFR Glucose POC Capillary Glucose 154 H 238 H 151 H Calcium Phosphorus Magnesium Total Bilirubin AST ALT Alkaline Phosphatase Total Protein Albumin TSH (Reflex) Random Cortisol Ur Random Sodium 02/12/25 02/12/2525 17:18 17:47 20:01 WBC RBC Hgb Hct MCV MCH MCHC RDW Plt Count MPV Immature Gran % (Auto) Neut % (Auto) Lymph % (Auto) Stanton % (Auto) Eos % (Auto) Baso % (Auto) Lymph # (Auto) Stanton # (Auto) Eos # (Auto) Baso # (Auto) Abs Immat Gran (auto) Absolute Neuts (auto) Absolute Nucleated RBC Nucleated RBC % Sodium Potassium Chloride Carbon Dioxide Anion Gap BUN Creatinine Estim Creat Clear Calc Estimated GFR Glucose POC Capillary Glucose 194 H Calcium Phosphorus Magnesium Total Bilirubin AST ALT Alkaline Phosphatase Total Protein Albumin TSH (Reflex) 0.891 Random Cortisol 6.83 Ur Random Sodium 77 02/13/25 02/13/25 05:32 07:41 WBC 17.9 H RBC 3.80 L Hgb 10.1 L Hct 31.3 L MCV 82.4 MCH 26.6 MCHC 32.3 RDW 15.2 H Plt Count 335 MPV 9.2 Immature Gran % (Auto) 0.9 H Neut % (Auto) 78.6 H Lymph % (Auto) 9.6 L Stanton % (Auto) 9.5 H Eos % (Auto) 1.1 Baso % (Auto) 0.3 Lymph # (Auto) 1.72 Stanton # (Auto) 1.7 H Eos # (Auto) 0.2 Baso # (Auto) 0.1 Abs Immat Gran (auto) 0.16 H Absolute Neuts (auto) 14.1 H Absolute Nucleated RBC 0.000 Nucleated RBC % 0.0 Sodium 127 L Potassium 4.3 Chloride 96 L Carbon Dioxide 30 Anion Gap 1 L BUN 16 D Creatinine 0.87 Estim Creat Clear Calc 38 Estimated GFR > 60 Glucose 138 H POC Capillary Glucose 155 H Calcium 9.4 Phosphorus 2.5 Magnesium 1.7 Total Bilirubin 0.6 AST 22 ALT 13 Alkaline Phosphatase 96 Total Protein 6.1 L Albumin 3.3 L TSH (Reflex) Random Cortisol Ur Random Sodium
[2025-02-13] MEDS: GABAPENTIN 300 MG CAPSULE 600 MG PO ×2 (08:52→16:44)
[2025-02-13] MEDS: FUROSEMIDE 20 MG TABLET PO (08:53)
[2025-02-13] MEDS: PANTOPRAZOLE SODIUM IV 40 MG VIAL IV PUSH (08:53)
[2025-02-13] MEDS: ATORVASTATIN 20 MG TABLET PO (08:54)
[2025-02-13] MEDS: AZELASTINE HCL NASAL 0.1% 137 MCG/SPR 30 ML BTL 1 SPRAY NASAL ×2 (08:55→21:15)
[2025-02-13] MEDS: FLUTICASONE PROPIONATE 0.05% NA SPR 16 GM BTL (*BKC) 1 SPRAY NASAL (08:57)
[2025-02-13] MEDS: INSULIN ASPART (*BKC) 100 UNITS/ML SUB-Q (11:49)
--- NOTE | 2025-02-13 11:51 | P.NEURO_ITS ---
Neurology EEG Report General Information Date of Study: 02/13/25 TEST EEG DIAGNOSIS Severe episodic tremors with hyponatremia. CONDITION OF RECORDING Awake, drowsy EEG NUMBER [id number] CLINICAL HISTORY 84 years old lady complaining of generalized weakness and shakiness. Patient experienced broadly shaking after lunch as per the assisted staff. She felt tremulous throughout the body along with generalized weakness and queasiness. Patient's stated she has felt like this only for one occasion. EEG DESCRIPTION Background rhythm consists of low-voltage 15 to 21 hertz per 2nd beta activity admixed with low-voltage 6 to 7 hertz per 2nd theta activity intermittently. Bilateral symmetrical sleep activity seen Intermittently. Photic stimulation not done. Hyperventilation not done. Non paroxysmal. Nonfocal. Non lateralizing. IMPRESSION No significant abnormalities noted.
--- NOTE | 2025-02-13 12:41 | P.PNIM_ITS ---
Progress Note: A&P Assessment and Plan (1) Shakiness: Code(s): R25.1 - Tremor, unspecified Status: Acute Assessment and Plan: -Unexplained gross tremors/chills with episodes that can last moments to 15+ minutes - Per patient and family patient stays completely aware during the episode however is unable to control her head and limbs with full body shaking -New symptoms on day of admission, no prior similar symptoms -Consult Neurology Episode of generalized weakness and shaking rule out the possibility of the seizure versus hypoglycemic episode Plan is to obtain MRI of the brain, and EEG and further testing accordingly. neurology is following will add MRI (2) Esophageal stricture: Code(s): K22.2 - Esophageal obstruction Status: Acute Assessment and Plan: -Acute/recurrent condition limiting oral intake -Patient scheduled for procedure on 02/[address] Weinberg -GI consult * EGD with dilation ordered for tomorrow * NPO after midnight * decrease Protonix to 40 mg IV daily and change to PO following dilation if dysphagia improves (3) Hyponatremia: Code(s): E87.1 - Hypo-osmolality and hyponatremia Status: Acute Assessment and Plan: -Likely contributing factor for weakness and tremors -Likely multifactorial causes including medications, stress related to hypoglycemia, rapidly shifting glucose levels and nutrition -Baseline sodium usually in low 130s, today 122 in ER -Poor nutrition related to need for esophageal dilation (scheduled for 02/14) -Dehydration suspected, IV fluids in ER with slight improvement -Stop HCTZ, patient also on furosemide -Add urine osmolality, serum osmolality, and urine sodium ordered -Adrenal insufficiency rule out: cortisol and TSH ordered (4) Hypomagnesemia: Code(s): E83.42 - Hypomagnesemia Status: Acute Assessment and Plan: -Acute on chronic presentation, 1.5 on admission -Magnesium 2 grams IV in ER -Stop HCTZ Repeat Mag WNL. (5) Leukocytosis: Qualifiers: Leukocytosis type: unspecified Qualified Code(s): D72.829 - Elevated white blood cell count, unspecified Code(s): D72.829 - Elevated white blood cell count, unspecified Status: Acute Assessment and Plan: - Elevated WBC of 20.9 on admission but no infectious source identified as well as no fever - UA unremarkable - Chest/abdomen/pelvis CT: No acute findings within the chest, abdomen or pelvis to account for patient's presentation. - WBC downtrending without intervention, continue to trend (6) Weakness: Code(s): R53.1 - Weakness Status: Acute Assessment and Plan: -unexplained shaking/gross tremors numerous times today -poor dietary intake related to need for esophageal dilation - PT/OT (7) GERARDO (acute kidney injury): Code(s): N17.9 - Acute kidney failure, unspecified Status: Acute Assessment and Plan: - GERARDO on CKD, baseline GFR in the 50s, was 39 on admission - likely related to dehydration as patient endorsed poor oral intake and GERARDO resolved with IV fluids - Hold HCTZ, blood pressures remian stable - avoid new nephrotoxins - monitor I/O - renally dose medications (8) Diabetes mellitus with chronic kidney disease: Code(s): E11.22 - Type 2 diabetes mellitus with diabetic chronic kidney disease Status: Acute Assessment and Plan: -HGB A1c 6.5 -Recent hypoglycemia episodes the past few days -Endocrine office stopped glimepiride, continue Tradjenta -ACHS glucose checks with low dose SSI (due to morning episodes of hypoglycemia past few days) -Glucose levels stable, continue to monitor (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, with stage 1 through stage 4 chronic kidney disease, or unspecified chronic kidney disease: Code(s): I13.10 - Hypertensive heart and chronic kidney disease without heart failure, with stage 1 through stage 4 chronic kidney disease, or unspecified chronic kidney disease Status: Chronic Assessment and Plan: HTN with Stage 3 CKD history - Continue amlodipine 10 mg daily, carvedilol 12.5 mg BID, lisinopril 5 mg daily, and lasix 20 mg daily - Discontinue hydrochlorothiazide due to hyponatremia, hypomagnesemia and GERARDO on CKD - Continue to monitor, blood pressures remain stable (10) Breast cancer, right breast: Qualifiers: Breast location: unspecified site of breast Estrogen receptor status: unspecified Patient sex: female Qualified Code(s): C50.911 - Malignant neoplasm of unspecified site of right female breast Code(s): C50.911 - Malignant neoplasm of unspecified site of right female breast Status: Chronic Assessment and Plan: -History noted, continue anastrozole (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 Assuming care. Pt's family asking about MRI mentioned per neurology-will order. Pt reqesting to be DNR-will change it per pt and family request. Review of Systems Review of Systems: All systems reviewed & are unremarkable except as noted in HPI and below Exam Narrative: AF HR 86 RR 18 SpO2 95 BP 129/65 General: female in no acute respiratory distress who is nontoxic appearing, sitting up in bed. HEENT: Normocephalic. Atraumatic. PERRLA. Chronic anisocoria left. Extraocular movement intact. Sclera clear and anicteric. No facial asymmetry. Chest: Lungs are clear to auscultation bilaterally. CV: Heart was regular rate and rhythm. Abd: Abdomen was soft. Nontender. Nondistended. Positive bowel sounds. Ext: No clubbing, cyanosis, or edema. DP pulses bilaterally. Neuro: Patient is alert and oriented x3. Strength is symmetrical in upper and lower extremities. Speech is clear. Objective Data Vital Signs Vital Signs: Vital Signs - 24 hr 02/12/25 14:00 02/12/25 16:00 02/12/25 20:00 Temperature 98.0 F Pulse Rate 86 86 82 Respiratory Rate 18 Blood Pressure 129/65 Pulse Oximetry 95 Oxygen Delivery 02/12/25 20:04 02/12/25 20:48 02/12/25 21:00 Temperature 98.7 F Pulse Rate 84 81 Respiratory Rate 18 Blood Pressure 132/42 L Pulse Oximetry 94 Oxygen Delivery Room Air 02/13/25 00:00 02/13/25 04:00 02/13/25 05:13 Temperature 98.6 F Pulse Rate 77 89 96 Respiratory Rate 17 Blood Pressure 143/60 H Pulse Oximetry 95 Oxygen Delivery 02/13/25 07:35 02/13/25 08:53 02/13/25 12:00 Temperature 97.9 F Pulse Rate 94 90 81 Respiratory Rate 20 Blood Pressure 138/54 L Pulse Oximetry 96 Oxygen Delivery Room Air Intake/Output Intake/Output: Intake & Output 02/10/25 02/11/25 02/12/25 02/13/25 23:59 23:59 23:59 23:59 Intake Total 1050 2280 2001.7 Output Total 300 3450 1100 Balance 750 -1170 901.7 Meds/Results Medications: Active Medications Generic Name Dose Route Start Last Admin Trade Name Freq PRN Reason Stop Dose Admin Acetaminophen 650 mg 02/11/25 20:24 Acetaminophen 325 Mg Tablet PO Q4H PRN Mild Pain (1-3) or Fever Alprazolam 1 mg 02/12/25 02:04 02/12/25 21:12 Alprazolam (*Crx) 0.5 Mg Tablet PO 1 mg Q12HR PRN Administration anxiety Amlodipine Besylate 10 mg 02/12/25 09:00 02/13/25 08:53 Amlodipine Besylate 10 Mg Tablet PO 10 mg DAILY CHRISTIANNE Administration Atorvastatin Calcium 20 mg 02/12/25 09:00 02/13/25 08:54 Atorvastatin 20 Mg Tablet PO 20 mg DAILY CHRISTIANNE Administration Azelastine HCl 1 spray 02/12/25 09:00 02/13/25 08:55 Azelastine Hcl Nasal 0.1% 137 Mcg/Spr 30 Ml Btl NASAL 1 spray Q12HR CHRISTIANNE Administration Carvedilol 12.5 mg 02/12/25 09:00 02/13/25 08:53 Carvedilol 12.5 Mg Tablet PO 12.5 mg Q12HR CHRISTIANNE Administration Dextrose 12.5 gm 02/11/25 20:44 Dextrose 50% 25 Gm/50 Ml Syringe IV PUSH PRN PRN Hypoglycemia Protocol Fluticasone Propionate 1 spray 02/12/25 09:00 02/13/25 08:57 Fluticasone Propionate 0.05% Na Spr 16 Gm Btl (*Bkc) NASAL 1 spray DAILY CHRISTIANNE Administration Furosemide 20 mg 02/12/25 09:00 02/13/25 08:53 Furosemide 20 Mg Tablet PO 20 mg DAILY CHRISTIANNE Administration Gabapentin 600 mg 02/12/25 09:00 02/13/25 08:52 Gabapentin 300 Mg Capsule PO 600 mg BID CHRISTIANNE Administration Glucagon 1 mg 02/11/25 20:44 Glucagon For Inj 1 Mg Vial IM PRN PRN Hypoglycemia Protocol Glucose 15 gm 02/11/25 20:44 Glucose Oral Gel 15 Gm Of Glucse In 37.5 Gm Tube PO PRN PRN Hypoglycemia Protocol Sodium Chloride 1,000 mls @ 100 mls/hr 02/11/25 20:45 02/13/25 08:57 Normal Saline Iv IV CONT 100 mls/hr .Q10H CHRISTIANNE Administration Dextrose 1,000 mls @ 100 mls/hr 02/11/25 20:44 Dextrose 5% 1,000 Ml IVPB PRN PRN Hypoglycemia Protocol Lactated Ringer's 1,000 mls @ 150 mls/hr 02/13/25 07:35 02/13/25 07:45 Lr - Lactated Ringers Iv IV CONT 150 mls/hr .Q6H40M CHRISTIANNE Administration Insulin Aspart 2 - 5 units 02/12/25 08:00 02/13/25 11:49 Insulin Aspart (*Bkc) 100 Units/Ml SUB-Q 2 units TIDWM CHRISTIANNE Administration Protocol Lisinopril 5 mg 02/12/25 09:00 02/13/25 08:53 Lisinopril 5 Mg Tablet PO 5 mg DAILY CHRISTIANNE Administration Ondansetron HCl 4 mg 02/11/25 20:24 Ondansetron Inj 4 Mg/2 Ml Vial IV PUSH Q4H PRN Nausea Ondansetron HCl 4 mg 02/12/25 02:04 Ondansetron Hcl Odt 4 Mg Tablet PO Q6H PRN nausea and vomiting Pantoprazole Sodium 40 mg 02/13/25 09:00 02/13/25 08:53 Pantoprazole Sodium Iv 40 Mg Vial IV PUSH 40 mg QAM CHRISTIANNE Administration Sitagliptin Phosphate 100 mg 02/12/25 09:00 02/13/25 08:54 Sitagliptin Phosphate 100 Mg Tablet PO 100 mg QAM CHRISTIANNE Administration Radiology Results: ITS Impressions Chest X-Ray 02/11/25 16:55 IMPRESSION: 1. Small opacities in the mid and lower lungs. Differential includes atelectasis/scarring or infiltrates. Head CT 02/11/25 18:57 Impression: No acute intracranial hemorrhage or suspicious mass effect. Chest/Abdomen/Pelvis CT 02/11/25 19:10 IMPRESSION: Findings suggesting prior granulomatous disease. Multiple well-circumscribed foci of decreased attenuation are identified within the bilateral kidneys, too small to characterize on the current study. No acute findings within the chest, abdomen or pelvis to account for patient's presentation. Labs Labs: Laboratory Results - last 24 hr 02/12/25 02/12/25 02/12/25 08:27 17:05 17:18 WBC RBC Hgb Hct MCV MCH MCHC RDW Plt Count MPV Immature Gran % (Auto) Neut % (Auto) Lymph % (Auto) [place] % (Auto) Eos % (Auto) Baso % (Auto) Lymph # (Auto) [place] # (Auto) Eos # (Auto) Baso # (Auto) Abs Immat Gran (auto) Absolute Neuts (auto) Absolute Nucleated RBC Nucleated RBC % Sodium Potassium Chloride Carbon Dioxide Anion Gap BUN Creatinine Estim Creat Clear Calc Estimated GFR Glucose POC Capillary Glucose 154 H 151 H Calcium Phosphorus Magnesium Total Bilirubin AST ALT Alkaline Phosphatase Total Protein Albumin TSH (Reflex) 0.891 Random Cortisol 6.83 Ur Random Sodium 02/12/25 02/12/25 02/13/25 17:47 20:01 05:32 WBC 17.9 H RBC 3.80 L Hgb 10.1 L Hct 31.3 L MCV 82.4 MCH 26.6 MCHC 32.3 RDW 15.2 H Plt Count 335 MPV 9.2 Immature Gran % (Auto) 0.9 H Neut % (Auto) 78.6 H Lymph % (Auto) 9.6 L [place] % (Auto) 9.5 H Eos % (Auto) 1.1 Baso % (Auto) 0.3 Lymph # (Auto) 1.72 [place] # (Auto) 1.7 H Eos # (Auto) 0.2 Baso # (Auto) 0.1 Abs Immat Gran (auto) 0.16 H Absolute Neuts (auto) 14.1 H Absolute Nucleated RBC 0.000 Nucleated RBC % 0.0 Sodium 127 L Potassium 4.3 Chloride 96 L Carbon Dioxide 30 Anion Gap 1 L BUN 16 D Creatinine 0.87 Estim Creat Clear Calc 38 Estimated GFR > 60 Glucose 138 H POC Capillary Glucose 194 H Calcium 9.4 Phosphorus 2.5 Magnesium 1.7 Total Bilirubin 0.6 AST 22 ALT 13 Alkaline Phosphatase 96 Total Protein 6.1 L Albumin 3.3 L TSH (Reflex) Random Cortisol Ur Random Sodium 77 02/13/25 02/13/25 07:41 11:48 WBC RBC Hgb Hct MCV MCH MCHC RDW Plt Count MPV Immature Gran % (Auto) Neut % (Auto) Lymph % (Auto) [place] % (Auto) Eos % (Auto) Baso % (Auto) Lymph # (Auto) [place] # (Auto) Eos # (Auto) Baso # (Auto) Abs Immat Gran (auto) Absolute Neuts (auto) Absolute Nucleated RBC Nucleated RBC % Sodium Potassium Chloride Carbon Dioxide Anion Gap BUN Creatinine Estim Creat Clear Calc Estimated GFR Glucose POC Capillary Glucose 155 H 227 H Calcium Phosphorus Magnesium Total Bilirubin AST ALT Alkaline Phosphatase Total Protein Albumin TSH (Reflex) Random Cortisol Ur Random Sodium Quality VTE Prophylaxis VTE prophylaxis: mechanical ordered
--- NOTE | 2025-02-13 13:17 | P.PNNEUR_ITS ---
Subjective Date/time seen: 02/13/25 13:17 Interval history: Patient have a normal EEG, and normal MRI of the brain advised the family that shakiness intermittent related to metabolic to arrange neurologically she is stable. Objective Data Vital Signs Vital Signs: Vital Signs - 24 hr 02/12/25 14:00 02/12/25 16:00 02/12/25 20:00 Temperature 36.7 C Pulse Rate 86 86 82 Respiratory Rate 18 Blood Pressure 129/65 Pulse Oximetry 95 Oxygen Delivery 02/12/25 20:04 02/12/25 20:48 02/12/25 21:00 Temperature 37.1 C Pulse Rate 84 81 Respiratory Rate 18 Blood Pressure 132/42 L Pulse Oximetry 94 Oxygen Delivery Room Air 02/13/25 00:00 02/13/25 04:00 02/13/25 05:13 Temperature 37.0 C Pulse Rate 77 89 96 Respiratory Rate 17 Blood Pressure 143/60 H Pulse Oximetry 95 Oxygen Delivery 02/13/25 07:35 02/13/25 08:53 02/13/25 12:00 Temperature 36.6 C Pulse Rate 94 90 81 Respiratory Rate 20 Blood Pressure 138/54 L Pulse Oximetry 96 Oxygen Delivery Room Air Intake/Output Intake/Output: Intake & Output 02/10/25 02/11/25 02/12/25 02/13/25 23:59 23:59 23:59 23:59 Intake Total 1050 2280 2241.7 Output Total 300 3450 1100 Balance 750 -1170 1141.7 Meds/Results Medications: Active Medications Generic Name Dose Route Start Last Admin Trade Name Freq PRN Reason Stop Dose Admin Acetaminophen 650 mg 02/11/25 20:24 Acetaminophen 325 Mg Tablet PO Q4H PRN Mild Pain (1-3) or Fever Alprazolam 1 mg 02/12/25 02:04 02/12/25 21:12 Alprazolam (*Crx) 0.5 Mg Tablet PO 1 mg Q12HR PRN Administration anxiety Amlodipine Besylate 10 mg 02/12/25 09:00 02/13/25 08:53 Amlodipine Besylate 10 Mg Tablet PO 10 mg DAILY CHRISTIANNE Administration Atorvastatin Calcium 20 mg 02/12/25 09:00 02/13/25 08:54 Atorvastatin 20 Mg Tablet PO 20 mg DAILY CHRISTIANNE Administration Azelastine HCl 1 spray 02/12/25 09:00 02/13/25 08:55 Azelastine Hcl Nasal 0.1% 137 Mcg/Spr 30 Ml Btl NASAL 1 spray Q12HR CHRISTIANNE Administration Carvedilol 12.5 mg 02/12/25 09:00 02/13/25 08:53 Carvedilol 12.5 Mg Tablet PO 12.5 mg Q12HR CHRISTIANNE Administration Dextrose 12.5 gm 02/11/25 20:44 Dextrose 50% 25 Gm/50 Ml Syringe IV PUSH PRN PRN Hypoglycemia Protocol Fluticasone Propionate 1 spray 02/12/25 09:00 02/13/25 08:57 Fluticasone Propionate 0.05% Na Spr 16 Gm Btl (*Bkc) NASAL 1 spray DAILY CHRISTIANNE Administration Furosemide 20 mg 02/12/25 09:00 02/13/25 08:53 Furosemide 20 Mg Tablet PO 20 mg DAILY CHRISTIANNE Administration Gabapentin 600 mg 02/12/25 09:00 02/13/25 08:52 Gabapentin 300 Mg Capsule PO 600 mg BID CHRISTIANNE Administration Glucagon 1 mg 02/11/25 20:44 Glucagon For Inj 1 Mg Vial IM PRN PRN Hypoglycemia Protocol Glucose 15 gm 02/11/25 20:44 Glucose Oral Gel 15 Gm Of Glucse In 37.5 Gm Tube PO PRN PRN Hypoglycemia Protocol Sodium Chloride 1,000 mls @ 100 mls/hr 02/11/25 20:45 02/13/25 08:57 Normal Saline Iv IV CONT 100 mls/hr .Q10H CHRISTIANNE Administration Dextrose 1,000 mls @ 100 mls/hr 02/11/25 20:44 Dextrose 5% 1,000 Ml IVPB PRN PRN Hypoglycemia Protocol Lactated Ringer's 1,000 mls @ 150 mls/hr 02/13/25 07:35 02/13/25 07:45 Lr - Lactated Ringers Iv IV CONT 150 mls/hr .Q6H40M CHRISTIANNE Administration Insulin Aspart 2 - 5 units 02/12/25 08:00 02/13/25 11:49 Insulin Aspart (*Bkc) 100 Units/Ml SUB-Q 2 units TIDWM CHRISTIANNE Administration Protocol Lisinopril 5 mg 02/12/25 09:00 02/13/25 08:53 Lisinopril 5 Mg Tablet PO 5 mg DAILY CHRISTIANNE Administration Ondansetron HCl 4 mg 02/11/25 20:24 Ondansetron Inj 4 Mg/2 Ml Vial IV PUSH Q4H PRN Nausea Ondansetron HCl 4 mg 02/12/25 02:04 Ondansetron Hcl Odt 4 Mg Tablet PO Q6H PRN nausea and vomiting Pantoprazole Sodium 40 mg 02/13/25 09:00 02/13/25 08:53 Pantoprazole Sodium Iv 40 Mg Vial IV PUSH 40 mg QAM CHRISTIANNE Administration Sitagliptin Phosphate 100 mg 02/12/25 09:00 02/13/25 08:54 Sitagliptin Phosphate 100 Mg Tablet PO 100 mg QAM CHRISTIANNE Administration Radiology Results: ITS Impressions Chest X-Ray 02/11/25 16:55 IMPRESSION: 1. Small opacities in the mid and lower lungs. Differential includes atelectasis/scarring or infiltrates. Head CT 02/11/25 18:57 Impression: No acute intracranial hemorrhage or suspicious mass effect. Chest/Abdomen/Pelvis CT 02/11/25 19:10 IMPRESSION: Findings suggesting prior granulomatous disease. Multiple well-circumscribed foci of decreased attenuation are identified within the bilateral kidneys, too small to characterize on the current study. No acute findings within the chest, abdomen or pelvis to account for patient's presentation. Labs Labs: Laboratory Results - last 24 hr 02/12/25 02/12/25 02/12/25 08:27 17:05 17:18 WBC RBC Hgb Hct MCV MCH MCHC RDW Plt Count MPV Immature Gran % (Auto) Neut % (Auto) Lymph % (Auto) [place] % (Auto) Eos % (Auto) Baso % (Auto) Lymph # (Auto) [place] # (Auto) Eos # (Auto) Baso # (Auto) Abs Immat Gran (auto) Absolute Neuts (auto) Absolute Nucleated RBC Nucleated RBC % Sodium Potassium Chloride Carbon Dioxide Anion Gap BUN Creatinine Estim Creat Clear Calc Estimated GFR Glucose POC Capillary Glucose 154 H 151 H Calcium Phosphorus Magnesium Total Bilirubin AST ALT Alkaline Phosphatase Total Protein Albumin TSH (Reflex) 0.891 Random Cortisol 6.83 Ur Random Sodium 02/12/25 02/12/25 02/13/25 17:47 20:01 05:32 WBC 17.9 H RBC 3.80 L Hgb 10.1 L Hct 31.3 L MCV 82.4 MCH 26.6 MCHC 32.3 RDW 15.2 H Plt Count 335 MPV 9.2 Immature Gran % (Auto) 0.9 H Neut % (Auto) 78.6 H Lymph % (Auto) 9.6 L [place] % (Auto) 9.5 H Eos % (Auto) 1.1 Baso % (Auto) 0.3 Lymph # (Auto) 1.72 [place] # (Auto) 1.7 H Eos # (Auto) 0.2 Baso # (Auto) 0.1 Abs Immat Gran (auto) 0.16 H Absolute Neuts (auto) 14.1 H Absolute Nucleated RBC 0.000 Nucleated RBC % 0.0 Sodium 127 L Potassium 4.3 Chloride 96 L Carbon Dioxide 30 Anion Gap 1 L BUN 16 D Creatinine 0.87 Estim Creat Clear Calc 38 Estimated GFR > 60 Glucose 138 H POC Capillary Glucose 194 H Calcium 9.4 Phosphorus 2.5 Magnesium 1.7 Total Bilirubin 0.6 AST 22 ALT 13 Alkaline Phosphatase 96 Total Protein 6.1 L Albumin 3.3 L TSH (Reflex) Random Cortisol Ur Random Sodium 77 02/13/25 02/13/25 07:41 11:48 WBC RBC Hgb Hct MCV MCH MCHC RDW Plt Count MPV Immature Gran % (Auto) Neut % (Auto) Lymph % (Auto) [place] % (Auto) Eos % (Auto) Baso % (Auto) Lymph # (Auto) [place] # (Auto) Eos # (Auto) Baso # (Auto) Abs Immat Gran (auto) Absolute Neuts (auto) Absolute Nucleated RBC Nucleated RBC % Sodium Potassium Chloride Carbon Dioxide Anion Gap BUN Creatinine Estim Creat Clear Calc Estimated GFR Glucose POC Capillary Glucose 155 H 227 H Calcium Phosphorus Magnesium Total Bilirubin AST ALT Alkaline Phosphatase Total Protein Albumin TSH (Reflex) Random Cortisol Ur Random Sodium
[2025-02-13] MEDS: ALPRAZolam (*CRX) 0.5 MG TABLET 1 MG PO (20:48)
[2025-02-14] VITALS (15 sets, daily range): BP systolic 114–144; BP diastolic 50–60; PULSE 71–99; RESP 14–18; TEMP 35.9–36.8; O2SAT 93–97
[2025-02-14] MEDS: SODIUM CHLORIDE 0.9% IV 1,000 ML 100 ML IV CONT ×2 (04:03→21:07)
[2025-02-14 05:52] LABS: Hematocrit 30.6 % (37.0-47.0); Hemoglobin 9.8 g/dL (12.0-15.0); Immature Granulocyte Percent A 1.0 % (0-0.5); Lymphocytes Absolute Auto 1.97 K/mm3 (0.9-3.2); Mean Corpuscular HGB Conc 32.0 g/dl (32-36); Mean Corpuscular Hemoglobin 26.4 pg (26-34); Mean Corpuscular Volume 82.5 fl (80-100); Nucleated Red Blood Cells Absolute Auto 0.000 K/mm3 (0.0-0.012); Nucleated Red Blood Cells Perc 0.0 % (0.0-0.2); Platelet Count Result 335 k/mm3 (150-375); Red Blood Count 3.71 M/mm3 (4.2-5.4); White Blood Count 18.3 K/mm3 (4.5-10.0)
[2025-02-14 06:15] LABS: Alanine Aminotransferase 12 U/L (6-35); Albumin Level 3.2 g/dL (3.5-5.1); Alkaline Phosphatase 90 U/L (38-126); Anion Gap 4 mmol/L (4-12); Aspartate Amino Transferase 21 U/L (14-36); Bilirubin,Total 0.4 mg/dL (0.2-1.3); Blood Urea Nitrogen 11 mg/dL (7-17); Calcium 9.6 mg/dL (8.4-10.2); Carbon Dioxide 27 mmol/L (22-30); Chloride 100 mmol/L (98-107); Estimated CRCL calculation 42 ml/min; Estimated Glomerular Filt Rate > 60; Glucose 139 mg/dL (65-110); Magnesium 1.5 mg/dL (1.6-2.3); Potassium 4.1 mmol/L (3.4-5.0); Sodium 131 mmol/L (137-145); Total Protein 6.1 g/dL (6.3-8.2)
[2025-02-14] MEDS: MAGNESIUM SULF 2 GM/WATER 50ML 2 GM/50 ML BAG IVPB (08:49)
[2025-02-14] MEDS: GABAPENTIN 300 MG CAPSULE 600 MG PO ×2 (08:50→17:13)
[2025-02-14] MEDS: FUROSEMIDE 20 MG TABLET PO (08:50)
[2025-02-14] MEDS: ATORVASTATIN 20 MG TABLET PO (08:50)
[2025-02-14 12:27] LABS: Magnesium 2.3 mg/dL (1.6-2.3)
--- NOTE | 2025-02-14 12:52 | WPDANESEPPF ---
Anes - Initial Pre Proc Eval Procedure: Operation Date: 02/14/25 08:00 Proposed Procedures p Esophagogastroduodenoscopy - Hank Weinberg MD Date/Time: 02/14/25 12:52 Surgeon: Gabino Edwards MD Pre Op Diagnosis: Hyponatremia, Hypomagnesemia, GERARDO, Weakness Patient Data Age: 84 Gender: F Height: 1.55 m Weight: 72.8 kg Last Vital Signs Temp 36.8 C 02/14/25 04:58 Pulse 96 02/14/25 08:50 Resp 16 02/14/25 04:58 BP 144/52 H 02/14/25 04:58 Pulse Ox 93 02/14/25 04:58 O2 Del Method Room Air 02/14/25 11:19 Allergies Allergy/AdvReac Type Severity Reaction Status Date / Time metformin AdvReac Intermediate diarrhea Verified 02/13/25 07:32 azithromycin AdvReac Nausea and Verified 02/13/25 07:32 Vomiting ciprofloxacin AdvReac Nausea and Verified 02/13/25 07:32 Vomiting clarithromycin AdvReac Nausea and Verified 02/13/25 07:32 Vomiting clavulanic acid AdvReac Nausea and Verified 02/13/25 07:32 Vomiting hydrocodone (From Vicodin) AdvReac Nausea and Verified 02/13/25 07:32 Vomiting metronidazole AdvReac Nausea and Verified 02/13/25 07:32 Vomiting neomycin AdvReac Nausea and Verified 02/13/25 07:32 Vomiting nitrofurantoin AdvReac Nervousness Verified 02/13/25 07:32 sulfamethizole AdvReac Nausea and Verified 02/13/25 07:32 Vomiting sulfamethoxazole (From AdvReac Nausea and Verified 02/13/25 07:32 Bactrim) Vomiting trimethoprim (From Bactrim) AdvReac Nausea and Verified 02/13/25 07:32 Vomiting Home Medications ?Medication ?Instructions ?Recorded ?Confirmed ?Type blood sugar diagnostic (Blood #100 ea 05/24/24 02/12/25 Rx Glucose Test strips) blood-glucose meter (Accu-Chek #1 ea 05/24/24 02/12/25 Rx Guide Glucose Meter) lancets #200 ea 05/24/24 02/12/25 Rx omeprazole 40 mg capsule,delayed 40 mg PO DAILY #90 caps 09/24/24 02/12/25 Rx release furosemide 20 mg tablet 20 mg PO DAILY 11/30/24 02/12/25 History lisinopril 5 mg tablet 5 mg PO DAILY 11/30/24 02/12/25 History hydrochlorothiazide 25 mg tablet 25 mg PO DAILY #30 tabs 12/13/24 02/12/25 Rx carvedilol 12.5 mg tablet See Rx Instructions .Route 12/27/24 02/12/25 Rx .COMPLEX #60 tabs atorvastatin 20 mg tablet 20 mg PO DAILY #90 tabs 12/31/24 02/12/25 Rx amlodipine 10 mg tablet See Rx Instructions .Route 01/16/25 02/12/25 Rx .COMPLEX #90 tabs ondansetron 4 mg disintegrating 4 mg PO Q6H PRN nausea and 01/18/25 02/12/25 Rx tablet vomiting #30 tabs linagliptin 5 mg tablet (Tradjenta) 5 mg PO QAM #90 tabs 01/29/25 02/12/25 Rx alprazolam 1 mg tablet 1 mg PO BID PRN anxiety #60 tabs 01/30/25 02/12/25 Rx azelastine 137 mcg (0.1 %) nasal 137 mcg (0.137 mL) intranasal Q12H 01/30/25 02/12/25 Rx spray #30 mL fluticasone propionate 50 1 spray intranasal DAILY #16 grams 01/30/25 02/12/25 Rx mcg/actuation nasal spray,suspension gabapentin 600 mg tablet 600 mg PO BID #180 tabs 01/30/25 02/12/25 Rx Laboratory Tests 02/13/25 02/13/25 02/14/25 16:43 19:33 05:29 WBC 18.3 H K/mm3 (4.5-10.0) RBC 3.71 L M/mm3 (4.2-5.4) Hgb 9.8 L g/dL (12.0-15.0) Hct 30.6 L % (37.0-47.0) MCV 82.5 fl (80-100) MCH 26.4 pg (26-34) MCHC 32.0 g/dl (32-36) RDW 14.9 H % (11.5-14.5) Plt Count 335 k/mm3 (150-375) MPV 9.0 fl (7.4-10.4) Immature Gran % (Auto) 1.0 H % (0-0.5) Neut % (Auto) 78.5 H % (45.5-73.1) Lymph % (Auto) 10.8 L % (18.3-44.2) [place] % (Auto) 8.6 H % (2.6-8.5) Eos % (Auto) 0.7 % (0-4.4) Baso % (Auto) 0.4 % (0.2-1.2) Lymph # (Auto) 1.97 K/mm3 (0.9-3.2) [place] # (Auto) 1.6 H K/mm3 (0.1-0.6) Eos # (Auto) 0.1 K/mm3 (0-0.3) Baso # (Auto) 0.1 K/mm3 (0.0-0.1) Abs Immat Gran (auto) 0.18 H K/mm3 (0.00-0.031) Absolute Neuts (auto) 14.4 H K/mm3 (1.3-6.7) Absolute Nucleated RBC 0.000 K/mm3 (0.0-0.012) Nucleated RBC % 0.0 % (0.0-0.2) Sodium 131 L mmol/L (137-145) Potassium 4.1 mmol/L (3.4-5.0) Chloride 100 mmol/L (98-107) Carbon Dioxide 27 mmol/L (22-30) Anion Gap 4 mmol/L (4-12) BUN 11 D mg/dL (7-17) Creatinine 0.78 mg/dL (0.7-1.0) Estim Creat Clear Calc 42 ml/min Estimated GFR > 60 (59 - ) Glucose 139 H mg/dL (65-110) POC Capillary Glucose 167 H mg/dl 198 H mg/dl (65-105) (65-105) Calcium 9.6 mg/dL (8.4-10.2) Phosphorus 2.6 mg/dL (2.5-4.5) Magnesium 1.5 L mg/dL (1.6-2.3) Total Bilirubin 0.4 mg/dL (0.2-1.3) AST 21 U/L (14-36) ALT 12 U/L (6-35) Alkaline Phosphatase 90 U/L (38-126) Total Protein 6.1 L g/dL (6.3-8.2) Albumin 3.2 L g/dL (3.5-5.1) 02/14/25 02/14/25 02/14/25 08:02 11:48 11:58 WBC RBC Hgb Hct MCV MCH MCHC RDW Plt Count MPV Immature Gran % (Auto) Neut % (Auto) Lymph % (Auto) [place] % (Auto) Eos % (Auto) Baso % (Auto) Lymph # (Auto) [place] # (Auto) Eos # (Auto) Baso # (Auto) Abs Immat Gran (auto) Absolute Neuts (auto) Absolute Nucleated RBC Nucleated RBC % Sodium Potassium Chloride Carbon Dioxide Anion Gap BUN Creatinine Estim Creat Clear Calc Estimated GFR Glucose POC Capillary Glucose 158 H mg/dl 179 H mg/dl (65-105) (65-105) Calcium Phosphorus Magnesium 2.3 mg/dL (1.6-2.3) Total Bilirubin AST ALT Alkaline Phosphatase Total Protein Albumin Patient hx anesthesia problems: none Family hx anesthesia problems: none Results Review: All pre-operative results and documents have been reviewed as part of the pre-operative evaluation. 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 Polyuria Hyperkalemia Dehydration UTI (urinary tract infection) Chronic kidney disease, stage 3 Blind Left eye HX: breast cancer Foot pain, bilateral Tear of medial meniscus of left knee Neuropathy Labia irritation History of retinal detachment History of radiation therapy Type 2 diabetes mellitus with diabetic nephropathy History of myocardial infarction CAD (coronary artery disease) HLD (hyperlipidemia) Surgical History Surgical History H/O cataract extraction H/O lumpectomy S/P primary angioplasty with coronary stent x 2 History of esophagogastroduodenoscopy (EGD) H/O colonoscopy History of partial mastectomy of right breast Family History Family History Father Family history of diabetes mellitus in first degree relative Family history of coronary artery disease Mother Dementia Other Hypertension Social History Social History Social History: She is and her poa is her . 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 She is a lifelong nonsmoker. She does not use any alcohol marijuana or illicit drugs. Code status full code Smoking status: Never smoker Second hand tobacco smoke exposure: No Alcohol intake: never Substance use: never Substance use type: does not use Do You Feel Safe in your Home?: Yes Lack of Transportation: No Lack of Food: Never True Current Housing: I Have Housing Concerned About Future Housing: No Difficulty Paying Gas/Electric Bills: No Difficulty Paying for Meds: No Currently Unemployed: No Education: High School Diploma/GED Difficulty w/ Childcare or Family Care: No Living arrangements: with family Occupation/Education: retired Gender identity (if verbalized by the patient): Female Sexual Orientation (if Verbalized by the Patient): Straight or Heterosexual Spiritual care concerns: No Anes - Eval Final PreProcedure Day of Procedure 02/14/25 12:52 Patient weight: obese Heart: regular rate and rhythm Lungs: clear to auscultation Airway: Mallampati scale class II Neurological: alert and oriented Last oral intake: >/= 8 hours ASA classification: III Emergent: no Anesthetic plan: proceed Anesthesia type and monitoring: general GIVS and standard monitoring Results Review: All pre-operative results and documents have been reviewed as part of the pre-operative evaluation. Informed Consent: The patient's anesthetic plan and its attendant risks and benefits were discussed with the patient/family/POA. Questions were solicited and answers provided to the satisfaction of the patient/family/POA.
[2025-02-14] MEDS: LACTATED RINGERS 1,000 ML 150 ML IV CONT (12:56)
[2025-02-14] MEDS: SIMETHICONE ORAL SUSPENSION 20 MG/0.3 ML 30 ML BOTTLE 0.6 ML PO (13:01)
--- NOTE | 2025-02-14 13:39 | S_PTH ---
PATIENT: Zaynab Chang LOC: [id number] U#:[id number] AGE/SX: 84/F ROOM: 342 RE02/12/[address]: Edelmira Carreon APRN : [id number] BED: 01 DIS: 02/15/2025 SPEC #: [id number] RECD: 02/14/25 14:17 STATUS: MONICA REYann #: [id number] TIGIST: 02/14/25 13:[address]: Hank Weinberg DEPT: [facility] [place] Surgical RECD BY: Liane Locke ENTERED: 02/14/25 14:18 SP TYPE: Surgical OTHR DR: MD Duncan Moran MD Izabella L. Timmons, PA-C Amardeep Shrestha, MD Tissues: A - Esophageal Biopsy Procedures: Hematoxylin and Eosin Stain Gross and Microscopic Level 4
--- NOTE | 2025-02-14 13:46 | WPDGIPROGNO ---
Progress Note: A&P Assessment and Plan (1) Dysphagia: Code(s): R13.10 - Dysphagia, unspecified Status: Acute Assessment and Plan: An EGD report found no evidence of obstruction, strictures, webs, or rings. Biopsies were taken to check for eosinophilic esophagitis, which is unlikely in this patient. Achalasia is a more likely diagnosis that needs to be ruled out. A referral for an esophageal manometry at [facility] has been placed. Our office will contact her, and the patient will be called to schedule the test. The patient can be discharged and will receive instructions for the manometry soon. Subjective Date/time seen: 02/14/25 13:46 Objective Data Vital Signs Vital Signs: Vital Signs - 24 hr 02/13/25 13:50 02/13/25 16:00 02/13/25 19:37 Temperature 97.1 F L 98.6 F Pulse Rate 81 81 92 Respiratory Rate 18 17 Blood Pressure 124/58 L 147/55 H Pulse Oximetry 97 95 Oxygen Delivery 02/13/25 20:48 02/13/25 22:23 02/14/25 00:00 Temperature Pulse Rate 98 97 76 Respiratory Rate Blood Pressure Pulse Oximetry Oxygen Delivery 02/14/25 04:00 02/14/25 04:58 02/14/25 08:00 Temperature 98.3 F Pulse Rate 99 98 Respiratory Rate 16 Blood Pressure 144/52 H Pulse Oximetry 93 Oxygen Delivery Room Air 02/14/25 08:50 02/14/25 11:19 02/14/25 13:13 Temperature 96.7 F L Pulse Rate 96 80 Respiratory Rate 18 Blood Pressure 128/56 L Pulse Oximetry 97 Oxygen Delivery Room Air Room Air Intake/Output Intake/Output: Intake & Output 02/11/25 02/12/25 02/13/25 02/14/25 23:59 23:59 23:59 23:59 Intake Total 1050 2280 3501.7 2105 Output Total 300 3450 1500 2500 Balance 750 -1170 2001.7 -395 Meds/Results Medications: Active Medications Generic Name Dose Route Start Last Admin Trade Name Freq PRN Reason Stop Dose Admin Acetaminophen 650 mg 02/11/25 20:24 Acetaminophen 325 Mg Tablet PO Q4H PRN Mild Pain (1-3) or Fever Alprazolam 1 mg 02/12/25 02:04 02/13/25 20:48 Alprazolam (*Crx) 0.5 Mg Tablet PO 1 mg Q12HR PRN Administration anxiety Amlodipine Besylate 10 mg 02/12/25 09:00 02/14/25 08:50 Amlodipine Besylate 10 Mg Tablet PO 10 mg DAILY CHRISTIANNE Administration Atorvastatin Calcium 20 mg 02/12/25 09:00 02/14/25 08:50 Atorvastatin 20 Mg Tablet PO 20 mg DAILY CHRISTIANNE Administration Azelastine HCl 1 spray 02/12/25 09:00 02/14/25 08:58 Azelastine Hcl Nasal 0.1% 137 Mcg/Spr 30 Ml Btl NASAL Not Given Q12HR CHRISTIANNE Carvedilol 12.5 mg 02/12/25 09:00 02/14/25 08:50 Carvedilol 12.5 Mg Tablet PO 12.5 mg Q12HR CHRISTIANNE Administration Dextrose 12.5 gm 02/11/25 20:44 Dextrose 50% 25 Gm/50 Ml Syringe IV PUSH PRN PRN Hypoglycemia Protocol Fluticasone Propionate 1 spray 02/12/25 09:00 02/14/25 08:58 Fluticasone Propionate 0.05% Na Spr 16 Gm Btl (*Bkc) NASAL Not Given DAILY CHRISTIANNE Furosemide 20 mg 02/12/25 09:00 02/14/25 08:50 Furosemide 20 Mg Tablet PO 20 mg DAILY CHRISTIANNE Administration Gabapentin 600 mg 02/12/25 09:00 02/14/25 08:50 Gabapentin 300 Mg Capsule PO 600 mg BID CHRISTIANNE Administration Glucagon 1 mg 02/11/25 20:44 Glucagon For Inj 1 Mg Vial IM PRN PRN Hypoglycemia Protocol Glucose 15 gm 02/11/25 20:44 Glucose Oral Gel 15 Gm Of Glucse In 37.5 Gm Tube PO PRN PRN Hypoglycemia Protocol Sodium Chloride 1,000 mls @ 100 mls/hr 02/11/25 20:45 02/14/25 04:03 Normal Saline Iv IV CONT 100 mls/hr .Q10H CHRISTIANNE Administration Dextrose 1,000 mls @ 100 mls/hr 02/11/25 20:44 Dextrose 5% 1,000 Ml IVPB PRN PRN Hypoglycemia Protocol Lactated Ringer's 1,000 mls @ 150 mls/hr 02/13/25 07:35 02/14/25 13:38 Lr - Lactated Ringers Iv IV CONT 150 mls/hr .Q6H40M [facility] Infusion Insulin Aspart 2 - 5 units 02/12/25 08:00 02/14/25 08:46 Insulin Aspart (*Bkc) 100 Units/Ml SUB-Q Not Given TIDWM [facility] Protocol Lisinopril 5 mg 02/12/25 09:00 02/14/25 08:50 Lisinopril 5 Mg Tablet PO 5 mg DAILY CHRISTIANNE Administration Ondansetron HCl 4 mg 02/11/25 20:24 Ondansetron Inj 4 Mg/2 Ml Vial IV PUSH Q4H PRN Nausea Ondansetron HCl 4 mg 02/12/25 02:04 Ondansetron Hcl Odt 4 Mg Tablet PO Q6H PRN nausea and vomiting Simethicone 0.6 ml 02/14/25 13:00 02/14/25 13:01 Simethicone Oral Suspension 20 Mg/0.3 Ml 30 Ml Bottle PO 1.8 ml ONCE PRN Administration Gas Discomfort Sitagliptin Phosphate 100 mg 02/12/25 09:00 02/14/25 08:50 Sitagliptin Phosphate 100 Mg Tablet PO 100 mg QAM CHRISTIANNE Administration Radiology Results: ITS Impressions Chest X-Ray 02/11/25 16:55 IMPRESSION: 1. Small opacities in the mid and lower lungs. Differential includes atelectasis/scarring or infiltrates. Head CT 02/11/25 18:57 Impression: No acute intracranial hemorrhage or suspicious mass effect. Chest/Abdomen/Pelvis CT 02/11/25 19:10 IMPRESSION: Findings suggesting prior granulomatous disease. Multiple well-circumscribed foci of decreased attenuation are identified within the bilateral kidneys, too small to characterize on the current study. No acute findings within the chest, abdomen or pelvis to account for patient's presentation. Brain MRI 02/14/25 11:07 IMPRESSION: 1. Moderate scattered age-appropriate cerebral and pontine white matter T2 hyperintensity consistent with chronic small vessel ischemic disease. No acute intracranial process. 2. Single tiny focus of susceptibility artifact in the right frontoparietal white matter consistent with sequela of chronic microhemorrhage as can be seen with hypertension. Labs Labs: Laboratory Results - last 24 hr 02/13/25 02/13/25 02/14/25 16:43 19:33 05:29 WBC 18.3 H RBC 3.71 L Hgb 9.8 L Hct 30.6 L MCV 82.5 MCH 26.4 MCHC 32.0 RDW 14.9 H Plt Count 335 MPV 9.0 Immature Gran % (Auto) 1.0 H Neut % (Auto) 78.5 H Lymph % (Auto) 10.8 L [place] % (Auto) 8.6 H Eos % (Auto) 0.7 Baso % (Auto) 0.4 Lymph # (Auto) 1.97 [place] # (Auto) 1.6 H Eos # (Auto) 0.1 Baso # (Auto) 0.1 Abs Immat Gran (auto) 0.18 H Absolute Neuts (auto) 14.4 H Absolute Nucleated RBC 0.000 Nucleated RBC % 0.0 Sodium 131 L Potassium 4.1 Chloride 100 Carbon Dioxide 27 Anion Gap 4 BUN 11 D Creatinine 0.78 Estim Creat Clear Calc 42 Estimated GFR > 60 Glucose 139 H POC Capillary Glucose 167 H 198 H Calcium 9.6 Phosphorus 2.6 Magnesium 1.5 L Total Bilirubin 0.4 AST 21 ALT 12 Alkaline Phosphatase 90 Total Protein 6.1 L Albumin 3.2 L 02/14/25 02/14/25 02/14/25 08:02 11:48 11:58 WBC RBC Hgb Hct MCV MCH MCHC RDW Plt Count MPV Immature Gran % (Auto) Neut % (Auto) Lymph % (Auto) [place] % (Auto) Eos % (Auto) Baso % (Auto) Lymph # (Auto) [place] # (Auto) Eos # (Auto) Baso # (Auto) Abs Immat Gran (auto) Absolute Neuts (auto) Absolute Nucleated RBC Nucleated RBC % Sodium Potassium Chloride Carbon Dioxide Anion Gap BUN Creatinine Estim Creat Clear Calc Estimated GFR Glucose POC Capillary Glucose 158 H 179 H Calcium Phosphorus Magnesium 2.3 Total Bilirubin AST ALT Alkaline Phosphatase Total Protein Albumin 02/14/25 13:08 WBC RBC Hgb Hct MCV MCH MCHC RDW Plt Count MPV Immature Gran % (Auto) Neut % (Auto) Lymph % (Auto) [place] % (Auto) Eos % (Auto) Baso % (Auto) Lymph # (Auto) [place] # (Auto) Eos # (Auto) Baso # (Auto) Abs Immat Gran (auto) Absolute Neuts (auto) Absolute Nucleated RBC Nucleated RBC % Sodium Potassium Chloride Carbon Dioxide Anion Gap BUN Creatinine Estim Creat Clear Calc Estimated GFR Glucose POC Capillary Glucose 163 H Calcium Phosphorus Magnesium Total Bilirubin AST ALT Alkaline Phosphatase Total Protein Albumin
--- NOTE | 2025-02-14 14:52 | P.PNIM_ITS ---
Progress Note: A&P Assessment and Plan (1) Shakiness: Code(s): R25.1 - Tremor, unspecified Status: Acute Assessment and Plan: -Unexplained gross tremors/chills with episodes that can last moments to 15+ minutes - Per patient and family patient stays completely aware during the episode however is unable to control her head and limbs with full body shaking -New symptoms on day of admission, no prior similar symptoms -Consult Neurology Episode of generalized weakness and shaking rule out the possibility of the seizure versus hypoglycemic episode Plan is to obtain MRI of the brain, and EEG and further testing accordingly. neurology is following - MRI completed (2) Esophageal stricture: Code(s): K22.2 - Esophageal obstruction Status: Acute Assessment and Plan: -Acute/recurrent condition limiting oral intake -Patient scheduled for procedure on 02/[address] Weinberg -GI consult * EGD with dilation ordered for tomorrow * NPO after midnight * decrease Protonix to 40 mg IV daily and change to PO following dilation if dysphagia improves (3) Hyponatremia: Code(s): E87.1 - Hypo-osmolality and hyponatremia Status: Acute Assessment and Plan: -Likely contributing factor for weakness and tremors -Likely multifactorial causes including medications, stress related to hypoglycemia, rapidly shifting glucose levels and nutrition -Baseline sodium usually in low 130s, today 122 in ER -Poor nutrition related to need for esophageal dilation (scheduled for 02/14) -Dehydration suspected, IV fluids in ER with slight improvement -Stop HCTZ, patient also on furosemide -Add urine osmolality, serum osmolality, and urine sodium ordered -Adrenal insufficiency rule out: cortisol and TSH ordered (4) Hypomagnesemia: Code(s): E83.42 - Hypomagnesemia Status: Acute Assessment and Plan: -Acute on chronic presentation, 1.5 on admission -Magnesium 2 grams IV in ER -Stop HCTZ Repeat Mag WNL. (5) Leukocytosis: Qualifiers: Leukocytosis type: unspecified Qualified Code(s): D72.829 - Elevated white blood cell count, unspecified Code(s): D72.829 - Elevated white blood cell count, unspecified Status: Acute Assessment and Plan: - Elevated WBC of 20.9 on admission but no infectious source identified as well as no fever - UA unremarkable - Chest/abdomen/pelvis CT: No acute findings within the chest, abdomen or pelvis to account for patient's presentation. - WBC downtrending without intervention, continue to trend -------- slightly increased. IS, ambulation (6) Weakness: Code(s): R53.1 - Weakness Status: Acute Assessment and Plan: -unexplained shaking/gross tremors numerous times today -poor dietary intake related to need for esophageal dilation - PT/OT (7) GERARDO (acute kidney injury): Code(s): N17.9 - Acute kidney failure, unspecified Status: Acute Assessment and Plan: - GERARDO on CKD, baseline GFR in the 50s, was 39 on admission - likely related to dehydration as patient endorsed poor oral intake and GERARDO resolved with IV fluids - Hold HCTZ, blood pressures remian stable - avoid new nephrotoxins - monitor I/O - renally dose medications (8) Diabetes mellitus with chronic kidney disease: Code(s): E11.22 - Type 2 diabetes mellitus with diabetic chronic kidney disease Status: Acute Assessment and Plan: -HGB A1c 6.5 -Recent hypoglycemia episodes the past few days -Endocrine office stopped glimepiride, continue Tradjenta -ACHS glucose checks with low dose SSI (due to morning episodes of hypoglycemia past few days) -Glucose levels stable, continue to monitor (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, with stage 1 through stage 4 chronic kidney disease, or unspecified chronic kidney disease: Code(s): I13.10 - Hypertensive heart and chronic kidney disease without heart failure, with stage 1 through stage 4 chronic kidney disease, or unspecified chronic kidney disease Status: Chronic Assessment and Plan: HTN with Stage 3 CKD history - Continue amlodipine 10 mg daily, carvedilol 12.5 mg BID, lisinopril 5 mg daily, and lasix 20 mg daily - Discontinue hydrochlorothiazide due to hyponatremia, hypomagnesemia and GERARDO on CKD - Continue to monitor, blood pressures remain stable (10) Breast cancer, right breast: Qualifiers: Breast location: unspecified site of breast Estrogen receptor status: unspecified Patient sex: female Qualified Code(s): C50.911 - Malignant neoplasm of unspecified site of right female breast Code(s): C50.911 - Malignant neoplasm of unspecified site of right female breast Status: Chronic Assessment and Plan: -History noted, continue anastrozole (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 no acute events overnight. Review of Systems Review of Systems: All systems reviewed & are unremarkable except as noted in HPI and below Exam Narrative: AF HR 86 RR 18 SpO2 95 BP 129/65 General: female in no acute respiratory distress who is nontoxic appearing, sitting up in bed. HEENT: Normocephalic. Atraumatic. PERRLA. Chronic anisocoria left. Extraocular movement intact. Sclera clear and anicteric. No facial asymmetry. Chest: Lungs are clear to auscultation bilaterally. CV: Heart was regular rate and rhythm. Abd: Abdomen was soft. Nontender. Nondistended. Positive bowel sounds. Ext: No clubbing, cyanosis, or edema. DP pulses bilaterally. Neuro: Patient is alert and oriented x3. Strength is symmetrical in upper and lower extremities. Speech is clear. Objective Data Vital Signs Vital Signs: Vital Signs - 24 hr 02/13/25 16:00 02/13/25 19:37 02/13/25 20:48 Temperature 98.6 F Pulse Rate 81 92 98 Respiratory Rate 17 Blood Pressure 147/55 H Pulse Oximetry 95 Oxygen Delivery 02/13/25 22:23 02/14/25 00:00 02/14/25 04:00 Temperature Pulse Rate 97 76 99 Respiratory Rate Blood Pressure Pulse Oximetry Oxygen Delivery 02/14/25 04:58 02/14/25 08:00 02/14/25 08:00 Temperature 98.3 F Pulse Rate 98 95 Respiratory Rate 16 Blood Pressure 144/52 H Pulse Oximetry 93 Oxygen Delivery Room Air 02/14/25 08:50 02/14/25 11:19 02/14/25 12:00 Temperature Pulse Rate 96 72 Respiratory Rate Blood Pressure Pulse Oximetry Oxygen Delivery Room Air 02/14/25 13:13 02/14/25 13:39 02/14/25 13:49 Temperature 96.7 F L Pulse Rate 80 73 71 Respiratory Rate 18 15 14 Blood Pressure 128/56 L 114/53 L 118/53 L Pulse Oximetry 97 96 96 Oxygen Delivery Room Air Room Air Room Air 02/14/25 13:59 Temperature Pulse Rate 72 Respiratory Rate 15 Blood Pressure 130/60 Pulse Oximetry 96 Oxygen Delivery Room Air Intake/Output Intake/Output: Intake & Output 02/11/25 02/12/25 02/13/25 02/14/25 23:59 23:59 23:59 23:59 Intake Total 1050 2280 3501.7 2105 Output Total 300 3450 1500 2500 Balance 750 -1170 2001.7 -395 Meds/Results Medications: Active Medications Generic Name Dose Route Start Last Admin Trade Name Freq PRN Reason Stop Dose Admin Acetaminophen 650 mg 02/11/25 20:24 Acetaminophen 325 Mg Tablet PO Q4H PRN Mild Pain (1-3) or Fever Alprazolam 1 mg 02/12/25 02:04 02/13/25 20:48 Alprazolam (*Crx) 0.5 Mg Tablet PO 1 mg Q12HR PRN Administration anxiety Amlodipine Besylate 10 mg 02/12/25 09:00 02/14/25 08:50 Amlodipine Besylate 10 Mg Tablet PO 10 mg DAILY CHRISTIANNE Administration Atorvastatin Calcium 20 mg 02/12/25 09:00 02/14/25 08:50 Atorvastatin 20 Mg Tablet PO 20 mg DAILY CHRISTIANNE Administration Azelastine HCl 1 spray 02/12/25 09:00 02/14/25 08:58 Azelastine Hcl Nasal 0.1% 137 Mcg/Spr 30 Ml Btl NASAL Not Given Q12HR CHRISTIANNE Carvedilol 12.5 mg 02/12/25 09:00 02/14/25 08:50 Carvedilol 12.5 Mg Tablet PO 12.5 mg Q12HR CHRISTIANNE Administration Dextrose 12.5 gm 02/11/25 20:44 Dextrose 50% 25 Gm/50 Ml Syringe IV PUSH PRN PRN Hypoglycemia Protocol Fluticasone Propionate 1 spray 02/12/25 09:00 02/14/25 08:58 Fluticasone Propionate 0.05% Na Spr 16 Gm Btl (*Bkc) NASAL Not Given DAILY CHRISTIANNE Furosemide 20 mg 02/12/25 09:00 02/14/25 08:50 Furosemide 20 Mg Tablet PO 20 mg DAILY CHRISTIANNE Administration Gabapentin 600 mg 02/12/25 09:00 02/14/25 08:50 Gabapentin 300 Mg Capsule PO 600 mg BID CHRISTIANNE Administration Glucagon 1 mg 02/11/25 20:44 Glucagon For Inj 1 Mg Vial IM PRN PRN Hypoglycemia Protocol Glucose 15 gm 02/11/25 20:44 Glucose Oral Gel 15 Gm Of Glucse In 37.5 Gm Tube PO PRN PRN Hypoglycemia Protocol Sodium Chloride 1,000 mls @ 100 mls/hr 02/11/25 20:45 02/14/25 04:03 Normal Saline Iv IV CONT 100 mls/hr .Q10H CHRISTIANNE Administration Dextrose 1,000 mls @ 100 mls/hr 02/11/25 20:44 Dextrose 5% 1,000 Ml IVPB PRN PRN Hypoglycemia Protocol Insulin Aspart 2 - 5 units 02/12/25 08:00 02/14/25 14:22 Insulin Aspart (*Bkc) 100 Units/Ml SUB-Q Not Given TIDWM CHRISTIANNE Protocol Lisinopril 5 mg 02/12/25 09:00 02/14/25 08:50 Lisinopril 5 Mg Tablet PO 5 mg DAILY CHRISTIANNE Administration Ondansetron HCl 4 mg 02/11/25 20:24 Ondansetron Inj 4 Mg/2 Ml Vial IV PUSH Q4H PRN Nausea Ondansetron HCl 4 mg 02/12/25 02:04 Ondansetron Hcl Odt 4 Mg Tablet PO Q6H PRN nausea and vomiting Simethicone 0.6 ml 02/14/25 13:00 02/14/25 13:01 Simethicone Oral Suspension 20 Mg/0.3 Ml 30 Ml Bottle PO 1.8 ml ONCE PRN Administration Gas Discomfort Sitagliptin Phosphate 100 mg 02/12/25 09:00 02/14/25 08:50 Sitagliptin Phosphate 100 Mg Tablet PO 100 mg QAM CHRISTIANNE Administration Radiology Results: ITS Impressions Chest X-Ray 02/11/25 16:55 IMPRESSION: 1. Small opacities in the mid and lower lungs. Differential includes atelectasis/scarring or infiltrates. Head CT 02/11/25 18:57 Impression: No acute intracranial hemorrhage or suspicious mass effect. Chest/Abdomen/Pelvis CT 02/11/25 19:10 IMPRESSION: Findings suggesting prior granulomatous disease. Multiple well-circumscribed foci of decreased attenuation are identified within the bilateral kidneys, too small to characterize on the current study. No acute findings within the chest, abdomen or pelvis to account for patient's presentation. Brain MRI 02/14/25 11:07 IMPRESSION: 1. Moderate scattered age-appropriate cerebral and pontine white matter T2 hyperintensity consistent with chronic small vessel ischemic disease. No acute intracranial process. 2. Single tiny focus of susceptibility artifact in the right frontoparietal white matter consistent with sequela of chronic microhemorrhage as can be seen with hypertension. Labs Labs: Laboratory Results - last 24 hr 02/13/25 02/13/25 02/14/25 16:43 19:33 05:29 WBC 18.3 H RBC 3.71 L Hgb 9.8 L Hct 30.6 L MCV 82.5 MCH 26.4 MCHC 32.0 RDW 14.9 H Plt Count 335 MPV 9.0 Immature Gran % (Auto) 1.0 H Neut % (Auto) 78.5 H Lymph % (Auto) 10.8 L [place] % (Auto) 8.6 H Eos % (Auto) 0.7 Baso % (Auto) 0.4 Lymph # (Auto) 1.97 [place] # (Auto) 1.6 H Eos # (Auto) 0.1 Baso # (Auto) 0.1 Abs Immat Gran (auto) 0.18 H Absolute Neuts (auto) 14.4 H Absolute Nucleated RBC 0.000 Nucleated RBC % 0.0 Sodium 131 L Potassium 4.1 Chloride 100 Carbon Dioxide 27 Anion Gap 4 BUN 11 D Creatinine 0.78 Estim Creat Clear Calc 42 Estimated GFR > 60 Glucose 139 H POC Capillary Glucose 167 H 198 H Calcium 9.6 Phosphorus 2.6 Magnesium 1.5 L Total Bilirubin 0.4 AST 21 ALT 12 Alkaline Phosphatase 90 Total Protein 6.1 L Albumin 3.2 L 02/14/25 02/14/25 02/14/25 08:02 11:48 11:58 WBC RBC Hgb Hct MCV MCH MCHC RDW Plt Count MPV Immature Gran % (Auto) Neut % (Auto) Lymph % (Auto) [place] % (Auto) Eos % (Auto) Baso % (Auto) Lymph # (Auto) [place] # (Auto) Eos # (Auto) Baso # (Auto) Abs Immat Gran (auto) Absolute Neuts (auto) Absolute Nucleated RBC Nucleated RBC % Sodium Potassium Chloride Carbon Dioxide Anion Gap BUN Creatinine Estim Creat Clear Calc Estimated GFR Glucose POC Capillary Glucose 158 H 179 H Calcium Phosphorus Magnesium 2.3 Total Bilirubin AST ALT Alkaline Phosphatase Total Protein Albumin 02/14/25 13:08 WBC RBC Hgb Hct MCV MCH MCHC RDW Plt Count MPV Immature Gran % (Auto) Neut % (Auto) Lymph % (Auto) [place] % (Auto) Eos % (Auto) Baso % (Auto) Lymph # (Auto) [place] # (Auto) Eos # (Auto) Baso # (Auto) Abs Immat Gran (auto) Absolute Neuts (auto) Absolute Nucleated RBC Nucleated RBC % Sodium Potassium Chloride Carbon Dioxide Anion Gap BUN Creatinine Estim Creat Clear Calc Estimated GFR Glucose POC Capillary Glucose 163 H Calcium Phosphorus Magnesium Total Bilirubin AST ALT Alkaline Phosphatase Total Protein Albumin Quality VTE Prophylaxis VTE prophylaxis: mechanical ordered
--- NOTE | 2025-02-14 17:09 | P.PNNEUR_ITS ---
Progress Note: A&P Assessment and Plan (1) Shakiness: Code(s): R25.1 - Tremor, unspecified Status: Acute (2) CAD (coronary artery disease): Code(s): I25.10 - Atherosclerotic heart disease of [place] coronary artery without angina pectoris Status: Chronic (3) Diabetes mellitus with chronic kidney disease: Code(s): E11.22 - Type 2 diabetes mellitus with diabetic chronic kidney disease Status: Acute Plan the patient is having spells of tremulousness on and off for last few days. Her EEG did not show any abnormality. I reviewed MRI of the brain which shows some white matter changes however no acute findings were noted. I will go ahead suggest checking her carotid Doppler study and lipid profile and continue to observe for the spells of tremulousness. Possibility of seizure disorder versus metabolic tremor are being considered but are inconclusive at this time there is no impairment of her consciousness during the time she starts to be shaky. BUN creatinine are within normal range at this time. Serum sodium was mildly low at 131. Subjective Date/time seen: 02/14/25 17:09 Interval history: Patient 84-year-old white female with history of episodes of whole-body tremulousness which started 3 4 days ago. These last 5-6 minutes. She had another spell last night. In between she does not have any shakiness or jayant mulousness. No preceding trauma or infectious illness. EEG was performed did not show any abnormality. MRI of the brain was also performed today which shows chronic changes however no evidence for acute infarct. The patient uses a walker to get around at home. Patient's was present the time of the evaluation. She also history of diabetes mellitus. During the hospitalization since he has been not been noted to have any hypoglycemic spell. Review of Systems Review of Systems: All systems reviewed & are unremarkable except as noted in HPI and below Exam Narrative: Fully conscious alert oriented to self time place and person. No involuntary movements or cogwheeling or tremors were noted. Exam showed cranial nerves and motor system were within acceptable normal range. Objective Data Vital Signs Vital Signs: Vital Signs - 24 hr 02/13/25 19:37 02/13/25 20:48 02/13/25 22:23 Temperature 98.6 F Pulse Rate 92 98 97 Respiratory Rate 17 Blood Pressure 147/55 H Pulse Oximetry 95 Oxygen Delivery 02/14/25 00:00 02/14/25 04:00 02/14/25 04:58 Temperature 98.3 F Pulse Rate 76 99 98 Respiratory Rate 16 Blood Pressure 144/52 H Pulse Oximetry 93 Oxygen Delivery 02/14/25 08:00 02/14/25 08:00 02/14/25 08:50 Temperature Pulse Rate 95 96 Respiratory Rate Blood Pressure Pulse Oximetry Oxygen Delivery Room Air 02/14/25 11:19 02/14/25 12:00 02/14/25 13:13 Temperature 96.7 F L Pulse Rate 72 80 Respiratory Rate 18 Blood Pressure 128/56 L Pulse Oximetry 97 Oxygen Delivery Room Air Room Air 02/14/25 13:39 02/14/25 13:49 02/14/25 13:59 Temperature Pulse Rate 73 71 72 Respiratory Rate 15 14 15 Blood Pressure 114/53 L 118/53 L 130/60 Pulse Oximetry 96 96 96 Oxygen Delivery Room Air Room Air Room Air 02/14/25 14:00 02/14/25 16:00 Temperature 98.0 F Pulse Rate 82 77 Respiratory Rate 18 Blood Pressure 135/57 L Pulse Oximetry 97 Oxygen Delivery Intake/Output Intake/Output: Intake & Output 02/11/25 02/12/25 02/13/25 02/14/25 23:59 23:59 23:59 23:59 Intake Total 1050 2280 3501.7 2225 Output Total 300 3450 1500 2500 Balance 750 -1170 2001.7 -693 Meds/Results Medications: Active Medications Generic Name Dose Route Start Last Admin Trade Name Freq PRN Reason Stop Dose Admin Acetaminophen 650 mg 02/11/25 20:24 Acetaminophen 325 Mg Tablet PO Q4H PRN Mild Pain (1-3) or Fever Alprazolam 1 mg 02/12/25 02:04 02/13/25 20:48 Alprazolam (*Crx) 0.5 Mg Tablet PO 1 mg Q12HR PRN Administration anxiety Amlodipine Besylate 10 mg 02/12/25 09:00 02/14/25 08:50 Amlodipine Besylate 10 Mg Tablet PO 10 mg DAILY CHRISTIANNE Administration Atorvastatin Calcium 20 mg 02/12/25 09:00 02/14/25 08:50 Atorvastatin 20 Mg Tablet PO 20 mg DAILY CHRISTIANNE Administration Azelastine HCl 1 spray 02/12/25 09:00 02/14/25 08:58 Azelastine Hcl Nasal 0.1% 137 Mcg/Spr 30 Ml Btl NASAL Not Given Q12HR CHRISTIANNE Carvedilol 12.5 mg 02/12/25 09:00 02/14/25 08:50 Carvedilol 12.5 Mg Tablet PO 12.5 mg Q12HR CHRISTIANNE Administration Dextrose 12.5 gm 02/11/25 20:44 Dextrose 50% 25 Gm/50 Ml Syringe IV PUSH PRN PRN Hypoglycemia Protocol Fluticasone Propionate 1 spray 02/12/25 09:00 02/14/25 08:58 Fluticasone Propionate 0.05% Na Spr 16 Gm Btl (*Bkc) NASAL Not Given DAILY CHRISTIANNE Furosemide 20 mg 02/12/25 09:00 02/14/25 08:50 Furosemide 20 Mg Tablet PO 20 mg DAILY CHRISTIANNE Administration Gabapentin 600 mg 02/12/25 09:00 02/14/25 08:50 Gabapentin 300 Mg Capsule PO 600 mg BID CHRISTIANNE Administration Glucagon 1 mg 02/11/25 20:44 Glucagon For Inj 1 Mg Vial IM PRN PRN Hypoglycemia Protocol Glucose 15 gm 02/11/25 20:44 Glucose Oral Gel 15 Gm Of Glucse In 37.5 Gm Tube PO PRN PRN Hypoglycemia Protocol Sodium Chloride 1,000 mls @ 100 mls/hr 02/11/25 20:45 02/14/25 15:42 Normal Saline Iv IV CONT Not Given .Q10H [facility] Dextrose 1,000 mls @ 100 mls/hr 02/11/25 20:44 Dextrose 5% 1,000 Ml IVPB PRN PRN Hypoglycemia Protocol Insulin Aspart 2 - 5 units 02/12/25 08:00 02/14/25 14:22 Insulin Aspart (*Bkc) 100 Units/Ml SUB-Q Not Given TIDWM [facility] Protocol Lisinopril 5 mg 02/12/25 09:00 02/14/25 08:50 Lisinopril 5 Mg Tablet PO 5 mg DAILY CHRISTIANNE Administration Ondansetron HCl 4 mg 02/11/25 20:24 Ondansetron Inj 4 Mg/2 Ml Vial IV PUSH Q4H PRN Nausea Ondansetron HCl 4 mg 02/12/25 02:04 Ondansetron Hcl Odt 4 Mg Tablet PO Q6H PRN nausea and vomiting Simethicone 0.6 ml 02/14/25 13:00 02/14/25 13:01 Simethicone Oral Suspension 20 Mg/0.3 Ml 30 Ml Bottle PO 1.8 ml ONCE PRN Administration Gas Discomfort Sitagliptin Phosphate 100 mg 02/12/25 09:00 02/14/25 08:50 Sitagliptin Phosphate 100 Mg Tablet PO 100 mg QAM CHRISTIANNE Administration Radiology Results: ITS Impressions Chest X-Ray 02/11/25 16:55 IMPRESSION: 1. Small opacities in the mid and lower lungs. Differential includes atelectasis/scarring or infiltrates. Head CT 02/11/25 18:57 Impression: No acute intracranial hemorrhage or suspicious mass effect. Chest/Abdomen/Pelvis CT 02/11/25 19:10 IMPRESSION: Findings suggesting prior granulomatous disease. Multiple well-circumscribed foci of decreased attenuation are identified within the bilateral kidneys, too small to characterize on the current study. No acute findings within the chest, abdomen or pelvis to account for patient's presentation. Brain MRI 02/14/25 11:07 IMPRESSION: 1. Moderate scattered age-appropriate cerebral and pontine white matter T2 hyperintensity consistent with chronic small vessel ischemic disease. No acute intracranial process. 2. Single tiny focus of susceptibility artifact in the right frontoparietal white matter consistent with sequela of chronic microhemorrhage as can be seen with hypertension. Labs Labs: Laboratory Results - last 24 hr 02/13/25 02/14/25 02/14/25 19:33 05:29 08:02 WBC 18.3 H RBC 3.71 L Hgb 9.8 L Hct 30.6 L MCV 82.5 MCH 26.4 MCHC 32.0 RDW 14.9 H Plt Count 335 MPV 9.0 Immature Gran % (Auto) 1.0 H Neut % (Auto) 78.5 H Lymph % (Auto) 10.8 L [place] % (Auto) 8.6 H Eos % (Auto) 0.7 Baso % (Auto) 0.4 Lymph # (Auto) 1.97 [place] # (Auto) 1.6 H Eos # (Auto) 0.1 Baso # (Auto) 0.1 Abs Immat Gran (auto) 0.18 H Absolute Neuts (auto) 14.4 H Absolute Nucleated RBC 0.000 Nucleated RBC % 0.0 Sodium 131 L Potassium 4.1 Chloride 100 Carbon Dioxide 27 Anion Gap 4 BUN 11 D Creatinine 0.78 Estim Creat Clear Calc 42 Estimated GFR > 60 Glucose 139 H POC Capillary Glucose 198 H 158 H Calcium 9.6 Phosphorus 2.6 Magnesium 1.5 L Total Bilirubin 0.4 AST 21 ALT 12 Alkaline Phosphatase 90 Total Protein 6.1 L Albumin 3.2 L 02/14/25 02/14/25 02/14/25 11:48 11:58 13:08 WBC RBC Hgb Hct MCV MCH MCHC RDW Plt Count MPV Immature Gran % (Auto) Neut % (Auto) Lymph % (Auto) [place] % (Auto) Eos % (Auto) Baso % (Auto) Lymph # (Auto) [place] # (Auto) Eos # (Auto) Baso # (Auto) Abs Immat Gran (auto) Absolute Neuts (auto) Absolute Nucleated RBC Nucleated RBC % Sodium Potassium Chloride Carbon Dioxide Anion Gap BUN Creatinine Estim Creat Clear Calc Estimated GFR Glucose POC Capillary Glucose 179 H 163 H Calcium Phosphorus Magnesium 2.3 Total Bilirubin AST ALT Alkaline Phosphatase Total Protein Albumin 02/14/25 16:40 WBC RBC Hgb Hct MCV MCH MCHC RDW Plt Count MPV Immature Gran % (Auto) Neut % (Auto) Lymph % (Auto) [place] % (Auto) Eos % (Auto) Baso % (Auto) Lymph # (Auto) [place] # (Auto) Eos # (Auto) Baso # (Auto) Abs Immat Gran (auto) Absolute Neuts (auto) Absolute Nucleated RBC Nucleated RBC % Sodium Potassium Chloride Carbon Dioxide Anion Gap BUN Creatinine Estim Creat Clear Calc Estimated GFR Glucose POC Capillary Glucose 140 H Calcium Phosphorus Magnesium Total Bilirubin AST ALT Alkaline Phosphatase Total Protein Albumin
[2025-02-14] MEDS: ALPRAZolam (*CRX) 0.5 MG TABLET 1 MG PO (21:05)
[2025-02-14] MEDS: AZELASTINE HCL NASAL 0.1% 137 MCG/SPR 30 ML BTL 1 SPRAY NASAL (21:05)
[2025-02-15] VITALS: PULSE 70
[2025-02-15 01:07] LABS: Osmolality, Urine 277 mOsmol/kg (.)
[2025-02-15 04:00] VITALS: PULSE 75
[2025-02-15 05:06] VITALS: BP 141/57; PULSE 89; RESP 17; TEMP 36.6; O2SAT 95
[2025-02-15 06:58] LABS: Hematocrit 31.6 % (37.0-47.0); Hemoglobin 10.2 g/dL (12.0-15.0); Immature Granulocyte Percent A 0.8 % (0-0.5); Lymphocytes Absolute Auto 2.14 K/mm3 (0.9-3.2); Mean Corpuscular HGB Conc 32.3 g/dl (32-36); Mean Corpuscular Hemoglobin 26.6 pg (26-34); Mean Corpuscular Volume 82.3 fl (80-100); Nucleated Red Blood Cells Absolute Auto 0.000 K/mm3 (0.0-0.012); Nucleated Red Blood Cells Perc 0.0 % (0.0-0.2); Platelet Count Result 354 k/mm3 (150-375); Red Blood Count 3.84 M/mm3 (4.2-5.4); White Blood Count 15.9 K/mm3 (4.5-10.0)
[2025-02-15 07:25] LABS: Alanine Aminotransferase 12 U/L (6-35); Albumin Level 3.4 g/dL (3.5-5.1); Alkaline Phosphatase 101 U/L (38-126); Anion Gap 4 mmol/L (4-12); Aspartate Amino Transferase 22 U/L (14-36); Bilirubin,Total 0.5 mg/dL (0.2-1.3); Blood Urea Nitrogen 10 mg/dL (7-17); Calcium 9.6 mg/dL (8.4-10.2); Carbon Dioxide 27 mmol/L (22-30); Chloride 99 mmol/L (98-107); Estimated CRCL calculation 43 ml/min; Estimated Glomerular Filt Rate > 60; Glucose 115 mg/dL (65-110); Magnesium 1.7 mg/dL (1.6-2.3); Potassium 3.8 mmol/L (3.4-5.0); Sodium 130 mmol/L (137-145); Total Protein 6.3 g/dL (6.3-8.2)
[2025-02-15 09:51] VITALS: PULSE 89
[2025-02-15] MEDS: FUROSEMIDE 20 MG TABLET PO (09:51)
[2025-02-15] MEDS: GABAPENTIN 300 MG CAPSULE 600 MG PO (09:51)
[2025-02-15] MEDS: ATORVASTATIN 20 MG TABLET PO (09:51)
[2025-02-15] MEDS: FLUTICASONE PROPIONATE 0.05% NA SPR 16 GM BTL (*BKC) 1 SPRAY NASAL (09:52)
[2025-02-15] MEDS: AZELASTINE HCL NASAL 0.1% 137 MCG/SPR 30 ML BTL 1 SPRAY NASAL (09:52)
--- NOTE | 2025-02-15 11:08 | P.PNIM_ITS ---
Progress Note: A&P Assessment and Plan (1) Shakiness: Code(s): R25.1 - Tremor, unspecified Status: Acute Assessment and Plan: -Unexplained gross tremors/chills with episodes that can last moments to 15+ minutes - Per patient and family patient stays completely aware during the episode however is unable to control her head and limbs with full body shaking -New symptoms on day of admission, no prior similar symptoms -Consult Neurology Episode of generalized weakness and shaking rule out the possibility of the seizure versus hypoglycemic episode Plan is to obtain MRI of the brain, and EEG and further testing accordingly. neurology is following - MRI completed neurology following- suggestions: carotid doppler and lipid panel- both ordered (2) Esophageal stricture: Code(s): K22.2 - Esophageal obstruction Status: Acute Assessment and Plan: -Acute/recurrent condition limiting oral intake -Patient scheduled for procedure on 02/[address] Weinberg -GI consult * EGD with dilation ordered for tomorrow * NPO after midnight * decrease Protonix to 40 mg IV daily and change to PO following dilation if dysphagia improves * egd completed. GI note reviewed: Biopsies were taken to check for eosinophilic esophagitis, which is unlikely in this patient. Achalasia is a more likely diagnosis that needs to be ruled out. A referral for an esophageal manometry at [facility] has been placed. Our office will contact her, and the patient will be called to schedule the test. The patient can be discharged and will receive instructions for the manometry soon. (3) Hyponatremia: Code(s): E87.1 - Hypo-osmolality and hyponatremia Status: Acute Assessment and Plan: -Likely contributing factor for weakness and tremors -Likely multifactorial causes including medications, stress related to hypoglycemia, rapidly shifting glucose levels and nutrition -Baseline sodium usually in low 130s, today 122 in ER -Poor nutrition related to need for esophageal dilation (scheduled for 02/14) -Dehydration suspected, IV fluids in ER with slight improvement -Stop HCTZ, patient also on furosemide -Add urine osmolality, serum osmolality, and urine sodium ordered -Adrenal insufficiency rule out: cortisol and TSH ordered Na 130 today- trending up (4) Hypomagnesemia: Code(s): E83.42 - Hypomagnesemia Status: Acute Assessment and Plan: -Acute on chronic presentation, 1.5 on admission -Magnesium 2 grams IV in ER -Stop HCTZ Repeat Mag WNL. (5) Leukocytosis: Qualifiers: Leukocytosis type: unspecified Qualified Code(s): D72.829 - Elevated white blood cell count, unspecified Code(s): D72.829 - Elevated white blood cell count, unspecified Status: Acute Assessment and Plan: - Elevated WBC of 20.9 on admission but no infectious source identified as well as no fever - UA unremarkable - Chest/abdomen/pelvis CT: No acute findings within the chest, abdomen or pelvis to account for patient's presentation. - WBC downtrending without intervention, continue to trend -------- slightly increased. IS, ambulation ------- 02/15 trending down 15.9 (down from 18.3) (6) Weakness: Code(s): R53.1 - Weakness Status: Acute Assessment and Plan: -unexplained shaking/gross tremors numerous times today -poor dietary intake related to need for esophageal dilation - PT/OT (7) GERARDO (acute kidney injury): Code(s): N17.9 - Acute kidney failure, unspecified Status: Acute Assessment and Plan: - GERARDO on CKD, baseline GFR in the 50s, was 39 on admission - likely related to dehydration as patient endorsed poor oral intake and GERARDO resolved with IV fluids - Hold HCTZ, blood pressures remian stable - avoid new nephrotoxins - monitor I/O - renally dose medications (8) Diabetes mellitus with chronic kidney disease: Code(s): E11.22 - Type 2 diabetes mellitus with diabetic chronic kidney disease Status: Acute Assessment and Plan: -HGB A1c 6.5 -Recent hypoglycemia episodes the past few days -Endocrine office stopped glimepiride, continue Tradjenta -ACHS glucose checks with low dose SSI (due to morning episodes of hypoglycemia past few days) -Glucose levels stable, continue to monitor (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, with stage 1 through stage 4 chronic kidney disease, or unspecified chronic kidney disease: Code(s): I13.10 - Hypertensive heart and chronic kidney disease without heart failure, with stage 1 through stage 4 chronic kidney disease, or unspecified chronic kidney disease Status: Chronic Assessment and Plan: HTN with Stage 3 CKD history - Continue amlodipine 10 mg daily, carvedilol 12.5 mg BID, lisinopril 5 mg daily, and lasix 20 mg daily - Discontinue hydrochlorothiazide due to hyponatremia, hypomagnesemia and GERARDO on CKD - Continue to monitor, blood pressures remain stable (10) Breast cancer, right breast: Qualifiers: Breast location: unspecified site of breast Estrogen receptor status: unspecified Patient sex: female Qualified Code(s): C50.911 - Malignant neoplasm of unspecified site of right female breast Code(s): C50.911 - Malignant neoplasm of unspecified site of right female breast Status: Chronic Assessment and Plan: -History noted, continue anastrozole (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 These last 5-6 minutes. She had another spell last night. In between she does not have any shakiness or tremulousness. No preceding trauma or infectious illness. EEG was performed did not show any abnormality. MRI of the brain was also performed today which shows chronic changes however no evidence for acute infarct. The patient uses a walker to get around at home. Patient's was present the time of the evaluation. She also history of diabetes mellitus. During the hospitalization since he has been not been noted to have any hypoglycemic spell. Review of Systems Review of Systems: All systems reviewed & are unremarkable except as noted in HPI and below Exam Narrative: General: female in no acute respiratory distress who is nontoxic appearing, sitting up in bed. HEENT: Normocephalic. Atraumatic. PERRLA. Chronic anisocoria left. Extraocular movement intact. Sclera clear and anicteric. No facial asymmetry. Chest: Lungs are clear to auscultation bilaterally. CV: Heart was regular rate and rhythm. Abd: Abdomen was soft. Nontender. Nondistended. Positive bowel sounds. Ext: No clubbing, cyanosis, or edema. DP pulses bilaterally. Neuro: Patient is alert and oriented x3. Strength is symmetrical in upper and lower extremities. Speech is clear. Const: General: comfortable Objective Data Vital Signs Vital Signs: Vital Signs - 24 hr 02/14/25 11:19 02/14/25 12:00 02/14/25 13:13 Temperature 96.7 F L Pulse Rate 72 80 Respiratory Rate 18 Blood Pressure 128/56 L Pulse Oximetry 97 Oxygen Delivery Room Air Room Air 02/14/25 13:39 02/14/25 13:49 02/14/25 13:59 Temperature Pulse Rate 73 71 72 Respiratory Rate 15 14 15 Blood Pressure 114/53 L 118/53 L 130/60 Pulse Oximetry 96 96 96 Oxygen Delivery Room Air Room Air Room Air 02/14/25 14:00 02/14/25 16:00 02/14/25 19:53 Temperature 98.0 F 98.2 F Pulse Rate 82 77 78 Respiratory Rate 18 18 Blood Pressure 135/57 L 136/50 L Pulse Oximetry 97 97 Oxygen Delivery 02/14/25 20:00 02/14/25 21:04 02/15/25 00:00 Temperature Pulse Rate 74 88 70 Respiratory Rate Blood Pressure Pulse Oximetry Oxygen Delivery 02/15/25 04:00 02/15/25 05:06 02/15/25 09:51 Temperature 97.9 F Pulse Rate 75 89 89 Respiratory Rate 17 Blood Pressure 141/57 H Pulse Oximetry 95 Oxygen Delivery Intake/Output Intake/Output: Intake & Output 02/12/25 02/13/25 02/14/25 02/15/25 23:59 23:59 23:59 23:59 Intake Total 2280 3501.7 3545 710 Output Total 3450 1500 2500 800 Balance -1170 2001.7 1045 -90 Meds/Results Medications: Active Medications Generic Name Dose Route Start Last Admin Trade Name Freq PRN Reason Stop Dose Admin Acetaminophen 650 mg 02/11/25 20:24 Acetaminophen 325 Mg Tablet PO Q4H PRN Mild Pain (1-3) or Fever Alprazolam 1 mg 02/12/25 02:04 02/14/25 21:05 Alprazolam (*Crx) 0.5 Mg Tablet PO 1 mg Q12HR PRN Administration anxiety Amlodipine Besylate 10 mg 02/12/25 09:00 02/15/25 09:51 Amlodipine Besylate 10 Mg Tablet PO 10 mg DAILY CHRISTIANNE Administration Atorvastatin Calcium 20 mg 02/12/25 09:00 02/15/25 09:51 Atorvastatin 20 Mg Tablet PO 20 mg DAILY CHRISTIANNE Administration Azelastine HCl 1 spray 02/12/25 09:00 02/15/25 09:52 Azelastine Hcl Nasal 0.1% 137 Mcg/Spr 30 Ml Btl NASAL 1 spray Q12HR CHRISTIANNE Administration Carvedilol 12.5 mg 02/12/25 09:00 02/15/25 09:51 Carvedilol 12.5 Mg Tablet PO 12.5 mg Q12HR CHRISTIANNE Administration Dextrose 12.5 gm 02/11/25 20:44 Dextrose 50% 25 Gm/50 Ml Syringe IV PUSH PRN PRN Hypoglycemia Protocol Fluticasone Propionate 1 spray 02/12/25 09:00 02/15/25 09:52 Fluticasone Propionate 0.05% Na Spr 16 Gm Btl (*Bkc) NASAL 1 spray DAILY CHRISTIANNE Administration Furosemide 20 mg 02/12/25 09:00 02/15/25 09:51 Furosemide 20 Mg Tablet PO 20 mg DAILY CHRISTIANNE Administration Gabapentin 600 mg 02/12/25 09:00 02/15/25 09:51 Gabapentin 300 Mg Capsule PO 600 mg BID CHRISTIANNE Administration Glucagon 1 mg 02/11/25 20:44 Glucagon For Inj 1 Mg Vial IM PRN PRN Hypoglycemia Protocol Glucose 15 gm 02/11/25 20:44 Glucose Oral Gel 15 Gm Of Glucse In 37.5 Gm Tube PO PRN PRN Hypoglycemia Protocol Sodium Chloride 1,000 mls @ 100 mls/hr 02/11/25 20:45 02/15/25 00:49 Normal Saline Iv IV CONT 100 mls/hr .Q10H CHRISTIANNE Infusion Dextrose 1,000 mls @ 100 mls/hr 02/11/25 20:44 Dextrose 5% 1,000 Ml IVPB PRN PRN Hypoglycemia Protocol Insulin Aspart 2 - 5 units 02/12/25 08:00 02/15/25 08:18 Insulin Aspart (*Bkc) 100 Units/Ml SUB-Q Not Given [facility] Protocol Lisinopril 5 mg 02/12/25 09:00 02/15/25 09:51 Lisinopril 5 Mg Tablet PO 5 mg DAILY CHRISTIANNE Administration Ondansetron HCl 4 mg 02/11/25 20:24 Ondansetron Inj 4 Mg/2 Ml Vial IV PUSH Q4H PRN Nausea Ondansetron HCl 4 mg 02/12/25 02:04 Ondansetron Hcl Odt 4 Mg Tablet PO Q6H PRN nausea and vomiting Simethicone 0.6 ml 02/14/25 13:00 02/14/25 13:01 Simethicone Oral Suspension 20 Mg/0.3 Ml 30 Ml Bottle PO 1.8 ml ONCE PRN Administration Gas Discomfort Sitagliptin Phosphate 100 mg 02/12/25 09:00 02/15/25 09:51 Sitagliptin Phosphate 100 Mg Tablet PO 100 mg QAM CHRISTIANNE Administration Radiology Results: ITS Impressions Chest X-Ray 02/11/25 16:55 IMPRESSION: 1. Small opacities in the mid and lower lungs. Differential includes atelectasis/scarring or infiltrates. Head CT 02/11/25 18:57 Impression: No acute intracranial hemorrhage or suspicious mass effect. Chest/Abdomen/Pelvis CT 02/11/25 19:10 IMPRESSION: Findings suggesting prior granulomatous disease. Multiple well-circumscribed foci of decreased attenuation are identified within the bilateral kidneys, too small to characterize on the current study. No acute findings within the chest, abdomen or pelvis to account for patient's presentation. Brain MRI 02/14/25 11:07 IMPRESSION: 1. Moderate scattered age-appropriate cerebral and pontine white matter T2 hyperintensity consistent with chronic small vessel ischemic disease. No acute intracranial process. 2. Single tiny focus of susceptibility artifact in the right frontoparietal white matter consistent with sequela of chronic microhemorrhage as can be seen with hypertension. Labs Labs: Laboratory Results - last 24 hr 02/12/25 02/14/25 02/14/25 17:47 11:48 11:58 WBC RBC Hgb Hct MCV MCH MCHC RDW Plt Count MPV Immature Gran % (Auto) Neut % (Auto) Lymph % (Auto) [place] % (Auto) Eos % (Auto) Baso % (Auto) Lymph # (Auto) [place] # (Auto) Eos # (Auto) Baso # (Auto) Abs Immat Gran (auto) Absolute Neuts (auto) Absolute Nucleated RBC Nucleated RBC % Sodium Potassium Chloride Carbon Dioxide Anion Gap BUN Creatinine Estim Creat Clear Calc Estimated GFR Glucose POC Capillary Glucose 179 H Calcium Phosphorus Magnesium 2.3 Total Bilirubin AST ALT Alkaline Phosphatase Total Protein Albumin Urine Osmolality 277 02/14/25 02/14/25 02/14/25 13:08 16:40 19:47 WBC RBC Hgb Hct MCV MCH MCHC RDW Plt Count MPV Immature Gran % (Auto) Neut % (Auto) Lymph % (Auto) [place] % (Auto) Eos % (Auto) Baso % (Auto) Lymph # (Auto) [place] # (Auto) Eos # (Auto) Baso # (Auto) Abs Immat Gran (auto) Absolute Neuts (auto) Absolute Nucleated RBC Nucleated RBC % Sodium Potassium Chloride Carbon Dioxide Anion Gap BUN Creatinine Estim Creat Clear Calc Estimated GFR Glucose POC Capillary Glucose 163 H 140 H 186 H Calcium Phosphorus Magnesium Total Bilirubin AST ALT Alkaline Phosphatase Total Protein Albumin Urine Osmolality 02/15/25 02/15/25 05:53 07:54 WBC 15.9 H RBC 3.84 L Hgb 10.2 L Hct 31.6 L MCV 82.3 MCH 26.6 MCHC 32.3 RDW 15.2 H Plt Count 354 MPV 9.3 Immature Gran % (Auto) 0.8 H Neut % (Auto) 75.1 H Lymph % (Auto) 13.5 L [place] % (Auto) 8.9 H Eos % (Auto) 1.3 Baso % (Auto) 0.4 Lymph # (Auto) 2.14 [place] # (Auto) 1.4 H Eos # (Auto) 0.2 Baso # (Auto) 0.1 Abs Immat Gran (auto) 0.12 H Absolute Neuts (auto) 12.0 H Absolute Nucleated RBC 0.000 Nucleated RBC % 0.0 Sodium 130 L Potassium 3.8 Chloride 99 Carbon Dioxide 27 Anion Gap 4 BUN 10 Creatinine 0.76 Estim Creat Clear Calc 43 Estimated GFR > 60 Glucose 115 H POC Capillary Glucose 159 H Calcium 9.6 Phosphorus 3.0 Magnesium 1.7 Total Bilirubin 0.5 AST 22 ALT 12 Alkaline Phosphatase 101 Total Protein 6.3 Albumin 3.4 L Urine Osmolality Quality VTE Prophylaxis VTE prophylaxis: mechanical ordered
[2025-02-15 14:00] VITALS: BP 126/64; PULSE 81; RESP 18; TEMP 36.1; O2SAT 93
--- NOTE | 2025-02-15 14:27 | P.DS_ITS ---
DS: Admitting Diagnosis Discharge Date 02/15 Admitting Diagnosis tremor DS: Discharge Diagnosis Discharge Diagnosis (1) Shakiness: Code(s): R25.1 - Tremor, unspecified Status: Acute (2) Esophageal stricture: Code(s): K22.2 - Esophageal obstruction Status: Acute (3) Hyponatremia: Code(s): E87.1 - Hypo-osmolality and hyponatremia Status: Acute (4) Hypomagnesemia: Code(s): E83.42 - Hypomagnesemia Status: Acute (5) Leukocytosis: Qualifiers: Leukocytosis type: unspecified Qualified Code(s): D72.829 - Elevated white blood cell count, unspecified Code(s): D72.829 - Elevated white blood cell count, unspecified Status: Acute (6) Weakness: Code(s): R53.1 - Weakness Status: Acute (7) GERARDO (acute kidney injury): Code(s): N17.9 - Acute kidney failure, unspecified Status: Acute (8) Diabetes mellitus with chronic kidney disease: Code(s): E11.22 - Type 2 diabetes mellitus with diabetic chronic kidney disease Status: Acute (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, with stage 1 through stage 4 chronic kidney disease, or unspecified chronic kidney disease: Code(s): I13.10 - Hypertensive heart and chronic kidney disease without heart failure, with stage 1 through stage 4 chronic kidney disease, or unspecified chronic kidney disease Status: Chronic (10) Breast cancer, right breast: Qualifiers: Breast location: unspecified site of breast Estrogen receptor status: unspecified Patient sex: female Qualified Code(s): C50.911 - Malignant neoplasm of unspecified site of right female breast Code(s): C50.911 - Malignant neoplasm of unspecified site of right female breast Status: Chronic (11) 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 Several issues were addressed: Decreased appetite/Hx of esophageal stricture/GERD: Last EGD with dilation 01/14/2023 at which time she was noted to have an esophageal stricture and NERD. Prior to admission patient was on omeprazole [address] chest/abd/pelvis this admission was unremarkable from a GI standpoint. No recent swallow studies available. She admits to dysphagia with solid foods and pills but no significant issues with swallowing liquids. This dysphagia has been slowly returning recently. 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 DDX: Esophageal stricture versus motility disorder versus inadequate acid suppression less likely neoplasm. * EGD with dilation 02/14 * See DR Weinberg note: An EGD report found no evidence of obstruction, strictures, webs, or rings. Biopsies were taken to check for eosinophilic esophagitis, which is unlikely in this patient. Achalasia is a more likely diagnosis that needs to be ruled out. A referral for an esophageal manometry at [facility] has been placed. Our office will contact her, and the patient will be called to schedule the test. The patient can be discharged and will receive instructions for the manometry soon. #tremors neurology was consulted See recommendations from DR Jordan: the patient is having spells of tremulousness on and off for last few days. Her EEG did not show any abnormality. I reviewed MRI of the brain which shows some white matter changes however no acute findings were noted. I will go ahead suggest checking her carotid Doppler study and lipid profile and continue to observe for the spells of tremulousness. Possibility of seizure disorder versus metabolic tremor are being considered but are inconclusive at this time there is no impairment of her consciousness during the time she starts to be shaky. BUN creatinine are within normal range at this time. Serum sodium was mildly low at 131. Doppler was ordered and completed. IMPRESSION: 1. Less than 50% stenosis in the right internal carotid artery by sonographic criteria. 2. 50-69% stenosis in the left internal carotid artery by sonographic criteria. Lipid panel ordered for am (fasting) but pt wants to leave, so will be done as an outpt. Will repeat labs to check for Na, K,mg in 1-2 weeks prior to f/u with PCP. # hyponatremia/electrolite imbalance Stopped hydrochlorothiazide as pt on furosemide managed per cardiology for leg swelling # gerardo - GERARDO on CKD, baseline GFR in the 50s, was 39 on admission - likely related to dehydration as patient endorsed poor oral intake and GERARDO resolved with IV fluids - Hold HCTZ, blood pressures remian stable - avoid new nephrotoxins - monitor I/O - renally dose medications # t2dm -HGB A1c 6.5 -Recent hypoglycemia episodes the past few days -Endocrine office stopped glimepiride, continue Tradjenta -Glucose levels stable Status at Discharge Functional status at discharge: uses cane/walker Overall status at discharge: patient is progressing back to baseline Time Spent with Patient Time attestation: Total time spent providing and/or coordinating discharge services: Time spent: Greater than 30 minutes Exam Narrative: General: female in no acute respiratory distress who is nontoxic appearing, sitting up in bed. HEENT: Normocephalic. Atraumatic. PERRLA. Chronic anisocoria left. Extraocular movement intact. Sclera clear and anicteric. No facial asymmetry. Chest: Lungs are clear to auscultation bilaterally. CV: Heart was regular rate and rhythm. Abd: Abdomen was soft. Nontender. Nondistended. Positive bowel sounds. Ext: No clubbing, cyanosis, or edema. DP pulses bilaterally. Neuro: Patient is alert and oriented x3. Strength is symmetrical in upper and lower extremities. Speech is clear. Const: General: comfortable DS: Data Data Completed and Pending Completed studies during hospitalization: Pending at discharge 02/14/25 13:39 Surgical [PTH] Routine Labs on day of discharge: Labs from last 24 hours 02/15/25 02/15/25 02/15/25 11:33 07:54 05:53 WBC 15.9 H RBC 3.84 L Hgb 10.2 L Hct 31.6 L MCV 82.3 MCH 26.6 MCHC 32.3 RDW 15.2 H Plt Count 354 MPV 9.3 Immature Gran % (Auto) 0.8 H Neut % (Auto) 75.1 H Lymph % (Auto) 13.5 L Faulkner % (Auto) 8.9 H Eos % (Auto) 1.3 Baso % (Auto) 0.4 Lymph # (Auto) 2.14 Faulkner # (Auto) 1.4 H Eos # (Auto) 0.2 Baso # (Auto) 0.1 Abs Immat Gran (auto) 0.12 H Absolute Neuts (auto) 12.0 H Absolute Nucleated RBC 0.000 Nucleated RBC % 0.0 Sodium 130 L Potassium 3.8 Chloride 99 Carbon Dioxide 27 Anion Gap 4 BUN 10 Creatinine 0.76 Estim Creat Clear Calc 43 Estimated GFR > 60 Glucose 115 H POC Capillary Glucose 149 H 159 H Calcium 9.6 Phosphorus 3.0 Magnesium 1.7 Total Bilirubin 0.5 AST 22 ALT 12 Alkaline Phosphatase 101 Total Protein 6.3 Albumin 3.4 L Urine Osmolality 02/14/25 02/14/25 02/12/25 19:47 16:40 17:47 WBC RBC Hgb Hct MCV MCH MCHC RDW Plt Count MPV Immature Gran % (Auto) Neut % (Auto) Lymph % (Auto) Faulkner % (Auto) Eos % (Auto) Baso % (Auto) Lymph # (Auto) Faulkner # (Auto) Eos # (Auto) Baso # (Auto) Abs Immat Gran (auto) Absolute Neuts (auto) Absolute Nucleated RBC Nucleated RBC % Sodium Potassium Chloride Carbon Dioxide Anion Gap BUN Creatinine Estim Creat Clear Calc Estimated GFR Glucose POC Capillary Glucose 186 H 140 H Calcium Phosphorus Magnesium Total Bilirubin AST ALT Alkaline Phosphatase Total Protein Albumin Urine Osmolality 277 Preliminary micro results at discharge 02/11/25 18:12 Blood Culture - Preliminary Blood 02/11/25 18:12 Blood Culture - Preliminary Blood Discharge Plan Discharge Attending physician on discharge: Odalys Watson Consulting providers: Darlene Taylor; Duncan Duggan Discharging Clinician: Edelmira Carreon Patient Disposition: Home Activity: november shower Diet: heart healthy Discharge Instructions: Stop hydrochlorothiazide and stop glimepiride. Your hg A1c 6.5 -Recent hypoglycemia episodes the past few days -Endocrine office stopped glimepiride, continue Tradjenta You were admitted for tremors and dysphagia. Gi and neurology were consulted. An EGD report found no evidence of obstruction, strictures, webs, or rings. Biopsies were taken to check for eosinophilic esophagitis. Achalasia is a more likely diagnosis that needs to be ruled out. A referral for an esophageal manometry at [facility] has been placed. DR Weinberg's office will contact you to schedule the test. Please ensure you f/u with GI about manometry. #tremors neurology was consulted See recommendations from DR Jordan: the patient is having spells of tremulousness on and off for last few days. Her EEG did not show any abnormality. I reviewed MRI of the brain which shows some white matter changes however no acute findings were noted. Doppler was ordered and completed. IMPRESSION: 1. Less than 50% stenosis in the right internal carotid artery by sonographic criteria. 2. 50-69% stenosis in the left internal carotid artery by sonographic criteria. Lipid panel ordered for am (fasting) but since you wanted to leave,it could be done as an outpatient. Will repeat labs to check for Na, K,mg in 1-2 weeks prior to f/u with PCP. Patient Instructions: Antibiotic Form Patient Language: [place] Citizen Stand Alone Forms: General Discharge Information Follow-up/Referrals: Angus Chamberlain MD [Primary Care Provider] - 2 Weeks Duncan Duggan MD [Physician] - 2 Weeks Hank Weinberg MD [Physician] - 2 Weeks Discharge Medications: Continued furosemide 20 mg tablet 20 mg PO DAILY Patient Comments: pt states not taking lisinopril 5 mg tablet 5 mg PO DAILY azelastine 137 mcg (0.1 %) spray,non-aerosol 137 mcg intranasal Q12H Qty: 30 0RF Rx Instructions: administer into each nostril fluticasone propionate 50 mcg/actuation spray,suspension 1 spray intranasal DAILY Qty: 16 0RF Rx Instructions: administer into each nostril (DME) Blood Glucose Test Strip See Rx Instructions .ROUTE .MEDSUPPLY Qty: 100 6RF Rx Instructions: As directed to test blood sugar once daily (DME) [place]anc[place] [facility] Instructions .ROUTE .MEDSUPPLY Qty: 200 10RF Rx Instructions: As directed to test blood suagr once daily (DME) blood-glucose meter [Accu-Chek Guide Glucose Meter] [facility] [place] Rx Instructions .ROUTE .MEDSUPPLY Qty: 1 0RF Rx Instructions: As directed to test BGL daily or as needed ondansetron 4 mg tablet,disintegrating 4 mg PO Q6H PRN (Reason: nausea and vomiting) Qty: 30 0RF omeprazole 40 mg capsule,delayed release(DR/EC) 40 mg PO DAILY Qty: 90 3RF carvedilol 12.5 mg tablet See Rx Instructions .ROUTE .COMPLEX Qty: 60 2RF Dose Instruction: TAKE 1 TABLET BY MOUTH TWICE DAILY Rx Instructions: TAKE 1 TABLET BY MOUTH TWICE DAILY atorvastatin 20 mg tablet 20 mg PO DAILY Qty: 90 2RF amlodipine 10 mg tablet See Rx Instructions .ROUTE .COMPLEX Qty: 90 0RF Dose Instruction: TAKE 1 TABLET BY MOUTH DAILY Rx Instructions: TAKE 1 TABLET BY MOUTH DAILY Tradjenta 5 mg tablet 5 mg PO QAM Qty: 90 1RF alprazolam 1 mg tablet 1 mg PO BID PRN (Reason: anxiety) Qty: 60 0RF gabapentin 600 mg tablet 600 mg PO BID Qty: 180 1RF Discontinued hydrochlorothiazide 25 mg tablet 25 mg PO DAILY Qty: 30 2RF Date of admission: 02/12/25 09:05 Primary Care Provider: Angus Chamberlain Admitting Provider: Gabino Edwards Attending physician on admission: Gabino Edwards Condition: Stable Quality VTE Prophylaxis VTE prophylaxis: mechanical ordered Hospitalist MIPS Heart Failure (Exclusion) Patient has history of Heart Transplant or Left Ventricular Assistive Device?: No IF YES, STOP HERE Heart Failure (Qualifier) Patient has current or prior documentation of LVEF less than or equal to 40%, or mod/servere depressed LVSF?: No IF NO, STOP HERE
[2025-02-16 18:08] LABS: Osmolality, Serum 273 mOsmol/kg (280-301)
== END 2025-02-15 15:19 | disposition home or self-care (01) | DRG 392 ==
LOC: ANHED 20:49 → ANH3MED 23:03
PROVIDERS: Emergency Medicine; Internal Medicine Gastroenterology; Nurse Practitioner; Student in an Organized Health Care Education/Training Program; Admitting Provider Internal Medicine; Emergency Provider Physician Assistant; PCP Family Medicine; Visit Provider Nurse Practitioner
PROC: 0DJ08ZZ Inspection of Upper Intestinal Tract, Via Natural or Artificial Opening Endoscopic (ICD-10-PCS; principal; 2025-02-14 08:00)
DX: K22.2 Esophageal obstruction (principal); E87.1 Hypo-osmolality and hyponatremia; N17.9 Acute kidney failure, unspecified; G45.9 Transient cerebral ischemic attack, unspecified; R25.1 Tremor, unspecified; E11.649 Type 2 diabetes mellitus with hypoglycemia without coma; K21.9 Gastro-esophageal reflux disease without esophagitis; D72.829 Elevated white blood cell count, unspecified; E78.5 Hyperlipidemia, unspecified; E11.42 Type 2 diabetes mellitus with diabetic polyneuropathy; E11.22 Type 2 diabetes mellitus with diabetic chronic kidney disease; E86.0 Dehydration; E83.42 Hypomagnesemia; H54.7 Unspecified visual loss; I12.9 Hypertensive chronic kidney disease with stage 1 through stage 4 chronic kidney disease, or unspecified chronic kidney disease; I25.2 Old myocardial infarction; I25.10 Atherosclerotic heart disease of native coronary artery without angina pectoris; N18.30 Chronic kidney disease, stage 3 unspecified; R53.1 Weakness; Z79.84 Long term (current) use of oral hypoglycemic drugs; Z85.3 Personal history of malignant neoplasm of breast; Z95.5 Presence of coronary angioplasty implant and graft; Z20.822 Contact with and (suspected) exposure to COVID-19
CPT/HCPCS: 36415; 70450; 70551; 71046; 71260; 74177; 80053; 80069; 81003; 82533; 82948; 83036; 83735; 83930; 83935; 84100; 84300; 84443; 85025; 87040; 87637; 88305; 93005; 93880; 95816; 96365; 96375; 97161; 97166; 97530; 99285; A9270; G0378; J1815; J2003; J2470; J2704; J3475; J7030; J7120; Q9967

== ENCOUNTER 2025-02-25 08:15 | Outpatient (CLI) | payer MEDICARE, OTHER, SELFPAY ==
--- OUTSIDE RECORDS SUMMARY | 2022-01-22 10:24 | XMS_ITS | Continuity of Care Document ---
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 Phone Jose VIDALES FACS, Alpesh Unavailable Unavailab le Allergies, Adverse Reactions, Alerts Substance Reaction Status Criticality No Known Allergies Active No Inform ation Medications Medication Instructions Dosage Effective Dates (start - stop) Status Comments Aspirin Low Dose 81 mg tablet,delayed release Adult Low Dose Aspirin - Active Xanax 1 mg tablet alprazolam - Active Arimidex 1 mg tablet anastrozole - Active Lipitor 20 mg tablet atorvastatin - Active Coreg 12.5 mg tablet carvedilol - Active Neurontin 250 mg/5 mL oral solution gabapentin - Active Januvia 100 mg tablet Januvia - Active lisinopril lisinopril - Active omeprazole 40 mg capsule,delayed release omeprazole - Active Restasis 0.05 % eye drops in a dropperette Restasis - Active Aldactone 25 mg tablet spironolactone - Active Procedures Procedure Date Office/outpatient Visit, Est Post-op Follow-up Visit Post-op Follow-up Visit Remove Cataract, Insert Lens Post-op Follow-up Visit Echo Exam Of Eye-Professional 0 Post-op Follow-up Visit Remove Cataract, Insert Lens Office/outpatient Visit, Est Echo Exam Of Eye Office/outpatient Visit, [facility] Frames Purchases BF Polycarb Sphcyl [place] To +/-4d .12-2d Anti-reflective Coating Polycarb Lens Per Lens Advance Directives Directive Yes / No Effective Date File Name No Information Encounters Encounter Description Practice Location Reason(s) For Visit Diagnoses Date Provider Providers Copied on Encounter [facility], [address] [place] [address] [address], [place], [place], [id number], tel:[phone] SEC Kimmie Galloway No Information 2 Jose Betts. [address] [place] [address] [address], [address], [place], [place], [address], [place]. tel:[phone] Office/outpat ient Visit, Est [facility], [address] [place] [address] [address], [place], [place], [address], tel:[phone] SEC [facility] No Information 8-201 0 Roxanne Stockton [address] [facility] , [address], [place], [place], [facility] [place], [place]. tel:[phone] [facility], [address] [place] [address] [address], [place], [place], [address], tel:[phone] SEC [facility] No Information 7-201 0 Roxanne Stokcton [address] [facility] , [address], [place], [facility] [place], [place]. tel:[phone] [facility], [address] [place] [address] [address], [place], [place], [address], tel:[phone] SEC [facility] No Information 0-201 0 Roxanne Stockton [address] [facility] , [address], [place], [address], [place]. tel:[phone] [facility], [address] [place] [address] [address], [place], [place], [address], tel:[phone] Nov [facility] No Information 9-201 0 Roxanne Stockton [address] , [address], [place], [facility] [place], [place]. tel:[phone] [facility], [address] [place] [address] [address], [place], [place], [address], [place] tel:[phone] SEC [facility] No Information May-1 3-201 0 Roxanne Garcia. [address] , [address], [place], [facility] [place], [place]. tel:[phone] Referring Provider: Radha Leger, [address], [place], [facility]. tel:[phone] [facility], [address] [place] [address] [address], [place], [place], [address], [place] tel:[phone] SEC [facility] No Information May-0 6-201 0 Roxanne Garcia. [address] [facility] , [address], [place], [facility] [place], [place]. tel:[phone] [facility], [address] [place] [address] [address], [place], [place], [address], [place] tel:[phone] [facility] No Information May-0 5-201 0 Roxanne Garcia. [address] [facility] , [address], [place], [facility] [place], [place]. tel:[phone] Office/outpat ient Visit, [facility], [address] [place] [address] [address], [place], [place], [address], [place] tel:[phone] SEC [facility] No Information Apr-2 9-201 0 Roxanne Stockton [address] , [address], [place], [facility] [place], [place]. tel:[phone] Referring Provider: Radha Leger, [address], [place], [facility]. tel:[phone] Office/outpat ient Visit, [facility], [address] [place] [address] [address], [place], [place], [address], tel:[phone] SEC [place] No Information Omari-0 8-200 9 Roxanne Garcia. [address], [address], [place], [address], [place]. tel:[phone] [facility], [address] [facility] [place] [address], [place], [place], [address], tel:[phone] SEC [facility] No Information 0 [address] [employer] [facility] . [address] [facility], [address], [place], [place], [address], [place]. tel:[phone] Referring Provider: Smith Dempsey MD S, [facility] [place], [address]. tel:[phone] g Provider: Jeniffer High, [address] [place] [address], [address]. tel:[phone] [facility], [address] [facility] [place], [facility] [address], [place], [place], [address], tel:[phone] SEC [facility] [place] No Information 0 [address] [employer] [facility] [employer] . [address] [facility], [address], [place], [place], [address], [place]. tel:[phone] Referring Provider: Smith Dempsey MD S, [address] [place], [address]. tel:[phone] g Provider: Jeniffer High, [address] [place] [address], [address]. tel:[phone] Family History Family Member Type Diagnosis Age At Onset No Information Payers Payer name Insurance type Covered constitution party ID Authoriza tion(s) No Information Social History Type Description Quantity Date Captured Comments Sex Female Smoking Status No Information Chief Complaint And Reason For Visit No Information Reason For Referral Reason For Referral No Information History Of Present Illness Encounter Date Complaint History Of Prese nt Illness No Information Functional Status Date Functional Assessmen t No Information Instructions Date Instruction Additional Infor mation No Information Assessments Type Assessment Date No Information Patient Care Teams Name Effective Dates (start - stop) Status Members No Information
--- OUTSIDE RECORDS SUMMARY | 2023-02-23 07:45 | XMS_ITS | Continuity of Care Document ---
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 spironolactone 50 mg tablet take 1 tablet by oral route every day 50 MG - Active Neurontin 600 mg tablet take 1 tablet by oral route 2 times every day 600 MG - Active aspirin 81 mg tablet,delayed release take 1 tablet by oral route every day 81 MG - Active Coreg 12.5 mg tablet take 1 tablet by oral route 2 times every day with food 12.5 MG - Active lisinopril 5 mg tablet take 1 tablet by oral route every day 5 MG - Active Lipitor 20 mg tablet take 1 Tablet by oral route every day 20 MG - Active anastrozole 1 mg tablet take 1 tablet by oral route every day 1 MG - Active omeprazole 40 mg capsule,delayed release take 1 capsule by oral route every day before a meal 40 MG - Active Januvia 100 mg tablet take 1 tablet by oral route every day 100 MG - Active Procedures Procedure Date OFFICE/OUTPATIENT VISIT, EST OFFICE/OUTPATIENT VISIT, EST OFFICE/OUTPATIENT VISIT, EST OFFICE/OUTPATIENT VISIT, [facility] PREV VISIT, NEW, 65 & OVER OFFICE/OUTPATIENT VISIT, NEW Advance Directives Directive Yes / No Effective Date File Name No Information Encounters Encounter Description Practice Location Reason(s) For Visit Diagnoses Date Provider Providers Copied on Encounter OFFICE/OUTPA TIENT VISIT, [facility], [address] [place], [id number], [place] tel:[phone] [facility] anxiety1 (chief complaint) dizziness1 (chief complaint) Generalized Anxiety DisorderEssential (primary) hypertensionEdemaDi zziness [address], [place], [place], [address] , [place]. tel:[phone] OFFICE/OUTPA TIENT VISIT, [facility], [address] [place], [id number], [place] tel:[phone] [facility] osteopenia 1 (chief complaint) GERD1 (chief complaint) anxiety1 (chief complaint) edema1 (chief complaint) Other specified disorder of bone densityGeneralized Anxiety DisorderEdemaConstr iction of esophagus [address] N[address] Silva [address], [place], [place], [address] , [place]. tel:[phone] OFFICE/OUTPA TIENT VISIT, [facility], [address] [place], [id number], [place] tel:[phone] [facility] dysphagia1 (chief complaint) DysphagiaConstricti on of esophagus [address], [address], [place], [place], [address] , [place]. tel:[phone] OFFICE/OUTPA TIENT VISIT, [facility], [address], [place], [place], [id number], [place] tel:[phone] [facility] DM (chief complaint) renal (chief complaint) anemia1 (chief complaint) anxiety1 (chief complaint) edema1 (chief complaint) Type 2 diabetes mellitus w/ diabetic neuropathyRenal diseaseAnemiaGenera lized Anxiety DisorderEdema [address], [facility] A, [place], [place], [id number] , [place]. tel:[phone] PREV VISIT, NEW, 65 & OVER [facility], [address], [place], [place], [address], [place] tel:[phone] [facility] physical (chief complaint) Encounter for general adult medical exam w abnormal findingsHypertensiv e cardiac and chronic kidney disease w/o cardiac failureGERD w/o esophagitisGenerali zed Anxiety DisorderType 2 diabetes mellitus w/ diabetic neuropathyOther spondylosis, lumbar region [address], [address], [place], [place], [id number] , [place]. tel: [phone] Family History Family Member Type Diagnosis Age At Onset Mother Problem Alive and well Brother Problem Alive and well Mother Problem still alive 100 dementia Sister Problem Diabetes mellitus Father Problem of 66 CAD Payers Payer name Insurance type Covered constitution party ID Authoriza tion(s) No Information Social History Type Description Quantity Date Captured Comments Alcohol Use Details No Caffeine Use Details Unknown Tobacco Use Status Current non-smoker Smoking Status Never smoker Sex Female Vital Signs Date / Time: Height Weight BMI Pulse Rate Blood Pressure Temperature Respiratory Rate Body Surface Area Head Circumference BMI percentile Pulse Ox Inhaled Ox 12:46 PM 61.00 in 174.90 lbs 33.0 5 kg/m eter (2) 77 /min 122/50 mm[Hg] 97.9 F 16 /min 93 Chief Complaint And Reason For Visit From encounter dated '02/23/2023 12:45'. anxiety1 (chief complaint). Description: Pt has chronic anxiety Pt denies any depression or any suicidal or homicidal thought. Pt denies any crying spells. Pt takes xanax PRN and she wants refill dizziness1 (chief complaint). Description: Pt c/o feeling dizziness for several days .Pt denies anyvertigo. Pt feels slightly off balance when she tries to stand up from sitting position Pt denies any chest pain or palpitation or sob or headache or syncope. Pt denies any ear pain or tinnitus Pt denies any vision change Plan Of Treatment Date Type Action Status Referral Ordered: OPERATIVE UPPER GI ENDOSCOPY ordered Referral Ordered: DXA BONE DENSITY, AXIAL ordered History Of Present Illness Encounter Date Complaint History Of Prese nt Illness anxiety1 Pt has chronic a nxiety Pt denies any depression or any suicidal or homicidal thought. Pt denies any crying spells. Pt takes xanax PRN and she wants refill dizziness1 Pt c/o feeling d izziness for several days .Pt denies any vertigo. Pt feels slightly off balance when she tries to stand up from sitting position Pt denies any chest pain or palpitation or sob or headache or syncope. Pt denies any ear pain or tinnitus Pt denies any vision change GERD1 Pt has chronic G ERD with recent dysphagia and difficulty with swallowing Pt is on omeprazole daily Pt had EGD done which showed esophageal stricture s/p dilation and she is doing well post procedure. Pt is able to swallow without any difficulty now osteopenia1 Pt has osteopeni a Pt takes calcium and D. pt denies any fx anxiety1 Pt has chronic a nxiety Pt denies any depression or any suicidal or homicidal thought Pt denies any crying spells Pt takes xanax PRn and doing ok edema1 Pt takes spirono lactone 50 mg and her LE edema resolved. dysphagia1 Pt c/o dysphagia and food stuck in midchest for several weeks. Pt states that she tries to drink water to flush down the food but the water just spills back up from her mouth. Pt denies any chest pain Pt takes omeprazole daily. Pt had EGD done last year which showed esophageal ring s/p ballon dilation. pt denies any sore throat DM Pt has DM with n europathy. Pt takes januvia. Her glucose is around 130s and her A1c is 7.0. Pt denies any polyuria, polydipsia. Pt takes neurontin for neuropathy both feet. renal Pt has borderlin e low renal function Pt has normal UO anemia1 Pt has mild norm ocytic anemia. Pt denies any blood loss . anxiety1 Pt has chronic a nxiety Pt denies any depression or any suicidal or homicidal thought Pt denies any crying spells Pt takes xanax PRn and doing ok edema1 Pt notices bilat eral LE edema recently Pt denies any sob or chest pain. Pt reji any PND or orthopnea Pt states that swelling seems worse toward end of the day and improves in the morning . physical Pt needs annual physical pt has CAD with stent. Pt sees cardiology. Pt takes lipitor, lisinopril, spironolactone and coreg and ASA Pt denies any chest pain Pt has DM Pt take januvia and her glucose is around 130s. Pt denies any polyuria, polydipsia. Pt has history of right breast Ca s/p right mastectomy. Pt is on anastrazole. Pt has peripheral neuropathy and she takes neurontin and doing ok. Pt also has chronic GERD Pt takes omeprazole and doing ok . Pt denies any dysphagia. Instructions Date Instruction Additional Infor jose No Information Assessments Type Assessment Date assessment Generalized Anxiety Disorder Mar assessment Essential (primary) hypertension assessment Edema assessment Dizziness Mental Status Date Cognitive Assessment Orientation - [place] ed to time, place, person, situation.
--- OUTSIDE RECORDS SUMMARY | 2025-02-25 08:24 | XMS_ITS ---
Author Name Auto Generated, Auto Generated Organization [employer] [facility] ices Address [address] [place] [address] Phone [phone] Care Team Providers Care Planning Aide Name Role Phone Raman Baptiste Unavailable Angus Chamberlain Unavailable [phone] Jimmy Salazar Unavailable [phone] Functional Status No Results Mental Status No [...]
--- OUTSIDE RECORDS SUMMARY | 2025-02-25 08:24 | XMS_ITS | Continuity of Care Document ---
Author Name [facility] Organization [facility] Care Team Providers Care Toolroom Attendant Name Role Phone [facility] Unavailable Unavailable Medications Combined list of outpatient medications from Department of Defense and Veterans Affairs facilities.Medications provided include 1) outpatient medications from the last 15 months, and 2) patient-reported medications. Medication Details Route Status Patient Instructions Prescription Expires Prescription Number Last Dispense Date Ordering Provider Order Date Order Qty Source ALPRAZOLAM (ALPRAZOLAM ), 1MG, TABLET, ORAL, SANDOZ, 500 ea. BOTTLE Active [id number] 2023 60 Pharmac y Data Transac tion Service Facilit y ANASTROZOLE (anastrozol e), 1 MG, TABLET, ORAL, AVET PHARMACEUT, 30 ea. BOTTLE Active [id number] 2023 90 Pharmac y Data Transac tion Service Facilit y AZELASTINE- FLUTICASONE (azelastine HCl/flutica sone propionate) , 137-50 MCG, SPRAY/PUMP, NASAL, APOTEX GRISEL, 23 g SQUEEZ BTL Active [id number] 4 2023 23 Pharmac y Data Transac tion Service Facilit y IYUZEH (latanopros t/PF), 0.005 %, DROPERETTE, OPHTHALMIC, [employer], 30 ea. VIAL Cancele d [id number] : 2023 0 Pharmac y Data Transac tion Service Facilit y IYUZEH (latanopros t/PF), 0.005 %, DROPERETTE, OPHTHALMIC, [employer], 30 ea. VIAL Active [id number] 2023 30 Pharmac y Data Transac tion Service Facilit y Allergies, Adverse Reactions, Alerts Combined list of allergies from Department of Defense and Veterans Affairs facilities. It does not include entries that were removed or entered in error. Substance Category Reaction Severity Reaction type Status Date Reported Comments Source AUGMENTIN Drug allergy (disorder) Unknown active 12/19/[address] [place] [address] Gagandeep B ([facility] [place] AZITHROMYCIN Drug allergy (disorder) Unknown active 12/19/[address] [place] [address] Gagandeep B [facility] [place] BIAXIN Drug allergy (disorder) Unknown active 12/19/[address] [place] [address] [employer] [facility] [place] CIPRO Drug allergy (disorder) Unknown active 12/19/[address] [place] [address] Gagandeep B [facility] [place] HYDROCODONE Drug allergy (disorder) Unknown active 12/19/[address] [place] [address] Gagandeep B [facility] MACROBID Drug allergy (disorder) Unknown active 12/19/[address] [place], [place] [address]B [facility] [place]) Social History Combined list of available smoking, tobacco, and other social history from Department of Defense and Veterans Affairs facilities. Social History Type Response Date Comment [facility] e This section is an empty social history section. DoD
--- OUTSIDE RECORDS SUMMARY | 2025-02-25 08:24 | XMS_ITS ---
Author Name Auto Generated, Auto Generated Organization [employer] [facility] ices Address [address] [place] [address] Phone [phone] Care Team Providers Care Loan Review Manager Name Role Phone Raman Baptiste Unavailable Angus Chamberlain Unavailable [phone] Jimmy Salazar Unavailable [phone] Functional Status No Results Mental Status No [...]
--- OUTSIDE RECORDS SUMMARY | 2025-02-25 08:26 | XMS_ITS | Encounter Summary ---
Author Organization [facility] Healthcare Address [address] [place] [address] Care Team Providers Care Doors Prefitter Name Role Phone Angus Chamberlain MD Primary Care Provider Randee Esparza Unavailable [phone] Jad Herring MD Primary Care Provider [phone] Angus Chamberlain MD Primary Care Provider Montana Kerns NP Unavailable [phone] Encounter Details Date Type Department Care Team (Late st Contact Info) Description 10/19/2017 [place] Only [facility] [place] [address] [place] [address] Scanning, Provider Social History Tobacco Use Types Packs/Day Years Used Date Smoking Tobacco: Never Smokeless Tobacco: Never Alcohol Use Standard Drinks/Week Comments No 0 (1 standard drink = 0.6 oz pur e alcohol) Comments Unknown Sex and Gender Information Value Date Recorded Sex Assigned at Not on file 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 Gender Identity Not on file Sexual Orientation Not on file documented as of this encounter Plan of Treatment Not on file documented as of this encounter Procedures Procedure Name Priority Date/Time Associated Diagnosis Comments SCAN - LABS 10/19/2017 documented in this encounter Results * SCAN - LABS (10/19/2017) us Provider Scanning Final Result documented in this encounter Visit Diagnoses Not on filedocumented in this encounter Care Teams Doors Prefitter Relationship Specialty Start Date End Date Angus Chamberlain MD [address] [facility] [address] [place] [address] PCP - General 10/01/16 02/14/23 Jad Herring MD [address] [place] [address] PCP - General Family Medicine 02/15/23 04/27/23 Angus Chamberlain MD [address] [facility] [address] [place] [address] PCP - General Family Medicine 04/28/23 [place] [address] TOR[address] GUEVARA [facility] [address] [place] [address] Physician Senior Network Security Architect Orthopedic Surgery 08/15/20 [place] [address] TORIB[address] GUEVARA [facility] [address] [place] [address] Nurse Practitioner Nurse Practitioner 06/11/24 documented as of this encounter
--- OUTSIDE RECORDS SUMMARY | 2025-02-25 08:26 | XMS_ITS | Encounter Summary ---
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 Gender Identity Not on file Sexual Orientation Not on file documented as of this encounter Plan of Treatment Not on file documented as of this encounter Visit Diagnoses Not on filedocumented in this encounter Care Teams Business Support Manager Relationship Specialty Start Date End Date Angus Chamberlain MD [address] [facility] [address] [place] [address] PCP - General Family Medicine 04/28/23 [place] [address] [address] [facility] [address] [place], [place] [id number] Physician Equipment Operator Warehouse Orthopedic Surgery 08/15/20 [place] [address] [address] [facility] [address] [place] [address] Nurse Practitioner Nurse Practitioner 06/11/24 documented as of this encounter
--- OUTSIDE RECORDS SUMMARY | 2025-02-25 08:26 | XMS_ITS ---
Author Organization [facility] [address] Address [address] [place] [address] Care Team Providers Care Budget Counselor Name Role Phone Randee Esparza Unavailable [phone] Angus Chamberlain MD Primary Care Provider Montana Kerns NP Unavailable [phone] Active Problems Problem Noted Date Diagnosed Date [...] 24-2 Assessment & Plan (07/18/2024 10:15 PM FRUIT SORTER): Referred by Dr. Brooks for NTG OU. [...] scheduled Assessment & Plan (07/18/2024 10:13 PM FRUIT SORTER): F/U with Dr. Cheung as scheduled Bilateral [...] 07/03/20 Assessment & Plan (07/14/2020 3:32 PM FRUIT SORTER): By MRI the patient was found to [...] proceed Assessment & Plan (07/03/2020 9:20 AM FRUIT SORTER): Patient is experiencing recurring locking her knee [...] activities. Assessment & Plan (08/12/2022 11:06 AM FRUIT SORTER): Patient has reactive synovitis of both of [...] seating. Assessment & Plan (06/19/2020 5:14 PM FRUIT SORTER): Patient's right knee is doing well. Her left knee is improved following the injection although she may have more medially based pain as that is the location of her more advanced arthritis. 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 Assessment & Plan (07/27/2018 10:06 AM FRUIT SORTER): Patient has moderate arthritic changes of the [...] ione heart with stable angina pectoris 03/23/2017 Malignant [...]
--- OUTSIDE RECORDS SUMMARY | 2025-02-25 08:26 | XMS_ITS | Clinical Summary ---
Author Organization [facility] [address] Address [address] [place] [address] Care Team Providers Care Supervisor Keymodule Assembly Name Role Phone Randee Esparza Unavailable [phone] Angus Chamberlain MD Primary Care Provider Montana Kerns NP Unavailable [phone] Allergies Active Allergy Reactions Criticality Noted Date [...] mg SL tabletIndications: Coronary artery disease of [place] artery of [place] heart with stable angina pectoris Place 1 [...] 25 mg tabletIndications: Coronary artery disease of [place] artery of [place] heart with stable angina pectoris,Hypertens ion associated with diabetes (HCC) Take 1 tablet (25 mg total) by mouth 2 (two) times a day with meals 180 tablet 3 4 025 Active lisinopriL (PRINIVIL,ZESTRIL) 5 mg tabletIndications: Hypertension associated with diabetes (HCC) Take 1 tablet (5 mg total) by mouth daily 30 tablet 11 4 025 Active furosemide (LASIX) 20 mg tabletIndications: Bilateral lower extremity edema Take 1 tablet (20 mg total) by mouth every other day 5 Active Accu-Chek Fastclix Lancet Drum mis USE TO TEST BLOOD SUGAR ONCE DAILY [...] day for 10 days 22 g 5 025 cephalexin (KEFLEX) 250 mg capsule Take 1 capsule (250 mg total) by mouth 3 (three) times a day for 7 days 21 capsule 5 025 Active Problems Problem Noted Date Diagnosed Date [...] 24-2 Assessment & Plan (07/18/2024 10:15 PM FOUNTAIN MANAGER): Referred by Dr. Brooks for NTG OU. [...] scheduled Assessment & Plan (07/18/2024 10:13 PM FOUNTAIN MANAGER): F/U with Dr. Cheung as scheduled Bilateral [...] 07/03/20 Assessment & Plan (07/14/2020 3:32 PM FOUNTAIN MANAGER): By MRI the patient was found to [...] proceed Assessment & Plan (07/03/2020 9:20 AM FOUNTAIN MANAGER): Patient is experiencing recurring locking her knee [...] activities. Assessment & Plan (08/12/2022 11:06 AM FOUNTAIN MANAGER): Patient has reactive synovitis of both of [...] seating. Assessment & Plan (06/19/2020 5:14 PM FOUNTAIN MANAGER): Patient's right knee is doing well. Her left knee is improved following the injection although she may have more medially based pain as that is the location of her more advanced arthritis. If she develops locking or increasing pain or swelling she was advised to return Assessment & Plan (07/12/2019 4:24 PM FOUNTAIN MANAGER): Patient has moderate arthritis of her knees [...] well. Assessment & Plan (07/27/2018 10:06 AM FOUNTAIN MANAGER): Patient has moderate arthritic changes of the [...] artery disease of n ative artery of [place] heart with stable angina pectoris 03/23/2017 Malignant [...] Description 02/04/2025 11:15 AM CDT Office Visit [facility] Care at [address] [address] Mario Burnham NP Paronychia of great toe, left (Primary Dx) 01/17/2025 10:30 AM CDT Office Visit [facility] Cardiology [address] [place] [address] Jimmy Salazar MD Coronary artery disease of [place] artery of [place] heart with stable angina pectoris (Primary Dx); [...] on file Legal Sex Female 10:06 AM FOUNTAIN MANAGER Gender Identity Not on file Sexual [...] series) 10/30/2020 10/02/2020, 09/04/2020 eGFR 03/26/2023 03/26/2022, 10/03, 02/23/2017 Influenza Vaccine (#1) 2025 0, 03/11/2020, 05/02/2019, Additional history exists Fall Risk Assessment 06/11/2025 06/11/2024 Dilated Eye Exam 07/18/2025 07/18/2024 Procedures Procedure Name Priority Date/Time Associated Diagnosis Comments EGFR STAT 03/26/2022 4:54 PM CDT POCT LIPID PANEL Routine 03/23/2017 9:06 AM CDT Coronary artery disease involving [place] coronary artery of [place] heart without angina pectoris Hyperlipidemia associated with [...] of Race in Diagnosing Kidney Disease, JASN 202). The CKD-EPI equation should not be used for patients with unstable renal function and has not been validated in children and those over 70. Current interpretive data was last reviewed 2021. Blood 03/26/2022 4:54 PM CDT 03/26/2022 4:54 PM CDT us [facility] BLOOD ORDERABLES Final Res ult DAMIR RENEE [address] [address] [place] [address] * POCT lipid panel (03/23/2017 [...] Most Recently Relevant to Health Maintenance Insurance [employer] AETNA MEDICARE FOR LIFE AET MEDICARE FOR LIFE AETNA MEDICARE Care Teams Supervisor Keymodule Assembly Relationship Specialty Start Date End Date Angus Chamberlain MD [address] [place] [address] PCP - General Family Medicine 04/28/23 [place] [address] [facility] [address] [place] [address] Physician Braiding Machine Tender Orthopedic Surgery 08/15/20 [place] [address] [facility] [address] [place] [address] Nurse Practitioner Nurse Practitioner 06/11/24
--- OUTSIDE RECORDS SUMMARY | 2025-02-25 08:27 | XMS_ITS | Encounter Summary ---
Author Organization [facility] Address [address] [place] [address] Care Team Providers Care Supervisor Sewer System Name Role Phone Angus Chamberlain MD Primary Care Provider Encounter Details Date Type Department Care Team (Late st Contact Info) Description 05/11/2017 Chart Note [facility] Radiation Therapy [address] [place] [phone] [place] [address] [place] [phone] Social History Tobacco Use Types Packs/Day Years Used Date Smoking Tobacco: Never Assessed Comments Unknown Sex and Gender Information Value Date Recorded Sex Assigned at Not on file Legal Sex Female 7:15 PM DIRECTOR RADIATION ONCOLOGY Gender Identity Not on file Sexual Orientation Not on file documented as of this encounter Plan of Treatment Not on file documented as of this encounter Visit Diagnoses Not on filedocumented in this encounter Care Teams Supervisor Sewer System Relationship Specialty Start Date End Date Angus Chamberlain MD [address] [facility] [address] [place] [address] PCP - General Family Practice 05/17/17 documented as of this encounter
--- OUTSIDE RECORDS SUMMARY | 2025-02-25 08:27 | XMS_ITS | Clinical Summary ---
Author Organization [facility] Address [address] [place] [address] Care Team Providers Care Cork Mixer Name Role Phone Angus Chamberlain MD Primary Care Provider [phone] Source Comments [facility],non-owned Affiliates and Associated Physician Practices is amultiple site organization consisting of ambulatory clinics and hospital sitesin [place], [place], [place] and [place]. This disclosure is being madepursuant to the Care Everywhere program and may not contain all information available regarding this patient. Last updated 18.[facility] Allergies Active Allergy Reactions Criticality Noted Date [...] artery disease of n ative artery of [place] heart with stable angina pectoris 03/23/2017 Hypertension [...] on file Legal Sex Female 5:26 PM WELDING MACHINE OPERATOR ELECTRO GAS Gender Identity Not on file Sexual Orientation Not on file Last Filed Vital Signs Vital Sign Reading Time Taken Comments Blood Pressure 115/51 09/02/2014 12:00 PM WELDING MACHINE OPERATOR ELECTRO GAS Pulse 64 09/02/2014 12:00 PM WELDING MACHINE OPERATOR ELECTRO GAS Temperature 36.5 C (97.7 F) 09/02/2014 12:00 PM WELDING MACHINE OPERATOR ELECTRO GAS Respiratory Rate 16 09/02/2014 12:00 PM WELDING MACHINE OPERATOR ELECTRO GAS Oxygen Saturation 93% 09/02/2014 12:00 PM WELDING MACHINE OPERATOR ELECTRO GAS Inhaled Oxygen Concentration - - Weight 77.1 kg (170 lb) 09/02/2014 8:22 AM WELDING MACHINE OPERATOR ELECTRO GAS Height 157.5 cm (5' 2) 09/02/2014 8:22 AM WELDING MACHINE OPERATOR ELECTRO GAS Body Mass Index 31.09 09/02/2014 8:22 AM WELDING MACHINE OPERATOR ELECTRO GAS Plan of Treatment Health Maintenance Due Date [...] this topic Insurance [facility] MANAGED MEDICARE ADV AETNA MEDICARE ADV SELF PAY NO INSURANCE Member Subscriber Plan / Payer (Ef fective for All Dates) Name:Aicha Oliver Otto Member ID:Not on file Relation to Subscriber:Not on file Name:AICHA OLIVER Otto Subscriber ID:Not on file (Home) Address: [address] [place] [address] Payer ID:Not on file Group ID:Not on file Type:Self Pay Address: [place], [place] Care Teams Cork Mixer Relationship Specialty Start Date End Date Angus Chamberlain MD [address] [place] [address] PCP - General 11/28/13
--- OUTSIDE RECORDS SUMMARY | 2025-02-25 08:27 | XMS_ITS | Clinical Summary ---
Author Organization [facility] Address [address] [place] [address] Care Team Providers Care International Controller Name Role Phone Angus Chamberlain MD Primary Care Provider [phone] Allergies Active Allergy Reactions Criticality Noted Date [...] on file Legal Sex Female 7:15 PM FOREST BIOMETRICS PROFESSOR Gender Identity Not on file Sexual Orientation [...] Name:FRANCHESKANILTON CONTRERAS Date of :1948 (Home) Address: [address] [place] [address]. [place] [address] Payer ID:Not on file Group ID:Not on file Type: Address: [address] FOR LIFE AETNA PPO MCR Care Teams International Controller Relationship Specialty Start Date End Date Angus Chamberlain MD [address] [facility] [address] [place] [address] PCP - General Family Practice 05/17/17
--- OUTSIDE RECORDS SUMMARY | 2025-02-25 08:27 | XMS_ITS | Encounter Summary ---
Author Organization [facility] Healthcare Address [address] [place] [address] Care Team Providers Care Meat Boner And Slicer Name Role Phone Randee Esparza Unavailable [phone] Angus Chamberlain MD Primary Care Provider Montana Kerns NP Unavailable [phone] Encounter Details Date Type Department Care Team (Late st Contact Info) Description 07/09/2024 Orders Only [facility] Health Information Management [address] [place] [address] Jimmy Salazar MD [address] [facility] [address] [facility] [address], [address] [place] [address] Social History Tobacco Use Types [...] on file Legal Sex Female 10:06 AM OCCUPATIONAL HEALTH NURSE MANAGER Gender Identity Not on file Sexual [...] on filedocumented in this encounter Care Teams Meat Boner And Slicer Relationship Specialty Start Date End Date Angus Chamberlain MD [address] [place] [address] PCP - General Family Medicine 04/28/23 [place] [address] [facility] [address] [place] [address] Physician Research Hydraulic Engineer Orthopedic Surgery 08/15/20 [place] [address] [facility] [address] [place] [address] Nurse Practitioner Nurse Practitioner 06/11/24 documented as of this encounter
[2025-02-25 09:23] LABS: Hematocrit 35.7 % (37.0-47.0); Hemoglobin 11.3 g/dL (12.0-15.0); Immature Granulocyte Percent A 1.2 % (0-0.5); Lymphocytes Absolute Auto 1.91 K/mm3 (0.9-3.2); Mean Corpuscular HGB Conc 31.7 g/dl (32-36); Mean Corpuscular Hemoglobin 26.6 pg (26-34); Mean Corpuscular Volume 84.0 fl (80-100); Nucleated Red Blood Cells Absolute Auto 0.000 K/mm3 (0.0-0.012); Nucleated Red Blood Cells Perc 0.0 % (0.0-0.2); Platelet Count Result 424 k/mm3 (150-375); Red Blood Count 4.25 M/mm3 (4.2-5.4); White Blood Count 15.2 K/mm3 (4.5-10.0)
[2025-02-25 09:50] LABS: Anion Gap 7 mmol/L (4-12); Blood Urea Nitrogen 19 mg/dL (7-17); Calcium 9.9 mg/dL (8.4-10.2); Carbon Dioxide 31 mmol/L (22-30); Chloride 99 mmol/L (98-107); Cholesterol 181 mg/dL (0-200); Estimated Glomerular Filt Rate 44; Glucose 162 mg/dL (65-110); HDL Direct 44 mg/dL; Magnesium 1.6 mg/dL (1.6-2.3); Potassium 4.2 mmol/L (3.4-5.0); Sodium 137 mmol/L (137-145); Triglycerides 135 mg/dL (<150)
== END 2025-02-25 08:16 | disposition home or self-care (01) ==
PROVIDERS: PCP Family Medicine; Visit Provider Physician Assistant
DX: N17.9 Acute kidney failure, unspecified (principal); E83.42 Hypomagnesemia; D72.829 Elevated white blood cell count, unspecified; G45.9 Transient cerebral ischemic attack, unspecified; R53.1 Weakness; D64.9 Anemia, unspecified; R25.1 Tremor, unspecified; E11.21 Type 2 diabetes mellitus with diabetic nephropathy; I13.10 Hypertensive heart and chronic kidney disease without heart failure, with stage 1 through stage 4 chronic kidney disease, or unspecified chronic kidney disease; I25.10 Atherosclerotic heart disease of native coronary artery without angina pectoris
CPT/HCPCS: 36415; 80048; 80061; 83735; 85025

== ENCOUNTER 2025-03-22 13:31 | Outpatient (CLI) | payer MEDICARE, OTHER, SELFPAY ==
--- OUTSIDE RECORDS SUMMARY | 2022-01-22 10:24 | XMS_ITS | Continuity of Care Document ---
Author Organization [facility] Address [address] 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 [address] [place] [address] Drive, [address], [place], [place], [address], [place]. tel:[phone] Office/outpat ient Visit, Est [facility], [address] [place] [address] [address], [place], [place], [address], tel:[phone] SEC [facility] No Information 8-201 0 Roxanne Stockton [address] [facility] [place] , [address], [place], [place], [facility] [place] [facility] [place], [place]. tel:[phone] [facility], [address] [place] [address] [address], [place], [place], [address], tel:[phone] SEC [facility] No Information 7-201 0 Roxanne Stockton [address] [facility] [address] , [address], [place], [facility] [place] [facility] [place], [place]. tel:[phone] [facility], [address] [place] [address] [address], [place], [place], [address], tel:[phone] SEC [facility] No Information 0-201 0 Roxanne Stockton [address] [facility] [address] , [address], [place], [address], [place]. tel:[phone] [facility], [address] [place] [address] [address], [place], [place], [address], tel:[phone] Nov [facility] No Information 9-201 0 Roxanne Stockton [address] , [address], [place], [facility] [place] [facility] [place], [place]. tel:[phone] [facility], [address] [place] [address] [address], [place], [place], [address], [place] tel:[phone] SEC [facility] No Information May-1 3-201 0 Roxanne Garcia. [address] , [address], [place], [facility] [place] [facility] [place], [place]. tel:[phone] Referring Provider: Radha Leger, [address] [facility] [address], [place], [facility] [place] [facility] [place]. tel:[phone] [facility], [address] [place] [address] [address], [place], [place], [address], [place] tel:[phone] SEC [facility] No Information May-0 6-201 0 Roxanne Garcia. [address] [facility] [address] , [address], [place], [facility] [place] [facility] [place], [place]. tel:[phone] [facility], [address] [place] [address] [address], [place], [place], [address], [place] tel:[phone] [facility] No Information May-0 5-201 0 Roxanne Garcia. [address] [facility] , [address], [place], [facility] [place] [facility] [place], [place]. tel:[phone] Office/outpat ient Visit, [facility], [address] [place] [address] [address], [place], [place], [address], [place] tel:[phone] SEC [facility] No Information Apr-2 9-201 0 Roxanne Stockton [address] , [address], [place], [facility] [place] [facility] [place], [place]. tel:[phone] Referring Provider: Radha Leger, [address] [facility] [address], [place], [facility] [place] [facility] [place]. tel:[phone] Office/outpat ient Visit, [facility], [address] [place] [address] [address], [place], [place], [address], tel:[phone] SEC [place] No Information Omari-0 8-200 9 Roxanne Garcia. [address], [address], [place], [address], [place]. tel:[phone] [facility], [address] [facility] [address], [place], [place], [address], tel:[phone] SEC [facility] No Information 0 [address] [facility] . [address] [facility], [address], [place], [place], [address], [place]. tel:[phone] Referring Provider: Smith Dempsey MD S, [facility] [place], [address]. tel:[phone] g Provider: Jeniffer High, [address] [place] [address], [address]. tel:[phone] [facility], [address] [facility] [address], [place], [place], [address], tel:[phone] SEC [facility] [place] No Information 0 [address] [facility] . [address] [facility], [address], [place], [place], [address], [place]. tel:[phone] Referring Provider: Smith Dempsey MD S, [address] [place], [address]. tel:[phone] g Provider: Jeniffer High, [address] [place] [address], [address]. tel:[phone] Family History Family Member Type Diagnosis Age At Onset No Information Payers Payer name Insurance type Covered alliance party ID Authoriza tion(s) No Information Social [...]
--- OUTSIDE RECORDS SUMMARY | 2023-02-23 07:45 | XMS_ITS | Continuity of Care Document ---
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 Neurontin 600 mg tablet take 1 tablet by oral route 2 times every day 600 MG - Active spironolactone 50 mg tablet take 1 tablet by oral route every day 50 MG - Active Januvia 100 mg tablet take 1 tablet by oral route every day 100 MG - Active omeprazole 40 mg capsule,delayed release take 1 capsule by oral route every day before a meal 40 MG - Active anastrozole 1 mg tablet take 1 tablet by oral route every day 1 MG - Active Lipitor 20 mg tablet take 1 Tablet by oral route every day 20 MG - Active lisinopril 5 mg tablet take 1 tablet by oral route every day 5 MG - Active Coreg 12.5 mg tablet take 1 tablet by oral route 2 times every day with food 12.5 MG - Active aspirin 81 mg tablet,delayed release take 1 tablet by oral route every day 81 MG - Active Procedures Procedure Date OFFICE/OUTPATIENT VISIT, EST OFFICE/OUTPATIENT VISIT, EST OFFICE/OUTPATIENT VISIT, EST OFFICE/OUTPATIENT VISIT, [facility] PREV VISIT, NEW, 65 & OVER OFFICE/OUTPATIENT VISIT, NEW Advance Directives Directive Yes / No Effective Date File Name No Information Encounters Encounter Description Practice Location Reason(s) For Visit Diagnoses Date Provider Providers Copied on Encounter OFFICE/OUTPA TIENT VISIT, [facility], [address] [place], [id number], [place] tel:[phone] [facility] anxiety1 (chief complaint) dizziness1 (chief complaint) Generalized Anxiety DisorderEssential (primary) hypertensionEdemaDi zziness [address], [place], [place], [id number] , [place]. tel:[phone] OFFICE/OUTPA TIENT VISIT, [facility], [address] [place], [id number], [place] tel:[phone] [facility] osteopenia 1 (chief complaint) GERD1 (chief complaint) anxiety1 (chief complaint) edema1 (chief complaint) Other specified disorder of bone densityGeneralized Anxiety DisorderEdemaConstr iction of esophagus [address], [place], [place], [address] , [place]. tel:[phone] OFFICE/OUTPA TIENT VISIT, [facility], [address] [place], [id number], [place] tel:[phone] [facility] dysphagia1 (chief complaint) DysphagiaConstricti on of esophagus [address], [place], [place], [address] , [place]. tel:[phone] OFFICE/OUTPA TIENT VISIT, [facility], [address], [place], [place], [id number], [place] tel:[phone] [facility] DM (chief complaint) renal (chief complaint) anemia1 (chief complaint) anxiety1 (chief complaint) edema1 (chief complaint) Type 2 diabetes mellitus w/ diabetic neuropathyRenal diseaseAnemiaGenera lized Anxiety DisorderEdema [address], [facility] A, [place], [place], [address] , [place]. tel:[phone] PREV VISIT, NEW, 65 & OVER [facility], [address], [place], [place], [address], [place] tel:[phone] [facility] physical (chief complaint) Encounter for general adult medical exam w abnormal findingsHypertensiv e cardiac and chronic kidney disease w/o cardiac failureGERD w/o esophagitisGenerali zed Anxiety DisorderType 2 diabetes mellitus w/ diabetic neuropathyOther spondylosis, lumbar region [address], [address], [place], [place], [address] , [place]. tel: [phone] Family History Family Member Type Diagnosis Age At Onset Mother Problem Alive and well Brother Problem Alive and well Mother Problem still alive 100 dementia Sister Problem Diabetes mellitus Father Problem of 66 CAD Payers Payer name Insurance type Covered democrat ID Authoriza tion(s) No Information Social History [...] Mental Status Date Cognitive Assessment Orientation - [place] ed to time, place, person, situation.
--- NOTE | ~2025-03-22 | MM_ITS ---
EXAMINATION: MM screening [facility] BI w sam INDICATION: Asymptomatic, referred for screening mammogram. History of Right partial mastectomy . COMPARISON: 03/19/2024 through 02/11/2020 TECHNIQUE: Digital Breast Tomosynthesis CC, MLO views were obtained of Both breasts with computer-aided detection to assist in interpretation of the study. FINDINGS: The breasts are almost entirely fatty. Posttreatment changes in Right breast are unchanged. No new focal dominant mass, architectural distortion, or suspicious microcalcifications are identified. There are no features to suggest malignancy. IMPRESSION: Stable benign mammogram. No evidence of malignancy in the breast. Recommend annual screening mammography in 12 months. BI-RADS 2, BENIGN Reviewed, dictated and finalized at location B.
--- OUTSIDE RECORDS SUMMARY | 2025-03-22 13:35 | XMS_ITS | Clinical Summary ---
Author Organization [facility] Address [address] [place] [address] Care Team Providers Care Journeyman Pipe Welder Name Role Phone Angus Chamberlain MD Primary Care Provider [phone] Allergies Active Allergy Reactions Criticality Noted Date [...] mg by mouth 3 times daily. Active carboxymethylcellu lose (REFRESH LIQUIGEL) 1 % solution 1 Drop. Active cycloSPORINE (RESTASIS) 0.05 % emulsion 1 Drop. 01/04/20 17 Active prochlorperazine maleate (COMPAZINE) 10 mg tablet Take 1 Tablet (10 mg) by mouth every 6 hours as needed for Nausea/Emes is. 30 Tablet 6 03/16/20 18 Active sitaGLIPtin (JANUVIA) 100 mg Tablet Take 100 mg by mouth. Active Lacto.acidophilus- Bif.animalis 31 billion cell Capsule Take 1 Tablet by mouth. 08/23/19 18 Active atorvastatin (LIPITOR) 20 mg tablet Take 20 mg by mouth daily with supper. Active diclofenac sodium (VOLTAREN XR) 100 mg Extended Release 24 hour tablet 12/14/19 14 Active omeprazole-sodium bicarbonate (ZEGERID) 40-1.1 mg-gram Capsule 01/08/20 14 Active cholecalciferol, Vitamin D3, (VITAMIN D3) 1,000 unit Capsule Take 1,000 Units by mouth daily. Active FREESTYLE LITE STRIPS Strip 05/22/20 19 Active ondansetron (ZOFRAN) 4 mg Tablet Take 1 Tablet (4 mg) by mouth every 8 hours as needed for Nausea/Emes is. 30 Tablet 3 02/18/20 20 Active Blood-Glucose Meter (OneTouch Ultra2 Meter) as directed 05/19/20 20 Active lisinopriL (PRINIVIL) 5 mg tablet Take 5 mg by mouth. 12/15/19 20 Active traMADoL (ULTRAM) 50 mg tablet Take 50 mg by mouth. 08/15/19 21 Active ALPRAZolam (XANAX) 1 mg disintegrating tablet 06/11/20 20 Active aspirin (Aspirin Childrens) 81 mg Tablet, Chewable Take 81 mg by mouth. Active anastrozole (ARIMIDEX) 1 mg tabletIndications: Malignant neoplasm of central portion of right female breast, unspecified estrogen receptor status (CMS/HCC) TAKE 1 TABLET(1 MG) BY MOUTH DAILY 90 Tablet 03/21/20 25 Active anastrozole (ARIMIDEX) 1 mg tabletIndications: Malignant neoplasm of central portion of right female breast, unspecified estrogen receptor status (CMS/HCC) Take 1 Tablet (1 mg) by mouth daily. 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, estrogen receptor positive 05/17/2017 Encounters Date Type Department Care Team Description 03/21/2025 Refill [facility] Oncology and Hematology [facility] [address] [place] [address] Shahram Smith MD Malignant neoplasm of central portion of right female breast, unspecified estrogen receptor status (CMS/HCC) 03/12/2025 Orders Only [facility] Oncology and Hematology [facility] [address] [place] [address] Shahram Smith MD Malignant neoplasm of central portion of right female breast, unspecified estrogen receptor status (CMS/HCC) (Primary Dx) from Last 3 Months Family History Medical History Relation Name Comments [...] on file Legal Sex Female 7:15 PM ETL CONSULTANT Gender Identity Not on file Sexual Orientation [...] 03/22/2022 11:07 AM CDT Plan of Treatment Upcoming Encounters Date Type Department Care Team (Late st Contact Info) Description 06/12/2025 2:30 PM ETL CONSULTANT Office Visit [facility] Oncology and Hematology - [place] [address] [facility] [address] [place] [address] Shahram Smith MD [address] [facility] [address] [place] [address] Health Maintenance Due Date Last Done Comments [...] EXAM 07/14/202205/2022, 04/02/2021, 03/19/2021, Additional history exists [place] Preventative Visit/Annual Wellness Visit 07/04/2024 INFLUENZA VACCINE (#1) 2025 , 04/03/2018, 04/01/2017, Additional history exists COVID-19 Vaccine (3 - 2024-2 6 season) 2025 10/02/2020, 09/04/2020 Insurance [employer] AETNA PPO [facility] AETNA [facility] Care Teams Journeyman Pipe Welder Relationship Specialty Start Date End Date Angus Chamberlain MD [address] [phone] PCP - General Family Practice 05/17/17
--- OUTSIDE RECORDS SUMMARY | 2025-03-22 13:35 | XMS_ITS | Encounter Summary ---
Author Organization [facility] Healthcare Address [address] [place] [address] Care Team Providers Care Preschool Program Director Name Role Phone Randee Esparza Unavailable [phone] Angus Chamberlain MD Primary Care Provider Montana Kerns NP Unavailable [phone] Encounter Details Date Type Department Care Team (Late st Contact Info) Description 10/16/2024 Telephone [facility] [address] [place] [address] [place] [address] [facility] [address] [place] [address] Social History Tobacco Use Types [...] on file Legal Sex Female 10:06 AM CROP ROLLER Gender Identity Not on file Sexual Orientation Not on file documented as of this encounter Plan of Treatment Not on file documented as of this encounter Visit Diagnoses Not on filedocumented in this encounter Care Teams Preschool Program Director Relationship Specialty Start Date End Date Angus Chamberlain MD [address] [place] [address] PCP - General Family Medicine 04/28/23 [place] [address] [facility] [address] [place], [place] [id number] Physician Regional Guide Orthopedic Surgery 08/15/20 [place] [address] [facility] [address] [place] [address] Nurse Practitioner Nurse Practitioner 06/11/24 documented as of this encounter
--- OUTSIDE RECORDS SUMMARY | 2025-03-22 13:35 | XMS_ITS | Encounter Summary ---
Author Organization [facility] Healthcare Address [address] [place] [address] Care Team Providers Care Manager Application Development Name Role Phone Randee Esparza Unavailable [phone] Angus Chamberlain MD Primary Care Provider Montana Kerns NP Unavailable [phone] Encounter Details Date Type Department Care Team (Late st Contact Info) Description 07/09/2024 Orders Only [facility] Health Information Management [address] [place] [address] Jimmy Salazar MD [address] [facility] [address] [facility] [address] [place] [address] Social History Tobacco Use Types [...] on file Legal Sex Female 10:06 AM FACTORY HELPER Gender Identity Not on file Sexual Orientation [...] on filedocumented in this encounter Care Teams Manager Application Development Relationship Specialty Start Date End Date Angus Chamberlain MD [address] [place] [address] PCP - General Family Medicine 04/28/23 [place] [address] [facility] [address] [place] [address] Physician Inside Sales Recruiter Orthopedic Surgery 08/15/20 [place] [address] [facility] [address] [place] [address] Nurse Practitioner Nurse Practitioner 06/11/24 documented as of this encounter
--- OUTSIDE RECORDS SUMMARY | 2025-03-22 13:35 | XMS_ITS | Clinical Summary ---
Author Organization [facility] Address [address] [place] [address] Care Team Providers Care Flake Drier Name Role Phone Angus Chamberlain MD Primary Care Provider [phone] Source Comments [facility],non-owned Affiliates and Associated Physician Practices is amultiple site organization consisting of ambulatory clinics and hospital sitesin [place], [place], [place] and [place]. This disclosure is being madepursuant to the Care Everywhere program and may not contain all information available regarding this patient. Last updated 18.[facility] Allergies Active Allergy Reactions Criticality Noted Date [...] artery disease of n ative artery of [place] heart with stable angina pectoris 03/23/2017 Hypertension [...] on file Legal Sex Female 5:26 PM CURRICULUM ASSISTANT Gender Identity Not on file Sexual Orientation Not on file Last Filed Vital Signs Vital Sign Reading Time Taken Comments Blood Pressure 115/51 09/02/2014 12:00 PM CURRICULUM ASSISTANT Pulse 64 09/02/2014 12:00 PM CURRICULUM ASSISTANT Temperature 36.5 C (97.7 F) 09/02/2014 12:00 PM CURRICULUM ASSISTANT Respiratory Rate 16 09/02/2014 12:00 PM CURRICULUM ASSISTANT Oxygen Saturation 93% 09/02/2014 12:00 PM CURRICULUM ASSISTANT Inhaled Oxygen Concentration - - Weight 77.1 kg (170 lb) 09/02/2014 8:22 AM CURRICULUM ASSISTANT Height 157.5 cm (5' 2) 09/02/2014 8:22 AM CURRICULUM ASSISTANT Body Mass Index 31.09 09/02/2014 8:22 AM CURRICULUM ASSISTANT Plan of Treatment Upcoming Encounters Date Type Department Care Team (Late st Contact Info) Description 08/28/2025 11:00 AM CURRICULUM ASSISTANT Office Visit [facility] [address] [place] [address], [facility] [place] [address] Javna King MD [facility] [place] [phone] Health Maintenance Due Date Last Done Comments BONE DENSITY TESTING 1939 DTAP/TDAP/TD VACCINES (1 - Tdap) 1958 PNEUMOCOCCAL VACCINE 50+ (1 of 2 - PCV) 1958 ZOSTER VACCINE (1 of 2) 1989 Respiratory Syncytial Virus (RSV) Vaccine Pt: or over 60 yrs (1 - 1-dose 75+ series) 2014 DIABETES-FOOT EXAM WITH MONOFILAMENT 07/16/2020 DIABETES-HGB A1C 07/16/2020 DIABETES RETINOPATHY SCREENING 07/14/2023 07/14/2021, 07/14/2021, 04/02/2021, Additional history exists DEPRESSION SCREENING 07/04/2024 MEDICARE AWV CALENDAR YEAR 2024 COVID-19 VACCINE ( season) 2025 10/02/2020, 09/04/2020 INFLUENZA VACCINE (#1) 2025 , 03/11/2020, 05/02/2019, [...] patient's age to complete this topic Insurance [employer] MANAGED MEDICARE ADV AETNA MEDICARE ADV SELF PAY NO INSURANCE Member Subscriber Plan / Payer (Ef fective for All Dates) Name:Aicha Oliver Member ID:Not on file Relation to Subscriber:Not on file Name:AICHA OLIVER Subscriber ID:Not on file (Home) Address: [address] [place] [address] Payer ID:Not on file Group ID:Not on file Type:Self Pay Address: [place], [place] Care Teams Flake Drier Relationship Specialty Start Date End Date Angus Chamberlain MD [address] [place] [address] PCP - General 11/28/13
--- OUTSIDE RECORDS SUMMARY | 2025-03-22 13:35 | XMS_ITS ---
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 Constipation 02/27/2025 Decreased appetite 02/27/2025 Dehydration 02/27/2025 Dementia without behavioral disturbance 02/28/20 25 Diabetes mellitus with chronic kidney disease Hypoglycemia 02/27/2025 DJD of right shoulder 02/27/2025 Dysphagia 02/27/2025 Esophageal stricture 02/27/2025 Foot pain, bilateral 02/27/2025 Gastroenteritis 02/27/2025 Gastroparesis 02/27/2025 GERD (gastroesophageal reflux disease) Hard of hearing 02/27/2025 History of myocardial infarction 02/27/2025 History of partial mastectomy of right breast Hyperkalemia 02/27/2025 Chronic kidney disease, stage 3 02/27/2025 Hypomagnesemia 02/27/2025 Hyponatremia 02/27/2025 Labia irritation 02/27/2025 Left lower quadrant pain 02/27/2025 Right lower quadrant pain 02/27/2025 Leukocytosis 02/27/2025 Neuropathy 02/27/2025 Other amnesia 02/27/2025 Pelvic and perineal pain 02/27/2025 Polyuria 02/27/2025 Seizure 02/27/2025 Shakiness 02/27/2025 TIA (transient ischemic attack) 02/27/2025 Transaminitis 02/27/2025 UTI (urinary tract infection) 02/27/2025 Low-tension glaucoma of both eyes, moderate stag e 07/18/2024 Overview (07/18/2024): No FH, normal CCTs, Tmax Intolerances: latanoprost, brimonidine Assessment & Plan (02/27/2025 9:06 PM CDT): Monocular with moderate disease OD. Tmax (limited records, earliest from 2021). Appears to have progression on outside HVF between 2021 to 2023 with low teens IOP, though 07/2024 field reassuring Stable and more reliable Alvares visual field (HVF) 24-2 today S/p SLT OD IOP 12/10 on Alphagan P, iyuzeh OU - ? BRAD intolerance/allergy At goal -Target low teens OU CPM RTC 5 months with 10-2 Assessment & Plan (10/31/2024 11:50 AM CDT): [...] 24-2 Assessment & Plan (07/18/2024 10:15 PM INDUSTRIAL ANALYST): Referred by Dr. Brooks for NTG OU. [...] active choroidal neovascularization 07/18/2024 Assessment & Plan (02/27/2025 9:06 PM CDT): F/U with Dr. Cheung as scheduled Assessment & Plan (10/31/2024 11:50 AM CDT): F/U with Dr. Cheung as scheduled Assessment & Plan (07/18/2024 10:13 PM INDUSTRIAL ANALYST): F/U with Dr. Cheung as scheduled Bilateral lower extremity edema 06/22/2024 Bilateral primary osteoarthritis of knee 024 Lumbar radicular pain 06/17/2023 Low back pain 04/14/2023 Muscle weakness (generalized) 01/31/2023 Unsteadiness on feet 01/31/2023 Lumbar radiculopathy 11/30/2022 Other chronic pain 11/30/2022 Spinal stenosis of lumbar re gion with neurogenic claudication 11/30/2022 Radiculopathy, lumbosacral region 11/30/2022 Strain of muscle, fascia and tendon at neck level, subsequent encounter 04/14/2022 Weakness 04/14/2022 Dry eye syndrome of bilateral lacrimal glands [...] 07/03/20 Assessment & Plan (07/14/2020 3:32 PM INDUSTRIAL ANALYST): By MRI the patient was found to [...] proceed Assessment & Plan (07/03/2020 9:20 AM INDUSTRIAL ANALYST): Patient is experiencing recurring locking her knee [...] activities. Assessment & Plan (08/12/2022 11:06 AM INDUSTRIAL ANALYST): Patient has reactive synovitis of both of [...] seating. Assessment & Plan (06/19/2020 5:14 PM INDUSTRIAL ANALYST): Patient's right knee is doing well. Her left knee is improved following the injection although she may have more medially based pain as that is the location of her more advanced arthritis. If she develops locking or increasing pain or swelling she was advised to return Assessment & Plan (07/12/2019 4:24 PM INDUSTRIAL ANALYST): Patient has moderate arthritis of her knees [...] well. Assessment & Plan (07/27/2018 10:06 AM INDUSTRIAL ANALYST): Patient has moderate arthritic changes of the [...] artery disease of n ative artery of [place] heart with stable angina pectoris 03/23/2017 Malignant [...]
--- OUTSIDE RECORDS SUMMARY | 2025-03-22 13:35 | XMS_ITS | Encounter Summary ---
Author Organization [facility] Address [address] [place] [address] Care Team Providers Care Acid Leveler Name Role Phone Angus Chamberlain MD Primary Care Provider Encounter Details Date Type Department Care Team (Late Contact Info) Description 05/11/2017 Chart Note [facility] Radiation Therapy [address] [place] [phone] [place] [address] [place] [address] Social History Tobacco Use Types Packs/Day Years Used Date Smoking Tobacco: Never Assessed Comments Unknown Sex and Gender Information Value Date Recorded Sex Assigned at Not on file Legal Sex Female 7:15 PM PULLER OUT Gender Identity Not on file Sexual Orientation Not on file documented as of this encounter Plan of Treatment Upcoming Encounters Date Type Department Care Team (Late st Contact Info) Description 06/12/2025 2:30 PM PULLER OUT Office Visit [facility] Oncology and Hematology - [place] [address] [facility] [address] [place] [address] Shahram Smith MD [address] [facility] [address] [place] [address] documented as of this encounter Visit Diagnoses Not on filedocumented in this encounter Care Teams Acid Leveler Relationship Specialty Start Date End Date Angus Chamberlain MD [address] [facility] [address] [place] [address] PCP - General Family Practice 05/17/17 documented as of this encounter
--- OUTSIDE RECORDS SUMMARY | 2025-03-22 13:35 | XMS_ITS | Encounter Summary ---
Author Organization [facility] Address [address] [place] [address] Care Team Providers Care Kiln Firer Name Role Phone Angus Chamberlain MD Primary Care Provider [phone] Reason for Visit * Reason Comments Med Refill Encounter Details Date Type Department Care Team (Late Contact Info) Description 03/21/2025 Refill [facility] Oncology [facility] [address] [place] [address] Shahram Smith MD [address] [employer] [address] [place] [address] Malignant neoplasm of central portion of right female breast, unspecified estrogen receptor status (CMS/HCC) Social History Tobacco Use Types Packs/Day Years Used Date Smoking Tobacco: Former Cigarettes 0.3 2 1 07/17/1956 - 05/17/1959 Comments:intermittent Alcohol Use Standard Drinks/Week Comments No 0 (1 standard drink = 0.6 oz pur e alcohol) Comments No Sex and Gender Information Value Date Recorded Sex Assigned at Not on file Legal Sex Female 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 SCHOOL 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 Gender Identity Not on file Sexual Orientation Not on file documented as of this encounter Plan of Treatment Upcoming Encounters Date Type Department Care Team (Late Contact Info) Description 06/12/2025 2:30 PM EDITOR SCHOOL PHOTOGRAPH Office Visit [facility] Oncology and Hematology [facility] [address] [place] [address] Shahram Smith MD [address] [place] [address] documented as of this encounter Visit Diagnoses Diagnosis Malignant neoplasm of central portion of right female breast, unspecified estrogen receptor status (CMS/HCC) documented in this encounter Care Teams Kiln Firer Relationship Specialty Start Date End Date Angus Chamberlain MD [address] [facility] [address] [place] [address] PCP - General Family Practice 05/17/17 documented as of this encounter
--- OUTSIDE RECORDS SUMMARY | 2025-03-22 13:35 | XMS_ITS | Clinical Summary ---
Author Organization [facility] [place] [address] Address [address] [place] [address] Care Team Providers Care Weighmaster Name Role Phone Randee Esparza Unavailable [phone] Angus Chamberlain MD Primary Care Provider Montana Kerns NP Unavailable [phone] Allergies Active Allergy Reactions Criticality Noted Date [...] , Reaction: Vomiting, Other, Levofloxacin Unknown 03/26/2022 Metformin Diarrhea High 02/14/2025 Metronidazole Nausea & Vomiting Low 11/28/2013 Neomycin Nausea & Vomiting Low 11/28/2013 Nitrofurantoin Nausea only,Vomiting,Nause a And Vomiting Low 09/05/2019 Potassium Nausea & Vomiting Low Sulfamethizole Nausea & Vomiting Low 02/14/2025 Sulfamethoxazole-Trimeth oprim Nausea & Vomiting Low 11/28/2013 Trimethoprim Nausea & Vomiting Low 02/14/2025 Ondansetron Unknown 03/26/2022 Medications ALPRAZolam (XANAX) 1 mg tablet take 1 tablet (1MG) by oral route 2 times every day 0 04/26/20 12 Active atorvastatin (LIPITOR) 20 mg tablet Take 1 tablet (20 mg total) by mouth daily Active anastrozole (ARIMIDEX) 1 mg tablet Take 1 tablet (1 mg total) by mouth daily 02/18/20 Active OneTouch Ultra Blue Test Strip strip UTD TO TEST BLOOD SUGAR ONCE A DAY 05/19/20 Active OneTouch Ultra2 Meter misc as directed 05/19/20 Active Tradjenta 5 mg tablet Take 1 tablet (5 mg total) by mouth every morning 04/23/20 23 Active omeprazole (PriLOSEC) 40 mg capsule Take 1 capsule (40 mg total) by mouth daily Active blood glucose diagnostic strip by other route Active nitroglycerin (NITROSTAT) 0.4 mg SL tabletIndications: Coronary artery disease of [place] artery of [place] heart with stable angina pectoris Place 1 tablet (0.4 mg total) under the tongue every 5 (five) minutes as needed for chest pain May repeat dose every 5 minutes for up to 3 doses total. 25 tablet 3 07/12/19 24 Active HYDROcodone-acetam inophen (NORCO) 5-325 mg per tabletIndications: Pain Take 1 tablet by mouth every 8 (eight) hours as needed for pain 10 tablet 04/10/20 24 Active amLODIPine (NORVASC) 10 mg tablet Take 1 tablet (10 mg total) by mouth daily 05/30/20 24 Active Alphagan P 0.1 % drops 1 drop 2 (two) times a day 06/03/20 24 Active KAREL Reina, 0.005 % dropperette INSTILL 1 DROP INTO BOTH EYES EVERY NIGHT AT BEDTIME 05/28/20 24 Active gabapentin (NEURONTIN) 600 mg tablet Take 1 tablet (600 mg total) by mouth 2 (two) times a day 04/19/20 24 Active lisinopriL (PRINIVIL,ZESTRIL) 5 mg tabletIndications: Hypertension associated with diabetes (HCC) Take 1 tablet (5 mg total) by mouth daily 30 tablet 11 06/28/20 24 025 Active furosemide (LASIX) 20 mg tabletIndications: Bilateral lower extremity edema Take 1 tablet (20 mg total) by mouth every other day 07/12/19 25 Active Accu-Chek Fastclix Lancet Drum misc USE TO TEST BLOOD SUGAR ONCE DAILY 05/24/20 24 Active dicyclomine (BENTYL) 20 mg tablet Take 1 tablet (20 mg total) by mouth 4 (four) times a day 01/12/20 25 Active glimepiride (AMARYL) 2 mg tablet Take 1 tablet (2 mg total) by mouth daily with breakfast 12/26/19 25 Active ondansetron ODT (ZOFRAN-ODT) 4 mg disintegrating tablet DISSOLVE 1 TABLET ON THE TONGUE EVERY 6 HOURS NEEDED FOR NAUSEA OR VOMITING 01/19/20 25 Active azelastine (ASTELIN) 137 mcg (0.1 %) nasal spray SPRAY ONCE IN EACH NOSTRIL EVERY 12 HOURS 01/31/20 25 Active fluticasone propionate (FLONASE) 50 mcg/actuation nasal spray SHAKE LIQUID AND USE 1 SPRAY IN EACH NOSTRIL DAILY 01/31/20 25 Active carvediloL (COREG) 12.5 mg tablet 02/28/20 25 Active hydroCHLOROthiazid e (HYDRODIURIL) 25 mg tablet Take 1 tablet (25 mg total) by mouth daily 12/14/19 25 Active hydroCHLOROthiazid e 12.5 mg tablet Take 2 tablets (25 mg total) by mouth daily 05/24/20 24 025 Discontin ued(Alter cain therapy) carvediloL (COREG) 25 mg tabletIndications: Coronary artery disease of [place] artery of [place] heart with stable angina pectoris,Hypertens ion associated with diabetes (HCC) Take 1 tablet (25 mg total) by mouth 2 (two) times a day with meals 180 tablet 3 06/22/20 24 025 Discontin ued(Alter cain therapy) Active Problems Problem Noted Date Diagnosed Date GERARDO (acute kidney injury) 02/27/2025 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 Tmax 1515 (limited records, earliest from 2021). Appears to have progression on outside [facility] between 2021 to 2023 with low teens IOP, though 07/2024 field reassuring Stable and more reliable Alvares visual field (HVF) 24-2 today S/p SLT OD IOP 12/10 on Alphagan P, iyuzeh OU - ? BRAD intolerance/allergy At goal -Target low teens OU CPM RTC 5 months with 10-2 Assessment & Plan (10/31/2024 11:50 AM CDT): Monocular with moderate disease OD. Tmax 15/ (limited records, earliest from 2021). Appears to [...] 24-2 Assessment & Plan (07/18/2024 10:15 PM FIRE WATCHER): Referred by Dr. Brooks for NTG OU. [...] scheduled Assessment & Plan (07/18/2024 10:13 PM FIRE WATCHER): F/U with Dr. Cheung as scheduled Bilateral [...] 07/03/20 Assessment & Plan (07/14/2020 3:32 PM FIRE WATCHER): By MRI the patient was found to [...] proceed Assessment & Plan (07/03/2020 9:20 AM FIRE WATCHER): Patient is experiencing recurring locking her knee [...] activities. Assessment & Plan (08/12/2022 11:06 AM FIRE WATCHER): Patient has reactive synovitis of both of [...] seating. Assessment & Plan (06/19/2020 5:14 PM FIRE WATCHER): Patient's right knee is doing well. Her left knee is improved following the injection although she may have more medially based pain as that is the location of her more advanced arthritis. 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 Assessment & Plan (07/27/2018 10:06 AM FIRE WATCHER): Patient has moderate arthritic changes of the [...] artery disease of n ative artery of [place] heart with stable angina pectoris 03/23/2017 Malignant [...] Encounters Date Type Department Care Team Description 02/27/2025 11:15 AM CDT Office Visit [facility] Medicine Ophthalmology [address] [place] [address] Sarah Lee MD Low-tension glaucoma of both eyes, moderate stage (Primary Dx); Exudative age-related macular degeneration of left eye with active choroidal neovascularization (HCC) 02/27/2025 11:00 AM CDT Imaging Exam [facility] Medicine Ophthalmology [address] [place] [address] [address] [place] [phone] Low-tension glaucoma of both eyes, moderate stage 02/04/2025 11:15 AM CDT Office Visit [facility] at [address] [address] Mario Burnham NP Paronychia of great toe, left (Primary Dx) 01/17/2025 10:30 AM CDT Office Visit [facility] Medical Group Cardiology [address] [place] [address] Jimmy Salazar MD Coronary artery disease of [place] artery of [place] heart with stable angina pectoris (Primary Dx); [...] on file Legal Sex Female 10:06 AM FIRE WATCHER Gender Identity Not on file Sexual Orientation [...] 03/26/2022, 2020, 02/23/2017 Influenza Vaccine (#1) 2025 , 03/11/2020, 05/02/2019, Additional history exists Fall Risk Assessment 06/11/2025 06/11/2024 Dilated Eye Exam 07/18/2025 07/18/2024 Procedures Procedure Name Priority Date/Time Associated Diagnosis Comments ALVARES VISUAL FIELD - OD - RIGHT EYE Routine 02/27/2025 11:38 AM CDT Low-tension glaucoma of both eyes, moderate stage EGFR STAT 03/26/2022 4:54 PM CDT POCT LIPID PANEL Routine 03/23/2017 9:06 AM CDT Coronary artery disease involving [place] coronary artery of [place] heart without angina pectoris Hyperlipidemia associated with type 2 diabetes mellitus (HCC) Hyperlipidemia LDL goal <70 from Last 3 Months or Most Recently Relevant to Health Maintenance Results * Alvares Visual Field - OD - Right Eye (02/27/2025 11:38 AM CDT) Pattern Deviation OD 5.26 dB CONTINUUM Mean Deviation OD -6.23 dB CONTINUUM Anatomical Region Laterality Modality Head Other Narrative 02/27/2025 9:04 PM CDT Fixation was good. Cooperation was good. Reliability was borderline. Foveal threshold was normal. Findings include superior arcuate defect. Mean Deviation was -6.23 dB. Pattern Deviation was 5.26 dB. Notes Improved reliability, superior arcuate us Sarah Lee MD [facility] VISUAL FIELD Final Result * eGFR (03/26/2022 4:54 PM CDT) eGFR [...] BLOOD ORDERABLES Final Res ult DAMIR RENEE [address] [address] Department [place] [address] * POCT lipid panel (03/23/2017 9:06 AM [...] Most Recently Relevant to Health Maintenance Insurance [employer] [facility] MEDICARE FOR LIFE FOR[facility]LY [facility] MEDICARE [facility] [place] [facility] MEDICARE Address: [facility] [id number] [place] [phone] FOR LIFE [employer] MEDICARE Care Teams Weighmaster Relationship Specialty Start Date End Date Angus Chamberlain MD [address] [place] [address] PCP - General Family Medicine 04/28/23 [place] [address] [facility] [address] [place] [address] Physician Diesel Engine Engineer Orthopedic Surgery 08/15/20 [place] [address] [facility] [address] [place] [address] Nurse Practitioner Nurse Practitioner 06/11/24
--- OUTSIDE RECORDS SUMMARY | 2025-03-22 13:35 | XMS_ITS | Encounter Summary ---
Author Organization [facility] Healthcare Address [address] [place] [address] Care Team Providers Care Senior Software Architect Name Role Phone Angus Chamberlain MD Primary Care Provider Randee Esparza Unavailable [phone] Jad Herring MD Primary Care Provider [phone] Angus Chamberlain MD Primary Care Provider Montana Kerns NP Unavailable [phone] Encounter Details Date Type Department Care Team (Late st Contact Info) Description 10/19/2017 Orders Only [facility] [place] Management [address] [place] [id number] Scanning, Provider Social History Tobacco Use Types Packs/Day Years Used Date Smoking Tobacco: Never Smokeless Tobacco: Never Alcohol Use Standard Drinks/Week Comments No 0 (1 standard drink = 0.6 oz pur e alcohol) Comments Unknown Sex and Gender Information Value Date Recorded Sex Assigned at Not on file Legal Sex Female 10:06 AM PROCESS COACH Gender Identity Not on file Sexual Orientation [...] on filedocumented in this encounter Care Teams Senior Software Architect Relationship Specialty Start Date End Date Angus Chamberlain MD [address] [facility] [address] [place] [address] PCP - General 10/01/16 02/14/23 Jad Herring MD [address] [place] [address] PCP - General Family Medicine 02/15/23 04/27/23 Angus Chamberlain MD [address] [facility] [address] [place] [address] PCP - General Family Medicine 04/28/23 [place] [address] [address] [facility] [address] [place] [address] Physician Custodian Orthopedic Surgery 08/15/20 [place] [address] [address] [facility] [address] [place] [address] Nurse Practitioner Nurse Practitioner 06/11/24 documented as of this encounter
== END 2025-03-22 13:32 | disposition home or self-care (01) ==
LOC: ANHFOHIMG 13:33
PROVIDERS: PCP Family Medicine; Visit Provider Internal Medicine Hematology & Oncology
DX: Z12.31 Encounter for screening mammogram for malignant neoplasm of breast (principal)
CPT/HCPCS: 77063; 77067

== ENCOUNTER 2025-04-15 13:15 | Outpatient (CLI) | payer MEDICARE, OTHER, SELFPAY ==
[2025-04-15 13:49] LABS: Add Urine Microscopic? YES; Appearance Urine Cloudy (Clear); Glucose Urine UA Negative (Negative); Leukocyte Esterase Ur 3+ LEU/UL (Negative); Nitrate Urine Negative (Negative); Non Pathogenic Casts 0-2; Specific Grav Ur 1.005 (1.001-1.035)
--- OUTSIDE RECORDS SUMMARY | 2025-04-15 14:28 | XMS_ITS | Encounter Summary ---
Author Organization [facility] Healthcare Address [address] [place] [address] Care Team Providers Care Extern Name Role Phone Randee Esparza Unavailable [phone] Angus Chamberlain MD Primary Care Provider Montana Kerns NP Unavailable [phone] Encounter Details Date Type Department Care Team (Late st Contact Info) Description 10/16/2024 Telephone [facility] [address] [place] [address] [place] [address] [facility] [address] [place] [address] Social History Tobacco Use Types [...] on file Legal Sex Female 10:06 AM PERL DEVELOPER Gender Identity Not on file Sexual Orientation Not on file documented as of this encounter Plan of Treatment Not on file documented as of this encounter Visit Diagnoses Not on filedocumented in this encounter Care Teams Extern Relationship Specialty Start Date End Date Angus Chamberlain MD [address] [place] [address] PCP - General Family Medicine 04/28/23 [place] [address] [facility] [address] [place], [place] [id number] Physician Bakery Technician Orthopedic Surgery 08/15/20 [place] [address] [facility] [address] [place] [address] Nurse Practitioner Nurse Practitioner 06/11/24 documented as of this encounter
--- OUTSIDE RECORDS SUMMARY | 2025-04-15 14:28 | XMS_ITS | Encounter Summary ---
Author Organization [facility] Address [address] [place] [address] Care Team Providers Care Apple Checker Name Role Phone Angus Chamberlain MD Primary Care Provider Encounter Details Date Type Department Care Team (Late Contact Info) Description 05/11/2017 Chart Note [facility] Radiation Therapy [address] [place] [phone] [place] [address] [place] [address] Social History Tobacco Use Types Packs/Day Years Used Date Smoking Tobacco: Never Assessed Comments Unknown Sex and Gender Information Value Date Recorded Sex Assigned at Not on file Legal Sex Female 7:15 PM CLASSIFIED COPY CONTROL CLERK Gender Identity Not on file Sexual Orientation Not on file documented as of this encounter Plan of Treatment Upcoming Encounters Date Type Department Care Team (Late st Contact Info) Description 06/12/2025 2:30 PM CLASSIFIED COPY CONTROL CLERK Office Visit [facility] Oncology and Hematology - Juanjo [address] [facility] [address] [place] [address] hSahram Smith MD [address] [facility] [address] [place] [address] documented as of this encounter Visit Diagnoses Not on filedocumented in this encounter Care Teams Apple Checker Relationship Specialty Start Date End Date Angus Chamberlain MD [address] [facility] [address] [place] [address] PCP - General Family Practice 05/17/17 documented as of this encounter
--- OUTSIDE RECORDS SUMMARY | 2025-04-15 14:28 | XMS_ITS | Encounter Summary ---
Author Organization [facility] Healthcare Address [address] [place] [address] Care Team Providers Care Financial Sales Manager Name Role Phone Randee Esparza Unavailable [phone] Angus Chamberlain MD Primary Care Provider Montana Kerns NP Unavailable [phone] Encounter Details Date Type Department Care Team (Late st Contact Info) Description 07/09/2024 Orders Only [facility] Health Information Management [address] [place] [address] Jimmy Salazar MD [address] [facility] [address] [facility] C, [address] [place] [address] Social History Tobacco Use Types [...] on file Legal Sex Female 10:06 AM 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
--- OUTSIDE RECORDS SUMMARY | 2025-04-15 14:28 | XMS_ITS | Clinical Summary ---
Author Organization [facility] Address [address] [place] [address] Care Team Providers Care Medical Parasitologist Name Role Phone Angus Chamberlain MD Primary Care Provider [phone] Allergies Active Allergy Reactions Criticality Noted Date [...] Encounters Date Type Department Care Team Description 03/29/2025 Orders Only [facility] - [place] [address] [place] [address] Shahram Smith MD 03/21/2025 Refill [facility] [place] [address] [place] [address] Shahram Smith MD Malignant neoplasm of central portion of right female breast, unspecified estrogen receptor status (CMS/HCC) 03/12/2025 Orders Only [facility] - [place] [address] [place] [address] Shahram Smith MD Malignant neoplasm of central [...] on file Legal Sex Female 7:15 PM BUSINESS EDUCATION INSTRUCTOR Gender Identity Not on file Sexual Orientation [...] st Contact Info) Description 06/12/2025 2:30 PM BUSINESS EDUCATION INSTRUCTOR Office Visit [facility] - [place] [address] [facility] [address] [place] [address] Shahram Smith MD [address] [facility] [address] [place] [address] Health Maintenance Due Date Last [...] EXAM 07/14/202205/2022, 04/02/2021, 03/19/2021, Additional history exists INFLUENZA VACCINE (#1) 2025 , 04/03/2018, 04/01/2017, Additional history exists COVID-19 Vaccine (3 - 2024-2 6 season) 2025 10/02/2020, 09/04/2020 Procedures Procedure Name Priority Date/Time Associated Diagnosis Comments MAMMO SCREENING BILAT Routine 03/22/2025 12:20 PM CDT from Last 3 Months Results * MAMMO SCREENING BILAT (03/22/2025 12:20 PM CDT) Anatomical Region Laterality Modality Breast Bilateral Mammography Shahram Smith MD MAMMO ORDERABLES Final Result from Last 3 Months Insurance FOR LIFE AETNA PPO [facility] Care Teams Medical Parasitologist Relationship Specialty Start Date End Date Angus Chamberlain MD [address] [facility] [address] [place] [address] PCP - General Family Practice 05/17/17
--- OUTSIDE RECORDS SUMMARY | 2025-04-15 14:28 | XMS_ITS | Encounter Summary ---
Author Organization [facility] Healthcare Address [address] [place] [address] Care Team Providers Care Client Solutions Director Name Role Phone Angus Chamberlain MD Primary Care Provider Randee Esparza Unavailable [phone] Jad Herring MD Primary Care Provider [phone] Angus Chamberlain MD Primary Care Provider Montana Kerns NP Unavailable [phone] Encounter Details Date Type Department Care Team (Late st Contact Info) Description 10/19/2017 Orders Only [facility] Health Information Management [address] [place] [address] Scanning, Provider Social History Tobacco Use Types Packs/Day Years Used Date Smoking Tobacco: Never Smokeless Tobacco: Never Alcohol Use Standard Drinks/Week Comments No 0 (1 standard drink = 0.6 oz pur e alcohol) Comments Unknown Sex and Gender Information Value Date Recorded Sex Assigned at Not on file Legal Sex Female 10:06 AM INFORMATION SYSTEMS OPERATOR Gender Identity Not on file Sexual [...] on filedocumented in this encounter Care Teams Client Solutions Director Relationship Specialty Start Date End Date Angus Chamberlain MD [address] [email or web address] [address] [place] [address] PCP - General 10/01/16 02/14/23 Jad Herring MD [address] [place] [address] PCP - General Family Medicine 02/15/23 04/27/23 Angus Chamberlain MD [address] [facility] [[email or web address] [address] [place] [address] PCP - General Family Medicine 04/28/23 [place] [address] [address]A [facility] [[email or web address] [address] [place] [address] Physician Etl Tester Orthopedic Surgery 08/15/20 [place] [address] [address] [facility] [[email or web address] [address] [place] [address] Nurse Practitioner Nurse Practitioner 06/11/24 documented as of this encounter
--- OUTSIDE RECORDS SUMMARY | 2025-04-15 14:28 | XMS_ITS | Clinical Summary ---
Author Organization [facility] Address [address] [place] [address] Care Team Providers Care Assistant Drafter Name Role Phone Angus Chamberlain MD Primary Care Provider [phone] Source Comments [facility],non-owned Affiliates and Associated Physician Practices is amultiple site organization consisting of ambulatory clinics and hospital sitesin [place], [place], [place] and [place]. This disclosure is being madepursuant to the Care Everywhere program and may not contain all information available regarding this patient. 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 03/23/2017 Hypertension [...] on file Legal Sex Female 5:26 PM CRIMINAL LEGAL ASSISTANT Gender Identity Not on file Sexual Orientation Not on file Last Filed Vital Signs Vital Sign Reading Time Taken Comments Blood Pressure 115/51 09/02/2014 12:00 PM CRIMINAL LEGAL ASSISTANT Pulse 64 09/02/2014 12:00 PM CRIMINAL LEGAL ASSISTANT Temperature 36.5 C (97.7 F) 09/02/2014 12:00 PM CRIMINAL LEGAL ASSISTANT Respiratory Rate 16 09/02/2014 12:00 PM CRIMINAL LEGAL ASSISTANT Oxygen Saturation 93% 09/02/2014 12:00 PM CRIMINAL LEGAL ASSISTANT Inhaled Oxygen Concentration - - Weight 77.1 kg (170 lb) 09/02/2014 8:22 AM CRIMINAL LEGAL ASSISTANT Height 157.5 cm (5' 2) 09/02/2014 8:22 AM CRIMINAL LEGAL ASSISTANT Body Mass Index 31.09 09/02/2014 8:22 AM CRIMINAL LEGAL ASSISTANT Plan of Treatment Upcoming Encounters Date Type Department Care Team (Late st Contact Info) Description 08/28/2025 11:00 AM CRIMINAL LEGAL ASSISTANT Office Visit [facility] [address] [place] [address], [facility] [place] [address] Javan King MD [facility] [place] [phone] Health Maintenance Due Date Last Done Comments [...] Address: [address] [place] [address] Payer ID:Not on file Group ID:Not on file Type:Self Pay Address: [place], [place] Care Teams Assistant Drafter Relationship Specialty Start Date End Date Angus Chamberlain MD [address] [place] [address] PCP - General 11/28/13
--- OUTSIDE RECORDS SUMMARY | 2025-04-15 14:28 | XMS_ITS ---
Author Organization [facility] [address] Address [address] [place] [address] Care Team Providers Care Refuge Worker Name Role Phone Randee Esparza Unavailable [phone] Angus Chamberlain MD Primary Care Provider Montana Kerns NP Unavailable [phone] Active Problems Problem Noted Date Diagnosed Date [...] 24-2 Assessment & Plan (07/18/2024 10:15 PM RAILROAD SUPERVISOR OF ENGINES): Referred by Dr. Brooks for NTG OU. [...] scheduled Assessment & Plan (07/18/2024 10:13 PM RAILROAD SUPERVISOR OF ENGINES): F/U with Dr. Cheung as scheduled Bilateral [...] 07/03/20 Assessment & Plan (07/14/2020 3:32 PM RAILROAD SUPERVISOR OF ENGINES): By MRI the patient was found to [...] proceed Assessment & Plan (07/03/2020 9:20 AM RAILROAD SUPERVISOR OF ENGINES): Patient is experiencing recurring locking her knee [...] activities. Assessment & Plan (08/12/2022 11:06 AM RAILROAD SUPERVISOR OF ENGINES): Patient has reactive synovitis of both of [...] seating. Assessment & Plan (06/19/2020 5:14 PM RAILROAD SUPERVISOR OF ENGINES): Patient's right knee is doing well. Her left knee is improved following the injection although she may have more medially based pain as that is the location of her more advanced arthritis. 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 Assessment & Plan (07/27/2018 10:06 AM RAILROAD SUPERVISOR OF ENGINES): Patient has moderate arthritic changes of the [...] artery disease of n ative artery of [place] heart with stable angina pectoris 03/23/2017 Malignant [...]
--- OUTSIDE RECORDS SUMMARY | 2025-04-15 14:28 | XMS_ITS | Clinical Summary ---
Author Organization [facility] [address] Address [address] [place] [address] Care Team Providers Care Middle School Humanities Teacher Name Role Phone Randee Esparza Unavailable [phone] Angus Chamberlain MD Primary Care Provider Montana Kerns NP Unavailable [phone] Allergies Active Allergy Reactions Criticality Noted Date [...] mg total) by mouth daily 0 Active Clearpath RoboticsTouch Ultra Blue Test Strip strip UTD TO TEST BLOOD SUGAR ONCE A DAY 0 Active Clearpath RoboticsTouch Ultra2 Meter misc as directed 0 Active Tradjenta 5 mg tablet Take 1 tablet (5 mg total) by mouth every morning 3 Active omeprazole (PriLOSEC) 40 mg capsule Take 1 capsule (40 mg total) by mouth daily Active blood glucose diagnostic strip by other route Active nitroglycerin (NITROSTAT) 0.4 mg SL tabletIndications: 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 Place 1 [...] 2 (two) times a day 4 Active KAREL Reina, 0.005 % dropperette INSTILL 1 DROP INTO BOTH EYES EVERY NIGHT AT BEDTIME 4 Active gabapentin (NEURONTIN) 600 mg tablet Take 1 tablet (600 mg total) by mouth 2 (two) times a day 4 Active lisinopriL (PRINIVIL,ZESTRIL) 5 mg tabletIndications: Hypertension [...] NEEDED FOR NAUSEA OR VOMITING 5 Active azelastine (ASTELIN) 137 mcg (0.1 %) nasal spray SPRAY ONCE IN EACH NOSTRIL EVERY 12 HOURS 5 Active fluticasone propionate (FLONASE) 50 mcg/actuation nasal spray SHAKE LIQUID AND USE 1 SPRAY IN EACH NOSTRIL DAILY 5 Active carvediloL (COREG) 12.5 mg tablet 5 Active hydroCHLOROthiazid e (HYDRODIURIL) 25 mg tablet Take 1 tablet (25 mg total) by mouth daily 5 Active Active Problems Problem Noted Date Diagnosed [...] Overview (07/18/2024): No FH, normal CCTs, Tmax 1515 Intolerances: latanoprost, brimonidine Assessment & Plan (02/27/2025 [...] 24-2 Assessment & Plan (07/18/2024 10:15 PM SENIOR USER EXPERIENCE ARCHITECT): Referred by Dr. Brooks for NTG OU. [...] scheduled Assessment & Plan (07/18/2024 10:13 PM SENIOR USER EXPERIENCE ARCHITECT): F/U with Dr. Cheung as scheduled Bilateral [...] 07/03/20 Assessment & Plan (07/14/2020 3:32 PM SENIOR USER EXPERIENCE ARCHITECT): By MRI the patient was found to [...] proceed Assessment & Plan (07/03/2020 9:20 AM SENIOR USER EXPERIENCE ARCHITECT): Patient is experiencing recurring locking her knee [...] activities. Assessment & Plan (08/12/2022 11:06 AM SENIOR USER EXPERIENCE ARCHITECT): Patient has reactive synovitis of both of [...] seating. Assessment & Plan (06/19/2020 5:14 PM SENIOR USER EXPERIENCE ARCHITECT): Patient's right knee is doing well. Her left knee is improved following the injection although she may have more medially based pain as that is the location of her more advanced arthritis. 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 03/23/2017 Malignant [...] Description 02/27/2025 11:15 AM CDT Office Visit [facility] Medicine Ophthalmology [address] [place] [phone] Sarah Lee MD Low-tension glaucoma of both eyes, moderate stage (Primary Dx); Exudative age-related macular degeneration of left eye with active choroidal neovascularization (HCC) 02/27/2025 11:00 AM CDT Imaging Exam [facility] Medicine Ophthalmology [address] [place] [address] [address] [place] [phone] Low-tension glaucoma of both eyes, moderate stage 02/04/2025 11:15 AM CDT Office Visit [facility] Medical Group [facility] Care at [address] [address] Mario Burnham NP Paronychia of great toe, left (Primary Dx) 01/17/2025 10:30 AM CDT Office Visit [facility] Cardiology [address] [place] [address] Jimmy Salazar MD 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 (Primary Dx); [...] on file Legal Sex Female 10:06 AM SENIOR USER EXPERIENCE ARCHITECT Gender Identity Not on file Sexual Orientation [...] 03/26/2022, 10/03, 02/23/2017 Influenza Vaccine (#1) 2025 , 03/11/2020, [...] 9:06 AM CDT Coronary artery disease involving caddo coronary artery of caddo heart without angina pectoris Hyperlipidemia associated with [...] reliability, superior arcuate us Sarah Lee MD OPHTH VISUAL FIELD Final Result * eGFR (03/26/2022 [...] 4:54 PM CDT 03/26/2022 4:54 PM CDT [facility] BLOOD ORDERABLES Final Res ult [address]IR [address] [address] [address] Department [place] [address] * POCT lipid panel (03/23/2017 9:06 AM [...] Most Recently Relevant to Health Maintenance Insurance [employer] AET MEDICARE FOR LIFE AET [facility] Address: [facility] [address] [place] [address] FOR LIFE [facility] MEDICARE Care Teams Middle School Humanities Teacher Relationship Specialty Start Date End Date Angus Chamberlain MD [address] [facility] [address] [place], [place] [id number] PCP - General Family Medicine 04/28/23 [place] [address] [address] [facility] [address] [place] [address] Physician Well Service Pump Equipment Operator Orthopedic Surgery 08/15/20 [place] [address] [facility] [facility] [address] [place] [address] Nurse Practitioner Nurse Practitioner 06/11/24
== END 2025-04-15 13:16 | disposition home or self-care (01) ==
PROVIDERS: PCP Family Medicine; Visit Provider Physician Assistant Medical
DX: R30.0 Dysuria (principal)
CPT/HCPCS: 81001; 87086; 87186

== ENCOUNTER 2025-06-05 10:34 | Outpatient (CLI) | payer MEDICARE, OTHER, SELFPAY ==
[2025-06-05 10:52] LABS: Hematocrit 37.7 % (37.0-47.0); Hemoglobin 11.8 g/dL (12.0-15.0); Immature Granulocyte Percent A 0.6 % (0-0.5); Lymphocytes Absolute Auto 2.43 K/mm3 (0.9-3.2); Mean Corpuscular HGB Conc 31.3 g/dl (32-36); Mean Corpuscular Hemoglobin 26.2 pg (26-34); Mean Corpuscular Volume 83.6 fl (80-100); Nucleated Red Blood Cells Absolute Auto 0.000 K/mm3 (0.0-0.012); Nucleated Red Blood Cells Perc 0.0 % (0.0-0.2); Platelet Count Result 335 k/mm3 (150-375); Red Blood Count 4.51 M/mm3 (4.2-5.4); White Blood Count 11.9 K/mm3 (4.5-10.0)
--- OUTSIDE RECORDS SUMMARY | 2025-06-05 12:00 | XMS_ITS | Encounter Summary ---
Author Organization [facility] Healthcare Address [address] [place] [address] Care Team Providers Care Order Expediter Name Role Phone Randee Esparza Unavailable [phone] Angus Chamberlain MD Primary Care Provider Montana Kerns NP Unavailable [phone] Encounter Details Date Type Department Care Team (Late st Contact Info) Description 10/16/2024 Telephone [facility] [address] [place] [address] [place] [address] [facility] [address] [place] [address] Social History Tobacco Use Types [...] on file Legal Sex Female 10:06 AM CHEMICAL DEPENDENCY COUNSELOR Gender Identity Not on file Sexual Orientation Not on file documented as of this encounter Plan of Treatment Not on file documented as of this encounter Visit Diagnoses Not on filedocumented in this encounter Care Teams Order Expediter Relationship Specialty Start Date End Date Angus Chamberlain MD [address] [place] [address] PCP - General Family Medicine 04/28/23 [place] [address] [address] [facility] [address] [place], [place] [id number] Physician Flooring Installer Orthopedic Surgery 08/15/20 [place] [address] [address] [facility] [address] [place] [address] Nurse Practitioner Nurse Practitioner 06/11/24 documented as of this encounter
--- OUTSIDE RECORDS SUMMARY | 2025-06-05 12:00 | XMS_ITS ---
Author Organization [facility] [address] Address [address] [place] [address] Care Team Providers Care Imaging Engineer Name Role Phone Randee Esparza Unavailable [phone] Angus Chamberlain MD Primary Care Provider Montana Kerns NP Unavailable [phone] Active Problems Problem Noted Date Diagnosed Date [...] 24-2 Assessment & Plan (07/18/2024 10:15 PM PIPE FITTER WELDING): Referred by Dr. Brooks for NTG OU. [...] scheduled Assessment & Plan (07/18/2024 10:13 PM PIPE FITTER WELDING): F/U with Dr. Cheung as scheduled Bilateral [...] 07/03/20 Assessment & Plan (07/14/2020 3:32 PM PIPE FITTER WELDING): By MRI the patient was found to [...] proceed Assessment & Plan (07/03/2020 9:20 AM PIPE FITTER WELDING): Patient is experiencing recurring locking her knee [...] activities. Assessment & Plan (08/12/2022 11:06 AM PIPE FITTER WELDING): Patient has reactive synovitis of both of [...] seating. Assessment & Plan (06/19/2020 5:14 PM PIPE FITTER WELDING): Patient's right knee is doing well. Her left knee is improved following the injection although she may have more medially based pain as that is the location of her more advanced arthritis. 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 Assessment & Plan (07/27/2018 10:06 AM PIPE FITTER WELDING): Patient has moderate arthritic changes of the [...] artery disease of n ative artery of bois forte heart with stable angina pectoris 03/23/2017 Malignant [...]
--- OUTSIDE RECORDS SUMMARY | 2025-06-05 12:00 | XMS_ITS | Clinical Summary ---
Author Organization [facility] [address] Address [address] [place] [address] Care Team Providers Care Certified Cytotechnologist Name Role Phone Randee Esparza Unavailable [phone] Angus Chamberlain MD Primary Care Provider Montana Kerns NP Unavailable [phone] Allergies Active Allergy Reactions Criticality Noted Date [...] mg total) by mouth daily 0 Active Pact FitnessTouch Ultra Blue Test Strip strip UTD TO TEST BLOOD SUGAR ONCE A DAY 0 Active Pact FitnessTouch Ultra2 Meter misc as directed 0 Active Tradjenta 5 mg tablet Take 1 tablet (5 mg total) by mouth every morning 3 Active omeprazole (PriLOSEC) 40 mg capsule Take 1 capsule (40 mg total) by mouth daily Active blood glucose diagnostic strip by other route Active nitroglycerin (NITROSTAT) 0.4 mg SL tabletIndications: Coronary artery disease of [place] artery of [place] vie[place] heart with stable angina pectoris Place 1 [...] 24-2 Assessment & Plan (07/18/2024 10:15 PM PAINT STOCK CLERK): Referred by Dr. Brooks for NTG OU. [...] scheduled Assessment & Plan (07/18/2024 10:13 PM PAINT STOCK CLERK): F/U with Dr. Cheung as scheduled Bilateral [...] 07/03/20 Assessment & Plan (07/14/2020 3:32 PM PAINT STOCK CLERK): By MRI the patient was found to [...] proceed Assessment & Plan (07/03/2020 9:20 AM PAINT STOCK CLERK): Patient is experiencing recurring locking her knee [...] activities. Assessment & Plan (08/12/2022 11:06 AM PAINT STOCK CLERK): Patient has reactive synovitis of both of [...] seating. Assessment & Plan (06/19/2020 5:14 PM PAINT STOCK CLERK): Patient's right knee is doing well. Her left knee is improved following the injection although she may have more medially based pain as that is the location of her more advanced arthritis. 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 Assessment & Plan (07/27/2018 10:06 AM PAINT STOCK CLERK): Patient has moderate arthritic changes of the [...] artery disease of n ative artery of [place] heart with stable angina pectoris 03/23/2017 Malignant [...] Encounters Date Type Department Care Team Description 05/17/2025 Orders Only [facility] Radiation Oncology [address] [id number] Angel Castano MD PhD from Last 3 Months Surgical History Surgery [...] on file Legal Sex Female 10:06 AM PAINT STOCK CLERK Gender Identity Not on file Sexual [...] 9:06 AM CDT Coronary artery disease involving [place] coronary artery of [place] vie[place] heart without angina pectoris Hyperlipidemia associated with [...] BLOOD ORDERABLES Final Res ult DAMIR RENEE [address] [address] Department [place] [address] * POCT lipid panel (03/23/2017 [...] Most Recently Relevant to Health Maintenance Insurance [place] AET MEDICARE FOR LIFE T MEDICARE FOR LIFE AET MEDICARE Care Teams Certified Cytotechnologist Relationship Specialty Start Date End Date Angus Chamberlain MD [address] [place] [address] PCP - General Family Medicine 04/28/23 [place] [address] [address] [facility] [address] [place] [address] Physician Classifier Orthopedic Surgery 08/15/20 [place] [address] [address] [facility] [address] [place] [address] Nurse Practitioner Nurse Practitioner 06/11/24
--- OUTSIDE RECORDS SUMMARY | 2025-06-05 12:01 | XMS_ITS | Clinical Summary ---
Author Organization [facility] Address [address] [place] [address] Care Team Providers Care Surgical Scrub Technologist Name Role Phone Angus Chamberlain MD Primary Care Provider [phone] Source Comments [facility],non-owned Affiliates and Associated Physician Practices is amultiple site organization consisting of ambulatory clinics and hospital sitesin [place], [place], [place] and [place]. This disclosure is being madepursuant to the Care Everywhere program and may not contain all information available regarding this patient. Last updated 18.[facility] Allergies Active Allergy Reactions Criticality Noted Date [...] artery disease of n ative artery of nulato heart with stable angina pectoris 03/23/2017 Hypertension [...] on file Legal Sex Female 5:26 PM COMMODITIES MANAGER Gender Identity Not on file Sexual Orientation Not on file Last Filed Vital Signs Vital Sign Reading Time Taken Comments Blood Pressure 115/51 09/02/2014 12:00 PM COMMODITIES MANAGER Pulse 64 09/02/2014 12:00 PM COMMODITIES MANAGER Temperature 36.5 C (97.7 F) 09/02/2014 12:00 PM COMMODITIES MANAGER Respiratory Rate 16 09/02/2014 12:00 PM COMMODITIES MANAGER Oxygen Saturation 93% 09/02/2014 12:00 PM COMMODITIES MANAGER Inhaled Oxygen Concentration - - Weight 77.1 kg (170 lb) 09/02/2014 8:22 AM COMMODITIES MANAGER Height 157.5 cm (5' 2) 09/02/2014 8:22 AM COMMODITIES MANAGER Body Mass Index 31.09 09/02/2014 8:22 AM COMMODITIES MANAGER Plan of Treatment Upcoming Encounters Date Type Department Care Team (Late st Contact Info) Description 08/28/2025 11:00 AM COMMODITIES MANAGER Office Visit [facility] [address] [place] [address], [facility] [place] [address] Javan King MD [facility] [place] [phone] Health Maintenance Due Date Last Done Comments BONE DENSITY TESTING 1940 DTAP/TDAP/TD VACCINES (1 - Tdap) 1958 PNEUMOCOCCAL VACCINE 50+ (1 of 2 - PCV) 1958 ZOSTER VACCINE (1 of 2) 1989 Respiratory Syncytial Virus (RSV) Vaccine Pt: or over 60 yrs (1 - 1-dose 75+ series) 2014 DIABETES-FOOT EXAM WITH MONOFILAMENT 07/16/2020 DIABETES-HGB A1C 07/16/2020 COVID-19 VACCINE (3 - Moderna risk series) 10/30/2020 10/02/2020, 09/04/2020 DIABETES RETINOPATHY SCREENING 07/14/2023 07/14/2021, 07/14/2021, 04/02/2021, Additional history exists DEPRESSION SCREENING 07/04/2024 MEDICARE AWV CALENDAR YEAR 2024 INFLUENZA VACCINE (#1) 2025 , 03/11/2020, 05/02/2019, [...] Address: [address] [place] [address] Payer ID:Not on file Group ID:Not on file Type:Self Pay Address: [place], [place] Care Teams Surgical Scrub Technologist Relationship Specialty Start Date End Date Angus Chamberlain MD [address] [place] [address] PCP - General 11/28/13
--- OUTSIDE RECORDS SUMMARY | 2025-06-05 12:01 | XMS_ITS | Encounter Summary ---
Author Organization [facility] Address [address] [place] [address] Care Team Providers Care Body Mechanic Name Role Phone Angus Chamberlain MD Primary Care Provider Randee Esparza Unavailable [phone] Jad Herring MD Primary Care Provider [phone] Angus Chamberlain MD Primary Care Provider Montana Kerns NP Unavailable [phone] Encounter Details Date Type Department Care Team (Late st Contact Info) Description 10/19/2017 Orders Only [facility] Health Information Management [address] [place] [address] Scanning, Provider Social History Tobacco Use Types Packs/Day Years Used Date Smoking Tobacco: Never Smokeless Tobacco: Never Alcohol Use Standard Drinks/Week Comments No 0 (1 standard drink = 0.6 oz pur e alcohol) Comments Unknown Sex and Gender Information Value Date Recorded Sex Assigned at Not on file Legal Sex Female 10:06 AM DESIGN ENGINEER AGRICULTURAL EQUIPMENT Gender Identity Not on file Sexual Orientation [...] on filedocumented in this encounter Care Teams Body Mechanic Relationship Specialty Start Date End Date Angus Chamberlain MD [address] [facility] [address] [place] [address] PCP - General 10/01/16 02/14/23 Jad Herring MD [address] [place] [address] PCP - General Family Medicine 02/15/23 04/27/23 Angus Chamberlain MD [address] [facility] [address] [place] [address] PCP - General Family Medicine 04/28/23 [place] [address] [address] [facility] [address] [place] [address] Physician Cordwainer Orthopedic Surgery 08/15/20 [place] [address] [address] [facility] [address] [place] [address] Nurse Practitioner Nurse Practitioner 06/11/24 documented as of this encounter
--- OUTSIDE RECORDS SUMMARY | 2025-06-05 12:01 | XMS_ITS | Encounter Summary ---
Author Organization [facility] Address [address] [place] [address] Care Team Providers Care Corporate Coordinator Name Role Phone Angus Chamberlain MD Primary Care Provider [phone] Encounter Details Date Type Department Care Team (Late Contact Info) Description 05/11/2017 Chart Note [facility] Radiation Therapy [address] [place] [address] [place] [address] [place] [address] Social History Tobacco Use Types Packs/Day Years Used Date Smoking Tobacco: Never Assessed Comments Unknown Sex and Gender Information Value Date Recorded Sex Assigned at Not on file Legal Sex Female 7:15 PM GREASE BUFFER Gender Identity Not on file Sexual Orientation Not on file documented as of this encounter Plan of Treatment Upcoming Encounters Date Type Department Care Team (Late st Contact Info) Description 06/12/2025 2:30 PM GREASE BUFFER Office Visit [facility] Oncology and Hematology - [place] [address] [facility] [address] [place] [address] Shahram Smith MD [address] [facility] [address] [place] [address] documented as of this encounter Visit Diagnoses Not on filedocumented in this encounter Care Teams Corporate Coordinator Relationship Specialty Start Date End Date Angus Chamberlain MD [address] [facility] [address] [place] [phone] PCP - General Family Practice 05/17/17 documented as of this encounter
--- OUTSIDE RECORDS SUMMARY | 2025-06-05 12:01 | XMS_ITS | Clinical Summary ---
Author Organization [facility] Address [address] [place] [address] Care Team Providers Care Firebrick And Refractory Tile Repairer Name Role Phone Angus Chamberlain MD Primary Care Provider [phone] Allergies Active Allergy Reactions Criticality Noted Date [...] 30 Tablet 3 0 Active Blood-Glucose Meter (Pownceuch Ultra2 Meter) as directed 0 Active lisinopriL [...] TABLET(1 MG) BY MOUTH DAILY 90 Tablet 5 Active Active Problems Problem Noted Date Diagnosed Date Estrogen receptor positive 02/08/2018 Chronic anemia 02/08/2018 History of therapeutic radiation 10/19/2017 Aromatase inhibitor use 10/19/2017 Vitamin D deficiency 10/19/2017 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, estrogen receptor positive 05/17/2017 Encounters Date Type Department Care Team Description 03/29/2025 Orders Only [facility] Oncology and Hematology - [place] [address] [place] [address] Shahram Smith MD 03/21/2025 Refill [facility] Oncology and Hematology - [place] [address] [place] [address] Shahram Smith MD Malignant neoplasm of central portion of right female breast, unspecified estrogen receptor status (CMS/HCC) 03/12/2025 Orders Only [facility] Oncology and Hematology - [place] [address] [place] [address] Shahram Smith MD Malignant neoplasm of central [...] on file Legal Sex Female 7:15 PM SIDE HEMMER Gender Identity Not on file Sexual Orientation [...] st Contact Info) Description 06/12/2025 2:30 PM SIDE HEMMER Office Visit [facility] Oncology and Hematology - [place] [address] [facility] [address] [place] [address] Shahram Smith MD [address] [facility] [address] [place] [address] Health Maintenance Due Date Last [...] 04/02/2021, 03/19/2021, Additional history exists Medicare Advantage (PR) Preventative Visit/Annual Wellness Visit 07/04/2024 INFLUENZA VACCINE [...] from Last 3 Months Insurance [place] [address] [place] [address] FOR LIFE [employer] [facility] Care Teams Firebrick And Refractory Tile Repairer Relationship Specialty Start Date End Date Angus Chamberlain MD [address] [facility] [address] [place] [address] PCP - General Family Practice 05/17/17
--- OUTSIDE RECORDS SUMMARY | 2025-06-05 12:01 | XMS_ITS | Encounter Summary ---
Author Organization [facility] Address [address] [place] [address] Care Team Providers Care Black Belt Name Role Phone Randee Esparza Unavailable [phone] Angus Chamberlain MD Primary Care Provider Montana eKrns NP Unavailable [phone] Encounter Details Date Type Department Care Team (Late st Contact Info) Description 07/09/2024 Orders Only [facility] Health Information Management [address] [place] [address] Jimmy Salazar MD [address] [facility] [address] [facility] C, [address] [place] [address] Social History Tobacco Use Types [...] on file 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 Gender Identity Not on file Sexual Orientation Not on file documented as of this encounter Functional Status * BP Location Answer Date of Assessment Author Left arm 07/12/2024 11:36 AM Nicolette Guerrero MA * BP Location Answer Date of Assessment Author Left arm 07/12/2024 11:36 AM Nicolette Guerrero MA documented as of this encounter Plan of [...] on filedocumented in this encounter Care Teams Black Belt Relationship Specialty Start Date End Date Angus Chamberlain MD [address] [place] [address] PCP - General Family Medicine 04/28/23 [place] [address] [facility] [address] [place] [address] Physician Automatic Quilling Machine Operator Orthopedic Surgery 08/15/20 [place] [address] [facility] [address] [place] [address] Nurse Practitioner Nurse Practitioner 06/11/24 documented as of this encounter
[2025-06-05 12:19] LABS: Alanine Aminotransferase 14 U/L (6-35); Albumin Level 4.2 g/dL (3.5-5.1); Alkaline Phosphatase 102 U/L (38-126); Anion Gap 4 mmol/L (4-12); Aspartate Amino Transferase 26 U/L (14-36); Bilirubin,Total 0.4 mg/dL (0.2-1.3); Blood Urea Nitrogen 16 mg/dL (7-17); Calcium 9.8 mg/dL (8.4-10.2); Carbon Dioxide 30 mmol/L (22-30); Chloride 101 mmol/L (98-107); Estimated Glomerular Filt Rate 56; Glucose 201 mg/dL (65-110); Potassium 4.4 mmol/L (3.4-5.0); Sodium 135 mmol/L (137-145); Total Protein 7.7 g/dL (6.3-8.2)
== END 2025-06-05 10:35 | disposition home or self-care (01) ==
LOC: ANHLAB 10:35
PROVIDERS: PCP Family Medicine; Visit Provider Internal Medicine Hematology & Oncology
DX: C50.111 Malignant neoplasm of central portion of right female breast (principal)
CPT/HCPCS: 36415; 80053; 85025; 86300

== ENCOUNTER 2025-06-06 11:56 | Outpatient (CLI) | payer MEDICARE, OTHER, SELFPAY ==
--- NOTE | ~2025-06-06 | DEXA_ITS ---
Bone Density Report Name: AICHA OLIVER Age: 85 Sex: Female Ethnicity: White Date of : 1940 Indication: osteopenia; height loss; cancer; hysterectomy; Referring Provider: TAMIKA MULLER Study: Bone densitometry was performed. Exam Date: June 06, 2025 Accession number: [id number] Bone Density: Region BMD T-score Z-score Classification AP Spine(L1-L4) 0.913 -1.2 1.7 Osteopenia Femoral Neck (Left) 0.589 -2.3 0.2 Osteopenia Total Hip (Left) 0.763 -1.5 0.9 Osteopenia Femoral Neck (Right) 0.610 -2.2 0.4 Osteopenia Total Hip (Right) 0.790 -1.2 1.1 Osteopenia Total Hip Mean 0.776 -1.4 1.0 Osteopenia World Health Organization criteria for BMD impression classify patients as: Normal (T-score at or above -1.0), Osteopenia (T-score between -1.0 and -2.5), or Osteoporosis (T-score at or below -2.5). 10-year Fracture Risk(1): Major Osteoporotic Fracture 16% Hip Fracture 5.1% Reported Risk Factors: [place] (), Neck BMD=0.589, BMI=32.1 (1) FRAX(R) Version 3.08. Fracture probability calculated for an untreated patient. Fracture probability may be lower if the patient has received treatment. Previous Exams: -- Region Exam Age BMD T-score BMD Change BMD Change Date g/cm2 vs Baseline vs Previous -- Total Hip(Left) 06/06/2025 85 0.763 -1.5 -7.5%* -7.5%* 01/13/2023 82 0.825 -1.0 Total Hip(Right) 06/06/2025 85 0.790 -1.2 -1.4% -1.4% 01/13/2023 82 0.801 -1.2 -- *Denotes significance at 95% confidence level, LSC for Total Hip = 0.027 g/cm2 Clinical Information Provided by Patient: Has used the following medications: HRT (i.e. estrogen/hormone therapy), Vitamin D Has the following medical conditions: Cancer, Hysterectomy, breast cancer Patient maximum height was 62 Menopause Age: 42 No regular weight bearing exercise Drinks caffeinated beverages Onset of menses at age 13 Number of children 4 Impression: The patient has low bone mass, based on the Left Femoral Neck T-score. The patient has an estimated ten-year risk of hip fracture of 5.1% and an estimated ten-year risk of major fracture of 16%, based on the WHO FRAX algorithm. The BMD for the Total Hip(Left) decreased, changing by -7.5% since the last DXA exam. Discussion: BONE DENSITY IS LOW AT ONE OR MORE SKELETAL SITES. THE PATIENT'S BMD AND CLINICAL RISK FACTORS CONTRIBUTE TO THIS PATIENT'S INCREASED RISK OF FRACTURE. This patient's lowest T-score is low at one or more skeletal sites. It meets the World Health Organization's (WHO) criteria for ?low bone mass? (T-score between -1.0 and -2.5). The patient's 10-year risk of hip fracture as calculated by FRAX exceeds the threshold where pharmacological therapy is recommended by the National Osteoporosis Foundation (NOF). However, all treatment decisions require clinical judgment and consideration of individual patient factors, including patient preferences, comorbidities, previous drug use, risk factors not captured in the FRAX model (e.g., frailty, falls, vitamin D deficiency, increased bone turnover, interval significant decline in bone density) and possible under or overestimation of fracture risk by FRAX. The patient should follow a healthful lifestyle (good nutrition with adequate calcium and vitamin D, and appropriate weight-bearing exercise). Follow-Up: Consider a repeat BMD and Vertebral Fracture Assessment (VFA) exam in 2 years or sooner if medically necessary, to reassess this patient's status. Reported by: SHIRA on 06/06/2025 12:21:00 PM. Reviewed, dictated and finalized at location A.
== END 2025-06-06 11:57 | disposition home or self-care (01) ==
LOC: MICIMG 11:57
PROVIDERS: PCP Family Medicine
DX: Z78.0 Asymptomatic menopausal state (principal); M85.88 Other specified disorders of bone density and structure, other site; M85.852 Other specified disorders of bone density and structure, left thigh; M85.851 Other specified disorders of bone density and structure, right thigh
CPT/HCPCS: 77080

== ENCOUNTER 2025-06-12 15:32 | Outpatient (CLI) | payer MEDICARE, OTHER, SELFPAY ==
--- OUTSIDE RECORDS SUMMARY | 2025-06-12 14:30 | XMS_ITS | Encounter Summary ---
Author Organization [facility] Address [address] [place] [address] Care Team Providers Care Rn Occupational Name Role Phone Angus Chamberlain MD Primary Care Provider [phone] Reason for Referral * Radiology Services (Routine) - Open Specialty Diagnoses / Procedures Referred By Contabraham t Referred To Contact Diagnoses Visit for screening mammogram Procedures MAMMO 3D CRISTO SCREEN BILAT W OR WO CAD CHG SCREENING MAMMOGRAPHY BI 2-VIEW BREAST INC CAD CHG SCREENING DIGITAL BREAST TOMOSYNTHESIS BI Shahram Smith MD [address] [place] [address] Phone: tel: fax: Referral ID Status Reason Start Date Expiration Date Visits Re quested Visits Authorized [id number] Open 06/12/2025 07/13/2026 1 1 SAW OPERATOR Reason for Visit * Reason Comments Cancer Follow Up Encounter Details Date Type Department Care Team (Late st Contact Info) Description 06/12/2025 2:30 PM HOT SAW OPERATOR Office Visit [facility] Oncology and Hematology - [place] [address] [place] [address] [place] [address] [place] [address] Shahram Smith MD [address] [employer] [address] [address] [place] [address] Malignant neoplasm of central portion of right female breast, unspecified estrogen receptor status (CMS/HCC) (Primary Dx); Leukocytosis, unspecified type; Visit for screening mammogram Social History Tobacco Use Types Packs/Day Years Used Date Smoking Tobacco: Former Cigarettes 0.3 2 1 07/17/1956 - 05/17/1959 Comments:intermittent Alcohol Use Standard Drinks/Week Comments No 0 (1 standard drink = 0.6 oz pur e alcohol) Comments No Sex and Gender Information Value Date Recorded Sex Assigned at Not on file Legal Sex Female 7:15 PM HOT SAW OPERATOR Gender Identity Not on file Sexual Orientation Not on file documented as of this encounter Last Filed Vital Signs Vital Sign [place] Time Taken Comments Blood Pressure 151/74 06/12/2025 2:34 PM HOT SAW OPERATOR Pulse 91 06/12/2025 2:31 PM HOT SAW OPERATOR Temperature 36.5 C (97.7 F) 06/12/2025 2:31 PM HOT SAW OPERATOR Respiratory Rate 15 06/12/2025 2:31 PM HOT SAW OPERATOR Oxygen Saturation 90% 06/12/2025 2:31 PM HOT SAW OPERATOR Inhaled Oxygen Concentration - - Weight 75.1 kg (165 lb 9.6 oz) 06/12/2025 2:31 P M HOT SAW OPERATOR Height - - Body Mass Index 30.29 03/22/2022 11:07 AM CDT documented in this encounter Progress Notes * Shahram Smith MD - 06/12/2025 6:35 PM CST HEMATOLOGY / ONCOLOGY PROGRESS NOTE Patient Identification: Name: Zaynab Chang Age: 85 y.o. 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 Tumor was 3 mm in size. Vitamin B12 deficiency CURRENT TREATMENT Arimidex started May 2017 Oral vitamin B12 TREATMENT HISTORY Radiation therapy completed May 2017 SUBJECTIVE Patient came to the office for follow-up visit. She was recently found to have elevated WBC count but according to the patient she was dealing with a sinus infection then. Denies any fevers chills ornight sweats. Weight and appetite stable. No other new complaints. Review of system Constitutional: denies fevers, sweats, weight and appetite stable, denies any tiredness and fatigue HEENT: denies sinus congestion, hearing or vision problems Respiratory: denies cough, dyspnea, wheeze Cardiovascular: denies chest pain, exertional chest pressure/discomfort, nausea, syncope, shortnessof breath GI: denies constipation, diarrhea, dsyphagia, reflux symptoms, vomiting, melena, denies any nausea : denies dysuria, frequency, incontinence, urgency Integumentary system: no lymphadenopathy, sweats, flushing Musculoskeletal: denies: myalgia, arthralgia Neurological: denies blurry or disturbed vision, numbness/weakness, dizziness Skin: No lumps, bumps or rashes. 12 point review of system was reviewed Objective: Vital signs in last 24 hours: As per nursing note Exam: General appearance: alert, cooperative, no distress, appears stated age Head: normocephalic, without obvious abnormality, atraumatic Eyes: conjunctivae/corneas clear, EOM's intact Ears: normal external ear canals AU Nose: Nares normal. Septum midline. Mucosa normal. No drainage or sinus tenderness Throat: Lips, mucosa, and tongue normal. Teeth and gums normal Neck: supple, symmetrical, trachea midline. Lungs: clear to auscultation bilaterally Heart: regular rate and rhythm, S1, S2 normal, no murmur, click, rub or gallop Abdomen: soft, non-tender. Bowel sounds normal. No masses, No organomegaly Extremities: extremities normal, atraumatic, no cyanosis or edema Skin: Skin color, texture, turgor normal. No rashes or lesions Lymph nodes: No lymphadenopathy Neuro: No obvious focal deficit Bilateral breast examination showed postoperative changes in the right breast without any masses and lymphadenopathy Exam as above [facility] LAB[facility] Labs from July 09, 2019 showed WBC 10.0 hemoglobin 12.4 platelet 264,000 vitamin B12 760 creatinine 1.1 Labs from February 10 show WBC 11.6 hemoglobin 12.3 platelet 303,000 creatinine 1.0 total bilirubin 0.1 vitamin B12 849 Labs from August 04 showed creatinine 0.9 vitamin B12 792 hemoglobin 11.9 CA 27-29 was 22 Labs from April 02 2 WBC 10.7 hemoglobin 11.9 platelet 312,000 creatinine 1.2 Labs from September 08 showed WBC 9.9 hemoglobin 11.4 platelet 279,000 creatinine 1.3 Labs from March 22 2 WBC 11.6 hemoglobin 11 platelet 309,000 creatinine 1.3 Labs from September 06 showed WBC 10.5 hemoglobin 11.7 platelet 329,000 creatinine 1.3 CA 15-3 15 vitamin B12 more than 1000 Labs from March 17 showed hemoglobin 11.6 potassium was 6.9 creatinine was 1.9 calcium was 10 CA 15-3 17 Labs from September 29 showed creatinine 0.9 hemoglobin 11.9 CA 15-3 18 Labs from June 05 showed WBC 11.9 hemoglobin 11.8 platelet 335,000 neutrophils 68% creatinine 0.9 calcium 9.8 CA 15-3 25 Assessment: Plan: Patient Active Problem List Diagnosis Date Noted Estrogen receptor positive 02/08/2018 Chronic anemia 02/08/2018 History of therapeutic radiation 10/19/2017 Aromatase inhibitor use 10/19/2017 Vitamin D deficiency 10/19/2017 Malignant neoplasm of central portion of right breast in female, estrogen receptor positive ([facility]) 05/17/2017 T1 a N0 M0 stage I invasive ductal carcinoma right breast status post lumpectomy in April 2017. There is no evidence of relapse or disease on my examination. Mammogram done on March 22, 2025 showed no evidence of disease. Patient will continue anastrozole until this prescription ran out. I recommended monthly self breast examination and follow-up with me in 9 months. Leukocytosis. Likely reactive secondary to sinusitis. Will check C-reactive protein sedimentation rate and flow cytometric analysis now. Phone visit in 1 week. Anemia secondary to CKD and B12 deficiency. Stable. Continue vitamin B12. CKD. Continue to follow with the primary care physician. Bone health. Continue vitamin D. 06/12/2025 Shahram Smith MD SAW OPERATOR documented in this encounter Plan of Treatment Upcoming Encounters Date Type Department Care Team (Late st Contact Info) Description 06/19/2025 4:30 PM HOT SAW OPERATOR Telephone Check Up [facility] Oncology and Hematology [facility] [address] [place] [address] Shahram Smith MD [address] [place] [address] 03/14/2026 10:00 AM CDT Office Visit [facility] Oncology and Hematology [facility] [address] [place] [address] Shahram Smith MD [address] [facility] [address] [place] [address] Scheduled Orders Name Type Priority Associated Diagnoses Orde r Schedule CBC WITH DIFFERENTIAL Lab Stat Malignant neoplasm of central portion of right female breast, unspecified estrogen receptor status (CMS/HCC) Expected: 03/13/2026, Expires: 06/11/2026 COMPREHENSIVE METABOLIC PANEL Lab Stat Malignant neoplasm of central portion of right female breast, unspecified estrogen receptor status (CMS/HCC) Expected: 03/13/2026, Expires: 06/11/2026 CANCER ANTIGEN 15-3 Lab Routine Malignant neoplasm of central portion of right female breast, unspecified estrogen receptor status (CMS/HCC) Expected: 03/13/2026, Expires: 06/11/2026 C-REACTIVE PROTEIN Lab Routine Leukocytosis, unspecified type Expected: 06/12/2025, Expires: 06/12/2026 SEDIMENTATION RATE Lab Routine Leukocytosis, unspecified type Expected: 06/12/2025, Expires: 06/12/2026 FLOW CYTOMETRY PANEL Lab Routine Leukocytosis, unspecified type Expected: 06/12/2025, Expires: 06/12/2026 MAMMO 3D CRISTO SCREEN BILAT W OR WO CAD Imaging Routine Visit for screening mammogram Expected: 03/13/2026, Expires: 12/11/2026 documented as of this encounter Visit Diagnoses Diagnosis Malignant neoplasm of central portion of right female breast, unspecified estrogen receptor status (CMS/HCC)- Primary Leukocytosis, unspecified type Visit for screening mammogram Other screening mammogram documented in this encounter Care Teams Rn Occupational Relationship Specialty Start Date End Date Angus Chamberlain MD [address] [facility] [address] [place] [address] PCP - General Family Practice 05/17/17 documented as of this encounter
--- NOTE | 2025-06-12 15:47 | CY_PTH ---
PATIENT: Zaynab Chang LOC: [facility] #:[id number] AGE/SX: 85/F ROOM: RE06/12/[address]: Shahram Smith MD : 1940 BED: DIS: 06/12/2025 SPEC #: [id number] RECD: 06/13/25 08:08 STATUS: MONICA REQ #: [id number] TIGIST: 06/12/25 15:[address]: Shahram Smith DEPT: [facility] Cytology RECD BY: Christian Martinez ENTERED: 06/13/25 08:09 SP TYPE: Cytology OTHR DR: Angus Chamberlain MD Tissues: A - Peripheral Blood Procedures: Flow Cytometry
[2025-06-12 17:05] LABS: CRP 1.1 mg/dL (<1.0)
--- OUTSIDE RECORDS SUMMARY | 2025-06-12 20:36 | XMS_ITS | Encounter Summary ---
Author Organization [facility] Address [address] [place] [address] Care Team Providers Care Study Manager Name Role Phone Angus Chamberlain MD Primary Care Provider [phone] Reason for Visit * Reason Onset Date Comments Appointment 06/11/2025 Encounter Details Date Type Department Care Team (Late st Contact Info) Description 06/11/2025 Telephone [facility] - [address], [facility] [place] [place] [address] Greer Hampton, RN Appointment Social History Tobacco Use Types Packs/Day Years Used Date Smoking Tobacco: Never Smokeless Tobacco: Never Alcohol Use Standard Drinks/Week Comments No 0 (1 standard drink = 0.6 oz pur e alcohol) Comments Unknown Sex and Gender Information Value Date Recorded Sex Assigned at Not on file Legal Sex Female 5:26 PM REVIEW ANALYST Gender Identity Not on file Sexual Orientation Not on file documented as of this encounter Miscellaneous Notes * Telephone Encounter - Greer Hampton RN - 06/11/2025 10:42 AM REVIEW ANALYST Attempted to call patient to inform Dr. King will not be able to see he on 08/28/2025. Rescheduledon Tuesday10/09/2025/at 11:00 am No answer. Left message to call the office nurse line if this will not work out with her schedule. Mailed appointment reminder letter to current address. EW ANALYST documented in this encounter Plan of Treatment Upcoming Encounters Date Type Department Care Team (Late st Contact Info) Description 10/09/2025 11:00 AM CDT Office Visit [facility] - [place] [address] [facility] [place] [address] Javan King MD [facility] [place] [address] documented as of this encounter Visit Diagnoses Not on filedocumented in this encounter Care Teams Study Manager Relationship Specialty Start Date End Date Angus Chamberlain MD [address] [place] [address] PCP - General 11/28/13 documented as of this encounter
--- OUTSIDE RECORDS SUMMARY | 2025-06-12 20:36 | XMS_ITS | Clinical Summary ---
Author Organization [facility] Address [address] [place] [address] Care Team Providers Care Housing Project Manager Name Role Phone Angus Chamberlain MD Primary Care Provider [phone] Allergies Active Allergy Reactions Criticality Noted Date [...] 30 Tablet 3 0 Active Blood-Glucose Meter (Franchise FundTouch Ultra2 Meter) as directed 0 Active lisinopriL [...] Encounters Date Type Department Care Team Description 06/12/2025 2:30 PM HYDROPULPER OPERATOR Office Visit [facility] Oncology and Hematology - [place] [address] Shahram Smith MD Malignant neoplasm of central portion of right female breast, unspecified estrogen receptor status (CMS/HCC) (Primary Dx); Leukocytosis, unspecified type; Visit for screening mammogram 06/07/2025 Orders Only [facility] Oncology and Hematology - [place] [address] [place] [phone] Shahram Smith MD 06/06/2025 Orders Only [facility] Oncology and Hematology - [place] [address] [place] [address] Shahram Smith MD 03/29/2025 Orders Only [facility] Oncology and Hematology - [place] [address] [place] [address] Shahram Smith MD 03/21/2025 Refill [facility] Oncology and Hematology - [place] [address] [place] [address] Shahram Smith MD Malignant neoplasm of central portion of right female breast, unspecified estrogen receptor status (CMS/HCC) from Last 3 Months Family History Medical [...] on file Legal Sex Female 7:15 PM HYDROPULPER OPERATOR Gender Identity Not on file Sexual Orientation Not on file Last Filed Vital Signs Vital Sign Reading Time Taken Comments Blood Pressure 151/74 06/12/2025 2:34 PM HYDROPULPER OPERATOR Pulse 91 06/12/2025 2:31 PM HYDROPULPER OPERATOR Temperature 36.5 C (97.7 F) 06/12/2025 2:31 PM HYDROPULPER OPERATOR Respiratory Rate 15 06/12/2025 2:31 PM HYDROPULPER OPERATOR Oxygen Saturation 90% 06/12/2025 2:31 PM HYDROPULPER OPERATOR Inhaled Oxygen Concentration - - Weight 75.1 kg (165 lb 9.6 oz) 06/12/2025 2:31 P M HYDROPULPER OPERATOR Height 157.5 cm (5' 2) 03/22/2022 11:07 AM CDT Body Mass Index 30.29 03/22/2022 11:07 AM CDT Plan of Treatment Upcoming Encounters Date Type Department Care Team (Late st Contact Info) Description 06/19/2025 4:30 PM HYDROPULPER OPERATOR Telephone Check Up [facility] Oncology and Hematology [facility] [address] [place] [address] Shahram Smith MD [address] [facility] [address] [place] [phone] 03/14/2026 10:00 AM CDT Office Visit [facility] Oncology and Hematology [place] [address] [place] [address] Shahram Smith MD [address] [facility] [address] [place] [phone] Health Maintenance Due Date Last Done Comments [...] 04/02/2021, 03/19/2021, Additional history exists [place] ([place]) Preventative Visit/Annual Wellness Visit 07/04/2024 INFLUENZA VACCINE (#1) 2025 , 04/03/2018, 04/01/2017, Additional history exists COVID-19 Vaccine (2024-2 6 season) 2025 04/24/2025, 10/02/2020, 09/04/2020 Procedures Procedure Name Priority Date/Time Associated Diagnosis Comments CBC WITH AUTODIFFERENTIAL Routine 2024 11:35 AM HYDROPULPER OPERATOR CHG CA 15 3 Routine 06/05/2025 10:56 AM HYDROPULPER OPERATOR COMPREHENSIVE METABOLIC PANEL Routine 06/05/2025 9:58 AM HYDROPULPER OPERATOR MAMMO SCREENING BILAT Routine 03/22/2025 12:20 PM CDT from Last 3 Months Results * CBC WITH AUTODIFFERENTIAL (06/05/2025 11:35 AM HYDROPULPER OPERATOR) Blood us Shahram Smith MD HEMATOLOGY ORDERABLES Final Res ult * CHG CA 15 3 (06/05/2025 10:56 AM HYDROPULPER OPERATOR) us Shahram Smith MD CHG - LABORATORY Final Result * COMPREHENSIVE METABOLIC PANEL (06/05/2025 9:58 AM HYDROPULPER OPERATOR) Blood us Shahram Smith MD CHEMISTRY ORDERABLES Final Resu lt * MAMMO SCREENING BILAT (03/22/2025 12:20 PM CDT) Anatomical Region Laterality Modality Breast Bilateral Mammography us Shahram Smith MD MAMMO ORDERABLES Final Result from Last 3 Months Insurance [facility] [employer] [facility]NA [facility] Care Teams Housing Project Manager Relationship Specialty Start Date End Date Angus Chamberlain MD [address] [facility] [address] [place] [address] PCP - General Family Practice 05/17/17
--- OUTSIDE RECORDS SUMMARY | 2025-06-12 20:36 | XMS_ITS | Encounter Summary ---
Author Organization [facility] Address [address] [place] [address] Care Team Providers Care Grant Coordinator Name Role Phone Angus Chamberlain MD Primary Care Provider [phone] Encounter Details Date Type Department Care Team (Late Contact Info) Description 05/11/2017 Chart Note [facility] Radiation Therapy [address] [place] [address] [place] [address] [place] [address] Social History Tobacco Use Types Packs/Day Years Used Date Smoking Tobacco: Never Assessed Comments Unknown Sex and Gender Information Value Date Recorded Sex Assigned at Not on file Legal Sex Female 7:15 PM STITCHER UTILITY Gender Identity Not on file Sexual Orientation Not on file documented as of this encounter Plan of Treatment Upcoming Encounters Date Type Department Care Team (Late st Contact Info) Description 06/19/2025 4:30 PM STITCHER UTILITY Telephone Check Up [facility] Oncology and Hematology [facility] [address] [place] [address] Shahram Smith MD [address] [employer] [address] [place] [address] 03/14/2026 10:00 AM CDT Office Visit [facility] Oncology and Hematology [address] [place] [address] Shahram Smith MD [address] [employer] [address] [place] [address] documented as of this encounter Visit Diagnoses Not on filedocumented in this encounter Care Teams Grant Coordinator Relationship Specialty Start Date End Date Angus Chamberlain MD [address] [facility] [address] [place] [address] PCP - General Family Practice 05/17/17 documented as of this encounter
--- OUTSIDE RECORDS SUMMARY | 2025-06-12 20:36 | XMS_ITS | Clinical Summary ---
Author Organization [facility] Address [address] [place] [address] Care Team Providers Care Corporate Health Consultant Name Role Phone Angus Chamberlain MD Primary Care Provider [phone] Source Comments [facility],non-owned Affiliates and Associated Physician Practices is amultiple site organization consisting of ambulatory clinics and hospital sitesin [place], [place], [place] and [place]. This disclosure is being madepursuant to the Care Everywhere program and may not contain all information available regarding this patient. 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 Hypertension [...] of foot 07/17/2013 Diverticulitis of colon 12/15/2010 Encounters Date Type Department Care Team Description 06/11/2025 Telephone [facility] - [place] [address] [place] [address] Greer Hampton, RN Appointment from Last 3 Months Immunizations Immunization Administration Dates Next Due INFLUENZA [...] on file Legal Sex Female 5:26 PM ELECTRICAL ENGINEERING TECHNOLOGIST Gender Identity Not on file Sexual Orientation Not on file Last Filed Vital Signs Vital Sign Reading Time Taken Comments Blood Pressure 115/51 09/02/2014 12:00 PM ELECTRICAL ENGINEERING TECHNOLOGIST Pulse 64 09/02/2014 12:00 PM ELECTRICAL ENGINEERING TECHNOLOGIST Temperature 36.5 C (97.7 F) 09/02/2014 12:00 PM ELECTRICAL ENGINEERING TECHNOLOGIST Respiratory Rate 16 09/02/2014 12:00 PM ELECTRICAL ENGINEERING TECHNOLOGIST Oxygen Saturation 93% 09/02/2014 12:00 PM ELECTRICAL ENGINEERING TECHNOLOGIST Inhaled Oxygen Concentration - - Weight 77.1 kg (170 lb) 09/02/2014 8:22 AM ELECTRICAL ENGINEERING TECHNOLOGIST Height 157.5 cm (5' 2) 09/02/2014 8:22 AM ELECTRICAL ENGINEERING TECHNOLOGIST Body Mass Index 31.09 09/02/2014 8:22 AM ELECTRICAL ENGINEERING TECHNOLOGIST Plan of Treatment Upcoming Encounters Date Type Department Care Team (Late st Contact Info) Description 10/09/2025 11:00 AM CDT Office Visit [facility] - [address] [place] [address] Javan King MD [address] [place] [address] Health Maintenance Due Date Last Done Comments [...] patient's age to complete this topic Insurance [facility] MANAGED MEDICARE ADV AETNA MEDICARE ADV SELF PAY NO INSURANCE Member Subscriber Plan / Payer (Ef fective for All Dates) Name:Aicha Oliver Member ID:Not on file Relation to Subscriber:Not on file Name:AICHA OLIVER Subscriber ID:Not on file (Home) Address: [address] [place] [address] [address] [place] [address] Payer ID:Not on file Group ID:Not on file Type:Self Pay Address: [place], [place] Care Teams Corporate Health Consultant Relationship Specialty Start Date End Date Angus Chamberlain MD [address] [place], [place] [id number] PCP - General 11/28/13
--- OUTSIDE RECORDS SUMMARY | 2025-06-12 20:36 | XMS_ITS ---
Author Organization [facility] [address] Address [address] [place] [address] Care Team Providers Care Corporate Ethics Officer Name Role Phone Randee Esparza Unavailable [phone] Angus Chamberlain MD Primary Care Provider Montana Kenrs NP Unavailable [phone] Active Problems Problem Noted Date Diagnosed Date [...] 24-2 Assessment & Plan (07/18/2024 10:15 PM FARM EQUIPMENT TECHNICIAN): Referred by Dr. Brooks for NTG OU. [...] scheduled Assessment & Plan (07/18/2024 10:13 PM FARM EQUIPMENT TECHNICIAN): F/U with Dr. Cheung as scheduled Bilateral [...] 07/03/20 Assessment & Plan (07/14/2020 3:32 PM FARM EQUIPMENT TECHNICIAN): By MRI the patient was found to [...] proceed Assessment & Plan (07/03/2020 9:20 AM FARM EQUIPMENT TECHNICIAN): Patient is experiencing recurring locking her knee [...] activities. Assessment & Plan (08/12/2022 11:06 AM FARM EQUIPMENT TECHNICIAN): Patient has reactive synovitis of both of [...] seating. Assessment & Plan (06/19/2020 5:14 PM FARM EQUIPMENT TECHNICIAN): Patient's right knee is doing well. Her left knee is improved following the injection although she may have more medially based pain as that is the location of her more advanced arthritis. 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
--- OUTSIDE RECORDS SUMMARY | 2025-06-12 20:36 | XMS_ITS | Encounter Summary ---
Author Organization [facility] Healthcare Address [address] [place] [address] Care Team Providers Care Rear Load Truck Driver Name Role Phone Angus Chamberlain MD Primary Care Provider Randee Esparza Unavailable [phone] Jad Herring MD Primary Care Provider [phone] Angus Chamberlain MD Primary Care Provider Montana Kerns NP Unavailable [phone] Encounter Details Date Type Department Care Team (Late st Contact Info) Description 10/19/2017 Orders Only [facility] Health Information Management [address] [place] [address] Scanning, Provider Social History Tobacco Use Types Packs/Day Years Used Date Smoking Tobacco: Never Smokeless Tobacco: Never Alcohol Use Standard Drinks/Week Comments No 0 (1 standard drink = 0.6 oz pur e alcohol) Comments Unknown Sex and Gender Information Value Date Recorded Sex Assigned at Not on file Legal Sex Female 10:06 AM SOLUTIONS MARKET CONSULTANT Gender Identity Not on file Sexual [...] on filedocumented in this encounter Care Teams Rear Load Truck Driver Relationship Specialty Start Date End Date Angus Chamberlain MD [address] [facility] [address] [place] [address] PCP - General 10/01/16 02/14/23 Jad Herring MD [address] [place] [address] PCP - General Family Medicine 02/15/23 04/27/23 Angus Chamberlain MD [address] [facility] [address] [place] [address] PCP - General Family Medicine 04/28/23 [place] [address] [address] [facility] [address] [place] [address] Physician Glove Maker Orthopedic Surgery 08/15/20 [place] [address] [address] [facility] [address] [place] [address] Nurse Practitioner Nurse Practitioner 06/11/24 documented as of this encounter
--- OUTSIDE RECORDS SUMMARY | 2025-06-12 20:36 | XMS_ITS | Encounter Summary ---
Author Organization [facility] Healthcare Address [address] [place] [address] Care Team Providers Care Certified Forklift Operator Name Role Phone Randee Esparza Unavailable [phone] Angus Chamberlain MD Primary Care Provider Montana Kerns NP Unavailable [phone] Encounter Details Date Type Department Care Team (Late st Contact Info) Description 07/09/2024 Orders Only [facility] Health Information Management [address] [place] [address] Jimmy Salazar MD [address] [facility] C [address] [facility] C, [address] [place] [address] Social History Tobacco Use Types [...] on file Legal Sex Female 10:06 AM MATE SHIP Gender Identity Not on file Sexual Orientation [...] on filedocumented in this encounter Care Teams Certified Forklift Operator Relationship Specialty Start Date End Date Angus Chamberlain MD [address] [place] [address] PCP - General Family Medicine 04/28/23 [place] [address] [facility] [address] [place] [address] Physician Stick Roller Orthopedic Surgery 08/15/20 [place] [address] [facility] [address] [place] [address] Nurse Practitioner Nurse Practitioner 06/11/24 documented as of this encounter
--- OUTSIDE RECORDS SUMMARY | 2025-06-12 20:36 | XMS_ITS | Encounter Summary ---
Author Organization [facility] JOSE RAM[facility] [employer] Address [address] [place] [address] Care Team Providers Care Fabrication Inspector Name Role Phone Angus Chamberlain MD Primary Care Provider Encounter Details Date Type Department Care Team (Late Contact Info) Description 06/07/2025 Orders Only [facility] Oncology and Hematology - [place] [address] [place] [address] Shahram Smith MD [address] [place] [address] Social History Tobacco Use Types Packs/Day Years Used Date Smoking Tobacco: Former Cigarettes 0.3 2 1 07/17/1956 - [birth year]17/1960 Comments:intermittent Alcohol Use Standard Drinks/Week Comments No 0 (1 standard drink = 0.6 oz pur e alcohol) Comments No Sex and Gender Information Value Date Recorded Sex Assigned at Not on file Legal Sex Female 7:15 PM PRIMING MACHINE OPERATOR Gender Identity Not on file Sexual Orientation Not on file documented as of this encounter Plan of Treatment Upcoming Encounters Date Type Department Care Team (Late Contact Info) Description 06/19/2025 4:30 PM PRIMING MACHINE OPERATOR Telephone Check Up [facility] Oncology and Hematology - [place] [place] [address] Shahram Smith MD [address] [place] [address] 03/14/2026 10:00 AM CDT Office Visit [facility] Oncology and Hematology - [place] [place] [address] Shahram Smith MD [address] [facility] [address] [place] [address] documented as of this encounter Procedures Procedure Name Priority Date/Time Associated Diagnosis Comments CHG CA 15 3 Routine 06/05/2025 10:56 AM PRIMING MACHINE OPERATOR COMPREHENSIVE METABOLIC PANEL Routine 06/05/2025 9:58 AM PRIMING MACHINE OPERATOR documented in this encounter Results * CHG CA 15 3 (06/05/2025 10:56 AM PRIMING MACHINE OPERATOR) us Shahram Smith MD CHG - LABORATORY Final Result * COMPREHENSIVE METABOLIC PANEL (06/05/2025 9:58 AM PRIMING MACHINE OPERATOR) Blood us Shahram Smith MD CHEMISTRY ORDERABLES Final Resu lt documented in this encounter Visit Diagnoses Not on filedocumented in this encounter Care Teams Fabrication Inspector Relationship Specialty Start Date End Date Angus Chamberlain MD [address] [facility] [address] [place] [address] PCP - General Family Practice 05/17/17 documented as of this encounter
--- OUTSIDE RECORDS SUMMARY | 2025-06-12 20:36 | XMS_ITS | Encounter Summary ---
Author Organization [facility] Healthcare Address [address] [place] [address] Care Team Providers Care Tobacco Cutter Name Role Phone Randee Esparza Unavailable [phone] Angus Chamberlain MD Primary Care Provider Montana Kerns NP Unavailable [phone] Encounter Details Date Type Department Care Team (Late st Contact Info) Description 10/16/2024 Telephone [facility] [address] [place] [address] [place] [address] [facility] [address] [place] [address] Social History Tobacco Use Types [...] on file Legal Sex Female 10:06 AM BUSINESS DEVELOPMENT ASSOCIATE Gender Identity Not on file Sexual Orientation Not on file documented as of this encounter Plan of Treatment Not on file documented as of this encounter Visit Diagnoses Not on filedocumented in this encounter Care Teams Tobacco Cutter Relationship Specialty Start Date End Date Angus Chamberlain MD [address] [place] [address] PCP - General Family Medicine 04/28/23 [place] [address] [address] [facility] [address] [place], [place] [id number] Physician Valet Cashier Orthopedic Surgery 08/15/20 [place] [address] [address] [facility] [address] [place] [address] Nurse Practitioner Nurse Practitioner 06/11/24 documented as of this encounter
--- OUTSIDE RECORDS SUMMARY | 2025-06-12 20:36 | XMS_ITS | Clinical Summary ---
Author Organization [facility] [address] Address [address] [place] [address] Care Team Providers Care Calculating Machine Mechanic Name Role Phone Randee Esparza Unavailable [phone] Angus Chamberlain MD Primary Care Provider Montana Kerns NP Unavailable [phone] Allergies Active Allergy Reactions Criticality Noted Date [...] mg total) by mouth daily 0 Active VaxCareTouch Ultra Blue Test Strip strip UTD TO TEST BLOOD SUGAR ONCE A DAY 0 Active VaxCareTouch Ultra2 Meter misc as directed 0 Active Tradjenta 5 mg tablet Take 1 tablet (5 mg total) by mouth every morning 3 Active omeprazole (PriLOSEC) 40 mg capsule Take 1 capsule (40 mg total) by mouth daily Active blood glucose diagnostic strip by other route Active nitroglycerin (NITROSTAT) 0.4 mg SL tabletIndications: Coronary artery disease of [place] artery of [place] heart with stable angina pectoris Place 1 [...] 24-2 Assessment & Plan (07/18/2024 10:15 PM AIRPLANE PILOT HELPER): Referred by Dr. Brooks for NTG OU. [...] scheduled Assessment & Plan (07/18/2024 10:13 PM AIRPLANE PILOT HELPER): F/U with Dr. Cheung as scheduled Bilateral [...] 07/03/20 Assessment & Plan (07/14/2020 3:32 PM AIRPLANE PILOT HELPER): By MRI the patient was found to [...] proceed Assessment & Plan (07/03/2020 9:20 AM AIRPLANE PILOT HELPER): Patient is experiencing recurring locking her knee [...] activities. Assessment & Plan (08/12/2022 11:06 AM AIRPLANE PILOT HELPER): Patient has reactive synovitis of both of [...] seating. Assessment & Plan (06/19/2020 5:14 PM AIRPLANE PILOT HELPER): Patient's right knee is doing well. Her left knee is improved following the injection although she may have more medially based pain as that is the location of her more advanced arthritis. 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 Malignant [...] Department Care Team Description 05/17/2025 Orders Only [facility] Radiation Oncology [address] [phone] Angel Castano MD PhD from Last 3 [...] on file Legal Sex Female 10:06 AM AIRPLANE PILOT HELPER Gender Identity Not on file Sexual [...] AM CDT Coronary artery disease involving [place] coronary artery of [place] heart without angina pectoris Hyperlipidemia associated with [...] BLOOD ORDERABLES Final Res ult DAMIR RENEE [address] [place] [address] * POCT lipid panel (03/23/2017 [...] Most Recently Relevant to Health Maintenance Insurance [employer] Member Subscriber Plan / Payer (Ef fective 2017-Present) Name:Zaynab Oliver Relation to Subscriber:Spouse Name:BENITOVANCE Date of :1947 (Home) Address: [address] [place] [address] Payer ID:[id number] (NAIC) Group ID:Not on file Type:Vitals ([email or web address]) Address: [facility] [address] [place] [address] AET MEDICARE FOR LIFE T MEDICARE FOR LIFE AET MEDICARE Care Teams Calculating Machine Mechanic Relationship Specialty Start Date End Date Angus Chamberlain MD [address] [place] [address] PCP - General Family Medicine 04/28/23 [place] [address] [address] [facility] [address] [place] [address] Physician Psychologist Developmental Orthopedic Surgery 08/15/20 [place] [id number] [address] [facility] [address] [place] [address] Nurse Practitioner Nurse Practitioner 06/11/24
--- OUTSIDE RECORDS SUMMARY | 2025-06-12 20:36 | XMS_ITS | Encounter Summary ---
Author Organization [facility] Derrick Covario Address [address] [place] [address] Care Team Providers Care Hop Worker Name Role Phone Angus Chamberlain MD Primary Care Provider Encounter Details Date Type Department Care Team (Late Contact Info) Description 06/06/2025 Orders Only [facility] Oncology and Hematology - Juanjo [address] [place] [address] Shahram Smith MD [address] [place] [phone] Social History Tobacco Use Types Packs/Day Years Used Date Smoking Tobacco: Former Cigarettes 0.3 2 1 07/17/1956 - 05/17/1959 Comments:intermittent Alcohol Use Standard Drinks/Week Comments No 0 (1 standard drink = 0.6 oz pur e alcohol) Comments No Sex and Gender Information Value Date Recorded Sex Assigned at Not on file Legal Sex Female 7:15 PM OCCUPATIONAL THERAPY AIDE Gender Identity Not on file Sexual Orientation Not on file documented as of this encounter Plan of Treatment Upcoming Encounters Date Type Department Care Team (Late Contact Info) Description 06/19/2025 4:30 PM OCCUPATIONAL THERAPY AIDE Telephone Check Up [facility] Oncology and Hematology - Juanjo [address] [place] [address] Shahram Smith MD [address] [place] [address] 03/14/2026 10:00 AM CDT Office Visit [facility] Oncology and Hematology - Juanjo [address] [place] [address] Shahram Smith MD [address] [facility] [address] [place] [address] documented as of this encounter Procedures Procedure Name Priority Date/Time Associated Diagnosis Comments CBC WITH AUTODIFFERENTIAL Routine 2024 11:35 AM OCCUPATIONAL THERAPY AIDE documented in this encounter Results * CBC WITH AUTODIFFERENTIAL (06/05/2025 11:35 AM OCCUPATIONAL THERAPY AIDE) Blood Shahram Smith MD HEMATOLOGY ORDERABLES Final Res ult documented in this encounter Visit Diagnoses Not on filedocumented in this encounter Care Teams Hop Worker Relationship Specialty Start Date End Date Angus Chamberlain MD [address] [facility] [address] [place] [address] PCP - General Family Practice 05/17/17 documented as of this encounter
== END 2025-06-12 15:33 | disposition home or self-care (01) ==
LOC: ANHLAB 15:33
PROVIDERS: PCP Family Medicine; Visit Provider Internal Medicine Hematology & Oncology
DX: D72.829 Elevated white blood cell count, unspecified (principal)
CPT/HCPCS: 36415; 85652; 86140; 88184